=== PATIENT | male | born 1960 | race Caucasian/White ===

== ENCOUNTER 2018-08-03 01:24 | Inpatient (IN) | payer SELFPAY ==
[2018-08-03 01:57] LABS: Bilirubin Negative (Negative); Blood, Urine Trace (Negative); Clarity CLEAR (Clear); Glucose, Urine (Dipstick) >=1000 mg/dL (Negative); Leukocyte Negative (Negative); Nitrite Negative (Negative); Protein, Urine (Dipstick) Negative (Neg-Trace); Urobilinogen 0.2 mg/dL (0.2-1.0); pH, Urine 6.5 (5.0-9.0)
[2018-08-03] MEDS ORDERED: Labetalol HCl 100 MG/20 ML VIAL ONE ×2 (02:10→02:11)
[2018-08-03] MEDS ORDERED: Nitroglycerin 50 MG/250 ML BOT 250 ML ONE (02:10)
[2018-08-03 02:13] LABS: RBC/HPF 0-3 HPF (0-3); WBC/HPF 0-3 HPF (0-3)
[2018-08-03 02:14] LABS: Bacteria/HPF None Seen HPF (None Seen); Hyaline Casts/LPF NONE SEEN LPF (0-3 Hyaline); Squamous Epithelial None Seen HPF (0-3)
[2018-08-03 02:18] LABS: #Basophils 0.1 thou/uL (0.0-0.2); #Eosinphils 0.1 thou/uL (0.0-0.7); #Lymphocytes 1.5 thou/uL (1.20-3.40); #Monocytes 1.2 thou/uL (0.11-0.59); #Neutrophils 13.6 thou/uL (1.40-6.50); %Basophils 0.6 % (0.0-1.0); %Eosinophils 0.7 % (0.0-10.0); %Lymphocytes 8.9 % (21.0-51.0); %Monocytes 7.4 % (0.0-10.0); %Neutrophils 82.5 % (42.0-75.0); Hemoglobin 14.1 g/dL (14.0-18.0); Mean Corpuscular HGB CONC 34.3 g/dL (32.0-36.0); Mean Corpuscular Hemoglobin 30.2 pg (27.0-31.0); Mean Corpuscular Volume 88.1 fL (78.0-98.0); Mean Platelet Volume 10.1 fL (7.4-10.4); Platelet Count 381 thou/uL (130-400); RBC Distribution Width 11.3 % (11.5-14.5); Red Blood Cell (RBC) Count 4.66 mill/uL (4.70-6.10); White Blood Cell (WBC) Count 16.5 thou/uL (4.8-10.8)
[2018-08-03 02:30] LABS: Amphetamine Not Detected (NotDetected); Barbiturates Screen Not Detected (NotDetected); Benzodiazepine Screen Not Detected (NotDetected); Cocaine Metabolite Screen Not Detected (NotDetected); Medtox Control Line Valid? VALID (VALID); Medtox Reader # READER 4; Methadone Not Detected (NotDetected); Methamphetamine Not Detected (NotDetected); Opiate Screen Not Detected (NotDetected); Oxycodone Screen Not Detected (NotDetected); Phencyclidine (PCP) Not Detected (NotDetected); THC/Cannabinoid Screen Not Detected (NotDetected); Tricyclic Screen Not Detected (NotDetected)
[2018-08-03 02:32] LABS: CKMB 1.5 ng/mL (0-6.6); Troponin I Less than 0.010 ng/mL (< 0.028)
[2018-08-03 02:34] LABS: ALT (SGPT) 10 U/L (8-55); AST (SGOT) 10 U/L (5-34); Albumin 4.5 g/dL (3.5-5.0); Alkaline Phosphatase 119 U/L (40-150); Anion Gap 23 mmol/L (10-20); BUN (Urea Nitrogen) 40 mg/dL (8.4-25.7); Bilirubin, Total 0.8 mg/dL (0.2-1.2); Calc. Creatinine Clearance 0 mL/min (70-130); Calcium 10.1 mg/dL (7.8-10.44); Carbon Dioxide 21 mmol/L (22-29); Chloride 90 mmol/L (98-107); Estimated GFR-MDRD 29; Globulin 3.1 g/dL (2.4-3.5); Potassium 4.2 mmol/L (3.5-5.1); Protein, Total 7.6 g/dL (6.0-8.3); Sodium 130 mmol/L (136-145)
[2018-08-03 02:41] LABS: Base Excess-Venous 0.2 mmol/L (0 (+/- 2.5)); Bicarbonate (HCO3v) 23.3 mmol/L (1.0-85.0); CO2 Tension (PvCO2) 32.6 mmHg (41.0-51.0); Hemoglobin - Calc 15.3 g/dL (12.0-18.0); O2 Tension (PvO2) 68.1 mmHg (35.0-45.0); Potassium 3.7 mmol/L (3.4-4.7); T. Carbon Dioxide 24.3 mmol/L (1.0-85.0); pH (Venous) 7.461 (7.35-7.45); vO2 Saturation-calc 94.5 % (94-98)
[2018-08-03 02:41] LABS: Acetaminophen Less than 6.0 mcg/mL (10.0-30.0); Salicylate Less than 8.0 mg/dL (15.0-30.0)
[2018-08-03 02:49] LABS: Glucose 710 mg/dL (70-105)
[2018-08-03] MEDS ORDERED: Insulin Regular 300 UNITS/3 ML VIAL ONE (03:27)
[2018-08-03 04:05] LABS: Alcohol Less than 10 mg/dL (Less than 10)
[2018-08-03 05:10] VITALS: BMI 24.5
[2018-08-03] MEDS ORDERED: Dextrose 5% in Water 1,000 ML IV PRN ×2 (05:16→13:37)
[2018-08-03] MEDS ORDERED: Sodium Chloride 0.9% 1,000 ML IV PRN ×5 (05:16→05:38)
[2018-08-03] MEDS ORDERED: Dextrose 5 %-0.45 % NaCl 1,000 ML IV PRN (05:16)
[2018-08-03] MEDS ORDERED: D5 1/2 NS w/20 mEq KCL 1,000 ML IV PRN (05:16)
[2018-08-03] MEDS ORDERED: NS 0.9% w/ 20 MEQ KCL 1,000 ML/1,000 ML BAG IV PRN ×2 (05:16)
[2018-08-03] MEDS ORDERED: Potassium Phosphate 12 MMOL in Sodium Chloride 0.9% 250 ML 250 ML IV PRN ×2 (05:17→05:43)
[2018-08-03] MEDS ORDERED: Potassium Phosphate 9 MMOL in Sodium Chloride 0.9% 100 ML IVPB PRN ×2 (05:17→05:43)
[2018-08-03] MEDS ORDERED: Potassium Phosphate 15 MMOL in Sodium Chloride 0.9% 250 ML 250 ML IV PRN ×2 (05:17→05:43)
[2018-08-03] MEDS ORDERED: Potassium Chloride 20 MEQ TAB PO PRN ×2 (05:17→05:43)
[2018-08-03] MEDS ORDERED: CCU ELECTROLYTE REPLACEMENT PROTOCOL FS PRN ×2 (05:17→05:43)
[2018-08-03] MEDS ORDERED: Magnesium Oxide 400 MG TAB PO PRN ×4 (05:17→05:43)
[2018-08-03] MEDS ORDERED: Potassium Chloride 40 MEQ in Sodium Chloride 0.9% 250 ML 250 ML IVPB PRN ×2 (05:17→05:43)
[2018-08-03] MEDS ORDERED: Magnesium 2 GM/NS 0.9% 100 ML 2 GM in Premix Bag 1 BAG IVPB PRN ×2 (05:17→05:43)
[2018-08-03] MEDS ORDERED: Potassium Chloride 40 MEQ in Premix Bag 1 BAG IVPB PRN ×2 (05:17→05:43)
[2018-08-03] MEDS ORDERED: Dextrose 50% Abboject 50 ML SYRINGE SLOW IVP PRN (05:17)
[2018-08-03] MEDS ORDERED: Ondansetron ODT 4 MG TAB SL PRN (05:20)
[2018-08-03] MEDS ORDERED: Acetaminophen 325 MG TAB PO PRN ×2 (05:20→07:10)
[2018-08-03] MEDS ORDERED: Ondansetron HCl/PF 4 MG/2 ML Vial IVP PRN ×2 (05:20→07:10)
[2018-08-03] MEDS ORDERED: Morphine 4 MG/ML VIAL IV PRN (05:21)
[2018-08-03] MEDS ORDERED: CCU Insulin Drip FS ONE (05:30)
[2018-08-03] MEDS ORDERED: Nitroglycerin 50 MG/250 ML BOT 250 ML IVPB SCH (05:30)
[2018-08-03] MEDS ORDERED: CCU Electrolyte Replacement 1 EACH FS ONE (05:31)
[2018-08-03] MEDS ORDERED: Bisacodyl 5 MG TAB PO PRN (05:32)
[2018-08-03 06:41] LABS: Anion Gap 21 mmol/L (10-20); BUN (Urea Nitrogen) 39 mg/dL (8.4-25.7); Calc. Creatinine Clearance 37 mL/min (70-130); Calcium 9.3 mg/dL (7.8-10.44); Carbon Dioxide 18 mmol/L (22-29); Chloride 96 mmol/L (98-107); Estimated GFR-MDRD 30; Potassium 3.2 mmol/L (3.5-5.1); Sodium 132 mmol/L (136-145)
[2018-08-03 06:43] LABS: Glucose 707 mg/dL (70-105)
[2018-08-03] MEDS ORDERED: Mag-Al 1200 mg/1200 mg/30 ML UDCUP PO PRN (07:10)
[2018-08-03] MEDS ORDERED: Labetalol HCl 100 MG/20 ML VIAL SLOW IVP PRN (07:10)
[2018-08-03] MEDS ORDERED: Milk Of Magnesia 30 ML UDCUP PO PRN (07:10)
[2018-08-03] MEDS ORDERED: Diabetic Tussin 200 MG/10 ML UDCUP PO PRN (07:10)
[2018-08-03] MEDS ORDERED: Chloraseptic Spray 180 ml Bottle PO PRN (07:10)
[2018-08-03] MEDS ORDERED: Ondansetron ODT 4 MG TAB PO PRN (07:10)
[2018-08-03] MEDS ORDERED: Loratadine 10 MG TAB PO PRN (07:10)
[2018-08-03] MEDS ORDERED: Senokot 8.6 MG TAB PO PRN (07:10)
[2018-08-03] MEDS ORDERED: HYDROcodone/Acetaminophen 5/325 mg Tablet PO PRN (07:10)
[2018-08-03] MEDS ORDERED: Sodium Chloride 0.65% Nasal 44 ML BOT EA NARE PRN (07:10)
[2018-08-03] MEDS ORDERED: Artificial Tears 18 DROP/0.9 ML EA EYE PRN (07:10)
[2018-08-03] MEDS ORDERED: Loperamide HCl 2 MG CAP PO PRN (07:10)
[2018-08-03] MEDS ORDERED: Zolpidem Tartrate 5 MG TAB PO PRN (07:10)
[2018-08-03] MEDS ORDERED: Eucerin (Mineral Oil/Petrolatum,White) 30 gm Jar TOP PRN (07:10)
[2018-08-03] MEDS ORDERED: hydrALAZINE 20 MG/ML VIAL SLOW IVP PRN (07:10)
[2018-08-03 08:17] LABS: Magnesium 2.2 mg/dL (1.6-2.6); Phosphorus 2.6 mg/dL (2.3-4.7)
--- NOTE | 2018-08-03 08:38 | CT ---
PRELIMINARY REPORT/[facility]/EMERGENCY AFTER HOURS PROCEDURE: EXAM: CT Angiography Chest With Intravenous Contrast CLINICAL HISTORY: 57 years old, male; Chest pressure; Left lower quadrant (llq) abd pain onset 2-3 days ago. Constipati on. Pt not sleeping well due to having to urinate frequently during the night. 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 TECHNIQUE: Axial computed tomographic angiography images of the chest with intravenous contrast using pulmonary embolism protocol. MIP reconstructed images were created and reviewed. COMPARISON: No relevant prior studies available. FINDINGS: Pulmonary arteries: No evidence of pulmonary embolism. Aorta: Normal caliber thoracic aorta without dissection or aneurysm. Lungs: No alveolar infiltrate. Medial right middle lobe linear parenchymal scarring or subsegmental c ollapse / atelectasis. No mass. Pleural space: No pleural fluid collection. No pneumothorax. Heart: No pericardial effusion. No evidence of RV dysfunction. Bones/joints: No acute fracture. No dislocation. Soft tissues: Unremarkable. Lymph nodes: No pathologically enlarged lymph nodes. IMPRESSION: 1. Normal caliber thoracic aorta without dissection or aneurysm. 2. No evidence of pulmonary embolism. 3. No alveolar infiltrate. EXAM: CT Angiography Abdomen and Pelvis With Intravenous Contrast CLINICAL HISTORY: 57 years old, male; Chest pressure; Left lower quadrant (llq) abd pain onset 2-3 days ago. Constipati on. Pt not sleeping well due to having to urinate frequently during the night. 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 TECHNIQUE: Axial computed tomographic angiography images of the abdomen and pelvis with intravenous contrast. LA P reconstructed images were created and reviewed. COMPARISON: No relevant prior studies available. FINDINGS: VASCULATURE: Aorta: No acute findings. No abdominal aortic aneurysm. No dissection. Celiac trunk and mesenteric arteries: No acute findings. No occlusion or significant stenosis. Renal arteries: No acute findings. No occlusion or significant stenosis. Iliac arteries: No acute findings. No occlusion or significant stenosis. Lung bases: Unremarkable. No mass. No consolidation. ABDOMEN: Liver: Small focal areas of enhancement within the superior right lobe of the liver and adjacent to t he anterior falciform ligament which may reflect small hemangiomas. Liver fatty infiltration. Gallbladder and bile ducts: Unremarkable. No calcified stones. No ductal dilation. Pancreas: Unremarkable. No ductal dilation. No mass. Spleen: Unremarkable. No splenomegaly. Adrenals: Unremarkable. No mass. Kidneys and ureters: Bilateral distended renal collecting systems to the level of each UVJ / the dist ended urinary bladder. Anteromedial left perinephric stranding which may reflect a left pyelonephriti s. No hydronephrosis. Stomach and bowel: Scattered colon diverticuli without evidence of diverticulitis. No obstruction. PELVIS: Appendix: No findings to suggest acute appendicitis. Bladder: Severely distended urinary bladder extending cephalad to the L3-4 disc space level. A few sm all diverticula extending from the superior bladder. Reproductive: Enlarged prostate gland measuring 5.7 cm transversely. ABDOMEN and PELVIS: Intraperitoneal space: Unremarkable. No significant fluid collection. No free air. Bones/joints: See above. Soft tissues: Small fat-containing umbilical hernia. Small fat-containing inguinal hernias. Lymph nodes: Unremarkable. No enlarged lymph nodes. IMPRESSION: 1. Enlarged prostate gland measuring 5.7 cm transversely. 2. Severely distended urinary bladder extending cephalad to the L3-4 disc space level. 3. Bilateral distended renal collecting systems to the level of each UVJ / the distended urinary blad vibha. 4. Anteromedial left perinephric stranding which may reflect a left pyelonephritis. 5. Scattered colon diverticuli without evidence of diverticulitis. 6. The abdominal aorta is normal in caliber without aneurysm or dissection. Thank you for allowing us to participate in the care of your patient. Dictated and Authenticated by: Gt Aleman MD 08/03/2018 3:35 AM Central Time ([place] & [place]) FINAL REPORT CT ANGIOGRAM OF THE CHEST AND ABDOMEN AND PELVIS: Date: 08/03/18 HISTORY: Chest pressure, abdominal pain. FINDINGS: This report is in agreement with the preliminary report given by [facility]. Study is performed with gómez l and sagittal 3D reformatted imaging. CT angiogram of the chest demonstrates no evidence for lymphadenopathy. No pleural, pericardial, or m ediastinal fluid. The thoracic aorta demonstrates no evidence for aneurysm or dissection. Evaluation of the lung parenchyma is slightly limited by motion artifact and appears grossly unremark able. The osseous structures of the chest demonstrate no acute findings. CT angiogram of abdomen and pelvis demonstrates no evidence for free intraperitoneal air. There is a hypervascular focus in the anterior aspect of the left lobe of the liver, likely vascular in nature. A similar hypervascular focus is noted in the right lobe of the liver on image 85. These h ypervascular foci measure 8-9 mm each. The gallbladder, spleen, pancreas, and adrenal glands are unre markable. There is bilateral hydronephrosis and hydroureter. The urinary bladder is distended. There is nonspec ific superior urinary bladder wall thickening at the level of the urinary bladder dome. The distended urinary bladder measures at least 11.5 cm in AP dimension, 11.3 cm in transverse dimension, and at l east 17.0 cm in craniocaudal dimension. The prostate gland is irregular, heterogeneous, and enlarged. There is stranding of the fat adjacent to the dilated left ureter and adjacent to the left renal col lecting system. There is no evidence for aneurysm or dissection of the abdominal aorta. There are two patent right re nal arteries and there is a patent left renal artery. The superior mesenteric artery, celiac axis, an d inferior mesenteric artery are patent. No lymphadenopathy is noted within the abdomen or pelvis. Review of osseous structures of the abdomen and pelvis demonstrate no acute findings. Scattered degen erative changes are noted within the upper thoracic spine/thoracolumbar junction. IMPRESSION: 1. No evidence for aneurysm or dissection of the thoracic or abdominal aorta. 2. Markedly distended urinary bladder with associated bilateral hydronephrosis/hydroureter. Strandin g in the left perinephric region and adjacent to the left ureter is likely secondary to this obstruct ion. Left-sided pyelonephritis cannot be excluded. POS: [facility]
[2018-08-03] MEDS ORDERED: Pantoprazole 40 MG VIAL IVP SCH (09:00)
[2018-08-03] MEDS: cefTRIAXone\\ROCEPHIN 1 GM in Sodium Chloride 0.9% 100 ML IVPB SCH (09:12)
--- NOTE | 2018-08-03 09:32 | RAD ---
UPRIGHT PORTABLE FRONTAL CHEST RADIOGRAPH: DATE: 08/03/18. COMPARISON: 01/10/05. HISTORY: Abdominal pain. FINDINGS: No focal consolidation or alveolar edema. Heart and mediastinal contours appear grossly unremarkable . IMPRESSION: No acute findings. POS: [facility]
[2018-08-03] MEDS ORDERED: ISOVUE-370 76%-LOCM 1 ML ONE (11:09)
--- NOTE | 2018-08-03 11:30 | HP ---
PRIMARY CARE PHYSICIAN: City call admission. REASON FOR ADMISSION: Acute urinary retention, acute postobstructive kidney failure, hyperosmolar hy perglycemic state, hypertensive crisis. HISTORY OF PRESENT ILLNESS: A 57-year-old male who has underlying history of hypertension, but he re ported to me that he was not taking any blood pressure medications. Patient reports that he was not diagnosed with diabetes in the past. Patient presented to emergency room with abdominal pain. Predo minantly, he was having lower abdominal pain, more on the left side. For last several weeks, the pat ient noticed that he was having difficulty sleeping because of increased frequency of urination. He was feeling thirsty all the time. He lost some weight as well. He also has some constipation. He d enies any fever or chills. He denies any hematuria or dysuria. Patient presented to emergency room and he had a CT abdomen which showed bladder retention. He requi red Fang catheter and several liters urine drained. After that, patient was feeling much better. C T dissection protocol was negative for any dissection, but it showed significantly enlarged prostate gland. There was also suspicious finding of left pyelonephritis. The patient had routine blood test , which showed hyperglycemia, leukocytosis. His serum ketones were only lightly elevated. The patie nt was given IV fluid. He was started on nitroglycerin drip in the emergency room, he was given labe talol 20 mg IV push, insulin drip was initiated, but it was started after admission to CCU. When I saw this patient at 7:00 a.m., patient was comfortable. He was irritated with the Fang alondra ter which was draining clear urine. His blood sugar was well controlled with insulin drip. His bloo d pressure was also significantly improved and nitroglycerin drip was turned off. REVIEW OF SYSTEMS: The following complete review of systems was negative, unless otherwise mentioned in the HPI or below: Constitutional: Weight loss or gain, ability to conduct usual activities. Skin: Rash, itching. Eyes: Double vision, pain. ENT/Mouth: Nose bleeding, neck stiffness, pain, tenderness. Cardiovascular: Palpitations, dyspnea on exertion, orthopnea. Respiratory: Shortness of breath, wheezing, cough, hemoptysis, fever or night sweats. Gastrointestinal: Poor appetite, abdominal pain, heartburn, nausea, vomiting, constipation, or diarr hea. Genitourinary: Urgency, frequency, dysuria, nocturia. Musculoskeletal: Pain, swelling. Neurologic/Psychiatric: Anxiety, depression. Allergy/Immunologic: Skin rash, bleeding tendency. Please see my HPI for pertinent positive and negative. All other review of systems reviewed and nega tive except as mentioned in the HPI. ALLERGIES: No known drug allergy. CURRENT HOME MEDICATION: The patient was not taking any medication at home. PAST MEDICAL HISTORY: Hypertension. PAST SURGICAL HISTORY: Appendicectomy. PAST PSYCHIATRIC HISTORY: Anxiety and depression. SOCIAL HISTORY: Patient lives with his mother. He is on disability. He chews tobacco. He drinks a lcohol socially and rarely. He denies any other illicit drug abuse. FAMILY HISTORY: The patient denies any strong family history of premature coronary artery disease, s troke or cancer. EMERGENCY ROOM COURSE: Patient was given 2 liter fluid, labetalol 20 mg IV push. Nitroglycerin drip was started, morphine 4 mg was given and Novolin R insulin drip was started. PHYSICAL EXAMINATION: VITAL SIGNS: On arrival, blood pressure 215/143, pulse 102, respiratory rate 22, temperature 98.2, s aturation 97% on room air, weight 68.4 kilograms. GENERAL: Patient is currently alert, awake, no obvious acute distress. HEAD: Normocephalic, atraumatic. EYES: Pupils round, reactive to light. Extraocular muscle intact. Dry mucous membrane, no oral les ion, no pharyngeal erythema, no exudate. NECK: Supple, no JVD, no thyromegaly, no carotid bruit, no jugular venous distention. LUNGS: Clear to auscultation without any rhonchi or rales. CARDIAC: S1 and S2 regular. No murmur, no gallop, no rub. ABDOMEN: Patient has vague lower abdominal discomfort predominantly in left side. Suprapubic discom fort noted. No peritoneal sign. No suprapubic tenderness noted. BACK: CVA tenderness. EXTREMITIES: Upper extremity passive movements of all joints are normal. Lower extremities: No humza ma. Good distal pulsation. SKIN: No skin rash. HEMATOLOGICAL SYSTEM: No lymphadenopathy. PSYCHIATRIC: Normal affect. IMAGING DATA AND SIGNIFICANT LABORATORY DATA: EKG showing normal sinus rhythm, left atrial enlargeme nt. Chest x-ray based on my review, no acute cardiopulmonary process. CT chest and abdomen dissecti on protocol showing normal caliber in thoracic aorta without dissection, no pulmonary embolism, no in filtration. CT dissection protocol abdomen showed enlarged prostate, severely distended urinary blad vibha, left-sided pyelonephritis and diverticulosis. CBC: WBC 16.5, hemoglobin 14.1, platelets 381. VBG: pH 7.46, bicarbonate 23.3, CO2 32.6, saturation 94.5. BMP: Sodium 131, potassium 3.2, BUN 39, creatinine 2.29, anion gap 21, carbon dioxide 18, glucose 707, CK-MB 1.5, troponin I less than 0.010 , lactic acid 1.5, phosphorus 2.6, magnesium 2.2. TSH 1.61, AST 10, ALT 10, alkaline phosphatase was 119, albumin 4.5. Urinalysis: Glucosuria mild ketonuria. Urine osmolality 377. Urine protein 18. Urine sodium 22. Urine creatinine less than 20, urine drug screen negative, ketones 2.53. Serum d rug screen negative. ASSESSMENT AND PLAN/IMPRESSION: 1. Acute postobstructive kidney failure. Patient's creatinine is elevated, most likely in the kristina xt of acute urinary retention secondary to benign enlargement of prostate. Underlying prerenal etiol ogy cannot be entirely excluded given polyuria and polydipsia. We will monitor renal function and av oid nephrotoxin agent. 2. Acute lower abdominal pain, most likely related with urinary retention. Underlying pyelonephriti s and urinary tract infection is also a possibility. At this point, abdominal pain improved after ca theterization and we will start antibiotic therapy for possible pyelonephritis. 3. Acute left-sided pyelonephritis based on CT finding. Patient has perinephric stranding. We will empirically cover with Rocephin 1 gram q.24 hours. We will send urine culture. Patient has leukocy tosis. We will monitor blood test while in hospital and follow up on culture result. 4. Hyperosmolar hyperglycemic state. We checked hemoglobin A1c which is very high. At this point, patient is on insulin drip. We will try to correct blood sugar slowly. Eventually, this patient raisa l need insulin therapy upon discharge. Dietary consult will be placed. Diabetic diet education will be given. Diabetic diet will be given. 5. Acute urinary retention secondary to benign enlargement of prostate. Fang catheter will be left upon discharge. Urology will be consulted. Rocephin empirically started for urinary tract infectio n. We will start Flomax 0.4 mg p.o. b.i.d. 6. High anion gap metabolic acidosis likely due to renal failure. We will monitor renal function wh ile in hospital. 7. Hypokalemia. We will replace potassium chloride 20 mEq p.o. one time dose. 8. Hypertensive crisis that was related with his abdominal discomfort. Currently, patient is off ni troglycerin drip and his blood pressure is well controlled. We will closely monitor blood pressure w nikky in hospital and consider giving him a p.r.n. medication and start antihypertensive medication. 9. Abnormal blood electrolytes, hyponatremia related with pseudohyponatremia from hyperglycemia and hypokalemia will be replaced. Other electrolytes are normal. 10. Anxiety and depression. We will start Zoloft 25 mg p.o. daily 11. Tobacco abuse. Patient is chewing tobacco and that is why we provided patient education about a voidance of tobacco chewing product. 12. Deep venous thrombosis prophylaxis, heparin 5000 units subcu twice daily. 13. Gastrointestinal prophylaxis, Protonix 40 mg IV daily. 14. Code status: The patient is FULL CODE. Patient does not have any surrogate decision maker. Disposition plan based on clinical course. We are expecting patient's stay in hospital more than 2 m idnights. Plan of care discussed with the patient in detail.
[2018-08-03] MEDS ORDERED: Lactated Ringer's 1,000 ML IV SCH (13:45)
[2018-08-03] MEDS ORDERED: Insulin Glargine 20 UNITS in Pre-Filled Syringe 1 EACH SC SCH ×2 (13:45→14:00)
--- NOTE | 2018-08-03 13:48 | CON ---
DATE OF CONSULTATION: 08/03/2018 SERVICE: Pulmonary Medicine. REASON FOR CONSULTATION: ICU patient. HISTORY OF PRESENT ILLNESS: The patient is a 57-year-old white male with past medical history significant for weight loss of 25 pounds over the past year, hypertension, and hyperosmolar state. He also had abdominal discomfort with urinary retention. Ultimately, he was admitted to the ICU. A Fang catheter was placed with significant amount of urine that was liberated from his bladder. His abdominal distention and discomfort improved. He was placed on an insulin drip overnight. He was resuscitated with some IV fluids. Currently , he is awake and alert. He is in no apparent distress. Denies any current fevers, chills, shortness of breath, nausea or vomiting. He has not had any fevers. He does not have any dysuria, but was having some frequency. He had hyperphagia and polydipsia. Despite that, he was with losing some weight over the past several months. Overnight, his blood sugars became under adequate control. He is being transitioned to the [facility] at this time. He has not been on any medications for his type 2 diabetes mellitus which is well established. PAST MEDICAL HISTORY: 1. Hypertension. 2. Type 2 diabetes mellitus. PAST SURGICAL HISTORY: Appendectomy. SOCIAL HISTORY: He currently lives with his mother and is on disability. He does not smoke any tobacco. He drinks occasionally. He denies any street drugs. There is no exposure to chemicals, dust asbestos or tuberculosis. FAMILY HISTORY: Noncontributory. ALLERGIES: No known drug allergies. MEDICATIONS: List of his inpatient medications was reviewed. Multiple updates were made. REVIEW OF SYSTEMS: General, eyes, nose, throat, cardiovascular, respiratory, GI , musculoskeletal, neurologic and skin is negative except as mentioned in the HPI. PHYSICAL EXAMINATION: VITAL SIGNS: Afebrile, pulse 79, blood pressure 142/92, respirations 18, saturation 97% on room air. GENERAL: The patient awake, alert, no apparent distress. LUNGS: Excellent air entry. There is no prolonged expiratory phase or wheezing present. HEART: Normal rate, regular. ABDOMEN: Soft, nontender, nondistended. Bowel sounds are positive. MUSCULOSKELETAL: No cyanosis or clubbing. There is no pitting in the bilateral lower extremities. NEUROLOGIC: Grossly nonfocal. GENITOURINARY: Fang catheter in place. LABORATORY DATA: WBC 16.5, hemoglobin 14.1, platelets 381,000. PH 7.4, pCO2 32 , pO2 68. There is venous gas. Blood sugar ranges from 700 down to 174. Magnesium and phosphorus fall within normal limits. TSH is normal. Creatinine is down trending to 2.29, BUN 30, anion gap 21, bicarbonate 18, chloride 96, potassium 3.2 and ionized calcium 1.1. Troponin is negative x1. Liver function studies and lactate are unremarkable. Urinalysis is unremarkable. Urine drug screen is negative. Beta hydroxybutyric acid is slightly positive at 2.5. Alcohol, acetaminophen, and salicylates are negative. IMAGING DATA: 1. Chest x-ray demonstrates no acute cardiopulmonary abnormality. 2. CT of the chest demonstrates no acute cardiopulmonary abnormality. CT of the abdomen demonstrates a distended bladder. There is an enlarged prostate. Bilateral distended renal collecting systems are present. ASSESSMENT: 1. Type 2 diabetes mellitus. 2. Hyperosmolar nonketotic state. 3. Acute kidney injury secondary to urine retention. 4. Hypertension. DISCUSSION AND PLAN: The patient remains volume down. We will give him a liter of fluid. We will continue his aggressive IV fluids. Urology consultation is currently pending. I will replace his potassium. His magnesium and phosphorus fall within the normal levels. We will downgrade him to the IMCU. Once we have a feel for how much insulin he requires, he will be converted over to subcutaneous insulin. Because of his acute kidney injury, no metformin will be added at this time. 70 minutes have been devoted to this patient in various activities. I personally reviewed all imaging studies and laboratory data noted within this document. For fifty percent of this time, I was interacting with the patient at the bedside or coordinating care with the care team. For the remainder of the time I was immediately available to the patient in the hospital unit. ZOHRA
[2018-08-03] MEDS: Heparin 5,000 UNITS/ML VIAL SC SCH ×2 (14:05→20:14)
[2018-08-03] MEDS: Potassium Chloride 20 MEQ TAB PO SCH ×2 (14:54→17:31)
[2018-08-03] MEDS: Lactated Ringer's 1,000 ML IV SCH (16:08)
[2018-08-03] MEDS: HumaLOG 300 UNITS/3 ML VIAL SC SCH (17:31)
[2018-08-03] MEDS: Tamsulosin HCl 0.4 MG CAP PO SCH (20:14)
[2018-08-03] MEDS: HumaLOG 300 UNITS/3 ML VIAL SC PRN (20:14)
--- NOTE | 2018-08-03 23:55 | CON ---
DATE OF CONSULTATION: 08/03/2018 REQUESTING PHYSICIAN: Hospitalist Service. REASON FOR CONSULTATION: Urinary retention. HISTORY OF PRESENT ILLNESS: Mr. Abreu is a 57-year-old male with no past urologic history who pre sented to the emergency room with severe abdominal pain. The patient also reports that over the past several weeks to months he has had progressive frequency of urination, nocturia up to every hour, ur gency and urge incontinence. The patient also reports he has had excessive thirst. He has had some unexpected weight loss which he attributed to a poor diet. A CT scan in the emergency department dem onstrated a distended bladder. Fang catheter was placed and he had over 2 liters of urine in his bl adder and then had a postobstructive diuresis with a very large urine output as well. The patient wa s found to have very high blood glucose as well. He was started on an insulin drip and was admitted to the MICU. Urology was consulted for further evaluation. Upon evaluation, the patient states that his abdominal pain has resolved. Upon further questioning, he states that over the past year he has had progressive obstructive lower urinary tract symptoms. T he patient denies any gross hematuria. No family history of genitourinary malignancy to his knowledg e. The patient took an antihypertensive at home other than that was not on any medications. He has no other complaints. REVIEW OF SYSTEMS: A full 12-point review of systems was performed and is negative other than that m entioned in the HPI. ALLERGIES: No known drug allergies. HOME MEDICATIONS: Previously on antihypertensive, but has not been on one recently. PAST MEDICAL HISTORY: 1. Hypertension. 2. Appendectomy. 3. Anxiety. 4. Depression. SOCIAL HISTORY: He currently lives with his mother. He reports being disabled. He is not currently working. He drinks alcohol rarely. No smoking history to his knowledge. FAMILY HISTORY: Noncontributory. PHYSICAL EXAMINATION: VITAL SIGNS: Temperature 98.2 degrees Fahrenheit, pulse 79, respirations 18, oxygen saturation 97% o n room air, and blood pressure 142/92. GENERAL: Alert and oriented x3, in no apparent distress. HEENT: Normocephalic, atraumatic. NECK: Supple, no masses or lymphadenopathy. CARDIOVASCULAR: Regular rate and rhythm. PULMONARY: Breathing unlabored. ABDOMEN: Soft, nontender/nondistended, no masses or organomegaly, no suprapubic tenderness to palpat ion, no CVA tenderness. GENITOURINARY: Normal circumcised penis without concerning lesion. Scrotum and testes palpably norm al, although the patient is extremely intolerant to exam and noncooperative with exam. Fang cathete r is in place, draining clear yellow urine. Rectal exam: The patient intolerant to exam, he refused exam at this time. EXTREMITIES: Warm and well perfused, no edema. NEUROLOGIC: No focal deficits. LABORATORY DATA: White blood cell count 16.5, hemoglobin 14.1, hematocrit 41.1, platelets 381. Chem istries: Sodium 132, potassium 3.2, chloride 96, bicarbonate 18, BUN 39, creatinine 2.29. Blood glu cose at admission was 707. RADIOLOGY DATA: CT scan aortic dissection protocol demonstrated enlarged prostate with 5.7 cm transv erse diameter and severely distended urinary bladder to the L3-L4 disk space and bilateral distended renal collecting system. ASSESSMENT: A 57-year-old male with poorly controlled type 2 diabetes mellitus and urinary retention with acute kidney injury likely secondary to bladder outlet obstruction. PLAN: I discussed the natural history and clinical implications of urinary retention with the patien t in detail. The patient had an extremely distended bladder at the time of his admission. He has be en started on tamsulosin, which is appropriate. Continue with b.i.d. dosing of tamsulosin. Fang ca theter in place at this time. I explained that given the massive distention of his bladder. He woul d need to have his Fang in for several days prior to attempting a voiding trial. The patient was in tolerant to an exam of the prostate today. I explained this needs to be performed as an outpatient. He understands this. Continue tamsulosin as an outpatient as well. We will leave Fang catheter in for a minimum of 5 days. Thank you for allowing me to participate in the care of this patient.
[2018-08-04] MEDS: Lactated Ringer's 1,000 ML IV SCH ×2 (00:02→06:35)
[2018-08-04 04:57] LABS: #Eosinphils 0.2 thou/uL (0.0-0.7); #Lymphocytes 2.7 thou/uL (1.20-3.40); #Monocytes 0.8 thou/uL (0.11-0.59); #Neutrophils 6.9 thou/uL (1.40-6.50); %Basophils 0.3 % (0.0-1.0); %Eosinophils 2.1 % (0.0-10.0); %Lymphocytes 25.1 % (21.0-51.0); %Monocytes 7.7 % (0.0-10.0); %Neutrophils 64.8 % (42.0-75.0); Mean Corpuscular HGB CONC 33.8 g/dL (32.0-36.0); Mean Corpuscular Hemoglobin 30.1 pg (27.0-31.0); Mean Corpuscular Volume 89.3 fL (78.0-98.0); Mean Platelet Volume 10.2 fL (7.4-10.4); Platelet Count 303 thou/uL (130-400); RBC Distribution Width 11.2 % (11.5-14.5); Red Blood Cell (RBC) Count 3.97 mill/uL (4.70-6.10); White Blood Cell (WBC) Count 10.7 thou/uL (4.8-10.8)
[2018-08-04 05:04] LABS: ALT (SGPT) 10 U/L (8-55); AST (SGOT) 11 U/L (5-34); Albumin 3.4 g/dL (3.5-5.0); Alkaline Phosphatase 80 U/L (40-150); Anion Gap 13 mmol/L (10-20); BUN (Urea Nitrogen) 18 mg/dL (8.4-25.7); Bilirubin, Total 0.4 mg/dL (0.2-1.2); Calc. Creatinine Clearance 60 mL/min (70-130); Calcium 8.6 mg/dL (7.8-10.44); Carbon Dioxide 27 mmol/L (22-29); Chloride 104 mmol/L (98-107); Estimated GFR-MDRD 51; Globulin 2.8 g/dL (2.4-3.5); Glucose 213 mg/dL (70-105); Potassium 3.3 mmol/L (3.5-5.1); Protein, Total 6.2 g/dL (6.0-8.3); Sodium 141 mmol/L (136-145)
[2018-08-04] MEDS: HumaLOG 300 UNITS/3 ML VIAL SC PRN ×2 (06:35→17:10)
[2018-08-04] MEDS: HumaLOG 300 UNITS/3 ML VIAL SC SCH ×3 (06:35→17:10)
[2018-08-04] MEDS: Insulin Glargine 20 UNITS in Pre-Filled Syringe 1 EACH SC SCH (08:37)
[2018-08-04] MEDS: Heparin 5,000 UNITS/ML VIAL SC SCH ×2 (08:37→20:29)
[2018-08-04] MEDS: cefTRIAXone\\ROCEPHIN 1 GM in Sodium Chloride 0.9% 100 ML IVPB SCH (08:38)
[2018-08-04] MEDS: Tamsulosin HCl 0.4 MG CAP PO SCH ×2 (08:38→20:29)
[2018-08-04] MEDS ORDERED: metFORMIN 500 MG TAB PO SCH (08:45)
[2018-08-04] MEDS ORDERED: Potassium Chloride 20 MEQ TAB PO SCH (08:45)
[2018-08-04] MEDS: 1/2 NS w/KCL 20 mEq 1,000 ML IV SCH ×2 (10:05→20:28)
--- NOTE | 2018-08-04 11:29 | PRG ---
DATE OF SERVICE: 08/04/2018 SERVICE: Pulmonary Medicine. INTERVAL HISTORY: The patient is doing fine from a respiratory standpoint. He denies any shortness of breath or chest discomfort. He is eating comfortably. Otherwise, there has been no interval sanchez ge to his condition. He has no specific complaints, otherwise. PHYSICAL EXAMINATION: VITAL SIGNS: Afebrile, pulse 91, blood pressure 155/92, respirations 15, saturation 96% on room air. GENERAL: The patient is awake, alert, in no apparent distress. LUNGS: Decent air entry. There is no prolonged expiratory phase or wheezing present. HEART: Normal rate and regular. ABDOMEN: Soft, nontender, nondistended. Bowel sounds are positive. MUSCULOSKELETAL: No cyanosis or clubbing. There is no pitting in the bilateral lower extremities. Tenting is improved. NEUROLOGIC: Grossly nonfocal. LABORATORY DATA: WBC 10.7, hemoglobin 12.0, platelets 303,000. Creatinine is downtrending to 1.42. Basic metabolic profile and liver function studies are, otherwise, unremarkable. Potassium is 3.3. Beta-hydroxybutyric acid has improved. Urine culture remains negative to date. ASSESSMENT: 1. Type 2 diabetes mellitus. 2. Hyperosmolar nonketotic state. 3. Acute kidney injury, secondary to urine retention, improving. 4. Benign prostate hyperplasia, suspected. 5. Hypertension. DISCUSSION AND PLAN: We will change his fluids over to half normal saline and drop the rate ever so slightly. I am encouraging p.o. Because his kidney injury is getting much better, we will put him o n a low dose of metformin twice daily. Potassium will be replaced today once again with 80 mEq over the next 24 hours. At this point, he is stable for transition to the medical unit. When he leaves [facility], he will have no further requirements for inpatient Pulmonary or Critical Care opinion, and w e will sign off. Please call with additional questions or concerns.
--- NOTE | 2018-08-04 11:55 | PDOC.PN ---
- Subjective Encounter Start Date: 08/04/18 Encounter Start Time: 10:00 -: old records requested/rev Patient seen and examined. No new complaints. No overnight events - Objective Resuscitation Status: Resuscitation Status FULL:Full Resuscitation MAR Reviewed: Yes Vital Signs & Weight: Vital Signs (12 hours) Temp Pulse Resp BP Pulse Ox 08/04/18 10:50 98.9 F 15 155/92 H 96 08/04/18 08:00 95 08/04/18 07:29 97.4 F L 116 H 17 153/93 H 95 08/04/18 03:47 98.6 F 91 18 162/102 H 98 Weight Admit Weight 161 lb 9.581 oz Weight 161 lb 9.581 oz Most Recent Monitor Data Heart Rate from ECG 72 NIBP 122/82 NIBP BP-Mean 95 Respiration from ECG 0 SpO2 95 I&O: 08/03/18 08/04/18 08/05/18 06:59 06:59 06:59 Intake Total 5920.6 360 Output Total 2450 5420 Balance -2450 500.6 360 Result Diagrams: 08/04/18 03:36 08/04/18 03:36 Additional Labs: Accuchecks 08/04/18 08/04/18 08/03/18 10:34 05:42 20:09 POC Glucose 295 H 206 H 207 H 08/03/18 08/03/18 08/03/18 16:46 16:08 15:05 POC Glucose 168 H 193 H 201 H 08/03/18 08/03/18 08/03/18 14:17 13:15 12:23 POC Glucose 242 H 174 H 194 H 08/03/18 01:30 POC Glucose Greater than 550 H* EKG Reviewed by me: Yes (nsr) Phys Exam - Physical Examination Constitutional: NAD HEENT: PERRLA, moist MMs, sclera anicteric Neck: no JVD, supple Respiratory: no wheezing, no rales, no rhonchi Cardiovascular: RRR, no significant murmur, no rub Gastrointestinal: soft, non-tender, no distention, positive bowel sounds milner+ Musculoskeletal: no edema, pulses present Neurological: non-focal, normal sensation, moves all 4 limbs Psychiatric: normal affect, A&O x 3 Skin: no rash, normal turgor Dx/Plan (1) Abnormal blood electrolyte level Code(s): E87.8 - OTH DISORDERS OF ELECTROLYTE AND FLUID BALANCE, NEC Status: Acute (2) Acute kidney failure Status: Acute (3) Acute urinary retention Code(s): R33.8 - OTHER RETENTION OF URINE Status: Acute (4) High anion gap metabolic acidosis Code(s): E87.2 - ACIDOSIS Status: Acute (5) Hypertensive crisis Code(s): I16.9 - HYPERTENSIVE CRISIS, UNSPECIFIED Status: Acute (6) Type 2 diabetes mellitus with hyperosmolar nonketotic hyperglycemia Code(s): E11.01 - TYPE 2 DIABETES MELLITUS WITH HYPEROSMOLARITY WITH COMA Status: Acute (7) Urinary outflow obstruction Code(s): N13.9 - OBSTRUCTIVE AND REFLUX UROPATHY, UNSPECIFIED Status: Acute (8) Anxiety and depression Code(s): F41.9 - ANXIETY DISORDER, UNSPECIFIED; F32.9 - MAJOR DEPRESSIVE DISORDER, SINGLE EPISODE, UNSPECIFIED Status: Chronic (9) Tobacco abuse Code(s): Z72.0 - TOBACCO USE Status: Chronic - Plan cont current plan of care, continue antibiotics * renal function improving * replaced potassium * continue gentle IVF * continue levemir and humalog * will adjust insulin dose * consult dietitian for diabetes diet education * transfer to medical * continue rocephin * will need to leave milner catheter on discharge * medication reviewed as below * symptomatic treatment. Review of Systems - Review of Systems Eyes: negative: Pain, Vision Change, Conjunctivae Inflammation, Eyelid Inflammation, Redness, Other ENT: negative: Ear Pain, Ear Discharge, Nose Pain, Nose Discharge, Nose Congestion, Mouth Pain, Mouth Swelling, Throat Pain, Throat Swelling, Other Respiratory: negative: Cough, Dry, Shortness of Breath, Hemoptysis, SOB with Excertion, Pleuritic Pain, Sputum, Wheezing Cardiovascular: negative: chest pain, palpitations, orthopnea, paroxysmal nocturnal dyspnea, edema, light headedness, other Gastrointestinal: negative: Nausea, Vomiting, Abdominal Pain, Diarrhea, Constipation, Melena, Hematochezia, Other Genitourinary: negative: Dysuria, Frequency, Incontinence, Hematuria, Retention , Other Musculoskeletal: negative: Neck Pain, Shoulder Pain, Arm Pain, Back Pain, Hand Pain, Leg Pain, Foot Pain, Other Skin: negative: Rash, Lesions, Darrell, Bruising, Other - Medications/Allergies Allergies/Adverse Reactions: Allergies Allergy/AdvReac Type Severity Reaction Status Date / Time No Known Allergies Allergy Unverified 08/03/18 05:06 Medications: Current Medications Acetaminophen (Tylenol) 650 mg PO Q4H PRN PRN Reason: Headache/Fever or Pain Last Admin: 08/03/18 14:57 Dose: 650 mg Al Hydroxide/Mg Hydroxide (Maalox) 30 ml PO Q6H PRN PRN Reason: Heartburn or Indigestion Artificial Tears (Tears Naturale) 0 drop EA EYE PRN PRN PRN Reason: Dry Eyes Bisacodyl (Dulcolax) 10 mg PO DAILYPRN PRN PRN Reason: Constipation Dextrose/Water (Dextrose 50%) 25 gm SLOW IVP PRN PRN PRN Reason: HYPOGLYCEMIA PROTOCOL Glucagon (Glucagon) 1 mg IM PRN PRN PRN Reason: HYPOGLYCEMIA PROTOCOL Heparin Sodium (Porcine) (Heparin) 5,000 units SC BID [facility] Last Admin: 08/04/18 08:37 Dose: 5,000 units Hydralazine HCl (Apresoline) 10 mg SLOW IVP Q4H PRN PRN Reason: Systolic BP > 180 Ceftriaxone Sodium 1 gm/ (Sodium Chloride) 100 mls @ 200 mls/hr IVPB 0900 [facility] Last Admin: 08/04/18 08:38 Dose: 100 mls Insulin Glargine 20 units/ (Miscellaneous Medication) 0.2 mls @ 0 mls/hr SC QAM [facility] Last Admin: 08/04/18 08:37 Dose: 0.2 mls Dextrose/Water (D5w) 1,000 mls @ 0 mls/hr IV .Q0M PRN PRN Reason: Hypoglycemia Potassium Chloride/Sodium Chloride (1/2 Ns W/Kcl 20 Meq) 1,000 mls @ 100 mls/ hr IV .Q10H [facility] Last Admin: 08/04/18 10:05 Dose: 1,000 mls Insulin Human Lispro (Humalog) 5 units SC AC [facility] Last Admin: 08/04/18 10:54 Dose: 5 unit Insulin Human Lispro (Humalog) 0 units SC .MILD SLIDING SCALE PRN PRN Reason: Mild Correctional Scale Last Admin: 08/04/18 06:35 Dose: 3 unit Labetalol HCl (Normodyne) 20 mg SLOW IVP Q4H PRN PRN Reason: Systolic BP > 180 Loperamide HCl (Imodium) 2 mg PO PRN PRN PRN Reason: Diarrhea/Loose Stools Loratadine (Claritin) 10 mg PO DAILYPRN PRN PRN Reason: Sinus Symptoms Magnesium Hydroxide (Milk Of Magnesium) 30 ml PO DAILYPRN PRN PRN Reason: Constipation Metformin HCl (Glucophage) 500 mg PO BID[facility] Ondansetron HCl (Zofran Odt) 4 mg PO Q6H PRN PRN Reason: Nausea/Vomiting Ondansetron HCl (Zofran) 4 mg IVP Q6H PRN PRN Reason: Nausea/Vomiting Phenol (Chloraseptic [place] 180 Ml Bot) 0 ml PO PRN PRN PRN Reason: Sore Throat Senna (Senokot) 2 tab PO HSPRN PRN PRN Reason: Constipation Sertraline HCl (Zoloft) 25 mg PO DAILY [facility] Last Admin: 08/04/18 08:38 Dose: 25 mg Sodium Chloride (Flush - Normal Saline) 10 ml IVF PRN PRN PRN Reason: Saline Flush Last Admin: 08/03/18 20:14 Dose: 10 ml Sodium Chloride ([place] Nasal [place] 0.65%) 0 ml EA NARE QIDPRN PRN PRN Reason: Nasal Congestion Tamsulosin HCl (Flomax) 0.4 mg PO BID [facility] Last Admin: 08/04/18 08:38 Dose: 0.4 mg Zolpidem Tartrate (Ambien) 5 mg PO HSPRN PRN PRN Reason: Insomnia
[2018-08-04] MEDS: metFORMIN 500 MG TAB PO SCH (17:10)
[2018-08-05] MEDS: 1/2 NS w/KCL 20 mEq 1,000 ML IV SCH (05:38)
[2018-08-05 07:17] LABS: #Basophils 0.1 thou/uL (0.0-0.2); #Eosinphils 0.4 thou/uL (0.0-0.7); #Lymphocytes 3.7 thou/uL (1.20-3.40); #Monocytes 0.6 thou/uL (0.11-0.59); #Neutrophils 4.5 thou/uL (1.40-6.50); %Eosinophils 4.3 % (0.0-10.0); %Lymphocytes 39.5 % (21.0-51.0); %Monocytes 6.9 % (0.0-10.0); %Neutrophils 48.4 % (42.0-75.0); Hemoglobin 13.2 g/dL (14.0-18.0); Mean Corpuscular HGB CONC 33.5 g/dL (32.0-36.0); Mean Corpuscular Volume 89.6 fL (78.0-98.0); Mean Platelet Volume 9.7 fL (7.4-10.4); Platelet Count 340 thou/uL (130-400); RBC Distribution Width 11.1 % (11.5-14.5); Red Blood Cell (RBC) Count 4.39 mill/uL (4.70-6.10); White Blood Cell (WBC) Count 9.3 thou/uL (4.8-10.8)
[2018-08-05 07:22] LABS: Anion Gap 13 mmol/L (10-20); BUN (Urea Nitrogen) 11 mg/dL (8.4-25.7); Calc. Creatinine Clearance 68 mL/min (70-130); Calcium 9.3 mg/dL (7.8-10.44); Carbon Dioxide 26 mmol/L (22-29); Chloride 101 mmol/L (98-107); Estimated GFR-MDRD 60; Glucose 203 mg/dL (70-105); Potassium 3.4 mmol/L (3.5-5.1); Sodium 137 mmol/L (136-145)
[2018-08-05] MEDS: HumaLOG 300 UNITS/3 ML VIAL SC SCH ×3 (07:41→17:08)
[2018-08-05] MEDS: metFORMIN 500 MG TAB PO SCH ×2 (07:42→17:08)
[2018-08-05] MEDS ORDERED: Potassium Chloride 20 MEQ TAB PO SCH (09:00)
[2018-08-05] MEDS: cefTRIAXone\\ROCEPHIN 1 GM in Sodium Chloride 0.9% 100 ML IVPB SCH (09:01)
[2018-08-05] MEDS: Heparin 5,000 UNITS/ML VIAL SC SCH ×2 (09:01→20:42)
[2018-08-05] MEDS: Lisinopril 5 MG TAB PO SCH (09:02)
[2018-08-05] MEDS: Insulin Glargine 20 UNITS in Pre-Filled Syringe 1 EACH SC SCH (09:02)
[2018-08-05] MEDS: Tamsulosin HCl 0.4 MG CAP PO SCH ×2 (09:03→20:44)
--- NOTE | 2018-08-05 09:47 | PDOC.PN ---
- Subjective Encounter Start Date: 08/05/18 Encounter Start Time: 07:00 Patient seen and examined. No new complaints. No overnight events - Objective Resuscitation Status: Resuscitation Status FULL:Full Resuscitation MAR Reviewed: Yes Vital Signs & Weight: Vital Signs (12 hours) Temp Pulse Resp BP BP BP Pulse Ox 08/05/18 09:02 90 143/89 H 08/05/18 07:41 98.0 F 77 14 149/91 H 94 L 08/05/18 03:44 98.1 F 90 16 145/89 H 96 08/05/18 01:00 96 08/04/18 23:24 98.2 F 90 12 135/82 96 Weight Admit Weight 161 lb 9.581 oz Weight 161 lb 9.581 oz Most Recent Monitor Data Heart Rate from ECG 72 NIBP 122/82 NIBP BP-Mean 95 Respiration from ECG 0 SpO2 95 I&O: 08/04/18 08/05/18 08/06/18 06:59 06:59 06:59 Intake Total 5920.6 5092 Output Total 5420 3975 Balance 500.6 1117 Result Diagrams: 08/05/18 06:56 08/05/18 06:57 Additional Labs: Accuchecks 08/05/18 08/04/18 08/04/18 05:33 20:22 16:03 POC Glucose 198 H 185 H 235 H 08/04/18 10:34 POC Glucose 295 H Phys Exam - Physical Examination Constitutional: NAD HEENT: PERRLA, moist MMs, sclera anicteric Neck: no JVD, supple Respiratory: no wheezing, no rales, no rhonchi Cardiovascular: RRR, no significant murmur, no rub Gastrointestinal: soft, non-tender, no distention, positive bowel sounds milner+ Musculoskeletal: no edema, pulses present Neurological: non-focal, normal sensation, moves all 4 limbs Psychiatric: normal affect, A&O x 3 Skin: no rash, normal turgor Dx/Plan (1) Abnormal blood electrolyte level Code(s): E87.8 - OTH DISORDERS OF ELECTROLYTE AND FLUID BALANCE, NEC Status: Resolved (2) Acute kidney failure Status: Resolved (3) Acute urinary retention Code(s): R33.8 - OTHER RETENTION OF URINE Status: Resolved (4) High anion gap metabolic acidosis Code(s): E87.2 - ACIDOSIS Status: Resolved (5) Hypertensive crisis Code(s): I16.9 - HYPERTENSIVE CRISIS, UNSPECIFIED Status: Resolved (6) Type 2 diabetes mellitus with hyperosmolar nonketotic hyperglycemia Code(s): E11.01 - TYPE 2 DIABETES MELLITUS WITH HYPEROSMOLARITY WITH COMA Status: Acute (7) Urinary outflow obstruction Code(s): N13.9 - OBSTRUCTIVE AND REFLUX UROPATHY, UNSPECIFIED Status: Acute (8) Anxiety and depression Code(s): F41.9 - ANXIETY DISORDER, UNSPECIFIED; F32.9 - MAJOR DEPRESSIVE DISORDER, SINGLE EPISODE, UNSPECIFIED Status: Chronic (9) Tobacco abuse Code(s): Z72.0 - TOBACCO USE Status: Chronic (10) BPH (benign prostatic hyperplasia) Code(s): N40.0 - BENIGN PROSTATIC HYPERPLASIA WITHOUT LOWER URINRY TRACT SYMP Status: Chronic (11) Hypokalemia Code(s): E87.6 - HYPOKALEMIA Status: Acute - Plan cont current plan of care, continue antibiotics * replace potassium * continue flomax * will discharge with milner catheter on discharge * add lisinopril * DC IVF * medication reviewed as below * symptomatic treatment. Review of Systems - Review of Systems Eyes: negative: Pain, Vision Change, Conjunctivae Inflammation, Eyelid Inflammation, Redness, Other ENT: negative: Ear Pain, Ear Discharge, Nose Pain, Nose Discharge, Nose Congestion, Mouth Pain, Mouth Swelling, Throat Pain, Throat Swelling, Other Respiratory: negative: Cough, Dry, Shortness of Breath, Hemoptysis, SOB with Excertion, Pleuritic Pain, Sputum, Wheezing Cardiovascular: negative: chest pain, palpitations, orthopnea, paroxysmal nocturnal dyspnea, edema, light headedness, other Gastrointestinal: negative: Nausea, Vomiting, Abdominal Pain, Diarrhea, Constipation, Melena, Hematochezia, Other Genitourinary: negative: Dysuria, Frequency, Incontinence, Hematuria, Retention , Other Musculoskeletal: negative: Neck Pain, Shoulder Pain, Arm Pain, Back Pain, Hand Pain, Leg Pain, Foot Pain, Other - Medications/Allergies Allergies/Adverse Reactions: Allergies Allergy/AdvReac Type Severity Reaction Status Date / Time No Known Allergies Allergy Unverified 08/03/18 05:06 Medications: Current Medications Acetaminophen (Tylenol) 650 mg PO Q4H PRN PRN Reason: Headache/Fever or Pain Last Admin: 08/03/18 14:57 Dose: 650 mg Al Hydroxide/Mg Hydroxide (Maalox) 30 ml PO Q6H PRN PRN Reason: Heartburn or Indigestion Bisacodyl (Dulcolax) 10 mg PO DAILYPRN PRN PRN Reason: Constipation Dextrose/Water (Dextrose 50%) 25 gm SLOW IVP PRN PRN PRN Reason: HYPOGLYCEMIA PROTOCOL Glucagon (Glucagon) 1 mg IM PRN PRN PRN Reason: HYPOGLYCEMIA PROTOCOL Heparin Sodium (Porcine) (Heparin) 5,000 units SC BID [facility] Last Admin: 08/05/18 09:01 Dose: 5,000 units Hydralazine HCl (Apresoline) 10 mg SLOW IVP Q4H PRN PRN Reason: Systolic BP > 180 Ceftriaxone Sodium 1 gm/ (Sodium Chloride) 100 mls @ 200 mls/hr IVPB 0900 [facility] Last Admin: 08/05/18 09:01 Dose: 100 mls Insulin Glargine 20 units/ (Miscellaneous Medication) 0.2 mls @ 0 mls/hr SC QAM [facility] Last Admin: 08/05/18 09:02 Dose: 0.2 mls Dextrose/Water (D5w) 1,000 mls @ 0 mls/hr IV .Q0M PRN PRN Reason: Hypoglycemia Insulin Human Lispro (Humalog) 5 units SC [facility] Last Admin: 08/05/18 07:41 Dose: 5 unit Insulin Human Lispro (Humalog) 0 units SC .MILD SLIDING SCALE PRN PRN Reason: Mild Correctional Scale Last Admin: 08/04/18 17:10 Dose: 3 unit Labetalol HCl (Normodyne) 20 mg SLOW IVP Q4H PRN PRN Reason: Systolic BP > 180 Lisinopril (Zestril) 5 mg PO DAILY [facility] Last Admin: 08/05/18 09:02 Dose: 5 mg Magnesium Hydroxide (Milk Of Magnesium) 30 ml PO DAILYPRN PRN PRN Reason: Constipation Metformin HCl (Glucophage) 500 mg PO BID-[facility] Last Admin: 08/05/18 07:42 Dose: 500 mg Ondansetron HCl (Zofran Odt) 4 mg PO Q6H PRN PRN Reason: Nausea/Vomiting Ondansetron HCl (Zofran) 4 mg IVP Q6H PRN PRN Reason: Nausea/Vomiting Potassium Chloride (K-Dur) 40 meq PO 0900 [facility] Stop: 08/05/18 11:00 Last Admin: 08/05/18 09:02 Dose: 40 meq Senna (Senokot) 2 tab PO HSPRN PRN PRN Reason: Constipation Sertraline HCl (Zoloft) 25 mg PO DAILY [facility] Last Admin: 08/05/18 09:03 Dose: 25 mg Sodium Chloride (Flush - Normal Saline) 10 ml IVF PRN PRN PRN Reason: Saline Flush Last Admin: 08/03/18 20:14 Dose: 10 ml Sodium Chloride ([place] Nasal [place] 0.65%) 0 ml EA NARE QIDPRN PRN PRN Reason: Nasal Congestion Tamsulosin HCl (Flomax) 0.4 mg PO BID [facility] Last Admin: 08/05/18 09:03 Dose: 0.4 mg Zolpidem Tartrate (Ambien) 5 mg PO HSPRN PRN PRN Reason: Insomnia
[2018-08-05] MEDS: HumaLOG 300 UNITS/3 ML VIAL SC PRN ×2 (17:09→20:42)
--- NOTE | 2018-08-05 18:24 | EKG ---
Test Reason : Blood Pressure : / mmHG Vent. Rate : 085 BPM Atrial Rate : 085 BPM P-R Int : 132 ms QRS Dur : 100 ms QT Int : 420 ms P-R-T Axes : 044 019 016 degrees QTc Int : 499 ms Normal sinus rhythm Left atrial enlargement Inferior infarct , age undetermined Abnormal ECG Confirmed by KALLIE FARAH, SUMMER Kenyon ([id number]), social media editor SAMANTHA ALVAREZ ([id number]) on 08/05/2018 6:24:18 PM Referred By: Confirmed By:SUMMER ARREGUIN MD
[2018-08-06] MEDS: metFORMIN 500 MG TAB PO SCH ×2 (07:17→17:21)
[2018-08-06] MEDS: HumaLOG 300 UNITS/3 ML VIAL SC SCH ×3 (07:17→17:19)
[2018-08-06] MEDS: Lisinopril 5 MG TAB PO SCH (07:24)
[2018-08-06] MEDS: Tamsulosin HCl 0.4 MG CAP PO SCH ×2 (07:25→20:38)
[2018-08-06] MEDS: Heparin 5,000 UNITS/ML VIAL SC SCH ×2 (07:26→20:38)
[2018-08-06] MEDS: Insulin Glargine 20 UNITS in Pre-Filled Syringe 1 EACH SC SCH (08:33)
[2018-08-06] MEDS: cefTRIAXone\\ROCEPHIN 1 GM in Sodium Chloride 0.9% 100 ML IVPB SCH (08:33)
--- NOTE | 2018-08-06 10:42 | PDOC.PN ---
- Subjective Encounter Start Date: 08/06/18 Encounter Start Time: 07:00 Patient seen and examined. No new complaints. No overnight events - Objective Resuscitation Status: Resuscitation Status FULL:Full Resuscitation MAR Reviewed: Yes Vital Signs & Weight: Vital Signs (12 hours) Temp Pulse Resp BP BP Pulse Ox 08/06/18 07:49 97.4 F L 96 18 124/100 H 96 08/06/18 07:24 96 124/100 H 08/06/18 05:24 94 L Weight Admit Weight 161 lb 9.581 oz Weight 161 lb 9.581 oz Most Recent Monitor Data Heart Rate from ECG 72 NIBP 122/82 NIBP BP-Mean 95 Respiration from ECG 0 SpO2 95 I&O: 08/05/18 08/06/18 08/07/18 06:59 06:59 06:59 Intake Total 5092 2170 Output Total 3975 3450 Balance 1117 -1280 Result Diagrams: 08/05/18 06:56 08/05/18 06:57 Additional Labs: Accuchecks 08/06/18 08/05/18 08/05/18 05:51 20:36 15:27 POC Glucose 190 H 223 H 212 H 08/05/18 11:18 POC Glucose 152 H Phys Exam - Physical Examination Constitutional: NAD HEENT: PERRLA, moist MMs, sclera anicteric Neck: no JVD, supple Respiratory: no wheezing, no rales, no rhonchi Cardiovascular: RRR, no significant murmur, no rub Gastrointestinal: soft, non-tender, no distention, positive bowel sounds Musculoskeletal: no edema, pulses present Neurological: non-focal, normal sensation, moves all 4 limbs Lymphatic: no nodes Psychiatric: normal affect, A&O x 3 Skin: no rash, normal turgor Dx/Plan (1) Abnormal blood electrolyte level Code(s): E87.8 - OTH DISORDERS OF ELECTROLYTE AND FLUID BALANCE, NEC Status: Resolved (2) Acute kidney failure Status: Resolved (3) Acute urinary retention Code(s): R33.8 - OTHER RETENTION OF URINE Status: Resolved (4) High anion gap metabolic acidosis Code(s): E87.2 - ACIDOSIS Status: Resolved (5) Hypertensive crisis Code(s): I16.9 - HYPERTENSIVE CRISIS, UNSPECIFIED Status: Resolved (6) Type 2 diabetes mellitus with hyperosmolar nonketotic hyperglycemia Code(s): E11.01 - TYPE 2 DIABETES MELLITUS WITH HYPEROSMOLARITY WITH COMA Status: Acute (7) Urinary outflow obstruction Code(s): N13.9 - OBSTRUCTIVE AND REFLUX UROPATHY, UNSPECIFIED Status: Acute (8) Anxiety and depression Code(s): F41.9 - ANXIETY DISORDER, UNSPECIFIED; F32.9 - MAJOR DEPRESSIVE DISORDER, SINGLE EPISODE, UNSPECIFIED Status: Chronic (9) Tobacco abuse Code(s): Z72.0 - TOBACCO USE Status: Chronic (10) BPH (benign prostatic hyperplasia) Code(s): N40.0 - BENIGN PROSTATIC HYPERPLASIA WITHOUT LOWER URINRY TRACT SYMP Status: Chronic (11) Hypokalemia Code(s): E87.6 - HYPOKALEMIA Status: Acute - Plan cont current plan of care, continue antibiotics * continue rocephin * teach pt today about insulin technique * repeat labs tomorrow * will discharge tomorrow * medication reviewed as below * symptomatic treatment. Review of Systems - Review of Systems ENT: negative: Ear Pain, Ear Discharge, Nose Pain, Nose Discharge, Nose Congestion, Mouth Pain, Mouth Swelling, Throat Pain, Throat Swelling, Other Respiratory: negative: Cough, Dry, Shortness of Breath, Hemoptysis, SOB with Excertion, Pleuritic Pain, Sputum, Wheezing Cardiovascular: negative: chest pain, palpitations, orthopnea, paroxysmal nocturnal dyspnea, edema, light headedness, other Gastrointestinal: negative: Nausea, Vomiting, Abdominal Pain, Diarrhea, Constipation, Melena, Hematochezia, Other Genitourinary: negative: Dysuria, Frequency, Incontinence, Hematuria, Retention , Other Musculoskeletal: negative: Neck Pain, Shoulder Pain, Arm Pain, Back Pain, Hand Pain, Leg Pain, Foot Pain, Other Skin: negative: Rash, Lesions, Darrell, Bruising, Other - Medications/Allergies Allergies/Adverse Reactions: Allergies Allergy/AdvReac Type Severity Reaction Status Date / Time No Known Allergies Allergy Unverified 08/03/18 05:06 Medications: Current Medications Acetaminophen (Tylenol) 650 mg PO Q4H PRN PRN Reason: Headache/Fever or Pain Last Admin: 08/03/18 14:57 Dose: 650 mg Al Hydroxide/Mg Hydroxide (Maalox) 30 ml PO Q6H PRN PRN Reason: Heartburn or Indigestion Bisacodyl (Dulcolax) 10 mg PO DAILYPRN PRN PRN Reason: Constipation Dextrose/Water (Dextrose 50%) 25 gm SLOW IVP PRN PRN PRN Reason: HYPOGLYCEMIA PROTOCOL Glucagon (Glucagon) 1 mg IM PRN PRN PRN Reason: HYPOGLYCEMIA PROTOCOL Heparin Sodium (Porcine) (Heparin) 5,000 units SC BID [facility] Last Admin: 08/06/18 07:26 Dose: 5,000 units Hydralazine HCl (Apresoline) 10 mg SLOW IVP Q4H PRN PRN Reason: Systolic BP > 180 Ceftriaxone Sodium 1 gm/ (Sodium Chloride) 100 mls @ 200 mls/hr IVPB 0900 [facility] Last Admin: 08/06/18 08:33 Dose: 100 mls Insulin Glargine 20 units/ (Miscellaneous Medication) 0.2 mls @ 0 mls/hr SC QAM [facility] Last Admin: 08/06/18 08:33 Dose: 0.2 mls Dextrose/Water (D5w) 1,000 mls @ 0 mls/hr IV .Q0M PRN PRN Reason: Hypoglycemia Insulin Human Lispro (Humalog) 5 units SC [facility] Last Admin: 08/06/18 07:17 Dose: 5 unit Insulin Human Lispro (Humalog) 0 units SC .MILD SLIDING SCALE PRN PRN Reason: Mild Correctional Scale Last Admin: 08/05/18 20:42 Dose: 3 unit Labetalol HCl (Normodyne) 20 mg SLOW IVP Q4H PRN PRN Reason: Systolic BP > 180 Lisinopril (Zestril) 5 mg PO DAILY [facility] Last Admin: 08/06/18 07:24 Dose: 5 mg Magnesium Hydroxide (Milk Of Magnesium) 30 ml PO DAILYPRN PRN PRN Reason: Constipation Last Admin: 08/05/18 17:07 Dose: 30 ml [facility] Last Admin: 08/06/18 07:17 Dose: 500 mg Ondansetron HCl (Zofran Odt) 4 mg PO Q6H PRN PRN Reason: Nausea/Vomiting Ondansetron HCl (Zofran) 4 mg IVP Q6H PRN PRN Reason: Nausea/Vomiting Senna (Senokot) 2 tab PO HSPRN PRN PRN Reason: Constipation Sertraline HCl (Zoloft) 25 mg PO DAILY [facility] Last Admin: 08/06/18 07:25 Dose: 25 mg Sodium Chloride (Flush - Normal Saline) 10 ml IVF PRN PRN PRN Reason: Saline Flush Last Admin: 08/03/18 20:14 Dose: 10 ml Sodium Chloride ([place] Nasal [place] 0.65%) 0 ml EA NARE QIDPRN PRN PRN Reason: Nasal Congestion Tamsulosin HCl (Flomax) 0.4 mg PO BID [facility] Last Admin: 08/06/18 07:25 Dose: 0.4 mg Zolpidem Tartrate (Ambien) 5 mg PO HSPRN PRN PRN Reason: Insomnia
[2018-08-06] MEDS: HumaLOG 300 UNITS/3 ML VIAL SC PRN ×2 (12:00→17:20)
[2018-08-07 04:28] LABS: #Basophils 0.1 thou/uL (0.0-0.2); #Eosinphils 0.3 thou/uL (0.0-0.7); #Lymphocytes 2.6 thou/uL (1.20-3.40); #Monocytes 0.6 thou/uL (0.11-0.59); #Neutrophils 4.4 thou/uL (1.40-6.50); %Basophils 0.8 % (0.0-1.0); %Eosinophils 4.2 % (0.0-10.0); %Lymphocytes 32.6 % (21.0-51.0); %Monocytes 7.8 % (0.0-10.0); %Neutrophils 54.7 % (42.0-75.0); Mean Corpuscular HGB CONC 32.8 g/dL (32.0-36.0); Mean Corpuscular Hemoglobin 29.3 pg (27.0-31.0); Mean Corpuscular Volume 89.4 fL (78.0-98.0); Mean Platelet Volume 9.8 fL (7.4-10.4); Platelet Count 335 thou/uL (130-400); RBC Distribution Width 11.1 % (11.5-14.5)
[2018-08-07 04:46] LABS: Anion Gap 14 mmol/L (10-20); BUN (Urea Nitrogen) 10 mg/dL (8.4-25.7); Calc. Creatinine Clearance 72 mL/min (70-130); Calcium 9.4 mg/dL (7.8-10.44); Carbon Dioxide 26 mmol/L (22-29); Chloride 103 mmol/L (98-107); Estimated GFR-MDRD 64; Glucose 195 mg/dL (70-105); Magnesium 1.8 mg/dL (1.6-2.6); Phosphorus 2.8 mg/dL (2.3-4.7); Potassium 3.7 mmol/L (3.5-5.1); Sodium 139 mmol/L (136-145)
[2018-08-07 08:10] VITALS: BP 145/86; TEMP 98.2
[2018-08-07] MEDS: HumaLOG 300 UNITS/3 ML VIAL SC SCH ×2 (08:16→12:04)
[2018-08-07] MEDS: metFORMIN 500 MG TAB PO SCH (08:17)
[2018-08-07] MEDS: Tamsulosin HCl 0.4 MG CAP PO SCH (08:17)
[2018-08-07] MEDS: Lisinopril 5 MG TAB PO SCH (08:19)
[2018-08-07] MEDS: Heparin 5,000 UNITS/ML VIAL SC SCH (08:20)
[2018-08-07] MEDS: cefTRIAXone\\ROCEPHIN 1 GM in Sodium Chloride 0.9% 100 ML IVPB SCH (08:22)
[2018-08-07] MEDS: Insulin Glargine 20 UNITS in Pre-Filled Syringe 1 EACH SC SCH (09:31)
--- NOTE | 2018-08-07 10:05 | PDOC.PN ---
- Subjective Encounter Start Date: 08/07/18 Encounter Start Time: 07:00 Patient seen and examined. No new complaints. No overnight events - Objective Resuscitation Status: Resuscitation Status FULL:Full Resuscitation MAR Reviewed: Yes Vital Signs & Weight: Vital Signs (12 hours) Temp Pulse BP BP Pulse Ox 08/07/18 08:19 94 145/86 H 08/07/18 08:03 98.2 F 94 145/86 H 97 Weight Admit Weight 161 lb 9.581 oz Weight 161 lb 9.581 oz Most Recent Monitor Data Heart Rate from ECG 72 NIBP 122/82 NIBP BP-Mean 95 Respiration from ECG 0 SpO2 95 I&O: 08/06/18 08/07/18 08/08/18 06:59 06:59 06:59 Intake Total 2170 2080 Output Total 3450 2450 Balance -1280 -370 Result Diagrams: 08/07/18 03:52 08/07/18 03:52 Additional Labs: Accuchecks 08/06/18 08/06/18 08/06/18 20:30 17:13 11:54 POC Glucose 189 H 180 H 261 H Phys Exam - Physical Examination Constitutional: NAD HEENT: PERRLA, moist MMs, sclera anicteric Neck: no JVD, supple Respiratory: no wheezing, no rales, no rhonchi Cardiovascular: RRR, no significant murmur, no rub Gastrointestinal: soft, non-tender, no distention, positive bowel sounds Musculoskeletal: no edema, pulses present Neurological: non-focal, normal sensation, moves all 4 limbs Lymphatic: no nodes Psychiatric: normal affect, A&O x 3 Skin: no rash, normal turgor Dx/Plan (1) Abnormal blood electrolyte level Code(s): E87.8 - OTH DISORDERS OF ELECTROLYTE AND FLUID BALANCE, NEC Status: Resolved (2) Acute kidney failure Status: Resolved (3) Acute urinary retention Code(s): R33.8 - OTHER RETENTION OF URINE Status: Resolved (4) High anion gap metabolic acidosis Code(s): E87.2 - ACIDOSIS Status: Resolved (5) Hypertensive crisis Code(s): I16.9 - HYPERTENSIVE CRISIS, UNSPECIFIED Status: Resolved (6) Type 2 diabetes mellitus with hyperosmolar nonketotic hyperglycemia Code(s): E11.01 - TYPE 2 DIABETES MELLITUS WITH HYPEROSMOLARITY WITH COMA Status: Acute (7) Urinary outflow obstruction Code(s): N13.9 - OBSTRUCTIVE AND REFLUX UROPATHY, UNSPECIFIED Status: Acute (8) Anxiety and depression Code(s): F41.9 - ANXIETY DISORDER, UNSPECIFIED; F32.9 - MAJOR DEPRESSIVE DISORDER, SINGLE EPISODE, UNSPECIFIED Status: Chronic (9) Tobacco abuse Code(s): Z72.0 - TOBACCO USE Status: Chronic (10) BPH (benign prostatic hyperplasia) Code(s): N40.0 - BENIGN PROSTATIC HYPERPLASIA WITHOUT LOWER URINRY TRACT SYMP Status: Chronic (11) Hypokalemia Code(s): E87.6 - HYPOKALEMIA Status: Acute - Plan cont current plan of care, continue antibiotics medication reviewed as below symptomatic treatment see discharge summery Review of Systems - Review of Systems Eyes: negative: Pain, Vision Change, Conjunctivae Inflammation, Eyelid Inflammation, Redness, Other ENT: negative: Ear Pain, Ear Discharge, Nose Pain, Nose Discharge, Nose Congestion, Mouth Pain, Mouth Swelling, Throat Pain, Throat Swelling, Other Respiratory: negative: Cough, Dry, Shortness of Breath, Hemoptysis, SOB with Excertion, Pleuritic Pain, Sputum, Wheezing Cardiovascular: negative: chest pain, palpitations, orthopnea, paroxysmal nocturnal dyspnea, edema, light headedness, other Gastrointestinal: negative: Nausea, Vomiting, Abdominal Pain, Diarrhea, Constipation, Melena, Hematochezia, Other Genitourinary: negative: Dysuria, Frequency, Incontinence, Hematuria, Retention , Other Musculoskeletal: negative: Neck Pain, Shoulder Pain, Arm Pain, Back Pain, Hand Pain, Leg Pain, Foot Pain, Other Skin: negative: Rash, Lesions, Darrell, Bruising, Other - Medications/Allergies Allergies/Adverse Reactions: Allergies Allergy/AdvReac Type Severity Reaction Status Date / Time No Known Allergies Allergy Unverified 08/03/18 05:06 Medications: Current Medications Acetaminophen (Tylenol) 650 mg PO Q4H PRN PRN Reason: Headache/Fever or Pain Last Admin: 08/03/18 14:57 Dose: 650 mg Al Hydroxide/Mg Hydroxide (Maalox) 30 ml PO Q6H PRN PRN Reason: Heartburn or Indigestion Bisacodyl (Dulcolax) 10 mg PO DAILYPRN PRN PRN Reason: Constipation Last Admin: 08/06/18 11:01 Dose: 10 mg Dextrose/Water (Dextrose 50%) 25 gm SLOW IVP PRN PRN PRN Reason: HYPOGLYCEMIA PROTOCOL Glucagon (Glucagon) 1 mg IM PRN PRN PRN Reason: HYPOGLYCEMIA PROTOCOL Heparin Sodium (Porcine) (Heparin) 5,000 units SC BID [facility] Last Admin: 08/07/18 08:20 Dose: 5,000 units Hydralazine HCl (Apresoline) 10 mg SLOW IVP Q4H PRN PRN Reason: Systolic BP > 180 Ceftriaxone Sodium 1 gm/ (Sodium Chloride) 100 mls @ 200 mls/hr IVPB 0900 [facility] Last Admin: 08/07/18 08:22 Dose: 100 mls Insulin Glargine 20 units/ (Miscellaneous Medication) 0.2 mls @ 0 mls/hr SC QAM [facility] Last Admin: 08/07/18 09:31 Dose: 0.2 mls Dextrose/Water (D5w) 1,000 mls @ 0 mls/hr IV .Q0M PRN PRN Reason: Hypoglycemia Insulin Human Lispro (Humalog) 5 units SC [facility] Last Admin: 08/07/18 08:16 Dose: 5 unit Insulin Human Lispro (Humalog) 0 units SC .MILD SLIDING SCALE PRN PRN Reason: Mild Correctional Scale Last Admin: 08/06/18 17:20 Dose: 2 unit Labetalol HCl (Normodyne) 20 mg SLOW IVP Q4H PRN PRN Reason: Systolic BP > 180 Lisinopril (Zestril) 5 mg PO DAILY [facility] Last Admin: 08/07/18 08:19 Dose: 5 mg Magnesium Hydroxide (Milk Of Magnesium) 30 ml PO DAILYPRN PRN PRN Reason: Constipation Last Admin: 08/05/18 17:07 Dose: 30 ml Metformin HCl (Glucophage) 500 mg PO BID-[facility] Last Admin: 08/07/18 08:17 Dose: 500 mg Ondansetron HCl (Zofran Odt) 4 mg PO Q6H PRN PRN Reason: Nausea/Vomiting Ondansetron HCl (Zofran) 4 mg IVP Q6H PRN PRN Reason: Nausea/Vomiting Senna (Senokot) 2 tab PO HSPRN PRN PRN Reason: Constipation Sertraline HCl (Zoloft) 25 mg PO DAILY [facility] Last Admin: 08/07/18 08:18 Dose: 25 mg Sodium Chloride (Flush - Normal Saline) 10 ml IVF PRN PRN PRN Reason: Saline Flush Last Admin: 08/03/18 20:14 Dose: 10 ml Sodium Chloride ([place] Nas[place] 0.65%) 0 ml EA NARE QIDPRN PRN PRN Reason: Nasal Congestion Tamsulosin HCl (Flomax) 0.4 mg PO BID [facility] Last Admin: 08/07/18 08:17 Dose: 0.4 mg Zolpidem Tartrate (Ambien) 5 mg PO HSPRN PRN PRN Reason: Insomnia
[2018-08-07] MEDS: HumaLOG 300 UNITS/3 ML VIAL SC PRN (12:04)
--- NOTE | 2018-08-07 12:14 | DIS ---
PRIMARY CARE PHYSICIAN: [facility] call admission. DATE OF ADMISSION: 08/03/2018 DATE OF DISCHARGE: 08/07/2018 DISCHARGE DISPOSITION: Home. PRIMARY DISCHARGE DIAGNOSES: 1. Acute urinary retention due to benign enlargement of prostate. 2. Acute postobstructive renal failure. 3. High anion gap metabolic acidosis. 4. Abnormal blood electrolytes, corrected. 5. Hypertensive crisis on admission, resolved. 6. Hyperosmolar hyperglycemic state on admission. SECONDARY DISCHARGE DIAGNOSES: Tobacco abuse disorder, diabetes type 2, hypertension, medication noncompliance. PRIMARY PROCEDURE/OPERATION: None. RADIOLOGICAL INVESTIGATION: CT dissection protocol negative. Chest x-ray normal. SIGNIFICANT LABORATORY DATA: On discharge, WBC 8.0, hemoglobin 12.0, platelets 335. Sodium 139, potassium 3.7, BUN 10, creatinine 1.18. Urine culture negative. DISCHARGE MEDICATIONS: Cipro 500 mg p.o. b.i.d. for 10 days, Lantus 20 units subcu in the morning, Lisinopril 5 mg p.o. daily, metformin 500 mg p.o. b.i.d., and Flomax 0.4 mg p.o. b.i.d. CONTRAINDICATIONS: None. CODE STATUS: FULL CODE. INPATIENT CONSULTANTS: Dr. Jovanni Moya, urologist was consulted while in hospital and he recommended outpatient follow up for voiding trial. Dr. Lama was following because patient was admitted in [facility]. TEST RESULTS PENDING ON DISCHARGE: None. ALLERGIES: No known drug allergy. DISCHARGE PLAN: Post hospital, the patient is instructed to follow up with Dr. Jovanni Moya and primary care physician in 1 week. HOSPITAL COURSE: A 57-year-old male with above-mentioned medical problem, who was admitted by me. Please see my HPI for further detail. He presented to emergency room with abdominal pain. It was related urinary distention. He has an enlarged prostate. We did CT dissection protocol that showed distention of urinary bladder and enlargement of prostate. He also had severe hyperglycemia. He had hyperglycemic hyperosmolar state. His hemoglobin A1c found 17. He was not on any medication prior to admission. He was also having hypertensive crisis because of abdominal pain that was improved by the time of discharge. He also had acute kidney failure that was also improved by the time of discharge. While in hospital, Urology and Pulmonology was following. The patient is discharged home with the Fang catheter. Necessary Fang catheter training was given. Patient is also taught about diabetic diet as well as insulin technique. While in hospital, we treated him with Rocephin for possible pyelonephritis, which was found to be on CT scan. On discharge, we prescribed Cipro for another 10 days. While in hospital, he remained afebrile and now he is afebrile, hemodynamically stable, tolerating p.o. well, ambulatory. This patient is continued to be high risk for readmission because he has noncompliance. The patient is seen and examined at bedside today. Please see my progress note from today for further detail. Total time spent on discharge day 31 minutes MTDD
== END 2018-08-07 13:04 | disposition home or self-care (01) | DRG 682 ==
LOC: ERS 01:24 → CCU 04:58 → IMCU/EMU 10:10 → ONC 08-04 14:20
PROVIDERS: ADMIT Internal Medicine; ATTEND Internal Medicine
DX: N17.9 Acute kidney failure, unspecified (principal); E11.01 Type 2 diabetes mellitus with hyperosmolarity with coma; I16.9 Hypertensive crisis, unspecified; N13.8 Other obstructive and reflux uropathy; E87.2 Acidosis; E87.1 Hypo-osmolality and hyponatremia; E87.8 Other disorders of electrolyte and fluid balance, not elsewhere classified; R33.8 Other retention of urine; N40.1 Benign prostatic hyperplasia with lower urinary tract symptoms; F41.9 Anxiety disorder, unspecified; F32.9 Major depressive disorder, single episode, unspecified; E87.6 Hypokalemia; I10 Essential (primary) hypertension; F17.220 Nicotine dependence, chewing tobacco, uncomplicated; K59.00 Constipation, unspecified; N10 Acute pyelonephritis; Z91.14 Patient's other noncompliance with medication regimen
CPT/HCPCS: 36415; 36416; 51703; 71045; 71275; 80048; 80053; 80306; 80307; 81003; 81015; 82010; 82330; 82553; 82570; 82803; 83036; 83605; 83735; 83930; 83935; 84100; 84156; 84300; 84443; 84484; 85025; 87086; 93005; 96361; 96365; 96366; 96375; C9113; J0696; J1644; J1815; J2270; J7050

== ENCOUNTER 2019-09-23 17:45 | Inpatient (IN) | payer OTHER, SELFPAY ==
[2019-09-23 18:13] LABS: #Basophils 0.1 thou/uL (0.0-0.2); #Eosinphils 0.1 thou/uL (0.0-0.7); #Lymphocytes 1.5 thou/uL (1.20-3.40); #Monocytes 1.2 thou/uL (0.11-0.59); #Neutrophils 12.1 thou/uL (1.40-6.50); %Basophils 0.5 % (0.0-1.0); %Eosinophils 0.7 % (0.0-10.0); %Neutrophils 80.8 % (42.0-75.0); Hemoglobin 17.3 g/dL (14.0-18.0); Mean Corpuscular Hemoglobin 31.7 pg (27.0-31.0); Mean Corpuscular Volume 87.9 fL (78.0-98.0); Mean Platelet Volume 10.6 fL (7.4-10.4); Platelet Count 344 thou/uL (130-400); RBC Distribution Width 12.8 % (11.5-14.5); Red Blood Cell (RBC) Count 5.45 mill/uL (4.70-6.10)
[2019-09-23 18:13] LABS: Base Excess-Venous -4.5 mmol/L (-2.0 to 3.0); Bicarbonate (HCO3v) 21.6 mmol/L (22.0-28.0); CO2 Tension (PvCO2) 42.7 mmHg (40.0-50.0); Calcium, Ionized 1.18 mmol/L (See Comments:); Chloride 101 mmol/L (98-107); Hemoglobin - Calc 18.4 g/dL (14.0-18.0); Potassium 4.6 mmol/L (3.5-5.1); Sodium 131 mmol/L (138-145); vO2 Saturation-calc 27.9 % (60.0-85.0)
[2019-09-23] MEDS ORDERED: Ondansetron PF 4 MG/2 ML Vial ONE (18:30)
--- NOTE | 2019-09-23 18:31 | RAD ---
RADIOGRAPH CHEST 1 VIEW: DATE: 09/23/2019 TIME: 6:22 PM HISTORY: 59-year-old male with chest pain COMPARISON: 08/03/2018 FINDINGS: New finding of diffuse mixed interstitial and alveolar densities throughout the right lung. The left lung remains relatively clear. No cardiomegaly. No effacement of lateral costophrenic angles. No pneumothorax. IMPRESSION: Unilateral diffuse right-sided infiltrates.
[2019-09-23 18:36] LABS: ALT (SGPT) 19 U/L (8-55); AST (SGOT) 22 U/L (5-34); Albumin 5.1 g/dL (3.5-5.0); Alkaline Phosphatase 133 U/L (40-110); Anion Gap 22 mmol/L (10-20); BUN (Urea Nitrogen) 20 mg/dL (8.4-25.7); Bilirubin, Total 0.8 mg/dL (0.2-1.2); Calc. Creatinine Clearance 0 mL/min (70-130); Calcium 10.5 mg/dL (7.8-10.44); Carbon Dioxide 19 mmol/L (22-29); Chloride 95 mmol/L (98-107); Estimated GFR-MDRD 40; Globulin 3.5 g/dL (2.4-3.5); Potassium 4.6 mmol/L (3.5-5.1); Protein, Total 8.6 g/dL (6.0-8.3); Sodium 131 mmol/L (136-145)
[2019-09-23 18:42] LABS: Glucose 722 mg/dL (70-105)
[2019-09-23] MEDS ORDERED: Rocuronium Bromide 50 MG/5 ML VIAL ONE (18:42)
[2019-09-23] MEDS ORDERED: Succinylcholine Chloride 20 MG/ML 10 ml SYRINGE FS ONE ×2 (18:42→19:30)
[2019-09-23] MEDS ORDERED: Lorazepam 2 MG/ML VIAL ONE ×2 (18:43→20:15)
[2019-09-23] MEDS ORDERED: Piperacillin/Tazobactam 4.5 GM VIAL ONE (18:48)
[2019-09-23] MEDS ORDERED: Insulin Regular 100 units/100 ml in NS IVPB SCH (19:00)
[2019-09-23 19:04] LABS: CKMB 11.1 ng/mL (0-6.6)
[2019-09-23 19:12] LABS: Actual Bicarbonate (HCO3a) 17.4 mEq/L (22-28); Analyzer IN Cardio ER; CO2 Tension 47.6 mmHg (35.0-45.0); Calcium, Ionized 1.26 mmol/L (1.12-1.30); Carboxyhemoglobin (COHb) 0.2 gm% (0.0-3.0); Hemoglobin (Hb) 18.8 g/dL (14.0-18.0); O2 Tension (PaO2) 246.3 mmHg (80.0-100.0)
[2019-09-23 19:18] LABS: Bilirubin Negative (Negative); Blood, Urine Trace (Negative); Clarity Clear (Clear); Glucose, Urine (Dipstick) Greater than 1000 mg/dL (Negative); Leukocyte Negative Leu/uL (Negative); Nitrite Negative (Negative); Protein, Urine (Dipstick) 10 mg/dL (Neg-Trace); RBC/HPF 0-3 HPF (0-3); Squamous Epithelial None Seen HPF (0-3); Urobilinogen Normal mg/dL (Less than 2); WBC/HPF 0-3 HPF (0-3)
[2019-09-23 19:18] LABS: pH, Arterial 7.18 (7.35-7.45)
[2019-09-23 19:19] LABS: Puncture Site RRA
[2019-09-23 19:25] LABS: Bacteria/HPF 1+ HPF (None Seen)
[2019-09-23] MEDS ORDERED: Propofol 1,000 MG/100 ML VIAL IV ONE (19:31)
--- NOTE | 2019-09-23 20:07 | RAD ---
EXAM: CHEST ONE VIEW HISTORY: Sepsis. COMPARISON: 09/23/2019. FINDINGS: There has been interval placement of an endotracheal tube with the tip overlying the T3 vertebral bod y and above the level of the chava. There has also been interval placement of a nasogastric tube which courses into the upper abdomen. The tip is not seen. There are increased bilateral perihilar in terstitial and alveolar opacities greater on the right which have increased when compared to the prior exam. Mild degenerative changes are seen in the lower thoracic spine. No other interval change. IMPRESSION: 1. Interval increase in bilateral perihilar interstitial and alveolar opacities which may be related to worsening infectious process or worsening asymmetric pulmonary edema. 2. Interval placement of endotracheal tube and nasogastric tube.
[2019-09-23] MEDS ORDERED: NS 0.9% w/ 20 MEQ KCL 1,000 ML IV SCH (20:30)
[2019-09-23 21:24] LABS: Actual Bicarbonate (HCO3a) 12.8 mEq/L (22-28); Analyzer IN Cardio ER; Base Excess (BEa) -13.8 mEq/L (-2.0 to +3.0); CO2 Tension 32.8 mmHg (35.0-45.0); Calcium, Ionized 1.18 mmol/L (1.12-1.30); Carboxyhemoglobin (COHb) 0.3 gm% (0.0-3.0); Hemoglobin (Hb) 17.1 g/dL (14.0-18.0); O2 Tension (PaO2) 77.9 mmHg (80.0-100.0); Potassium - ABG Lab 5.84 mmol/L (3.70-5.30)
[2019-09-23 21:47] LABS: pH, Arterial 7.21 (7.35-7.45)
[2019-09-23 21:48] LABS: Puncture Site RFA
[2019-09-23] MEDS ORDERED: D5 1/2 NS w/20 mEq KCL 1,000 ML IV PRN (21:49)
[2019-09-23] MEDS ORDERED: Sodium Chloride 0.9% 1,000 ML IV PRN ×4 (21:49)
[2019-09-23] MEDS ORDERED: CCU Electrolyte Replacement 1 EACH IVPB ONE (21:49)
[2019-09-23] MEDS ORDERED: Ondansetron PF 4 MG/2 ML Vial IVP PRN (21:49)
[2019-09-23] MEDS ORDERED: Dextrose 5% in Water 1,000 ML IV PRN (21:49)
[2019-09-23] MEDS ORDERED: Dextrose 50% Abboject 50 ML SYRINGE SLOW IVP PRN (21:49)
[2019-09-23] MEDS ORDERED: NS 0.9% w/ 20 MEQ KCL 1,000 ML IV PRN ×2 (21:49)
[2019-09-23] MEDS ORDERED: Dextrose 5 %-0.45 % NaCl 1,000 ML IV PRN (21:49)
[2019-09-23 21:59] LABS: ALT (SGPT) 20 U/L (8-55); AST (SGOT) 60 U/L (5-34); Albumin 4.2 g/dL (3.5-5.0); Alkaline Phosphatase 134 U/L (40-110); Anion Gap 27 mmol/L (10-20); BUN (Urea Nitrogen) 19 mg/dL (8.4-25.7); Bilirubin, Total 0.8 mg/dL (0.2-1.2); Calc. Creatinine Clearance 0 mL/min (70-130); Calcium 9.1 mg/dL (7.8-10.44); Chloride 106 mmol/L (98-107); Estimated GFR-MDRD 48; Globulin 3.4 g/dL (2.4-3.5); Potassium 5.9 mmol/L (3.5-5.1); Protein, Total 7.6 g/dL (6.0-8.3); Sodium 135 mmol/L (136-145)
[2019-09-23] MEDS ORDERED: HUMULIN R 100 UNITS in Sodium Chloride 0.9% 100 ML IVPB SCH (22:00)
[2019-09-23 22:02] LABS: Carbon Dioxide 8 mmol/L (22-29); Glucose 618 mg/dL (70-105)
[2019-09-23 22:12] LABS: Amphetamine Not Detected (NotDetected); Barbiturates Screen Not Detected (NotDetected); Benzodiazepine Screen Not Detected (NotDetected); Cocaine Metabolite Screen Not Detected (NotDetected); Medtox Control Line Valid? VALID (VALID); Medtox Reader # READER 1; Methadone Not Detected (NotDetected); Methamphetamine Not Detected (NotDetected); Opiate Screen Not Detected (NotDetected); Oxycodone Screen Not Detected (NotDetected); Phencyclidine (PCP) Not Detected (NotDetected); THC/Cannabinoid Screen Not Detected (NotDetected); Tricyclic Screen Not Detected (NotDetected)
--- NOTE | 2019-09-23 22:12 | PDOC.FPRHP ---
- History of Present Illness Chief Complaint: chest pain History of Present Illness: Unobtainable due to pt being intubated and sedated. History obtained from ER, that pt has history of type 2 DM, presents to ED complaining of sudden onset CP that began 3 hrs ago. Pt not been compliant w/ insulin for past 3 months. Has no PCP. ED Course: Pt talking and alert in ER. ABG acidotic and pneumonia seen on CXR. Pt decompensated rapidly in the ED, placed on BiPAP. Abx and ASA ordered. Dr. Bermeo of cardiology was paged. Concern on EKG changes for NSTEMI w/ Troponin of 1.0. Pt became increasingly agitated and was attempting to remove BiPAP. Decision was made to intubate. Intubation successfully and followed by placement of milner catheter and post-intubation sedation fentanyl and propofol. DKA protocol initiated in ED. Nurse with concern for V-tach, sudden spike in HR to 200s on monitor. Crash cart brought to bedside. Obtained potassium and new ABG. Emergent EKG obtained at bedside showing worsening ST elevations in V3 and V4. Troponin ordered and found to have increased to 5.5. Called Dr. Lama ( Pulmonology) to inform him of pt coming to CCU. Called Dr. Bermeo (Cardiology) who reviewed EKGs and diagnosed anterolateral WA with decision to cath. Activated director labor standards from ER. Pt cathed and found to have extensive vessel disease. Aortic pump balloon placed and Elvie consulted CV surg. However, pt's stability questionable for CABG. - Allergies/Adverse Reactions Allergies Allergy/AdvReac Type Severity Reaction Status Date / Time No Known Allergies Allergy Verified 09/24/19 01:40 - Home Medications Medication Instructions Recorded Confirmed Type Ciprofloxacin [Cipro] 500 mg PO Q12HR #20 tab 08/05/18 Rx Insulin Glargine [Lantus Vial] 20 units SC QAM #3 vial 08/05/18 Rx Lisinopril 5 mg PO DAILY #30 tablet 08/05/18 Rx Tamsulosin HCl [Flomax] 0.4 mg PO BID #60 cap 08/05/18 Rx metFORMIN [Glucophage] 500 mg PO BID-WM #60 tab 08/05/18 Rx - History PMHx: T2DM untreated/noncompliant, PSHx: appendectomy FHx: not assessed Social: - no PCP. - Review of Systems ROS unobtainable: due to endotracheal tube - Vital signs BP: 98/80, Pulse: 107, Resp: 25, Temp: 97.7groin (Not applicable), O2 sat: 100 on Ventilator, Time: 09/23/2019 22:37. - Physical Exam Constitutional: other (intubated) HEENT: normocephalic and atraumatic Heart: normal S1/S2, no murmurs/rubs/gallops (tachycardic) Lungs: other (coarse breath sounds bilaterally in all lung jay, difficult to auscultate as pt is on ventilator) Abdomen: soft, bowel sounds present, no masses/distention Skin: no rash/lesions Heme/Lymphatic: no unusual bruising or bleeding FMR H&P: Results - Labs Result Diagrams: 09/24/19 01:00 09/24/19 01:00 Lab results: WBC 15.0 thou/uL (4.8-10.8) H 09/23/19 18:00 Hgb 17.3 g/dL (14.0-18.0) 09/23/19 18:00 Hct 47.9 % (42.0-52.0) 09/23/19 18:00 MCV 87.9 fL (78.0-98.0) 09/23/19 18:00 Plt Count 344 thou/uL (130-400) 09/23/19 18:00 Neutrophils % 80.8 % (42.0-75.0) H 09/23/19 18:00 ABG pH 7.21 (7.35-7.45) L* 09/23/19 21:20 ABG pCO2 32.8 mmHg (35.0-45.0) L 09/23/19 21:20 ABG pO2 77.9 mmHg (80.0-100.0) L 09/23/19 21:20 VBG pCO2 42.7 mmHg (40.0-50.0) 09/23/19 18:10 VBG pO2 20.1 mmHg (35.0-45.0) L 09/23/19 18:10 Sodium 135 mmol/L (136-145) L 09/23/19 21:35 Potassium 5.9 mmol/L (3.5-5.1) H 09/23/19 21:35 Chloride 106 mmol/L (98-107) 09/23/19 21:35 Carbon Dioxide 8 mmol/L (22-29) L* 09/23/19 21:35 BUN 19 mg/dL (8.4-25.7) 09/23/19 21:35 Creatinine 1.49 mg/dL (0.7-1.3) H 09/23/19 21:35 Glucose 618 mg/dL (70-105) H* 09/23/19 21:35 Calcium 9.1 mg/dL (7.8-10.44) 09/23/19 21:35 Total Bilirubin 0.8 mg/dL (0.2-1.2) 09/23/19 21:35 AST 60 U/L (5-34) H 09/23/19 21:35 ALT 20 U/L (8-55) 09/23/19 21:35 Alkaline Phosphatase 134 U/L (40-110) H 09/23/19 21:35 CK-MB (CK-2) 11.1 ng/mL (0-6.6) H* 09/23/19 18:00 Serum Total Protein 7.6 g/dL (6.0-8.3) 09/23/19 21:35 Albumin 4.2 g/dL (3.5-5.0) 09/23/19 21:35 Urine Ketones 60 mg/dL (Negative) A 09/23/19 19:00 Urine Blood Trace (Negative) A 09/23/19 19:00 Urine Nitrite Negative (Negative) 09/23/19 19:00 Ur Leukocyte Esterase Negative Ch[place]ale/uL (Negative) 09/23/19 19:00 Urine RBC 0-3 HPF (0-3) 09/23/19 19:00 Urine WBC 0-3 HPF (0-3) 09/23/19 19:00 Ur Squamous Epith Cells None Seen HPF (0-3) 09/23/19 19:00 Urine Bacteria 1+ HPF (None Seen) A 09/23/19 19:00 - EKG Interpretation EKG: see ED course as detailed above. - Radiology Interpretation Chest x-ray Status: report reviewed by me Additional comment: #1 IMPRESSION: Unilateral diffuse right-sided infiltrates. #2 IMPRESSION: 1. Interval increase in bilateral perihilar interstitial and alveolar opacities which may be related to worsening infectious process or worsening asymmetric pulmonary edema. 2. Interval placement of endotracheal tube and nasogastric tube. FMR H&P: A/P - Problem List (1) Acute and chronic respiratory failure with hypoxia Current Visit: Yes Status: Acute Code(s): J96.21 - ACUTE AND CHRONIC RESPIRATORY FAILURE WITH HYPOXIA (2) DKA (diabetic ketoacidoses) Current Visit: Yes Status: Acute Code(s): E11.10 - TYPE 2 DIABETES MELLITUS WITH KETOACIDOSIS WITHOUT COMA (3) Shock Current Visit: Yes Status: Acute Code(s): R57.9 - SHOCK, UNSPECIFIED (4) STEMI (ST elevation myocardial infarction) Current Visit: Yes Status: Acute (5) Pneumonia Current Visit: Yes Status: Acute Code(s): J18.9 - PNEUMONIA, UNSPECIFIED ORGANISM - Plan 59-yo M w/ no PCP admitted for: STEMI - Trop 1.0 > 5.5 > 31 - EKG changes showing anterolateral WA - Taken to director labor standards by Dr. Bermeo - Cards consult, appreciate recs - CV surg consult, appreciate recs - Therapeutic LVX Acute hypoxic respiratory failure - pt is intubated and sedated - Continue ABG prn - Pulmonology following, appreciate recs DKA vs HHS Type 2 DM, noncompliant w/ insulin - DKA protocol for correction of bG of 722. LLL PNA - possibly complication of aspiration during intubation, may have been CAP prior to admission - empiric coverage w/ zosyn and vancomycin Code: FULL VTE PPx: therapeutic LVX GI PPx: famotidine Fluids: DKA protocol Zahraa Davis MD PGY1 Disposition/LOS: Admit to CCU. Need to contact family members/next of kin for verification of code status and also to update them on the patient's poor prognosis. LOS > 48H FMR H&P: Upper Level - Pertinent history 59 yo gentleman with pmhx of type 2 diabetes presents to the ED with chestpain, was taken emergently to the director labor standards for anterolateral WA, who also is in DKA and acute respiratory failure 2/2 CAP. Vitals: intubated on A/C, HR 80-220s, 220s in the ER, BP 80/60s map 70s PE: coarse breath sounds dry mucous membranes intubated and sedated no edema Labs: trop: 1-->5.5 B pH 7.2/pCO2 38/ pO2 78/ hco3 12.8 K5.8 HCO3 on BMP 19-->8 beta hydroxybutyrate EKG: ST depressions V5-V6, ST elevations V4 CXR: bilateral interstitial infiltrates A/P: STEMI-Dr. Bermeo contacted and pt taken to director labor standards anterolateral WA. Pt received theraputic lovenox. Acute hypoxic respiratory failure-now intubated and sedated. 2/2 CAP. Vanc and Zosyn continued for broad coverage. Procal pending. Dr. Lama consulted. Septic Shock vs cardiogenic shock-Pt currently on levophed. Blood cultures sent. DKA-per protocol. Pt in metabolic acidosis with a gap of 17, bicarb 19-->8, betahydroxybutyrate 2.5. Insulin drip. Serial BMPs q4hrs. Prognosis - poor. Attempted to contact family without success. CODE: FULL Lennox Patrick MD, PGY-3 - Plan Date/Time: 09/23/19 [id number] I, [], have evaluated this patient and agree with findings/plan as outlined by internal medicine nurse practitioner resident. Pertinent changes/additions are listed here. Addendum - Attending - Attending Attestation Date/Time: 09/24/19 [id number] I personally evaluated the patient and discussed the management with Dr. Davis /Celina I agree with the History, Examination, Assessment and Plan documented above with any addition or exceptions noted below. Please see my dictated report for details.
[2019-09-23] MEDS ORDERED: Magnesium 2 GM/50 ML 2 GM in Premix Bag 1 BAG IVPB PRN (22:21)
[2019-09-23] MEDS ORDERED: CCU ELECTROLYTE REPLACEMENT PROTOCOL FS PRN (22:21)
[2019-09-23] MEDS ORDERED: Potassium Chloride 20 MEQ TAB PO PRN (22:21)
[2019-09-23] MEDS ORDERED: Potassium Phosphate 12 MMOL in Sodium Chloride 0.9% 250 ML 250 ML IV PRN (22:21)
[2019-09-23] MEDS ORDERED: Potassium Phosphate 9 MMOL in Sodium Chloride 0.9% 100 ML IVPB PRN (22:21)
[2019-09-23] MEDS ORDERED: Potassium Chloride 40 MEQ in Premix Bag 1 BAG IVPB PRN (22:21)
[2019-09-23] MEDS ORDERED: PHOS-NAK 1 PKT PACK PO PRN ×2 (22:21)
[2019-09-23] MEDS ORDERED: Potassium Phosphate 15 MMOL in Sodium Chloride 0.9% 250 ML 250 ML IV PRN (22:21)
[2019-09-23] MEDS ORDERED: Potassium Chloride 40 MEQ in Sodium Chloride 0.9% 250 ML 250 ML IVPB PRN (22:21)
[2019-09-23] MEDS ORDERED: Magnesium Oxide 400 MG TAB PO PRN ×2 (22:21)
[2019-09-23 22:25] LABS: Phosphorus 4.7 mg/dL (2.3-4.7)
[2019-09-23] MEDS ORDERED: Enoxaparin Sodium 80 MG/0.8 ML SYRINGE SC SCH (22:30)
[2019-09-23] MEDS ORDERED: Fentanyl 100 MCG/2 ML VIAL ONE (23:05)
--- NOTE | 2019-09-23 23:57 | HP ---
CHIEF COMPLAINT: Chest pain. HISTORY OF PRESENT ILLNESS: This note is an attestation of the history and physical written by Dr. Zahraa Davis and Dr. Kimberly Patrick. I have reviewed all documentation and agree with that unless otherwise stated in the following attestation. In summary, Mr. Abreu is a 59-year-old male with a known past medical history of insulin-dependent type 2 diabetes mellitus with noncompliance. He presents to the ER with a chief complaint of sudden onset chest pain that began approximately 3 hours prior to arrival. The patient reported noncompliance with his insulin therapy and had not picked up his insulin following a recent ER visit. Per ER report, the patient began to experience progressively worsening dyspnea. He was tried on BiPAP, which was unable to overcome his acute hypoxic respiratory failure. This led to the need for endotracheal intubation for need for mechanical ventilation during which he vomited and aspirated. No family is currently at bedside to provide additional information. Family Medicine residency team will work to contact next of kin to obtain additional history and discuss end-of-life care goals and further medical management. At the time of my examination, the patient was intubated and sedated. ER reported that he had been requiring as high as 40 mcg/minute of propofol to maintain sedation. At the time of my examination, he was on 20 mcg per minute of propofol and resting comfortably. See internet marketing intern note for PMFSH. PHYSICAL EXAMINATION: VITAL SIGNS: Just prior to my arrival to the patient's bedside, he experienced marked tachycardia with rates as high as 200 and concerned for possible nonsustained ventricular tachycardia. This spontaneously resolved. At the time of my exam, the patient's blood pressure was initially 80/60, with additional fluids that has been currently 95/76. His pulse is 107, respiratory rate 20 to 30 on assist-control mechanical ventilation. Oxygen saturation 98%. FiO2 was 100%, PEEP of 5, tidal volume 550, inspiratory pause pressure 26. GENERAL: The patient is sedated, but withdraws to pain. HEENT: Pupils equal, round, and reactive. LUNGS: Coarse breath sounds are heard throughout his lung jay. CARDIAC: Heart rate is tachycardic and regular. No murmurs appreciated. Exam limited due to ventilator sounds. LABORATORY FINDINGS: Initial laboratory evaluation showed sodium 131, corrected to 146, anion gap 22, bicarb 19, creatinine 1.76, baseline, most recent hospitalization Cr 1.18, glucose 722, calcium 10.9, and alkaline phosphatase 135. CK-MB 11.1, troponin 1.080 with repeat pending at this time. Initial blood gas showed pH 7.18, pCO2 47.6, PO2 46.3. Repeat after approximately 2 hours of mechanical ventilation, pH 7.21, pCO2 32.8, PO2 77.9, bicarb 12.8. Serum ketones 2.96. Urinalysis remarkable for glucose, ketones, blood, and 1+ bacteria. Initial EKG at 1800 shows sinus tachycardia with mild ST depressions in lead 2. Repeat EKG at 2100 following possible nonsustained ventricular tachycardia event showed sinus tach [address] elevations. Chest x-ray personally reviewed by me. Pre-intubation chest x-ray showed diffuse right-sided infiltrates. Post intubation chest x-ray showed ET tube in appropriate place, NG tube in place with bilateral infiltrates. Per ER reports, the patient aspirated during intubation. ASSESSMENT AND PLAN: A 59-year-old male with known uncontrolled diabetes, presents with right-sided pneumonia, which developed into acute respiratory failure requiring intubation, and mechanical ventilation. PLAN: 1. Acute hypoxic hypercapnic respiratory failure. Continue mechanical ventilation. We will contact Pulmonary ICU this evening. Likely etiology is right-sided pneumonia with now likely with concurrent aspiration pneumonitis versus pneumonia. Continue vancomycin and Zosyn. Pulmonary toilet as needed. We will await further recommendations from Critical Care and Pulmonary. 2. Diabetic ketoacidosis versus hyperosmolar hyperglycemic syndrome. Serum osmolality is pending at this time. Beta hydroxybutyrate elevated. We will continue diabetic ketoacidosis protocol. The patient has currently received 3 L of IV fluids. 3.ST Elevation Myocardial Infarction. Cardiology has already been consulted by the ER and will be made aware of the patient as he progresses throughout this evening. Cardiology to perform catheterization tonight We will cover with therapeutic Lovenox at this time. 4. Severe sepsis secondary to #1. The patient's blood pressure is responding with IV fluids. We will monitor closely once in the ICU. If pressors were needed, we will place central venous catheter. Continue IV antibiotics. Blood cultures and urine cultures have been collected and sent at this time. Could consider adding respiratory culture; however, given the patient aspirated, will likely show enteric bacteria. 5. Chronic medical conditions per internet marketing intern H and P. 6. Disposition and estimated length of stay, inpatient critical care greater than 2 midnights. Job ID: [id number] MTDD
[2019-09-24] MEDS ORDERED: Heparin (Artline) 500 ML ONE (00:02)
[2019-09-24] MEDS ORDERED: Aggrastat 12.5 MG/250 ML 250 ML ONE (00:02)
[2019-09-24] MEDS ORDERED: Norepinephrine 4 MG/4 ML VIAL ONE (00:26)
--- NOTE | 2019-09-24 00:29 | PDOC.EVN ---
Event Note - Event Note Event Note: Attempted to contact next of kin regarding status update on Mr. Abreu without response. Will continue to try to contact family regarding status. ATTENDING ADDENDUM. I attempted to call patient listed contact/next of kin to update on status at 1239. Number went to voicemail. Left VM asking contact to call ICU and ask to speak with FMR team. Left number for ICU. Will attempt to contact family again in the morning.
[2019-09-24] MEDS ORDERED: Norepinephrine 8 MG/0.9% NS 250 ML IVPB SCH ×2 (00:30→10:39)
--- NOTE | 2019-09-24 00:44 | CON ---
DATE OF CONSULTATION: 09/23/2019 REASON FOR CONSULTATION: ST-elevation AR. HISTORY OF PRESENT ILLNESS: Mr. Abreu is a 59-year-old white gentleman, who comes to the hospital for 3-hour episode of chest pain and shortness of breath. He was found to have extremely elevated sugars with an anion gap metabolic acidosis. He was started on DKA therapies. First troponin was only 1 and EKG just showed lateral ST depressions. A second troponin came up at 5. He had to be intubated for continuing respiratory distress and eventually, a repeat EKG showed lateral ST elevations, so Cardiology was called emergently. On my evaluation, Mr. Abreu was intubated and sedated. He had ST elevations on his EKG. He was taken emergently to the catheterization lab, where he was found to have severe multivessel disease, no acute lesion, just severe disease, severe LAD proximal and mid, severe proximal circ OM1 and OM2, and occluded RCA that fills from [id number] collaterals. A balloon pump was inserted and CT Surgery was consulted. Mr. Abreu remains sedated and intubated in critical condition. PAST MEDICAL HISTORY: 1. Recent diagnosis of type 2 diabetes. 2. Hypertension. 3. Anxiety and depression. PAST SURGICAL HISTORY: Appendectomy. SOCIAL HISTORY: Drinks socially. No drug use. Chews tobacco daily. ALLERGIES: NO KNOWN DRUG ALLERGIES. MEDICATIONS: Outpatient medications none for the last 2 months, but he should be on some sort of insulin. FAMILY HISTORY: Unobtainable as the patient is sedated and intubated and not in the chart. REVIEW OF SYSTEMS: Unobtainable as the patient is sedated and intubated. PHYSICAL EXAMINATION: VITAL SIGNS: Temperature 97.2, pulse 120, respiratory rate 18 on the vent, saturating 97% on 50% FiO2. GENERAL: Sedated, intubated. HEENT: Normocephalic and atraumatic. NECK: Supple. LUNGS: Have coarse breath sounds anteriorly and posteriorly. CARDIOVASCULAR: Tachycardic. No murmurs, no rubs. ABDOMEN: Soft. Positive bowel sounds. EXTREMITIES: No edema. SKIN: Warm and dry. LABORATORY DATA: Laboratory work was reviewed. White count of 15, hemoglobin of 17, hematocrit of 47, and platelet count of 344. ABG was reviewed. Chemistries were reviewed. Glucose was 618, anion gap of 27, potassium was 5.9, AST of 60, alkaline phosphatase 134. BNP was only 106. Troponin 2nd was 5.5, initial one was 1. UA was reviewed. Toxicology was reviewed. 1+ urine bacteria. There is beta hydroxybutyrate. Chest x-ray shows a right-sided edema versus pneumonia. EKG was reviewed. ASSESSMENT: 1. Acute anterolateral ST-elevation myocardial infarction. 2. Multivessel coronary artery disease. 3. Type 2 diabetes, poorly controlled. 4. Nonketotic hyperosmotic ketoacidosis. 5. Possible aspiration pneumonia. 6. Cardiogenic shock. 7. New onset severe ischemic cardiomyopathy with ejection fraction at around 30%. PLAN: 1. Balloon pump in place for support. 2. Pressor and inotropic support as needed. 3. CT Surgery will plan on doing surgery once a little more stable. Currently, he is too unstable for this. 4. Other therapies for his high blood sugar per Primary Team. 5. Should be started on antibiotics for possible aspiration pneumonia. 6. The patient is severely ill, and would not be unexpected. 7. We will follow. Job ID: [id number]
--- NOTE | 2019-09-24 00:58 | CON ---
DATE OF CONSULTATION: 09/24/2019 HISTORY OF PRESENT ILLNESS: Mr. Abreu is a 59-year-old gentleman, who was in the hospital a month ago for 4 days with new onset diabetes mellitus. He required an insulin drip. His presenting symptom at that time was urinary retention. He had a Fang catheter placed at that time. His bladder was decompressed and he was started on Lantus and metformin regimen. Apparently, he has not been compliant with his home diabetic regimen. Has not had any followup in regard to his new onset diabetes. He presented with chest pain and shortness of breath. He was eventually intubated in the emergency department. Troponin elevated from 1 to 5 and he began to have ST elevations on his EKG. He was taken to the laborer yard emergently and underwent cardiac catheterization. Catheterization shows chronically occluded right coronary artery. There are [id number] collaterals filling the PDA. He has severe multivessel disease involving his left-sided system. Bypassable targets included an LAD which is diffusely diseased and a larger OM. The PDA also should be bypassable. Ventriculogram shows an ejection fraction of approximately 30%. Dr. Bermeo asked me to come see the patient in regard to potential for bypass in the future. He has had a balloon pump placed and is currently at one to one. PAST MEDICAL HISTORY: 1. New onset diabetes mellitus with history of hyperosmolar state with current DKA. 2. Obstructive uropathy. 3. Hypertension. PAST SURGICAL HISTORY: Appendectomy. MEDICATIONS: At home-the patient has apparently been noncompliant taking his medicines. 1. Metformin 500 mg b.i.d. 2. Lantus 20 units q.a.m. 3. Flomax 0.4 mg b.i.d. 4. Lisinopril 5 mg daily. 5. Cipro 500 mg b.i.d. ALLERGIES: NONE. THE REMAINDER OF THE HISTORY AND PHYSICAL WAS UNABLE TO BE OBTAINED DUE TO THE PATIENT BEING INTUBATED. PHYSICAL EXAMINATION: GENERAL: This is a well-developed, well-nourished, thin white male, intubated and sedated in the laborer yard. VITAL SIGNS: His heart rate is 100. His blood pressure is 90/70. NECK: Supple without bruit. There is no crepitus. CHEST: Clear bilaterally. HEART: Rhythm is regular. There is a balloon pump in place and the balloon is audible. ABDOMEN: Soft and nontender. EXTREMITIES: There is no edema. VASCULAR: He has vascular access from his right groin with a balloon pump through the catheter sheath. ASSESSMENT AND PLAN: This is a 59-year-old, new onset diabetic, who presented with diabetic ketoacidosis and congestive heart failure, requiring intubation. A coronary angiogram shows 3-vessel disease. Ejection fraction is approximately 30%. He has a balloon pump in place now. He is going to have to recover from his acute event and have his sugars controlled prior to proceeding with bypass. Potential bypassable targets include LAD and OM and PDA. We will follow while he is in the ICU until he recovers to a point that we can discuss bypass with him. Job ID: [id number]
[2019-09-24 01:12] LABS: Troponin I 31.609 ng/mL (< 0.028)
[2019-09-24 01:15] LABS: #Eosinphils 0.1 thou/uL (0.0-0.7); #Lymphocytes 1.1 thou/uL (1.20-3.40); #Monocytes 0.3 thou/uL (0.11-0.59); #Neutrophils 16.6 thou/uL (1.40-6.50); %Basophils 0.2 % (0.0-1.0); %Eosinophils 0.4 % (0.0-10.0); %Lymphocytes 5.9 % (21.0-51.0); %Monocytes 1.7 % (0.0-10.0); %Neutrophils 91.8 % (42.0-75.0); Hemoglobin 16.9 g/dL (14.0-18.0); Mean Corpuscular HGB CONC 33.4 g/dL (32.0-36.0); Mean Corpuscular Hemoglobin 29.4 pg (27.0-31.0); Mean Corpuscular Volume 88.1 fL (78.0-98.0); Mean Platelet Volume 9.8 fL (7.4-10.4); Platelet Count 371 thou/uL (130-400); RBC Distribution Width 11.9 % (11.5-14.5); Red Blood Cell (RBC) Count 5.75 mill/uL (4.70-6.10)
[2019-09-24 01:35] LABS: Lactic Acid 4.1 mmol/L (0.5-2.2)
[2019-09-24 01:41] LABS: Actual Bicarbonate (HCO3a) 15.6 mEq/L (22-28); Base Excess (BEa) -9.9 mEq/L (-2.0 to +3.0); CO2 Tension 34.1 mmHg (35.0-45.0); Calcium, Ionized 1.18 mmol/L (1.12-1.30); Carboxyhemoglobin (COHb) 0.6 gm% (0.0-3.0); Hemoglobin (Hb) 17.3 g/dL (14.0-18.0); O2 Tension (PaO2) 79.5 mmHg (80.0-100.0); Potassium - ABG Lab 5.04 mmol/L (3.70-5.30); pH, Arterial 7.28 (7.35-7.45)
[2019-09-24 01:44] LABS: Puncture Site L RADIAL
[2019-09-24 01:45] LABS: ALV-art Gradient 519.575 (0-20)
[2019-09-24] MEDS: Propofol 1,000 MG/100 ML VIAL IV ONE ×2 (01:45→01:49)
[2019-09-24 01:48] LABS: ALT (SGPT) 23 U/L (8-55); AST (SGOT) 95 U/L (5-34); Albumin 3.3 g/dL (3.5-5.0); Alkaline Phosphatase 98 U/L (40-110); Anion Gap 19 mmol/L (10-20); BUN (Urea Nitrogen) 20 mg/dL (8.4-25.7); Bilirubin, Total 0.5 mg/dL (0.2-1.2); Calc. Creatinine Clearance 58 mL/min (70-130); Calcium 8.3 mg/dL (7.8-10.44); Carbon Dioxide 12 mmol/L (22-29); Cardiac Risk 7.9 (Less than 4.5); Chloride 110 mmol/L (98-107); Cholesterol 302 mg/dl (< 200 Desired); Estimated GFR-MDRD 45; Globulin 2.8 g/dL (2.4-3.5); Glucose 398 mg/dL (70-105); HDL Cholesterol 38 mg/dL (>60 Neg Risk); LDL Cholesterol, Calculated 221 mg/dL; Potassium 5.4 mmol/L (3.5-5.1); Protein, Total 6.1 g/dL (6.0-8.3); Sodium 136 mmol/L (136-145); Triglycerides 214 mg/dL (Less than 150)
[2019-09-24] MEDS ORDERED: Fentanyl BOLUS 250 ML IVPB PRN (01:59)
[2019-09-24] MEDS ORDERED: DISCONTINUE PREVIOUS NARCOTIC PAIN MEDICATIONS AND BENZODIAZEPINES FS SCH (01:59)
[2019-09-24] MEDS ORDERED: Propofol BOLUS 1,000 MG/100 ML VIAL IV PRN (01:59)
[2019-09-24] MEDS ORDERED: Piperacillin/Tazobactam 3.375 GM in Sodium Chloride 0.9% 100 ML IVPB SCH (02:00)
[2019-09-24] MEDS ORDERED: Ventilator Sedation Protocol 1 EACH FS SCH (02:00)
[2019-09-24] MEDS: Piperacillin/Tazobactam 4.5 GM in Sodium Chloride 0.9% 100 ML IVPB SCH ×4 (03:33→20:50)
[2019-09-24] MEDS: Vancomycin HCl 1 GM in Premix Bag 1 BAG IVPB SCH ×2 (03:34→16:36)
[2019-09-24 06:40] LABS: Anion Gap 13 mmol/L (10-20); BUN (Urea Nitrogen) 18 mg/dL (8.4-25.7); Calc. Creatinine Clearance 71 mL/min (70-130); Calcium 8.5 mg/dL (7.8-10.44); Carbon Dioxide 18 mmol/L (22-29); Chloride 113 mmol/L (98-107); Estimated GFR-MDRD 58; Glucose 206 mg/dL (70-105); Potassium 3.8 mmol/L (3.5-5.1); Sodium 140 mmol/L (136-145)
--- NOTE | 2019-09-24 06:45 | PDOC.FM ---
- Subjective Subjective: NAEO. Patient on mechanical ventilation. Per nursing, no concerns. - Objective MAR Reviewed: Yes Vital Signs & Weight: Vital Signs (12 hours) Pulse Resp BP Pulse Ox 09/24/19 05:35 98 09/24/19 04:00 27 H 09/24/19 03:38 105 H 137/71 09/24/19 02:00 27 H 09/24/19 00:37 104 H 09/24/19 00:35 25 H 96 Weight Weight 81.012 kg Most Recent Monitor Data Heart Rate from ECG 101 NIBP 100/76 NIBP BP-Mean 84 Respiration from ECG 27 SpO2 100 I&O: 09/22/19 09/23/19 09/24/19 06:59 06:59 06:59 Output Total 685 Balance -685 Result Diagrams: 09/24/19 05:57 09/24/19 08:16 Phys Exam - Physical Examination Constitutional: NAD intubated, sedated HEENT: moist MMs Neck: supple Respiratory: clear to auscultation bilateral Cardiovascular: RRR, no significant murmur, no rub Gastrointestinal: soft, non-tender, no distention, positive bowel sounds leg brace in place Right leg Neurological: non-focal opens eyes spontaneously, moves all limbs spontaneously Skin: no rash, normal turgor, cap refill <2 seconds Dx/Plan (1) Acute and chronic respiratory failure with hypoxia Code(s): J96.21 - ACUTE AND CHRONIC RESPIRATORY FAILURE WITH HYPOXIA Status: Acute (2) DKA (diabetic ketoacidoses) Code(s): E11.10 - TYPE 2 DIABETES MELLITUS WITH KETOACIDOSIS WITHOUT COMA Status: Acute (3) Pneumonia Code(s): J18.9 - PNEUMONIA, UNSPECIFIED ORGANISM Status: Acute (4) STEMI (ST elevation myocardial infarction) Status: Acute (5) Shock Code(s): R57.9 - SHOCK, UNSPECIFIED Status: Acute (6) Hypokalemia Code(s): E87.6 - HYPOKALEMIA Status: Acute (7) Type 2 diabetes mellitus with hyperosmolar nonketotic hyperglycemia Code(s): E11.01 - TYPE 2 DIABETES MELLITUS WITH HYPEROSMOLARITY WITH COMA Status: Acute (8) Anxiety and depression Code(s): F41.9 - ANXIETY DISORDER, UNSPECIFIED; F32.9 - MAJOR DEPRESSIVE DISORDER, SINGLE EPISODE, UNSPECIFIED Status: Chronic (9) BPH (benign prostatic hyperplasia) Code(s): N40.0 - BENIGN PROSTATIC HYPERPLASIA WITHOUT LOWER URINRY TRACT SYMP Status: Chronic (10) Tobacco abuse Code(s): Z72.0 - TOBACCO USE Status: Chronic - Plan Plan: 59-yo M w/ no PCP admitted for STEMI and DKAvsHHS: Consults: Cardiology, CV surg, Pulm, palliative care CLOTH MERCERIZING SUPERVISOR: - Sedation protocol - Opens eyes and moves limbs spontaneously Resp: - ABG: pH 7.29, Co2 34.1, O2 79.5, bicarb 15, base excess -9.9. Will continue ABGs PRN. - Vent settings: FiO2 85%, PEEP 5, AC mode - Pulm consulted, appreciate recs - Possible aspiration PNA - being tx with abx vanc/zosyn CV - Pressors: levophed 15mcg/hr - STEMI: Trop 1.0 > 5.5 > 31. EKG changes showing anterolateral [place]. - Cards consulted. Taken to [facility] by Dr. Bermeo, found to have extensive vessel disease. Balloon bump in place. EF estimated to be 30%. Appreciate recommendations. - CV surg consulted, appreciate recs. Patient needs to undergo CABG. Will continue to improve sugars and status to have this discussion with patient. Will also try to contact [facility] this morning to update on patient status. - Therapeutic LVX GI: - Will need to consider tube feeds as patient will likely need to be intubated for some time Heme: - Hgb stable. WBC 18. /Renal: - Renal fxn normal - UA neg; Urine abnormal color this AM. Will repeat UA. Infection: - Covering w/ broad spectrum abx with vanc/zosyn for a LLL PNA. Procal 0.43. Will continue to monitor. LA 3 - will trend. Endo: - Patient presented with DKA vs HHS - started DKA protocol. BHB: 2.96. BG have been better controlled this AM (197). Continues to get insulin 14u/hr. Will continue DKA protocol. Lines/tubes: 3 peripherals, 1 central (R femoral), milner, intubated Code: FULL PPX: Th lovenox, pepcid Dispo: continue CCU care. Will attempt to contact family/next of kin this AM. LOS > 48H. Case discussed with Dr. Venegas Addendum - Attending - Attending Attestation Date/Time: 09/24/19 1150 I personally evaluated the patient and discussed the management with Dr. Mckee. I agree with the History, Examination, Assessment and Plan documented above with any addition or exceptions noted below.
[2019-09-24] MEDS ORDERED: Vancomycin HCl 1.2 GM in Sodium Chloride 0.9% 250 ML 250 ML IVPB SCH (07:00)
[2019-09-24 07:24] LABS: Actual Bicarbonate (HCO3a) 14.3 mEq/L (22-28); Base Excess (BEa) -8.1 mEq/L (-2.0 to +3.0); Calcium, Ionized 1.12 mmol/L (1.12-1.30); Carboxyhemoglobin (COHb) 0.9 gm% (0.0-3.0); Hemoglobin (Hb) 15.7 g/dL (14.0-18.0); O2 Tension (PaO2) 72.9 mmHg (80.0-100.0); Potassium - ABG Lab 3.52 mmol/L (3.70-5.30)
[2019-09-24] MEDS: Lorazepam 2 MG/ML VIAL SLOW IVP PRN ×2 (07:24→12:28)
[2019-09-24 07:25] LABS: CO2 Tension 23.4 mmHg (35.0-45.0); Puncture Site ALINE
[2019-09-24 07:57] LABS: Band 21 % (5-11); Hemoglobin 15.6 g/dL (14.0-18.0); Lymphocytes 3 % (21-51); MDiff Complete? YES; Mean Corpuscular HGB CONC 34.4 g/dL (32.0-36.0); Mean Corpuscular Hemoglobin 29.7 pg (27.0-31.0); Mean Corpuscular Volume 86.4 fL (78.0-98.0); Mean Platelet Volume 9.8 fL (7.4-10.4); Metamyelocyte 2 % (0-0); Monocytes 10 % (0-10); Neutrophil 64 % (42-75); Platelet Count 377 thou/uL (130-400); Platelet Morphology Comment Appears Adequate; RBC Distribution Width 11.8 % (11.5-14.5); RBC Morphology Normal; Red Blood Cell (RBC) Count 5.25 mill/uL (4.70-6.10); White Blood Cell (WBC) Count 20.5 thou/uL (4.8-10.8)
[2019-09-24 08:56] LABS: Anion Gap 12 mmol/L (10-20); BUN (Urea Nitrogen) 17 mg/dL (8.4-25.7); Calc. Creatinine Clearance 81 mL/min (70-130); Calcium 8.4 mg/dL (7.8-10.44); Carbon Dioxide 17 mmol/L (22-29); Chloride 113 mmol/L (98-107); Estimated GFR-MDRD 66; Glucose 198 mg/dL (70-105); Potassium 3.9 mmol/L (3.5-5.1); Sodium 138 mmol/L (136-145)
[2019-09-24] MEDS ORDERED: Enoxaparin Sodium 80 MG/0.8 ML SYRINGE SC SCH (09:00)
[2019-09-24] MEDS ORDERED: Enoxaparin Sodium 40 MG/0.4 ML SYRINGE SC SCH (09:00)
--- NOTE | 2019-09-24 09:26 | RAD ---
FRONTAL VIEW CHEST: Date: 09/24/19 COMPARISON: Previous day. INDICATION: ICU patient follow-up. FINDINGS: Endotracheal tube and enteric catheter remain. Diffuse bilateral pulmonary parenchymal opacities pers ist. No significant interval change. Numerous extrinsic leads do limit detail. IMPRESSION: Persistent, diffuse bilateral pulmonary parenchymal opacification. POS: [facility]
[2019-09-24 09:38] LABS: Base Excess (BEa) -8.3 mEq/L (-2.0 to +3.0); CO2 Tension 34.6 mmHg (35.0-45.0); Calcium, Ionized 1.13 mmol/L (1.12-1.30); Carboxyhemoglobin (COHb) 0.7 gm% (0.0-3.0); Hemoglobin (Hb) 15.4 g/dL (14.0-18.0); O2 Tension (PaO2) 74.6 mmHg (80.0-100.0); Potassium - ABG Lab 3.39 mmol/L (3.70-5.30); pH, Arterial 7.31 (7.35-7.45)
[2019-09-24 09:39] LABS: Puncture Site ALINE
[2019-09-24] MEDS: Famotidine/PF 20 mg/2ml Vial SLOW IVP SCH ×2 (10:07→20:50)
[2019-09-24] MEDS: Aggrastat 12.5 MG/250 ML 250 ML IVPB SCH (10:33)
--- NOTE | 2019-09-24 10:45 | CON ---
DATE OF CONSULTATION: HISTORY OF PRESENT ILLNESS: Chetan Abreu is a 59-year-old gentleman who came to the ER with chest pain and shortness of breath. He underwent emergency cardiac cath, which shows significant coronary artery disease and cardiomyopathy. He has intraaortic balloon pump in place. He is intubated in the vent and sedated. Additionally, he has known history of diabetes on insulin. I am not able to get additional information from him at this time since he is intubated, but has been in the hospital here several times. PAST MEDICAL HISTORY: Otherwise includes diabetes, hypertension, and depression. PAST SURGICAL HISTORY: Including appendix. HOME MEDICATIONS: Includes metformin 500, Flomax 0.4, lisinopril 5, Lantus 20, Cipro 500 and he is now on vancomycin, Zosyn and insulin drip. PHYSICAL EXAMINATION: VITAL SIGNS:temp 96, blood pressure 100/60, he is on Levophed, respirations 20, pulse 80. CHEST: Decreased breath sounds. Bilateral crackles. CARDIAC: Normal S1 and S2. No gallop. ABDOMEN: No masses. LABORATORY DATA: White count 35781, H and H 15 and 45, platelet count is normal , 64 segs, 21 bands. PO2 is 72, pCO2 is 23, pH 7.4,5 00_ml tidal volume. BUN and creatinine and 18 and 1.28. Glucose 197. X-ray shows CHF. IMPRESSION: Congestive cardiomyopathy, diabetes, hypertension, and mild azotemia. PLAN: Continue vent support and diuretics as per Cardiology. Wean when stable. We will start nutrition. Continue insulin. Consider restarting home medication Lantus at half the dose. This is a 45-minute critical time. We will follow. Job ID: [id number] MTDD
[2019-09-24] MEDS ORDERED: Norepinephrine 8 MG in Dextrose 5% in Water 242 ML IVPB PRN (10:52)
[2019-09-24] MEDS: Norepinephrine 8 MG in Dextrose 5% in Water 242 ML IVPB PRN ×2 (11:11→21:20)
[2019-09-24] MEDS: Propofol 1,000 MG/100 ML VIAL IV PRN ×2 (12:28→21:10)
[2019-09-24] MEDS: fentaNYL Citrate/PF 2,000 MCG in Sodium Chloride 0.9% 60 ML IV SCH (12:40)
[2019-09-24 13:19] LABS: Anion Gap 10 mmol/L (10-20); BUN (Urea Nitrogen) 15 mg/dL (8.4-25.7); Calc. Creatinine Clearance 84 mL/min (70-130); Calcium 8.1 mg/dL (7.8-10.44); Carbon Dioxide 22 mmol/L (22-29); Chloride 110 mmol/L (98-107); Estimated GFR-MDRD 69; Glucose 179 mg/dL (70-105); Potassium 3.8 mmol/L (3.5-5.1); Sodium 138 mmol/L (136-145)
[2019-09-24 16:13] LABS: Anion Gap 14 mmol/L (10-20); BUN (Urea Nitrogen) 14 mg/dL (8.4-25.7); Calc. Creatinine Clearance 77 mL/min (70-130); Carbon Dioxide 19 mmol/L (22-29); Chloride 109 mmol/L (98-107); Estimated GFR-MDRD 63; Glucose 299 mg/dL (70-105); Potassium 4.4 mmol/L (3.5-5.1); Sodium 138 mmol/L (136-145)
--- NOTE | 2019-09-24 18:11 | PDOC.CPN ---
- Subjective Date: 09/24/19 Time: 18:06 Interval history: He remains intubated sedated. - Review of Systems ROS unobtainable: due to endotracheal tube - Objective Allergies/Adverse Reactions: Allergies Allergy/AdvReac Type Severity Reaction Status Date / Time No Known Allergies Allergy Verified 09/24/19 01:40 Visit Medications: Current Medications Dextrose/Water (Dextrose 50%) 25 gm SLOW IVP PRN PRN PRN Reason: Hypoglycemia Famotidine (Pepcid) 20 mg SLOW IVP Q12HR THOM Last Admin: 09/24/19 10:07 Dose: 20 mg Glucagon (Glucagon) 1 mg IM PRN PRN PRN Reason: Hypoglycemia Fentanyl Citrate 2,000 mcg/ (Sodium Chloride) 100 mls @ 0 mls/hr IV INF THOM; Protocol Stop: 10/23/19 20:18 Last Admin: 09/24/19 12:40 Dose: 100 mls Dextrose/Sodium Chloride (D5 1/2 Ns) 1,000 mls @ 50 mls/hr IV .Q20H PRN; Protocol PRN Reason: Step 4 of DKA Protocol Potassium Chloride/Dextrose/Sod Cl (D5 1/2 Ns W/20 Meq Kcl) 1,000 mls @ 250 mls /hr IV .Q4H PRN; Protocol PRN Reason: Step 4 of DKA Protocol Dextrose/Water (D5w) 1,000 mls @ 0 mls/hr IV .Q0M PRN PRN Reason: Hypoglycemia Insulin Human Regular 100 (units/ Sodium Chloride) 101 mls @ 0 mls/hr IVPB INF THOM; Protocol Potassium Chloride 40 meq/ (Sodium Chloride) 270 mls @ 135 mls/hr IVPB ASDIR PRN PRN Reason: FOR SERUM K+ 2.5 - 3.5 Potassium Chloride 40 meq/ (Device) 100 mls @ 50 mls/hr IVPB ASDIR PRN PRN Reason: FOR SERUM K+ 2.5 - 3.5 Magnesium Sulfate 1 gm/ Sodium (Chloride) 102 mls @ 102 mls/hr IV PRN PRN PRN Reason: MAG LEVEL 1.4 - 2.0 Magnesium Sulfate 2 gm/ Device 50 mls @ 50 mls/hr IVPB ASDIR PRN PRN Reason: MAGNESIUM < 1.4 Potassium Phosphate 9 mmol/ (Sodium Chloride) 103 mls @ 25.75 mls/hr IVPB ASDIR PRN PRN Reason: Phosphate 1.0-1.8 Potassium Phosphate 12 mmol/ (Sodium Chloride) 254 mls @ 63.5 mls/hr IV ASDIR PRN PRN Reason: Serum phosphate 0.5-0.9 Potassium Phosphate 15 mmol/ (Sodium Chloride) 255 mls @ 63.75 mls/hr IV ASDIR PRN PRN Reason: Serum Phos < 0.5 Piperacillin Sod/Tazobactam (Sod 4.5 gm/ Sodium Chloride) 100 mls @ 200 mls/hr IVPB 0200,0800,1400,2000 [facility] Last Admin: 09/24/19 13:26 Dose: 100 mls Tirofiban/Sodium Chloride (Aggrastat 12.5 Mg/250 Ml) 250 mls @ 0 mls/hr IVPB INF THOM; Protocol Last Admin: 09/24/19 10:33 Dose: 250 mls Vancomycin HCl 1 gm/ Device 200 mls @ 200 mls/hr IVPB 0300,1500 [facility] Last Admin: 09/24/19 16:36 Dose: 200 mls Fentanyl Citrate (Fentanyl Bolus) 250 mls @ 0 mls/hr IVPB PRN PRN PRN Reason: Breakthrough pain/agitation Stop: 10/24/19 01:59 Norepinephrine Bitartrate 8 mg (/ Dextrose/Water) 250 mls @ 0 mls/hr IVPB INF PRN; Protocol PRN Reason: BLOOD PRESSURE Last Admin: 09/24/19 11:11 Dose: 250 mls Insulin Glargine 10 units/ (Miscellaneous Medication) 0.1 mls @ 0 mls/hr SC BID [facility] Lorazepam (Ativan) 2 mg SLOW IVP Q1H PRN PRN Reason: Breakthrough agitation Stop: 10/24/19 01:59 Last Admin: 09/24/19 12:28 Dose: 2 mg Magnesium Oxide (Magnesium Oxide) 400 mg PO BIDPRN PRN PRN Reason: FOR SERUM MAG 1.4 - 2.0 Magnesium Oxide (Magnesium Oxide) 800 mg PO PRN PRN PRN Reason: FOR SERUM MAG < 1.4 Miscellaneous Medication (Phos-Nak) 1 pkt PO TIDPRN PRN PRN Reason: FOR PHOS LEVEL 1.0 - 1.8 Miscellaneous Medication (Phos-Nak) 2 pkt PO TIDPRN PRN PRN Reason: FOR PHOS LEVEL 0.5 - 1.0 Miscellaneous Medication (Pharmacy To Dose) 1 each IVPB PRN PRN PRN Reason: PNA Morphine Sulfate (Morphine) 2 mg SLOW IVP Q1H PRN PRN Reason: BREAKTHROUGH PAIN/Agitation Stop: 10/24/19 01:59 Ccu Electrolyte (Replacement Protocol) 0 each FS PRN PRN PRN Reason: FOR ELECTROLYTE REPLACEMENT Discontinue Previous Narcotic Pain Medications And Benzodiazepines 1 each FS .ONE THOM Stop: 10/24/19 01:59 Ondansetron HCl (Zofran) 4 mg IVP Q6H PRN PRN Reason: Nausea/Vomiting Potassium Chloride (K-Dur) 40 meq PO ASDIR PRN PRN Reason: FOR SERUM K+ 2.5 - 3.5 Potassium Chloride (Klor-Con) 40 meq PER TUBE ASDIR PRN PRN Reason: FOR SERUM K+ 2.5-3.5 Propofol (Diprivan) 1,000 mg IV INF PRN; Protocol PRN Reason: TO ACHIEVE GOAL RASS Stop: 10/24/19 01:59 Last Admin: 09/24/19 12:28 Dose: 1,000 mg Propofol (Diprivan Bolus) 20 mg IV Q5MIN PRN PRN Reason: BREAKTHROUGH AGITATION Stop: 10/24/19 01:59 Vital Signs & Weight: Vital Signs Temp Pulse Resp BP Pulse Ox 09/24/19 16:00 99.9 F H 20 09/24/19 14:16 102 H 106/58 L 09/24/19 14:00 20 09/24/19 12:00 99.7 F H 21 H 09/24/19 11:00 100.7 F H 09/24/19 10:06 99 99/55 L 09/24/19 10:00 20 09/24/19 09:00 100.7 F H 09/24/19 08:00 27 H 100 09/24/19 07:03 103 H 100/60 09/24/19 07:00 100.8 F H Admit Weight 178 lb 9.6 oz Weight 178 lb 9.6 oz - Physical Exam General: other (Sedated, intubated.) HEENT: mucus membranes moist Neck: supple neck, midline trachea Cardiac: regular rate and rhythm Lungs: bibasilar rales Neuro: other (Sedated,) Abdomen: active bowel sounds Extremities: 1+ LE edema Skin: clear Musculoskeletal: no fluid collection - Labs Result Diagrams: 09/24/19 05:57 09/24/19 15:32 Troponin/CKMB CK-MB (CK-2) 11.1 ng/mL (0-6.6) H* 09/23/19 18:00 Troponin I 31.609 ng/mL (< 0.028) H* 09/24/19 00:37 - Telemetry Sinus rhythms and dysrhythmias: sinus tachycardia - Assessment/Plan Assessment/Plan: 1. Anterolateral STEMi 2. Multivessel CAD. 3. Cardiogenic shock 4. Presence of an IABP for support. 5. Uncontrolled diabetes. 6. Possible aspiration pneumonia 7. Bipolar disorder. PLAN: - Continue supportive care. Still needing pressors and IBAP. - Continue aggrastat. 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 He is estranged from his brothers and his mother has dementia and cannot make decisions for him. - Severely ill and would not be unexpected. - Abx per primary team. - Critical Care Time Critical care time (mins): 45
[2019-09-24 19:11] LABS: Bilirubin Negative (Negative); Blood, Urine 1+ (Negative); Clarity Clear (Clear); Glucose, Urine (Dipstick) Greater than 1000 mg/dL (Negative); Leukocyte Negative Leu/uL (Negative); Nitrite Negative (Negative); Protein, Urine (Dipstick) 10 mg/dL (Neg-Trace); RBC/HPF 21-50 HPF (0-3); Squamous Epithelial 0-3 HPF (0-3); Urobilinogen Normal mg/dL (Less than 2)
[2019-09-24 19:12] LABS: Bacteria/HPF 1+ HPF (None Seen)
[2019-09-24 20:13] LABS: Anion Gap 14 mmol/L (10-20); BUN (Urea Nitrogen) 13 mg/dL (8.4-25.7); Calc. Creatinine Clearance 73 mL/min (70-130); Calcium 8.2 mg/dL (7.8-10.44); Carbon Dioxide 20 mmol/L (22-29); Chloride 108 mmol/L (98-107); Estimated GFR-MDRD 60; Glucose 319 mg/dL (70-105); Potassium 4.7 mmol/L (3.5-5.1); Sodium 137 mmol/L (136-145)
[2019-09-24] MEDS ORDERED: Insulin Glargine 10 UNITS in Pre-Filled Syringe 1 EACH SC SCH (21:00)
[2019-09-24] MEDS: HumaLOG 300 UNITS/3 ML VIAL SC PRN (21:17)
[2019-09-24] MEDS: Sodium Chloride 0.45% 1,000 ML IV SCH (21:24)
[2019-09-25 00:20] LABS: Anion Gap 12 mmol/L (10-20); BUN (Urea Nitrogen) 12 mg/dL (8.4-25.7); Calc. Creatinine Clearance 84 mL/min (70-130); Carbon Dioxide 21 mmol/L (22-29); Chloride 108 mmol/L (98-107); Estimated GFR-MDRD 69; Glucose 280 mg/dL (70-105); Potassium 4.2 mmol/L (3.5-5.1); Sodium 137 mmol/L (136-145)
[2019-09-25] MEDS: Aggrastat 12.5 MG/250 ML 250 ML IVPB SCH ×2 (02:15→18:16)
[2019-09-25] MEDS: Piperacillin/Tazobactam 4.5 GM in Sodium Chloride 0.9% 100 ML IVPB SCH ×4 (02:16→20:13)
[2019-09-25] MEDS: Vancomycin HCl 1 GM in Premix Bag 1 BAG IVPB SCH ×2 (02:16→15:05)
[2019-09-25] MEDS: fentaNYL Citrate/PF 2,000 MCG in Sodium Chloride 0.9% 60 ML IV SCH ×2 (02:18→15:41)
[2019-09-25] MEDS: HumaLOG 300 UNITS/3 ML VIAL SC PRN ×7 (04:31→23:11)
[2019-09-25 04:40] LABS: #Eosinphils 0.1 thou/uL (0.0-0.7); #Lymphocytes 1.7 thou/uL (1.20-3.40); #Monocytes 1.3 thou/uL (0.11-0.59); #Neutrophils 11.3 thou/uL (1.40-6.50); %Basophils 0.3 % (0.0-1.0); %Eosinophils 0.8 % (0.0-10.0); %Lymphocytes 11.9 % (21.0-51.0); Mean Corpuscular HGB CONC 33.9 g/dL (32.0-36.0); Mean Corpuscular Hemoglobin 30.3 pg (27.0-31.0); Mean Corpuscular Volume 89.3 fL (78.0-98.0); Mean Platelet Volume 9.3 fL (7.4-10.4); Platelet Count 251 thou/uL (130-400); RBC Distribution Width 11.9 % (11.5-14.5); White Blood Cell (WBC) Count 14.4 thou/uL (4.8-10.8)
[2019-09-25 04:56] LABS: ALT (SGPT) 44 U/L (8-55); AST (SGOT) 148 U/L (5-34); Albumin 2.9 g/dL (3.5-5.0); Alkaline Phosphatase 70 U/L (40-110); Anion Gap 11 mmol/L (10-20); BUN (Urea Nitrogen) 12 mg/dL (8.4-25.7); Bilirubin, Total 0.6 mg/dL (0.2-1.2); Calc. Creatinine Clearance 78 mL/min (70-130); Calcium 8.3 mg/dL (7.8-10.44); Carbon Dioxide 23 mmol/L (22-29); Chloride 107 mmol/L (98-107); Estimated GFR-MDRD 64; Globulin 2.6 g/dL (2.4-3.5); Glucose 308 mg/dL (70-105); Potassium 4.3 mmol/L (3.5-5.1); Protein, Total 5.5 g/dL (6.0-8.3); Sodium 137 mmol/L (136-145)
--- NOTE | 2019-09-25 06:38 | PDOC.FM ---
- Subjective Subjective: NAEO. No concerns per nursing. Started tube feeds yesterday. State brother come overnight for about 10 min and stated he would be back this morning. He stated he had not seen his brother in about 5 years. Nursing state that the patient is responsive, will open eyes and follow commands. He continues on pressors and mechanical ventilation. - Objective MAR Reviewed: Yes Vital Signs & Weight: Vital Signs (12 hours) Temp Pulse Resp BP Pulse Ox 09/25/19 06:00 20 09/25/19 04:00 98.8 F 20 09/25/19 03:08 103 H 09/25/19 02:00 20 09/25/19 00:00 99.7 F H 20 09/24/19 22:05 90 109/56 L 09/24/19 22:00 20 09/24/19 20:00 100.0 F H 20 100 09/24/19 18:40 90 Weight Admit Weight 81.012 kg Weight 83 kg Most Recent Monitor Data Heart Rate from ECG 100 NIBP 94/72 NIBP BP-Mean 79 Respiration from ECG 22 SpO2 99 I&O: 09/23/19 09/24/19 09/25/19 06:59 06:59 06:59 Intake Total 1397 3823.0 Output Total 745 2146 Balance 652 1677.0 Result Diagrams: 09/25/19 04:20 09/25/19 04:20 Phys Exam - Physical Examination Constitutional: NAD HEENT: moist MMs, sclera anicteric Neck: supple Respiratory: clear to auscultation bilateral balloon pump heard on exam Gastrointestinal: soft, non-tender, no distention, positive bowel sounds Musculoskeletal: no edema, pulses present brace over right LE Neurological: non-focal, moves all 4 limbs Skin: no rash, normal turgor, cap refill <2 seconds Dx/Plan (1) Acute and chronic respiratory failure with hypoxia Code(s): J96.21 - ACUTE AND CHRONIC RESPIRATORY FAILURE WITH HYPOXIA Status: Acute (2) DKA (diabetic ketoacidoses) Code(s): E11.10 - TYPE 2 DIABETES MELLITUS WITH KETOACIDOSIS WITHOUT COMA Status: Acute (3) Pneumonia Code(s): J18.9 - PNEUMONIA, UNSPECIFIED ORGANISM Status: Acute (4) STEMI (ST elevation myocardial infarction) Status: Acute (5) Shock Code(s): R57.9 - SHOCK, UNSPECIFIED Status: Acute (6) Hypokalemia Code(s): E87.6 - HYPOKALEMIA Status: Acute (7) Type 2 diabetes mellitus with hyperosmolar nonketotic hyperglycemia Code(s): E11.01 - TYPE 2 DIABETES MELLITUS WITH HYPEROSMOLARITY WITH COMA Status: Acute (8) Anxiety and depression Code(s): F41.9 - ANXIETY DISORDER, UNSPECIFIED; F32.9 - MAJOR DEPRESSIVE DISORDER, SINGLE EPISODE, UNSPECIFIED Status: Chronic (9) BPH (benign prostatic hyperplasia) Code(s): N40.0 - BENIGN PROSTATIC HYPERPLASIA WITHOUT LOWER URINRY TRACT SYMP Status: Chronic (10) Tobacco abuse Code(s): Z72.0 - TOBACCO USE Status: Chronic - Plan Plan: 59-yo M w/ no PCP admitted for STEMI and DKAvsHHS: Consults: Cardiology, CV Surg, Pulm, Palliative care ESTERS AND EMULSIFIERS SUPERVISOR: - Sedation protocol - Opens eyes and moves limbs spontaneously Resp: - ABG on 09/24: pH 7.31, Co2 34.6, O2 74.6, bicarb 15, base excess -8.3. Will continue ABGs PRN. - Vent settings: FiO2 40%, PEEP 10, RR 20, AC mode. Patient occasionally breathing over the vent while awake. - Pulm consulted, appreciate recs - Possible aspiration PNA - being tx with abx vanc/zosyn. White count downtrending. Will order sputum cx. CV - Pressors: levophed decreased to 7 mcg/min - STEMI: Trop 1.0 > 5.5 > 31. EKG changes showing anterolateral HI. - Cards consulted. Taken to medical lab director by Dr. Bermeo on admission, found to have extensive vessel disease. Balloon bump in place. EF estimated to be 30%. Appreciate recommendations. - CV surg consulted, appreciate recs. Patient needs to undergo CABG. Will continue to improve sugars and status to have this discussion with patient. Will also try to contact fam this morning to update on patient status. Patient has a twin brother who he has difficult relationship with who will be here to discuss care later this AM. - Continue aggrastat GI: - Tube feeds, will continue. Heme: - Hgb stable. WBC 18 -> 14. /Renal: - I/Os: 1677 - Renal fxn normal - UA 1+ bacteria, neg nitrites/leukocytes, pos ketones and glucose. Urine cx NGTD. Infection: - Covering w/ broad spectrum abx with vanc/zosyn for a LLL PNA. Procal 0.43 -> 1.2. Will continue to monitor. LA 3 - will trend. - Blood and urine cx NGTD - Flu neg Endo: - Patient presented with DKA vs HHS - started DKA protocol. BHB: 2.96. - Patient with elevated BG since starting TF. Will increase lantus to 20u BID. Will change from mod to aggressive SS. Psych: - Hx of bipolar, aware. No home meds. Palliative care to assist with discussions of goals of care with family. Difficult situation as brother is next of kin and has not seen patient in about 5 years. Lines/tubes: 3 peripherals, 1 central (R femoral), milner, balloon bump with A line in right LE, mechanical ventilation Code: FULL PPX: aggrastat, pepcid Dispo: continue CCU care. Will talk with family today. Specialists recommendations. LOS > 48H. Case discussed with Dr. Venegas Addendum - Attending - Attending Attestation Date/Time: 09/25/19 1214 I personally evaluated the patient and discussed the management with Dr. Mckee. I agree with the History, Examination, Assessment and Plan documented above with any addition or exceptions noted below. Lung protective ventilation. Daily sedation vacations. Titrate levophed down, IABP followed by cards. Pulse checks by RN. Anticoagulation per cards. Likely can have just short course of antibiotics. Guarded prognosis.
[2019-09-25 07:20] LABS: Actual Bicarbonate (HCO3a) 21.5 mEq/L (22-28); Base Excess (BEa) -3.6 mEq/L (-2.0 to +3.0); CO2 Tension 39.3 mmHg (35.0-45.0); Carboxyhemoglobin (COHb) 0.8 gm% (0.0-3.0); Hemoglobin (Hb) 13.3 g/dL (14.0-18.0); O2 Tension (PaO2) 88.6 mmHg (80.0-100.0); Potassium - ABG Lab 4.11 mmol/L (3.70-5.30); pH, Arterial 7.36 (7.35-7.45)
[2019-09-25 07:25] LABS: ALV-art Gradient 147.475 (0-20); Puncture Site LRA
--- NOTE | 2019-09-25 07:58 | RAD ---
EXAM: Single view of the chest HISTORY: Ventilated patient with respiratory failure COMPARISON: 09/23/2019 FINDINGS: Single view of the chest shows a normal sized cardiomediastinal silhouette. The lines and tubes are unchanged in position. There are bilateral perihilar infiltrates. The infiltrates appear to have slightly improved compared to the prior exam. The bones are unremarkable. IMPRESSION: Slightly improving multifocal infiltrates.
[2019-09-25] MEDS: Propofol 1,000 MG/100 ML VIAL IV PRN ×3 (08:44→23:31)
[2019-09-25] MEDS: Famotidine/PF 20 mg/2ml Vial SLOW IVP SCH ×2 (08:45→20:13)
[2019-09-25] MEDS ORDERED: Insulin Glargine 20 UNITS in Pre-Filled Syringe 1 EACH SC SCH (09:00)
--- NOTE | 2019-09-25 10:25 | PDOC.PALCO ---
Palliative Care Consult - Consult Details Requesting Physician: Dr Mckee Reason for Consult: goals of care, advance directives assistance Family Members Present: None - Pertinent HPI 59 year old male who presented to the emergency room with sudden onset of chest pain with onset 3 hours prior to arrival to the emergency room. During course of emergency room visit patient had increasing shortness of breath and endotracheal intubation was needed to maintain airway support, patient vomited and aspirated during intubation. Prior to intubation patient reported being non compliant with insulin therapy, no picking up insulin from previous emergency room visit. Admitted to CCU for medical management - Pertinent PMH DM II, hypertension - Social History Smoking Status: Unknown if ever smoked (Previously homeless but now renting with friends) Living Situation: independent - Medications MAR Reviewed: Yes - Allergies Allergies/Adverse Reactions: Allergies Allergy/AdvReac Type Severity Reaction Status Date / Time No Known Allergies Allergy Verified 09/24/19 01:40 - Subjective intubated, sedate - ROS Non Response: due to endotracheal tube - Objective Vital Signs: Vital Signs - Most Recent Temp Pulse Resp BP Pulse Ox 99.1 F 97 10 L 109/56 L 100 09/25/19 08:00 09/25/19 07:31 09/25/19 10:00 09/24/19 22:05 09/24/19 20:00 Palliative Performance Scale: 20 - Physical Exam Constitutional: encephalitic, ill appearing, mild distress HEENT: moist MMs Respiratory: diminished lung sound Deviation from normal: adventicious breath sounds bilaterally Gastrointestinal: positive bowel sounds, incontinent Genitourinary: milner catheter Musculoskeletal: no clubbing, edema present Lymphatic: no nodes Skin: cap refill <2 seconds Deviation from normal: sedated - Problem List (1) Palliative care encounter Code(s): Z51.5 - ENCOUNTER FOR PALLIATIVE CARE Current Visit: Yes Status: Acute (2) Acute and chronic respiratory failure with hypoxia Code(s): J96.21 - ACUTE AND CHRONIC RESPIRATORY FAILURE WITH HYPOXIA Current Visit: Yes Status: Acute (3) DKA (diabetic ketoacidoses) Code(s): E11.10 - TYPE 2 DIABETES MELLITUS WITH KETOACIDOSIS WITHOUT COMA Current Visit: Yes Status: Acute (4) Acute kidney failure Current Visit: No Status: Resolved - Plan/Recommendations Plan: Palliative care attempting to have family meeting to discuss MPOA, goals of care for patient. Previously homeless, currently renting and living with friends. Previous hospital admission insulin was arranged for patient, he did not obtain from pharmacy. History of non compliance. Palliative Care RN to follow and assist with goals of care and establishing MPOA. [40] minutes spent on this encounter with >50% of the time in counseling and coordination of care. Thank you for this very appropriate consult.
[2019-09-25] MEDS: Sodium Chloride 0.45% 1,000 ML IV SCH (13:29)
[2019-09-25 15:00] LABS: Vancomycin, Trough 12.2 ug/mL
--- NOTE | 2019-09-25 19:59 | PDOC.CPN ---
- Subjective Date: 09/25/19 Time: 19:56 Interval history: No new issues. Remains sedated intubated. - Review of Systems ROS unobtainable: due to endotracheal tube - Objective Allergies/Adverse Reactions: Allergies Allergy/AdvReac Type Severity Reaction Status Date / Time No Known Allergies Allergy Verified 09/24/19 01:40 Visit Medications: Current Medications Dextrose/Water (Dextrose 50%) 25 gm SLOW IVP PRN PRN PRN Reason: Hypoglycemia Famotidine (Pepcid) 20 mg SLOW IVP Q12HR THOM Last Admin: 09/25/19 08:45 Dose: 20 mg Glucagon (Glucagon) 1 mg IM PRN PRN PRN Reason: Hypoglycemia Fentanyl Citrate 2,000 mcg/ (Sodium Chloride) 100 mls @ 0 mls/hr IV INF THOM; Protocol Stop: 10/23/19 20:18 Last Admin: 09/25/19 15:41 Dose: 100 mls Dextrose/Water (D5w) 1,000 mls @ 0 mls/hr IV .Q0M PRN PRN Reason: Hypoglycemia Potassium Chloride 40 meq/ (Sodium Chloride) 270 mls @ 135 mls/hr IVPB ASDIR PRN PRN Reason: FOR SERUM K+ 2.5 - 3.5 Potassium Chloride 40 meq/ (Device) 100 mls @ 50 mls/hr IVPB ASDIR PRN PRN Reason: FOR SERUM K+ 2.5 - 3.5 Magnesium Sulfate 1 gm/ Sodium (Chloride) 102 mls @ 102 mls/hr IV PRN PRN PRN Reason: MAG LEVEL 1.4 - 2.0 Magnesium Sulfate 2 gm/ Device 50 mls @ 50 mls/hr IVPB ASDIR PRN PRN Reason: MAGNESIUM < 1.4 Potassium Phosphate 9 mmol/ (Sodium Chloride) 103 mls @ 25.75 mls/hr IVPB ASDIR PRN PRN Reason: Phosphate 1.0-1.8 Potassium Phosphate 12 mmol/ (Sodium Chloride) 254 mls @ 63.5 mls/hr IV ASDIR PRN PRN Reason: Serum phosphate 0.5-0.9 Potassium Phosphate 15 mmol/ (Sodium Chloride) 255 mls @ 63.75 mls/hr IV ASDIR PRN PRN Reason: Serum Phos < 0.5 Piperacillin Sod/Tazobactam (Sod 4.5 gm/ Sodium Chloride) 100 mls @ 200 mls/hr IVPB 0200,0800,1400,2000 THOM Last Admin: 09/25/19 13:28 Dose: 100 mls Tirofiban/Sodium Chloride (Aggrastat 12.5 Mg/250 Ml) 250 mls @ 0 mls/hr IVPB INF THOM; Protocol Last Admin: 09/25/19 18:16 Dose: 250 mls Fentanyl Citrate (Fentanyl Bolus) 250 mls @ 0 mls/hr IVPB PRN PRN PRN Reason: Breakthrough pain/agitation Stop: 10/24/19 01:59 Norepinephrine Bitartrate 8 mg (/ Dextrose/Water) 250 mls @ 0 mls/hr IVPB INF PRN; Protocol PRN Reason: BLOOD PRESSURE Last Admin: 09/24/19 21:20 Dose: 250 mls Sodium Chloride (1/2 Normal Saline) 1,000 mls @ 50 mls/hr IV .Q20H THOM Last Admin: 09/25/19 13:29 Dose: 1,000 mls Vancomycin HCl 1.25 gm/ Sodium (Chloride) 250 mls @ 166.667 mls/hr IVPB 0300, 1500 THOM Insulin Human Lispro (Humalog) 0 units SC .AGGRESSIVE SLIDING PRN PRN Reason: Aggressive Correctional Scale Last Admin: 09/25/19 15:41 Dose: 3 units Insulin Human NPH (Humulin N) 20 unit SC BID THOM Lorazepam (Ativan) 2 mg SLOW IVP Q1H PRN PRN Reason: Breakthrough agitation Stop: 10/24/19 01:59 Last Admin: 09/24/19 12:28 Dose: 2 mg Magnesium Oxide (Magnesium Oxide) 400 mg PO BIDPRN PRN PRN Reason: FOR SERUM MAG 1.4 - 2.0 Magnesium Oxide (Magnesium Oxide) 800 mg PO PRN PRN PRN Reason: FOR SERUM MAG < 1.4 Miscellaneous Medication (Phos-Nak) 1 pkt PO TIDPRN PRN PRN Reason: FOR PHOS LEVEL 1.0 - 1.8 Miscellaneous Medication (Phos-Nak) 2 pkt PO TIDPRN PRN PRN Reason: FOR PHOS LEVEL 0.5 - 1.0 Miscellaneous Medication (Pharmacy To Dose) 1 each IVPB PRN PRN PRN Reason: PNA Morphine Sulfate (Morphine) 2 mg SLOW IVP Q1H PRN PRN Reason: BREAKTHROUGH PAIN/Agitation Stop: 10/24/19 01:59 Ccu Electrolyte (Replacement Protocol) 0 each FS PRN PRN PRN Reason: FOR ELECTROLYTE REPLACEMENT Discontinue Previous Narcotic Pain Medications And Benzodiazepines 1 each FS .ONE THOM Stop: 10/24/19 01:59 Ondansetron HCl (Zofran) 4 mg IVP Q6H PRN PRN Reason: Nausea/Vomiting Potassium Chloride (K-Dur) 40 meq PO ASDIR PRN PRN Reason: FOR SERUM K+ 2.5 - 3.5 Potassium Chloride (Klor-Con) 40 meq PER TUBE ASDIR PRN PRN Reason: FOR SERUM K+ 2.5-3.5 Propofol (Diprivan) 1,000 mg IV INF PRN; Protocol PRN Reason: TO ACHIEVE GOAL RASS Stop: 10/24/19 01:59 Last Admin: 09/25/19 15:53 Dose: 1,000 mg Propofol (Diprivan Bolus) 20 mg IV Q5MIN PRN PRN Reason: BREAKTHROUGH AGITATION Stop: 10/24/19 01:59 Sodium Chloride (Flush - Normal Saline) 10 ml IVF Q12HR THOM Sodium Chloride (Flush - Normal Saline) 10 ml IVF PRN PRN PRN Reason: Saline Flush Vital Signs & Weight: Vital Signs Temp Pulse Resp BP Pulse Ox 09/25/19 19:23 97 09/25/19 19:00 98.8 F 09/25/19 18:00 10 L 09/25/19 16:00 98.5 F 11 L 09/25/19 15:50 103 H 98/61 09/25/19 14:00 12 09/25/19 13:05 106 H 09/25/19 12:00 10 L 09/25/19 11:50 98.9 F 09/25/19 10:21 110 H 09/25/19 10:00 10 L 09/25/19 08:00 99.1 F 20 100 Admit Weight 178 lb 9.6 oz Weight 182 lb 15.739 oz - Physical Exam General: other (S/I) HEENT: mucus membranes moist Neck: supple neck Cardiac: no murmur Lungs: scattered rhonchi Neuro: no lateralizing findings Abdomen: active bowel sounds Extremities: no edema Skin: clear Musculoskeletal: no pain - Labs Result Diagrams: 09/25/19 04:20 09/25/19 04:20 Troponin/CKMB CK-MB (CK-2) 11.1 ng/mL (0-6.6) H* 09/23/19 18:00 Troponin I 31.609 ng/mL (< 0.028) H* 09/24/19 00:37 - Telemetry Sinus rhythms and dysrhythmias: sinus rhythm - Assessment/Plan Assessment/Plan: 1. Anterolateral STEMI 2. Multivessel CAD. 3. Cardiogenic shock 4. Presence of an IABP for support. 5. Uncontrolled diabetes. 6. Possible aspiration pneumonia 7. Bipolar disorder. PLAN: - Continue supportive care. Off levophed. - Will plan to leave IABP until CABG. - Continue aggrastat. - Severely ill and would not be unexpected. - Abx per primary team. - Improved overall. - Critical Care Time Critical care time (mins): 30
[2019-09-25] MEDS ORDERED: NPH, Human Insulin Isophane 300 UNIT/3 ML VIAL SC SCH (21:00)
[2019-09-25] MEDS: Lorazepam 2 MG/ML VIAL SLOW IVP PRN (23:28)
[2019-09-26] MEDS: Piperacillin/Tazobactam 4.5 GM in Sodium Chloride 0.9% 100 ML IVPB SCH ×4 (01:07→19:54)
[2019-09-26] MEDS: Vancomycin HCl 1.25 GM in Sodium Chloride 0.9% 250 ML 250 ML IVPB SCH ×2 (02:05→14:25)
[2019-09-26 03:28] LABS: #Eosinphils 0.1 thou/uL (0.0-0.7); #Lymphocytes 1.5 thou/uL (1.20-3.40); #Neutrophils 8.9 thou/uL (1.40-6.50); %Basophils 0.3 % (0.0-1.0); %Eosinophils 0.9 % (0.0-10.0); %Lymphocytes 12.7 % (21.0-51.0); %Monocytes 8.7 % (0.0-10.0); %Neutrophils 77.4 % (42.0-75.0); Hemoglobin 11.4 g/dL (14.0-18.0); Mean Corpuscular HGB CONC 33.7 g/dL (32.0-36.0); Mean Corpuscular Hemoglobin 30.3 pg (27.0-31.0); Mean Platelet Volume 9.8 fL (7.4-10.4); Platelet Count 234 thou/uL (130-400); RBC Distribution Width 11.9 % (11.5-14.5); Red Blood Cell (RBC) Count 3.76 mill/uL (4.70-6.10); White Blood Cell (WBC) Count 11.5 thou/uL (4.8-10.8)
[2019-09-26 03:49] LABS: ALT (SGPT) 33 U/L (8-55); AST (SGOT) 62 U/L (5-34); Albumin 2.8 g/dL (3.5-5.0); Alkaline Phosphatase 66 U/L (40-110); Anion Gap 8 mmol/L (10-20); BUN (Urea Nitrogen) 17 mg/dL (8.4-25.7); Bilirubin, Total 0.5 mg/dL (0.2-1.2); Calc. Creatinine Clearance 71 mL/min (70-130); Calcium 8.3 mg/dL (7.8-10.44); Carbon Dioxide 28 mmol/L (22-29); Chloride 107 mmol/L (98-107); Estimated GFR-MDRD 56; Globulin 2.6 g/dL (2.4-3.5); Glucose 202 mg/dL (70-105); Potassium 3.7 mmol/L (3.5-5.1); Protein, Total 5.4 g/dL (6.0-8.3); Sodium 139 mmol/L (136-145)
[2019-09-26] MEDS: HumaLOG 300 UNITS/3 ML VIAL SC PRN ×5 (03:56→19:55)
[2019-09-26] MEDS: fentaNYL Citrate/PF 2,000 MCG in Sodium Chloride 0.9% 60 ML IV SCH ×2 (05:17→17:33)
--- NOTE | 2019-09-26 07:01 | PDOC.FM ---
- Subjective Subjective: NAEO. No concerns per nursing. Patient remains responsive and follows commands while on the vent. Patient now off levophed. Given dose of ativan due to agitation overnight. - Objective MAR Reviewed: Yes Vital Signs & Weight: Vital Signs (12 hours) Temp Resp Pulse Ox 09/26/19 06:00 11 L 09/26/19 04:00 11 L 09/26/19 03:00 99.0 F 09/26/19 02:00 11 L 09/26/19 00:00 9 L 09/25/19 23:00 98.6 F 09/25/19 22:00 11 L 09/25/19 20:00 9 L 09/25/19 19:23 97 09/25/19 19:00 98.8 F Weight Admit Weight 81.012 kg Weight 83.4 kg Most Recent Monitor Data Heart Rate from ECG 101 NIBP 90/56 NIBP BP-Mean 67 Respiration from ECG 9 SpO2 98 I&O: 09/24/19 09/25/19 09/26/19 06:59 06:59 06:59 Intake Total 1397 3823.0 3116.1 Output Total 745 2146 1840 Balance 652 1677.0 1276.1 Result Diagrams: 09/26/19 03:03 09/26/19 03:03 Phys Exam - Physical Examination Constitutional: NAD HEENT: moist MMs, sclera anicteric Neck: supple Respiratory: no wheezing, no rales, no rhonchi, clear to auscultation bilateral Cardiovascular: RRR, no rub 3/6 systolic murmur Gastrointestinal: soft, non-tender, no distention, positive bowel sounds Musculoskeletal: pulses present trace edema R>L Neurological: non-focal, moves all 4 limbs Skin: no rash, normal turgor, cap refill <2 seconds Dx/Plan (1) Acute and chronic respiratory failure with hypoxia Code(s): J96.21 - ACUTE AND CHRONIC RESPIRATORY FAILURE WITH HYPOXIA Status: Acute (2) DKA (diabetic ketoacidoses) Code(s): E11.10 - TYPE 2 DIABETES MELLITUS WITH KETOACIDOSIS WITHOUT COMA Status: Acute (3) Pneumonia Code(s): J18.9 - PNEUMONIA, UNSPECIFIED ORGANISM Status: Acute (4) STEMI (ST elevation myocardial infarction) Status: Acute (5) Shock Code(s): R57.9 - SHOCK, UNSPECIFIED Status: Acute (6) Hypokalemia Code(s): E87.6 - HYPOKALEMIA Status: Acute (7) Type 2 diabetes mellitus with hyperosmolar nonketotic hyperglycemia Code(s): E11.01 - TYPE 2 DIABETES MELLITUS WITH HYPEROSMOLARITY WITH COMA Status: Acute (8) Anxiety and depression Code(s): F41.9 - ANXIETY DISORDER, UNSPECIFIED; F32.9 - MAJOR DEPRESSIVE DISORDER, SINGLE EPISODE, UNSPECIFIED Status: Chronic (9) BPH (benign prostatic hyperplasia) Code(s): N40.0 - BENIGN PROSTATIC HYPERPLASIA WITHOUT LOWER URINRY TRACT SYMP Status: Chronic (10) Tobacco abuse Code(s): Z72.0 - TOBACCO USE Status: Chronic - Plan Plan: 59-yo M w/ no PCP admitted for STEMI and DKAvsHHS: Consults: Cardiology, CV Surg, Pulm, Palliative care Neuro: - Sedation protocol - Opens eyes and moves limbs spontaneously when awake. GCS 12. Resp: - ABG on 09/25: pH 7.36, Co2 39.3, O2 88.6, bicarb 21.5, base excess -3.6. Will continue ABGs PRN. - Vent settings: FiO2 33%, PEEP 5, SIMV mode. Patient occasionally breathing over the vent while awake. Secretions thick. - Pulm consulted, appreciate recs - Aspiration PNA - being tx with abx vanc/zosyn. White count downtrending. Will repeat procal to make sure downtrending as well. Sputum cx pending. CV - Pressors: off of levophed. BPs stable. Most recent MAP of 67. - STEMI: Trop 1.0 > 5.5 > 31. EKG changes showing anterolateral OR. - Cards consulted. Taken to orthodontic laboratory technician by Dr. Bermeo on admission, found to have extensive vessel disease. Balloon bump in place, remains 1:1. EF estimated to be 30% in the cath. Appreciate recommendations. - CV surg consulted, appreciate recs. Patient needs to undergo CABG - planned for or Tuesday. - Continue aggrastat GI: - Tube feeds, will continue. Heme: - Hgb stable. WBC 18 -> 14 -> 11.5. /Renal: - I/Os: 1276 - BUN/cr: 17/.32 - bump in Cr compared to 09/25. Will continue to monitor. Patient received fluid bolus this AM due to low BP after taking off the levophed. - UA 1+ bacteria, neg nitrites/leukocytes, pos ketones and glucose. Urine cx NGTD. Infection: - Covering w/ broad spectrum abx with vanc/zosyn for a LLL PNA. Procal 0.43 -> 1.2. Will continue to monitor. - Blood and urine cx NGTD - Flu neg Endo: - Patient presented with DKA vs HHS - DKA protocol initiated on admission. BHB: 2.96. - Patient with elevated BG since starting TF. Aggressive SS. Patient required 40u of SS on 09/25. Will change NPH to 40 BID and continue to adjust as necessary. Goal BG 140-180. Psych: - Hx of bipolar, aware. No home meds. Social: Palliative care to assist with discussions of goals of care with family. Lines/tubes: 3 peripherals, 1 central (R femoral), milner, balloon bump with A line in right LE, OG, mechanical ventilation Code: FULL PPX: aggrastat, pepcid Dispo: continue CCU care. Prognosis is very guarded. Will talk with family today. Specialists recommendations. LOS > 48H. Case discussed with Dr. Venegas Addendum - Attending - Attending Attestation Date/Time: 09/26/19 1200 I personally evaluated the patient and discussed the management with Dr. Mckee I agree with the History, Examination, Assessment and Plan documented above with any addition or exceptions noted below.
[2019-09-26 07:43] LABS: Actual Bicarbonate (HCO3a) 25.7 mEq/L (22-28); Base Excess (BEa) 0.5 mEq/L (-2.0 to +3.0); CO2 Tension 43.9 mmHg (35.0-45.0); Calcium, Ionized 1.16 mmol/L (1.12-1.30); Carboxyhemoglobin (COHb) 0.8 gm% (0.0-3.0); Hemoglobin (Hb) 11.9 g/dL (14.0-18.0); O2 Tension (PaO2) 90.8 mmHg (80.0-100.0); Potassium - ABG Lab 3.81 mmol/L (3.70-5.30); pH, Arterial 7.39 (7.35-7.45)
[2019-09-26 07:45] LABS: Puncture Site ALINE
[2019-09-26 07:46] LABS: ALV-art Gradient 89.615 (0-20)
[2019-09-26] MEDS: Famotidine/PF 20 mg/2ml Vial SLOW IVP SCH ×2 (07:57→19:54)
[2019-09-26] MEDS: Lorazepam 2 MG/ML VIAL SLOW IVP PRN ×2 (07:57→14:25)
[2019-09-26] MEDS: NPH, Human Insulin Isophane 300 UNIT/3 ML VIAL SC SCH ×2 (07:58→19:54)
--- NOTE | 2019-09-26 08:08 | RAD ---
Chest AP view INDICATION: Intubation COMPARISON: September 25, 2019 at 4:52 AM FINDINGS: Lungs:Perihilar airspace opacities, left greater than right are stable. Cardiac silhouette:Heart size remains mildly enlarged. Pulmonary vasculature:Mild pulmonary vascular congestion persists. Pleural spaces:A persistent tiny left pleural effusion. No right-sided pleural effusion identified. Upper abdomen:No abnormality seen. Osseous structures: No acute osseous abnormality. Additional findings:ET tube and gastric catheter are unchanged. IMPRESSION: Stable examination. No pneumothorax. Tubes and lines are stable. Findings suspicious for persistent mild CHF. Continued radiographic follow-up is recommended.
--- NOTE | 2019-09-26 11:27 | PRG ---
DATE OF SERVICE: 09/25/2019 SERVICE: Pulmonary Medicine. INTERVAL HISTORY: The patient remains on mechanical ventilation. Balloon pump is in place. He cannot provide any additional elements of the history. There were no significant overnight events otherwise. At this point, it is not clear whether or not, he is going to be able to liberate from this balloon pump. PHYSICAL EXAMINATION: VITAL SIGNS: Afebrile, pulse 107, blood pressure 114/65, respirations 12, saturation 96%, currently on 33% FiO2 and PEEP of 5. GENERAL: The patient is intubated. He is in the influence of some sedation. With gentle stimulation, he will wake up. Within 3 seconds, he will drift back off to sleep. NEUROLOGIC: He is following commands and can move all 4 extremities. LABORATORY DATA: WBC 11.5, hemoglobin 11.4, platelets 234,000. PH 7.39, pCO2 of 44, pO2 of 91. Creatinine 1.32 and gently uptrending. Basic metabolic profile is otherwise unremarkable. AST 62 is downtrending. Liver function studies are otherwise unremarkable. Urinalysis is positive for glycosuria and ketones. There is some red blood cells and white blood cells. Beta-hydroxybutyrate is close to 3. Urine drug screen is negative. Vancomycin trough 12.2. Influenza A and B are unremarkable. Urine culture and blood cultures x2 are negative. IMAGING: Chest x-ray demonstrates diffuse infiltrate scattered throughout bilateral lung jay. This is a perihilar distribution and seems to spare the periphery touch. No obvious effusions are noted. Endotracheal tube terminates 4 to 5 cm above the level of the chava. Enteric catheter courses midline below the level of the diaphragm. ASSESSMENT: 1. Acute hypoxic respiratory failure. 2. Acute ST-elevation myocardial infarction. 3. Acute systolic heart failure, balloon pump in place. 4. Type 2 diabetes mellitus. DISCUSSION AND PLAN: We would not consider weaning mechanical ventilator until the balloon pump is no longer required. Pulmonary/Critical Care will continue to follow along in this location. We will likely need to initiate tube feeds within 24 to 48 hours. This patient remains critically ill. If his cardiac output does not improve, he will likely not be a good candidate for an LVAD. We may need to transition over to comfort care if he cannot wean from this support. Critical care time: 30 minutes. Job ID: [id number] [facility], [place]
[2019-09-26] MEDS: Sodium Chloride 0.45% 1,000 ML IV SCH (11:32)
[2019-09-26] MEDS: Propofol 1,000 MG/100 ML VIAL IV PRN (11:32)
[2019-09-26] MEDS: Aggrastat 12.5 MG/250 ML 250 ML IVPB SCH (12:00)
--- NOTE | 2019-09-26 12:34 | PRG ---
DATE OF SERVICE: 09/26/2019 SERVICE: Pulmonary Medicine. INTERVAL HISTORY: The patient is doing fine from respiratory standpoint. He is on mechanical ventilator. He remains on the balloon pump. Otherwise, there has been no interval change to his condition. There were no significant overnight events. He cannot provide any additional elements of the history. PHYSICAL EXAMINATION: VITAL SIGNS: Currently, afebrile with a T-max of 100.1. Pulse 100, blood pressure 114/65, respirations 9, saturation 97% on 33% FiO2 and a PEEP of 5. GENERAL: The patient is intubated. He is under the influence of sedation. HEENT: Normocephalic and atraumatic. Sclerae white. Conjunctivae pink. Oral mucosa is moist without lesions. LUNGS: Decent air entry. No prolonged expiratory phase is present. HEART: Normal rate and regular. ABDOMEN: Soft, nontender, and nondistended. Bowel sounds are positive. MUSCULOSKELETAL: No cyanosis or clubbing. Trace pitting in bilateral lower extremities. NEUROLOGIC: Grossly nonfocal. LABORATORY DATA: WBC 11.5, hemoglobin 11.4, platelets 234,000. PH 7.39, pCO2 of 44, PO2 of 91. Creatinine 1.32, which is gently up trending. Basic metabolic profile and liver function studies are otherwise unremarkable. Procalcitonin 0.42. This is downtrending comfortably. Blood cultures x2, urine culture, and influenza are negative. ASSESSMENT: 1. Acute hypoxic respiratory failure. 2. ST-elevation myocardial infarction. 3. Acute systolic heart failure, IABP in place. 4. Type 2 diabetes mellitus. DISCUSSION AND PLAN: The patient is going to remain on mechanical ventilator so long as his pump is in place. I will suspend ABGs, daily chest x-rays. Pulmonary/Critical Care will continue to follow along while the patient remains in this location. Hopefully, he will be a candidate for revascularization procedure shortly. Critical care time: 30 minutes. Job ID: [id number] MTDD
[2019-09-26 13:22] LABS: Hemoglobin A1c 13.3 % (4.0-6.0)
--- NOTE | 2019-09-26 18:44 | EKG ---
Test Reason : POST CATH Blood Pressure : / mmHG Vent. Rate : 102 BPM Atrial Rate : 102 BPM P-R Int : 128 ms QRS Dur : 090 ms QT Int : 422 ms P-R-T Axes : 061 126 255 degrees QTc Int : 550 ms Sinus tachycardia Left posterior fascicular block Possible Inferior infarct (cited on or before 03-AUG-2018) Anterior infarct , age undetermined T wave abnormality, consider lateral ischemia Prolonged QT Abnormal ECG When compared with ECG of 03-AUG-2018 01:41, Significant changes have occurred Confirmed by DR. Katerin KAHN ([id number]) on 09/26/2019 6:43:33 PM Referred By: DELMER Confirmed By:DR. Katerin KAHN
--- NOTE | 2019-09-26 18:44 | EKG ---
Test Reason : Blood Pressure : / mmHG Vent. Rate : 098 BPM Atrial Rate : 098 BPM P-R Int : 132 ms QRS Dur : 094 ms QT Int : 430 ms P-R-T Axes : 046 104 173 degrees QTc Int : 548 ms Normal sinus rhythm Rightward axis Cannot rule out Inferior infarct (cited on or before 03-AUG-2018) T wave abnormality, consider anterolateral ischemia Prolonged QT Abnormal ECG When compared with ECG of 24-SEP-2019 03:12, (Unconfirmed) Nonspecific T wave abnormality has replaced inverted T waves in Inferior leads Confirmed by DR. Katerin KAHN ([id number]) on 09/26/2019 6:44:17 PM Referred By: DELMER Confirmed By:DR. Katerin KAHN
--- NOTE | 2019-09-26 18:57 | PDOC.CPN ---
- Subjective Date: 09/26/19 Time: 18:56 Interval history: He continues to improve. He is following commands on sedation holiday. - Review of Systems ROS unobtainable: due to endotracheal tube - Objective Allergies/Adverse Reactions: Allergies Allergy/AdvReac Type Severity Reaction Status Date / Time No Known Allergies Allergy Verified 09/24/19 01:40 Visit Medications: Current Medications Dextrose/Water (Dextrose 50%) 25 gm SLOW IVP PRN PRN PRN Reason: Hypoglycemia Famotidine (Pepcid) 20 mg SLOW IVP Q12HR THOM Last Admin: 09/26/19 07:57 Dose: 20 mg Glucagon (Glucagon) 1 mg IM PRN PRN PRN Reason: Hypoglycemia Fentanyl Citrate 2,000 mcg/ (Sodium Chloride) 100 mls @ 0 mls/hr IV INF THOM; Protocol Stop: 10/23/19 20:18 Last Admin: 09/26/19 17:33 Dose: 100 mls Dextrose/Water (D5w) 1,000 mls @ 0 mls/hr IV .Q0M PRN PRN Reason: Hypoglycemia Potassium Chloride 40 meq/ (Sodium Chloride) 270 mls @ 135 mls/hr IVPB ASDIR PRN PRN Reason: FOR SERUM K+ 2.5 - 3.5 Potassium Chloride 40 meq/ (Device) 100 mls @ 50 mls/hr IVPB ASDIR PRN PRN Reason: FOR SERUM K+ 2.5 - 3.5 Magnesium Sulfate 1 gm/ Sodium (Chloride) 102 mls @ 102 mls/hr IV PRN PRN PRN Reason: MAG LEVEL 1.4 - 2.0 Magnesium Sulfate 2 gm/ Device 50 mls @ 50 mls/hr IVPB ASDIR PRN PRN Reason: MAGNESIUM < 1.4 Potassium Phosphate 9 mmol/ (Sodium Chloride) 103 mls @ 25.75 mls/hr IVPB ASDIR PRN PRN Reason: Phosphate 1.0-1.8 Potassium Phosphate 12 mmol/ (Sodium Chloride) 254 mls @ 63.5 mls/hr IV ASDIR PRN PRN Reason: Serum phosphate 0.5-0.9 Potassium Phosphate 15 mmol/ (Sodium Chloride) 255 mls @ 63.75 mls/hr IV ASDIR PRN PRN Reason: Serum Phos < 0.5 Piperacillin Sod/Tazobactam (Sod 4.5 gm/ Sodium Chloride) 100 mls @ 200 mls/hr IVPB 0200,0800,1400,2000 [facility] Last Admin: 09/26/19 13:42 Dose: 100 mls Tirofiban/Sodium Chloride (Aggrastat 12.5 Mg/250 Ml) 250 mls @ 0 mls/hr IVPB INF [facility]; Protocol Last Admin: 09/26/19 12:00 Dose: 250 mls Fentanyl Citrate (Fentanyl Bolus) 250 mls @ 0 mls/hr IVPB PRN PRN PRN Reason: Breakthrough pain/agitation Stop: 10/24/19 01:59 Norepinephrine Bitartrate 8 mg (/ Dextrose/Water) 250 mls @ 0 mls/hr IVPB INF PRN; Protocol PRN Reason: BLOOD PRESSURE Last Admin: 09/24/19 21:20 Dose: 250 mls Sodium Chloride (1/2 Normal Saline) 1,000 mls @ 50 mls/hr IV .Q20H [facility] Last Admin: 09/26/19 11:32 Dose: 1,000 mls Vancomycin HCl 1.25 gm/ Sodium (Chloride) 250 mls @ 166.667 mls/hr IVPB 0300, 1500 [facility] Last Admin: 09/26/19 14:25 Dose: 250 mls Insulin Human Lispro (Humalog) 0 units SC .AGGRESSIVE SLIDING PRN PRN Reason: Aggressive Correctional Scale Last Admin: 09/26/19 15:50 Dose: 6 units Insulin Human NPH (Humulin N) 40 unit SC BID [facility] Last Admin: 09/26/19 07:58 Dose: 40 units Lorazepam (Ativan) 2 mg SLOW IVP Q1H PRN PRN Reason: Breakthrough agitation Stop: 10/24/19 01:59 Last Admin: 09/26/19 14:25 Dose: 2 mg Magnesium Oxide (Magnesium Oxide) 400 mg PO BIDPRN PRN PRN Reason: FOR SERUM MAG 1.4 - 2.0 Magnesium Oxide (Magnesium Oxide) 800 mg PO PRN PRN PRN Reason: FOR SERUM MAG < 1.4 Miscellaneous Medication (Phos-Nak) 1 pkt PO TIDPRN PRN PRN Reason: FOR PHOS LEVEL 1.0 - 1.8 Miscellaneous Medication (Phos-Nak) 2 pkt PO TIDPRN PRN PRN Reason: FOR PHOS LEVEL 0.5 - 1.0 Miscellaneous Medication (Pharmacy To Dose) 1 each IVPB PRN PRN PRN Reason: PNA Morphine Sulfate (Morphine) 2 mg SLOW IVP Q1H PRN PRN Reason: BREAKTHROUGH PAIN/Agitation Stop: 10/24/19 01:59 Ccu Electrolyte (Replacement Protocol) 0 each FS PRN PRN PRN Reason: FOR ELECTROLYTE REPLACEMENT Discontinue Previous Narcotic Pain Medications And Benzodiazepines 1 each FS .ONE THOM Stop: 10/24/19 01:59 Ondansetron HCl (Zofran) 4 mg IVP Q6H PRN PRN Reason: Nausea/Vomiting Potassium Chloride (K-Dur) 40 meq PO ASDIR PRN PRN Reason: FOR SERUM K+ 2.5 - 3.5 Potassium Chloride (Klor-Con) 40 meq PER TUBE ASDIR PRN PRN Reason: FOR SERUM K+ 2.5-3.5 Propofol (Diprivan) 1,000 mg IV INF PRN; Protocol PRN Reason: TO ACHIEVE GOAL RASS Stop: 10/24/19 01:59 Last Admin: 09/26/19 11:32 Dose: 1,000 mg Propofol (Diprivan Bolus) 20 mg IV Q5MIN PRN PRN Reason: BREAKTHROUGH AGITATION Stop: 10/24/19 01:59 Sodium Chloride (Flush - Normal Saline) 10 ml IVF Q12HR THOM Last Admin: 09/26/19 11:31 Dose: 10 ml Sodium Chloride (Flush - Normal Saline) 10 ml IVF PRN PRN PRN Reason: Saline Flush Vital Signs & Weight: Vital Signs Temp Pulse Resp BP Pulse Ox 09/26/19 18:00 11 L 09/26/19 15:38 13 09/26/19 15:32 99 F 09/26/19 14:00 109 H 110/70 09/26/19 13:56 12 09/26/19 11:49 99.8 F H 11 L 09/26/19 11:07 100 98/60 09/26/19 10:00 12 09/26/19 08:00 13 100 09/26/19 07:42 10 L 09/26/19 07:14 98 96/59 L 09/26/19 07:00 100.1 F H Admit Weight 178 lb 9.6 oz Weight 183 lb 13.848 oz - Physical Exam General: other (S/I) HEENT: mucus membranes moist Neck: supple neck Cardiac: regular rate and rhythm, no murmur Lungs: clear to auscultation Neuro: no lateralizing findings Abdomen: active bowel sounds Extremities: no edema, other: (normal pulses PD and DP on both feet. IABP in place.) Skin: clear Musculoskeletal: no pain - Labs Result Diagrams: 09/26/19 03:03 09/26/19 03:03 Troponin/CKMB CK-MB (CK-2) 11.1 ng/mL (0-6.6) H* 09/23/19 18:00 Troponin I 31.609 ng/mL (< 0.028) H* 09/24/19 00:37 - Telemetry Sinus rhythms and dysrhythmias: sinus rhythm - Assessment/Plan Assessment/Plan: 1. Anterolateral STEMI 2. Multivessel CAD. 3. Cardiogenic shock 4. Presence of an IABP for support. 5. Uncontrolled diabetes. 6. Possible aspiration pneumonia 7. Bipolar disorder. PLAN: - Continue supportive care. - Will plan to leave IABP until CABG. - Continue aggrastat. - Abx per primary team. - Plan on surgery tuesday. - Continues to improve. - Augmented BP in the 120's similar to his BP. Will switch IABP to 2-1. - Critical Care Time Critical care time (mins): 30
[2019-09-27] MEDS: HumaLOG 300 UNITS/3 ML VIAL SC PRN ×4 (00:12→16:25)
[2019-09-27] MEDS: Piperacillin/Tazobactam 4.5 GM in Sodium Chloride 0.9% 100 ML IVPB SCH ×4 (01:07→21:18)
[2019-09-27] MEDS ORDERED: Budesonide 0.5 MG/2 ML NEB ONE (01:31)
[2019-09-27] MEDS: Propofol 1,000 MG/100 ML VIAL IV PRN (01:43)
[2019-09-27] MEDS: Vancomycin HCl 1.25 GM in Sodium Chloride 0.9% 250 ML 250 ML IVPB SCH ×2 (02:18→16:00)
[2019-09-27] MEDS: Aggrastat 12.5 MG/250 ML 250 ML IVPB SCH (02:44)
[2019-09-27 03:30] LABS: #Basophils 0.1 thou/uL (0.0-0.2); #Eosinphils 0.2 thou/uL (0.0-0.7); #Lymphocytes 0.9 thou/uL (1.20-3.40); %Basophils 0.5 % (0.0-1.0); %Eosinophils 1.4 % (0.0-10.0); %Lymphocytes 8.2 % (21.0-51.0); %Monocytes 8.8 % (0.0-10.0); Hemoglobin 10.9 g/dL (14.0-18.0); Mean Corpuscular HGB CONC 33.9 g/dL (32.0-36.0); Mean Corpuscular Hemoglobin 30.4 pg (27.0-31.0); Mean Corpuscular Volume 89.8 fL (78.0-98.0); Mean Platelet Volume 9.3 fL (7.4-10.4); Platelet Count 212 thou/uL (130-400); RBC Distribution Width 11.7 % (11.5-14.5); Red Blood Cell (RBC) Count 3.58 mill/uL (4.70-6.10); White Blood Cell (WBC) Count 11.1 thou/uL (4.8-10.8)
[2019-09-27] MEDS: Lorazepam 2 MG/ML VIAL SLOW IVP PRN ×4 (03:45→21:52)
[2019-09-27 03:51] LABS: Anion Gap 8 mmol/L (10-20); BUN (Urea Nitrogen) 20 mg/dL (8.4-25.7); Calc. Creatinine Clearance 71 mL/min (70-130); Calcium 8.3 mg/dL (7.8-10.44); Carbon Dioxide 30 mmol/L (22-29); Chloride 105 mmol/L (98-107); Estimated GFR-MDRD 55; Glucose 203 mg/dL (70-105); Magnesium 2.1 mg/dL (1.6-2.6); Phosphorus 2.5 mg/dL (2.3-4.7); Potassium 3.9 mmol/L (3.5-5.1); Sodium 139 mmol/L (136-145)
--- NOTE | 2019-09-27 06:32 | PDOC.FM ---
Addendum entered and electronically signed by Radha Mckee MD 09/27/19 08:31 : Edit: Peep 9, FIO2 33% on SIMV mode Original Note: - Subjective Subjective: This AM patient had fever of 101.1F. Patient other VS remain stable. He is still responsive and moves all limbs. No other concerns per nursing. - Objective MAR Reviewed: Yes Vital Signs & Weight: Vital Signs (12 hours) Temp Resp Pulse Ox 09/27/19 06:00 15 09/27/19 04:00 16 09/27/19 03:00 99.7 F H 09/27/19 02:00 13 09/27/19 00:00 11 L 09/26/19 23:00 99.1 F 09/26/19 22:00 11 L 09/26/19 20:00 13 09/26/19 19:19 99 09/26/19 19:00 99.3 F Weight Admit Weight 81.012 kg Weight 84.6 kg Most Recent Monitor Data Heart Rate from ECG 97 NIBP 115/70 NIBP BP-Mean 85 Respiration from ECG 13 SpO2 96 I&O: 09/25/19 09/26/19 09/27/19 06:59 06:59 06:59 Intake Total 3823.0 3700.2 3894 Output Total 2146 1840 2335 Balance 1677.0 1860.2 1559 Result Diagrams: 09/27/19 03:16 09/27/19 03:16 Phys Exam - Physical Examination Constitutional: NAD ventilated, sedated HEENT: moist MMs, sclera anicteric Neck: supple Respiratory: no wheezing, no rales, no rhonchi, clear to auscultation bilateral Cardiovascular: RRR, no rub 3/6 systolic murmur Gastrointestinal: soft, non-tender, no distention, positive bowel sounds Musculoskeletal: no edema, pulses present Neurological: non-focal, moves all 4 limbs Skin: no rash, normal turgor, cap refill <2 seconds Dx/Plan (1) Acute and chronic respiratory failure with hypoxia Code(s): J96.21 - ACUTE AND CHRONIC RESPIRATORY FAILURE WITH HYPOXIA Status: Acute (2) DKA (diabetic ketoacidoses) Code(s): E11.10 - TYPE 2 DIABETES MELLITUS WITH KETOACIDOSIS WITHOUT COMA Status: Acute (3) Pneumonia Code(s): J18.9 - PNEUMONIA, UNSPECIFIED ORGANISM Status: Acute (4) STEMI (ST elevation myocardial infarction) Status: Acute (5) Shock Code(s): R57.9 - SHOCK, UNSPECIFIED Status: Acute (6) Hypokalemia Code(s): E87.6 - HYPOKALEMIA Status: Acute (7) Type 2 diabetes mellitus with hyperosmolar nonketotic hyperglycemia Code(s): E11.01 - TYPE 2 DIABETES MELLITUS WITH HYPEROSMOLARITY WITH COMA Status: Acute (8) Anxiety and depression Code(s): F41.9 - ANXIETY DISORDER, UNSPECIFIED; F32.9 - MAJOR DEPRESSIVE DISORDER, SINGLE EPISODE, UNSPECIFIED Status: Chronic (9) BPH (benign prostatic hyperplasia) Code(s): N40.0 - BENIGN PROSTATIC HYPERPLASIA WITHOUT LOWER URINRY TRACT SYMP Status: Chronic (10) Tobacco abuse Code(s): Z72.0 - TOBACCO USE Status: Chronic - Plan Plan: 59-yo M w/ no PCP admitted for STEMI and DKAvsHHS: Consults: Cardiology, CV Surg, Pulm, Palliative care Neuro: - Sedation protocol, sedation vacations daily - Opens eyes and moves limbs spontaneously when awake. GCS 12. Resp: - ABG on 09/26: pH 7.39, Co2 43.9, O2 90.8, bicarb 25.7. Will continue ABGs PRN. - Vent settings: FiO2 40%, PEEP 9, A/C mode. Patient occasionally breathing over the vent while awake. Secretions remain thick. - Pulm consulted, appreciate recs - Aspiration PNA - being tx with abx vanc/zosyn. White count and procal downtrending. Patient did have fever this AM. Will give tylenol PRN. Bcx NGTD. CV - Pressors: off of levophed. BPs stable. IABP changed to 2:1. Most recent MAP of 85. - STEMI: Trop 1.0 > 5.5 > 31. EKG changes showing anterolateral ID. - Cards consulted. Taken to geophysical laboratory chief by Dr. Bermeo on admission, found to have extensive vessel disease. Balloon bump in place. EF estimated to be 30% in the cath. Appreciate recommendations. - CV surg consulted, appreciate recs. Patient needs to undergo CABG - planned for Tuesday. - Continue aggrastat GI: - Tube feeds, will continue. Heme: - Hgb stable. /Renal: - I/Os: 1559ml - BUN/cr: 20/1.33 - bump in Cr compared to 09/25. Will continue to monitor. - UA 1+ bacteria, neg nitrites/leukocytes, pos ketones and glucose. Urine cx NGTD. Infection: - Covering w/ broad spectrum abx with vanc/zosyn for a LLL PNA. Procal downtrended. Will continue to monitor. Tylenol PRN for fever. - Blood and urine cx NGTD - Flu neg Endo: - Patient presented with DKA vs HHS - DKA protocol initiated on admission. BHB: 2.96. A1c 13.3. - Patient with elevated BG since starting TF. Aggressive SS. NPH - will continue to adjust as necessary. Goal BG 140-180. Psych: - Hx of bipolar, aware. No home meds. Social: Palliative care to assist with discussions of goals of care with family. Lines/tubes: 3 peripherals, 1 central (R femoral), milner, balloon bump with A line in right LE, OG, mechanical ventilation Code: FULL PPX: aggrastat, pepcid Dispo: continue CCU care. Prognosis is very guarded. Will talk with family today. Specialists recommendations. LOS > 48H. Case discussed with Dr. Venegas Addendum - Attending - Attending Attestation Date/Time: 09/27/19 [id number] I personally evaluated the patient and discussed the management with Dr. Mckee. I agree with the History, Examination, Assessment and Plan documented above with any addition or exceptions noted below.
[2019-09-27] MEDS ORDERED: Communication Order-Pharmacy FS SCH (06:43)
[2019-09-27] MEDS: fentaNYL Citrate/PF 2,000 MCG in Sodium Chloride 0.9% 60 ML IV SCH ×2 (07:34→21:20)
[2019-09-27] MEDS: Famotidine/PF 20 mg/2ml Vial SLOW IVP SCH ×2 (08:34→21:19)
[2019-09-27] MEDS ORDERED: Acetaminophen 650 MG/20.3 ML UDCUP PER TUBE SCH (08:45)
[2019-09-27] MEDS: NPH, Human Insulin Isophane 300 UNIT/3 ML VIAL SC SCH ×2 (09:05→21:21)
[2019-09-27] MEDS: Sodium Chloride 0.45% 1,000 ML IV SCH ×3 (09:30→13:33)
[2019-09-27 15:02] LABS: Vancomycin, Trough 14.8 ug/mL
[2019-09-27 15:26] LABS: HBSAg Index 0.32 S/CO (0-0.99); HIV (1/2) Antibody/Antigen Non-Reactive (NonReactive); HIV 1/2 INDEX 0.09 S/CO (<1.00); Hep A IgM AB Non-Reactive (NonReactive); Hep B Surf Ag Non-Reactive S/CO (NonReactive); Hep C IgG Ab Non-Reactive (NonReactive); Hep C Index 0.07 S/CO (0-0.79); Hepatitis B Core IgM Abs Non-Reactive (NonReactive)
[2019-09-27] MEDS ORDERED: Acetaminophen 650 MG/20.3 ML UDCUP PER TUBE PRN (16:42)
--- NOTE | 2019-09-27 18:46 | PDOC.CPN ---
- Subjective Date: 09/27/19 Time: 18:40 Interval history: Remains sedated, intubated. - Review of Systems General: denies: fever/chills, weight/appetite/sleep changes, night sweats, fatigue Respiratory: denies: cough, congestion, shortness of breath, exercise intolerance Cardiovascular: denies: chest pain, palpitation, edema, paroxysmal nocturnal dyspnea, orthopnea Gastrointestinal: denies: nausea, vomiting, diarrhea, constipation, abd pain, GI bleeding Musculoskeletal: denies: pain, tenderness, stiffness, swelling, arthritis/ arthralgias Neurological: denies: numbness, syncope, seizure, weakness - Objective Allergies/Adverse Reactions: Allergies Allergy/AdvReac Type Severity Reaction Status Date / Time No Known Allergies Allergy Verified 09/24/19 01:40 Visit Medications: Current Medications Acetaminophen (Tylenol Elixir) 650 mg PER TUBE Q6H PRN PRN Reason: FEVER > 101 F Last Admin: 09/27/19 17:20 Dose: 650 mg Dextrose/Water (Dextrose 50%) 25 gm SLOW IVP PRN PRN PRN Reason: Hypoglycemia Famotidine (Pepcid) 20 mg SLOW IVP Q12HR THOM Last Admin: 09/27/19 08:34 Dose: 20 mg Glucagon (Glucagon) 1 mg IM PRN PRN PRN Reason: Hypoglycemia Fentanyl Citrate 2,000 mcg/ (Sodium Chloride) 100 mls @ 0 mls/hr IV INF THOM; Protocol Stop: 10/23/19 20:18 Last Admin: 09/27/19 07:34 Dose: 100 mls Dextrose/Water (D5w) 1,000 mls @ 0 mls/hr IV .Q0M PRN PRN Reason: Hypoglycemia Potassium Chloride 40 meq/ (Sodium Chloride) 270 mls @ 135 mls/hr IVPB ASDIR PRN PRN Reason: FOR SERUM K+ 2.5 - 3.5 Potassium Chloride 40 meq/ (Device) 100 mls @ 50 mls/hr IVPB ASDIR PRN PRN Reason: FOR SERUM K+ 2.5 - 3.5 Magnesium Sulfate 1 gm/ Sodium (Chloride) 102 mls @ 102 mls/hr IV PRN PRN PRN Reason: MAG LEVEL 1.4 - 2.0 Magnesium Sulfate 2 gm/ Device 50 mls @ 50 mls/hr IVPB ASDIR PRN PRN Reason: MAGNESIUM < 1.4 Potassium Phosphate 9 mmol/ (Sodium Chloride) 103 mls @ 25.75 mls/hr IVPB ASDIR PRN PRN Reason: Phosphate 1.0-1.8 Potassium Phosphate 12 mmol/ (Sodium Chloride) 254 mls @ 63.5 mls/hr IV ASDIR PRN PRN Reason: Serum phosphate 0.5-0.9 Potassium Phosphate 15 mmol/ (Sodium Chloride) 255 mls @ 63.75 mls/hr IV ASDIR PRN PRN Reason: Serum Phos < 0.5 Piperacillin Sod/Tazobactam (Sod 4.5 gm/ Sodium Chloride) 100 mls @ 200 mls/hr IVPB 0200,0800,1400,2000 [facility] Last Admin: 09/27/19 13:30 Dose: 100 mls Tirofiban/Sodium Chloride (Aggrastat 12.5 Mg/250 Ml) 250 mls @ 0 mls/hr IVPB INF THOM; Protocol Stop: 09/27/19 22:00 Last Admin: 09/27/19 02:44 Dose: 250 mls Fentanyl Citrate (Fentanyl Bolus) 250 mls @ 0 mls/hr IVPB PRN PRN PRN Reason: Breakthrough pain/agitation Stop: 10/24/19 01:59 Norepinephrine Bitartrate 8 mg (/ Dextrose/Water) 250 mls @ 0 mls/hr IVPB INF PRN; Protocol PRN Reason: BLOOD PRESSURE Last Admin: 09/24/19 21:20 Dose: 250 mls Sodium Chloride (1/2 Normal Saline) 1,000 mls @ 50 mls/hr IV .Q20H [facility] Last Admin: 09/27/19 13:33 Dose: 1,000 mls Vancomycin HCl 1.25 gm/ Sodium (Chloride) 250 mls @ 166.667 mls/hr IVPB 0300, 1500 [facility] Last Admin: 09/27/19 16:00 Dose: 250 mls Insulin Human Lispro (Humalog) 0 units SC .AGGRESSIVE SLIDING PRN PRN Reason: Aggressive Correctional Scale Last Admin: 09/27/19 16:25 Dose: 6 units Insulin Human NPH (Humulin N) 55 unit SC BID [facility] Last Admin: 09/27/19 09:05 Dose: 55 unit Lorazepam (Ativan) 2 mg SLOW IVP Q1H PRN PRN Reason: Breakthrough agitation Stop: 10/24/19 01:59 Last Admin: 09/27/19 17:20 Dose: 2 mg Magnesium Oxide (Magnesium Oxide) 400 mg PO BIDPRN PRN PRN Reason: FOR SERUM MAG 1.4 - 2.0 Magnesium Oxide (Magnesium Oxide) 800 mg PO PRN PRN PRN Reason: FOR SERUM MAG < 1.4 Miscellaneous Information (Communication Order-Pharmacy) 1 each FS ASDIR THOM Miscellaneous Medication (Phos-Nak) 1 pkt PO TIDPRN PRN PRN Reason: FOR PHOS LEVEL 1.0 - 1.8 Miscellaneous Medication (Phos-Nak) 2 pkt PO TIDPRN PRN PRN Reason: FOR PHOS LEVEL 0.5 - 1.0 Miscellaneous Medication (Pharmacy To Dose) 1 each IVPB PRN PRN PRN Reason: PNA Morphine Sulfate (Morphine) 2 mg SLOW IVP Q1H PRN PRN Reason: BREAKTHROUGH PAIN/Agitation Stop: 10/24/19 01:59 Ccu Electrolyte (Replacement Protocol) 0 each FS PRN PRN PRN Reason: FOR ELECTROLYTE REPLACEMENT Discontinue Previous Narcotic Pain Medications And Benzodiazepines 1 each FS .ONE THOM Stop: 10/24/19 01:59 Ondansetron HCl (Zofran) 4 mg IVP Q6H PRN PRN Reason: Nausea/Vomiting Potassium Chloride (K-Dur) 40 meq PO ASDIR PRN PRN Reason: FOR SERUM K+ 2.5 - 3.5 Potassium Chloride (Klor-Con) 40 meq PER TUBE ASDIR PRN PRN Reason: FOR SERUM K+ 2.5-3.5 Propofol (Diprivan) 1,000 mg IV INF PRN; Protocol PRN Reason: TO ACHIEVE GOAL RASS Stop: 10/24/19 01:59 Last Admin: 09/27/19 01:43 Dose: 1,000 mg Propofol (Diprivan Bolus) 20 mg IV Q5MIN PRN PRN Reason: BREAKTHROUGH AGITATION Stop: 10/24/19 01:59 Sodium Chloride (Flush - Normal Saline) 10 ml IVF Q12HR [facility] Last Admin: 09/27/19 09:27 Dose: 10 ml Sodium Chloride (Flush - Normal Saline) 10 ml IVF PRN PRN PRN Reason: Saline Flush Vital Signs & Weight: Vital Signs Temp Pulse Resp BP Pulse Ox 09/27/19 16:00 100.2 F H 17 09/27/19 14:56 98 09/27/19 14:00 15 09/27/19 12:30 83 09/27/19 12:00 98.6 F 16 09/27/19 10:08 106 H 95/62 09/27/19 10:00 18 09/27/19 08:00 101.1 F H 23 H 95 09/27/19 07:04 96 Admit Weight 178 lb 9.6 oz Weight 186 lb 8.177 oz - Physical Exam General: other (S/I) HEENT: mucus membranes moist Neck: supple neck Cardiac: no murmur, tachycardia Lungs: scattered rhonchi Neuro: no lateralizing findings Abdomen: active bowel sounds Extremities: no edema Skin: clear Musculoskeletal: no pain - Labs Result Diagrams: 09/27/19 03:16 09/27/19 03:16 Troponin/CKMB CK-MB (CK-2) 11.1 ng/mL (0-6.6) H* 09/23/19 18:00 Troponin I 31.609 ng/mL (< 0.028) H* 09/24/19 00:37 - Telemetry Sinus rhythms and dysrhythmias: sinus tachycardia - Assessment/Plan Assessment/Plan: 1. Anterolateral STEMI 2. Multivessel CAD. 3. Cardiogenic shock 4. Presence of an IABP for support. 5. Uncontrolled diabetes. 6. Possible aspiration pneumonia 7. Bipolar disorder. 8. Fevers PLAN: - Continue supportive care. - Will plan to leave IABP until CABG. - Continue aggrastat. - Abx per primary team. Cultures pending but negative so far. - Plan on surgery tomorrow. - Continues to improve. - Augmented BP in the 100's. Continue 1-1 for now. - Critical Care Time Critical care time (mins): 30
--- NOTE | 2019-09-27 20:24 | PRG ---
DATE OF SERVICE: 09/27/2019 SERVICE: Pulmonary Medicine. INTERVAL HISTORY: The patient has been spiking some fevers on and off. He is currently under sedation and intubated. He cannot provide any additional elements of the history. PHYSICAL EXAMINATION: VITAL SIGNS: Afebrile currently. His T-max was 101.1. Pulse 91, blood pressure 111/63, respirations 11, saturation 96%, currently on 33% FiO2 and a PEEP of 5. GENERAL: The patient is intubated and sedated. HEENT: Normocephalic and atraumatic. Sclerae white. Conjunctivae pink. Oral mucosa is moist without lesions. LUNGS: Decent air entry. There is no prolonged expiratory phase or wheezing appreciated. Dependent crackles are minimal. HEART: Normal rate. Regular. ABDOMEN: Soft, nontender, and nondistended. Bowel sounds are positive. MUSCULOSKELETAL: No cyanosis or clubbing. There is trace to 1+ pitting in bilateral lower extremities. NEUROLOGIC: Grossly nonfocal. LABORATORY DATA: WBC 11.1, hemoglobin 10.9, platelets 212,000. Neutrophil count is uptrending. Lymphocytes 8.2. Creatinine 1.33. This is stable. Basic metabolic profile is otherwise unremarkable. Magnesium and phosphorous fall within the normal limits. Influenza A and B, urine culture and blood cultures x2 remain unremarkable. ASSESSMENT: 1. Acute hypoxic respiratory failure. 2. ST-elevation myocardial infarction. 3. Acute systolic heart failure with intra-aortic balloon pump in place. 4. Type 2 diabetes mellitus. DISCUSSION AND PLAN: The patient is looking to go for revascularization procedure tomorrow morning. If he has a repeat fever above 101, panculture will be pursued. He has been on antibiotics including vancomycin and Zosyn since presentation. At this point, I do think it would be reasonable to pursue a revascularization procedure if necessary, especially if no hardware is going to be placed. We are at the end of the life for this right femoral catheter, which needs to be replaced. This will likely be done tomorrow in the operating room. Pulmonary/Critical Care will follow closely. CRITICAL CARE TIME: 30 minutes. Job ID: [id number]
--- NOTE | 2019-09-28 00:48 | PDOC.FM ---
- Subjective Subjective: NAEO. No concerns per nursing. Sugars have improved. Patient remains able to follow commands and moves limbs when awake. - Objective MAR Reviewed: Yes Vital Signs & Weight: Vital Signs (12 hours) Temp Pulse Resp Pulse Ox 09/28/19 00:00 99.8 F H 09/27/19 22:00 13 09/27/19 20:00 99.6 F 12 96 09/27/19 18:00 15 09/27/19 16:00 100.2 F H 17 09/27/19 14:56 98 09/27/19 14:00 15 Weight Admit Weight 81.012 kg Weight 84.6 kg Most Recent Monitor Data Heart Rate from ECG 96 NIBP 118/65 NIBP BP-Mean 82 Respiration from ECG 12 SpO2 95 I&O: 09/26/19 09/27/19 09/28/19 06:59 06:59 06:59 Intake Total 3700.2 3988.2 2655.4 Output Total 1840 2335 1320 Balance 1860.2 1653.2 1335.4 Result Diagrams: 09/28/19 12:30 09/28/19 12:30 Phys Exam - Physical Examination Constitutional: NAD HEENT: PERRLA, moist MMs, sclera anicteric Neck: supple, full ROM Respiratory: no wheezing, no rales, no rhonchi, clear to auscultation bilateral Cardiovascular: RRR 3/6 systolic murmur Gastrointestinal: soft, non-tender, no distention, positive bowel sounds Musculoskeletal: no edema brace on L leg Neurological: non-focal, moves all 4 limbs Psychiatric: normal affect Skin: no rash, normal turgor, cap refill <2 seconds Dx/Plan (1) Acute and chronic respiratory failure with hypoxia Code(s): J96.21 - ACUTE AND CHRONIC RESPIRATORY FAILURE WITH HYPOXIA Status: Acute (2) DKA (diabetic ketoacidoses) Code(s): E11.10 - TYPE 2 DIABETES MELLITUS WITH KETOACIDOSIS WITHOUT COMA Status: Acute (3) Pneumonia Code(s): J18.9 - PNEUMONIA, UNSPECIFIED ORGANISM Status: Acute (4) STEMI (ST elevation myocardial infarction) Status: Acute (5) Shock Code(s): R57.9 - SHOCK, UNSPECIFIED Status: Acute (6) Hypokalemia Code(s): E87.6 - HYPOKALEMIA Status: Acute (7) Type 2 diabetes mellitus with hyperosmolar nonketotic hyperglycemia Code(s): E11.01 - TYPE 2 DIABETES MELLITUS WITH HYPEROSMOLARITY WITH COMA Status: Acute (8) Anxiety and depression Code(s): F41.9 - ANXIETY DISORDER, UNSPECIFIED; F32.9 - MAJOR DEPRESSIVE DISORDER, SINGLE EPISODE, UNSPECIFIED Status: Chronic (9) BPH (benign prostatic hyperplasia) Code(s): N40.0 - BENIGN PROSTATIC HYPERPLASIA WITHOUT LOWER URINRY TRACT SYMP Status: Chronic (10) Tobacco abuse Code(s): Z72.0 - TOBACCO USE Status: Chronic - Plan Plan: 59-yo M w/ no PCP admitted for STEMI and DKAvsHHS: Consults: Cardiology, CV Surg, Pulm, Palliative care Neuro: - Sedation protocol, sedation vacations daily - Opens eyes and moves limbs spontaneously when awake. GCS 12. Resp: - ABG on 09/28: pH 7.44, Co2 40.9, O2 62.9, base excess 3. Will continue ABGs PRN. - Vent settings: FiO2 33%, PEEP 9, SIMV, tidal volumes 623, pressure control. Patient occasionally breathing over the vent while awake. Secretions remain thick. - Pulm consulted, appreciate recs - Aspiration PNA - being tx with abx vanc/zosyn. White count and procal downtrending. Patient did have fever this AM. Will give tylenol PRN. Bcx NGTD. No recurrent fever, up to 100.2F. Will re-culture if re-fevers. CV - Pressors: off of levophed. BPs stable. Most recent MAP of 101. - STEMI: Trop 1.0 > 5.5 > 31. EKG changes showing anterolateral MT. - Cards consulted. Taken to curb and gutter laborer by Dr. Bermeo on admission, found to have extensive vessel disease. Balloon bump in place. EF estimated to be 30% in the cath. Appreciate recommendations. - CV surg consulted, appreciate recs. Saw patient leave to OR for CABG around 0800 on 09/28. Will f/u after surgery. - Continue aggrastat GI: - Tube feeds, will continue. Heme: - Hgb stable. /Renal: - I/Os: 1824.9ml - BUN/cr: 24/1.03. Improved from previous. Will continue to monitor. - UA 1+ bacteria, neg nitrites/leukocytes, pos ketones and glucose. Urine cx NGTD. Infection: - Covering w/ broad spectrum abx with vanc/zosyn for a LLL PNA. Procal downtrended. Will continue to monitor. Tylenol PRN for fever. - Febrile on 09/27 to 101.1F. Low grade to 100.2F later on 09/27. Will reculture all lines and sputum if re-fevers. - Blood and urine cx NGTD - Flu neg Endo: - Patient presented with DKA vs HHS - DKA protocol initiated on admission. BHB: 2.96. A1c 13.3. - Patient with elevated BG since starting TF. Aggressive SS. NPH - will continue to adjust as necessary. Goal BG 140-180. Psych: - Hx of bipolar, aware. No home meds. Social: Palliative care to assist with discussions of goals of care with family. Lines/tubes: 3 peripherals, 1 central (R femoral), milner, balloon bump with A line in right LE, OG, mechanical ventilation Code: FULL PPX: aggrastat, pepcid Dispo: continue CCU care. Prognosis is very guarded. Will talk with family today. Specialists recommendations. LOS > 48H. Case discussed with Dr. Venegas Addendum - Attending - Attending Attestation Date/Time: 09/28/19 1691 I personally evaluated the patient and discussed the management with Dr. Mckee. I agree with the History, Examination, Assessment and Plan documented above with any addition or exceptions noted below. S/p CT sx today. HDS with IABP @ 1:2.
[2019-09-28] MEDS: Piperacillin/Tazobactam 4.5 GM in Sodium Chloride 0.9% 100 ML IVPB SCH ×4 (02:09→20:58)
[2019-09-28] MEDS: Propofol 1,000 MG/100 ML VIAL IV PRN (02:32)
[2019-09-28] MEDS: Vancomycin HCl 1.25 GM in Sodium Chloride 0.9% 250 ML 250 ML IVPB SCH ×2 (02:37→14:47)
[2019-09-28 03:21] LABS: #Basophils 0.1 thou/uL (0.0-0.2); #Eosinphils 0.2 thou/uL (0.0-0.7); #Lymphocytes 1.4 thou/uL (1.20-3.40); #Monocytes 1.3 thou/uL (0.11-0.59); #Neutrophils 8.7 thou/uL (1.40-6.50); %Basophils 0.5 % (0.0-1.0); %Lymphocytes 11.7 % (21.0-51.0); %Neutrophils 74.7 % (42.0-75.0); Hemoglobin 11.2 g/dL (14.0-18.0); Mean Corpuscular HGB CONC 33.5 g/dL (32.0-36.0); Mean Corpuscular Hemoglobin 30.2 pg (27.0-31.0); Mean Corpuscular Volume 90.3 fL (78.0-98.0); Mean Platelet Volume 10.2 fL (7.4-10.4); Platelet Count 309 thou/uL (130-400); RBC Distribution Width 11.7 % (11.5-14.5); Red Blood Cell (RBC) Count 3.71 mill/uL (4.70-6.10); White Blood Cell (WBC) Count 11.7 thou/uL (4.8-10.8)
[2019-09-28 03:36] LABS: Legionella Urinary Ag Negative (Negative); Strep pneumo Urine Ag NEGATIVE (NEGATIVE)
[2019-09-28 03:39] LABS: Phosphorus 2.4 mg/dL (2.3-4.7)
[2019-09-28 03:42] LABS: Anion Gap 12 mmol/L (10-20); BUN (Urea Nitrogen) 24 mg/dL (8.4-25.7); Calc. Creatinine Clearance 92 mL/min (70-130); Calcium 8.7 mg/dL (7.8-10.44); Carbon Dioxide 29 mmol/L (22-29); Chloride 105 mmol/L (98-107); Estimated GFR-MDRD 74; Glucose 118 mg/dL (70-105); Magnesium 2.2 mg/dL (1.6-2.6); Potassium 3.8 mmol/L (3.5-5.1); Sodium 142 mmol/L (136-145)
[2019-09-28] MEDS ORDERED: Dexmedetomidine 200 MCG/2 ML VIAL ONE (06:33)
[2019-09-28] MEDS ORDERED: Midazolam HCl 2 mg/2 ml Vial ONE (06:33)
[2019-09-28] MEDS ORDERED: Fentanyl 100 MCG/2 ML VIAL ONE (06:33)
[2019-09-28] MEDS ORDERED: Vecuronium 10 MG VIAL ONE ×3 (06:33→11:35)
[2019-09-28] MEDS ORDERED: Midazolam HCl 5 mg/5 ml Vial ONE (06:33)
[2019-09-28] MEDS ORDERED: Dexamethasone 4 mg/ml Vial ONE (06:34)
[2019-09-28] MEDS ORDERED: Albumin 5% 500 ML ONE (06:34)
[2019-09-28] MEDS ORDERED: Bupivacaine HCl 0.5%/Epinephrine 1:200,000/PF 30 ml Vial ONE (06:34)
[2019-09-28 06:39] LABS: Actual Bicarbonate (HCO3a) 27.3 mEq/L (22-28); CO2 Tension 40.9 mmHg (35.0-45.0); Calcium, Ionized 1.14 mmol/L (1.12-1.30); Carboxyhemoglobin (COHb) 0.8 gm% (0.0-3.0); Hemoglobin (Hb) 11.8 g/dL (14.0-18.0); O2 Tension (PaO2) 62.9 mmHg (80.0-100.0); Potassium - ABG Lab 3.04 mmol/L (3.70-5.30); pH, Arterial 7.44 (7.35-7.45)
[2019-09-28 06:53] LABS: Puncture Site ALINE
[2019-09-28 06:54] LABS: ALV-art Gradient 121.265 (0-20)
[2019-09-28] MEDS ORDERED: Heparin 10,000 UNITS/1 ML VIAL 30,000 UNITS in Sodium Chloride 0.9% 1,000 ML FS SCH (07:00)
[2019-09-28] MEDS: Famotidine/PF 20 mg/2ml Vial SLOW IVP SCH (09:41)
[2019-09-28] MEDS: NPH, Human Insulin Isophane 300 UNIT/3 ML VIAL SC SCH ×2 (09:41→21:27)
[2019-09-28] MEDS ORDERED: Cardioplegic Soln 1,000 ML BAG ONE (11:06)
[2019-09-28] MEDS ORDERED: Calcium Chloride 1 GM/10 ML Abboject SYRINGE ONE (11:06)
[2019-09-28] MEDS ORDERED: Potassium Chloride 60 MEQ/30 ML VIAL ONE (11:06)
[2019-09-28] MEDS ORDERED: Lidocaine 2% PF 100 mg/5 ml Syringe ONE (11:06)
[2019-09-28] MEDS ORDERED: Magnesium Sulfate 1 GM/2 ML VIAL ONE (11:06)
[2019-09-28] MEDS ORDERED: Nitroglycerin 50 MG/250 ML BOT ONE (11:06)
[2019-09-28] MEDS ORDERED: Thrombin 5000 UNITS/5 ML VIAL ONE (11:06)
[2019-09-28] MEDS ORDERED: Heparin 30,000 units/30 ml VIAL ONE (11:06)
[2019-09-28] MEDS ORDERED: Sodium Bicarb 50 MEQ/50 ML Abboject 8.4% SYRINGE ONE (11:06)
[2019-09-28] MEDS ORDERED: Lidocaine 1% PF 5 ML VIAL ONE (11:06)
[2019-09-28] MEDS ORDERED: Esmolol 100 MG/10 ML VIAL ONE (11:06)
[2019-09-28] MEDS ORDERED: Heparin 5,000 UNITS/ML VIAL ONE (11:06)
[2019-09-28] MEDS ORDERED: Papaverine 60 MG/2 ML VIAL ONE (11:06)
[2019-09-28] MEDS ORDERED: Protamine Sulfate 250 MG/25 ML VIAL ONE (11:06)
[2019-09-28] MEDS ORDERED: Aminocaproic Acid 5 GM/20 ML VIAL ONE (11:06)
[2019-09-28] MEDS ORDERED: PHENYLEPHRINE-NS 100 MCG/ML 10 ML SYRINGE ONE (11:06)
[2019-09-28] MEDS ORDERED: Promethazine HCl 25 MG/ML VIAL IM PRN (12:53)
[2019-09-28] MEDS ORDERED: Mag-Al 1200 mg/1200 mg/30 ML UDCUP PO PRN (12:53)
[2019-09-28] MEDS ORDERED: Acetaminophen 325 MG TAB PO PRN (12:53)
[2019-09-28] MEDS ORDERED: Morphine 2 MG/ML SYRINGE SLOW IVP PRN (12:53)
[2019-09-28] MEDS ORDERED: Bisacodyl 10 MG SUPP PR PRN (12:53)
[2019-09-28] MEDS ORDERED: Hetastarch 6% 500 ML 500 ML IVPB PRN (12:53)
[2019-09-28] MEDS ORDERED: Ondansetron PF 4 MG/2 ML Vial IVP PRN (12:53)
[2019-09-28] MEDS ORDERED: hydrALAZINE 20 MG/ML VIAL SLOW IVP PRN (12:53)
[2019-09-28] MEDS ORDERED: Nitroglycerin 50 MG/250 ML BOT 250 ML IVPB PRN (12:53)
[2019-09-28] MEDS ORDERED: Norepinephrine 8 MG/0.9% NS 250 ML IVPB PRN (12:53)
[2019-09-28 13:08] LABS: Actual Bicarbonate (HCO3a) 26.1 mEq/L (22-28); Base Excess (BEa) -0.2 mEq/L (-2.0 to +3.0); CO2 Tension 49.4 mmHg (35.0-45.0); Calcium, Ionized 1.09 mmol/L (1.12-1.30); Carboxyhemoglobin (COHb) 0.8 gm% (0.0-3.0); Hemoglobin (Hb) 11.4 g/dL (14.0-18.0); Potassium - ABG Lab 3.29 mmol/L (3.70-5.30); pH, Arterial 7.34 (7.35-7.45)
[2019-09-28 13:10] LABS: Hemoglobin 11.2 g/dL (14.0-18.0); Mean Corpuscular HGB CONC 35.3 g/dL (32.0-36.0); Mean Corpuscular Hemoglobin 31.6 pg (27.0-31.0); Mean Corpuscular Volume 89.3 fL (78.0-98.0); Mean Platelet Volume 9.4 fL (7.4-10.4); Platelet Count 222 thou/uL (130-400); RBC Distribution Width 11.6 % (11.5-14.5); Red Blood Cell (RBC) Count 3.55 mill/uL (4.70-6.10); White Blood Cell (WBC) Count 16.6 thou/uL (4.8-10.8)
[2019-09-28 13:10] LABS: O2 Tension (PaO2) 53.5 mmHg (80.0-100.0); Puncture Site ALINE
[2019-09-28] MEDS ORDERED: Magnesium 2 GM/50 ML 2 GM in Premix Bag 1 BAG IVPB SCH (13:15)
[2019-09-28 13:17] LABS: INR-International Normal Ratio 1.5; Prothrombin Time 18.2 SEC (12.0-14.7)
[2019-09-28 13:18] LABS: PTT 30.8 SEC (22.9-36.1)
[2019-09-28 13:35] LABS: Band 24 % (5-11); Eosinophils 1 % (0-10); Lymphocytes 2 % (21-51); MDiff Complete? YES; Metamyelocyte 3 % (0-0); Monocytes 10 % (0-10); Myelocyte 2 % (0-0); Neutrophil 58 % (42-75); Platelet Morphology Comment Appears Adequate; Polychromasia SLIGHT = 2-3 cells (100X) (0-2/hpf)
[2019-09-28 13:36] LABS: Anion Gap 10 mmol/L (10-20); BUN (Urea Nitrogen) 20 mg/dL (8.4-25.7); Calc. Creatinine Clearance 106 mL/min (70-130); Calcium 7.8 mg/dL (7.8-10.44); Carbon Dioxide 26 mmol/L (22-29); Chloride 109 mmol/L (98-107); Estimated GFR-MDRD 83; Glucose 106 mg/dL (70-105); Potassium 3.4 mmol/L (3.5-5.1); Sodium 142 mmol/L (136-145)
[2019-09-28] MEDS: Sodium Chloride 0.9% 1,000 ML IV SCH ×2 (13:37→21:18)
[2019-09-28] MEDS: Potassium Chloride 20 MEQ/100 ML PREMIX BAG IVPB PRN (13:48)
--- NOTE | 2019-09-28 14:04 | RAD ---
PORTABLE AP CHEST: Date: 09/28/19 HISTORY: Post CABG. COMPARISON: 09/26/19. FINDINGS: Endotracheal tube and nasogastric tube remain in place. There has been interval placement of bilatera l thoracostomy tubes and mediastinal drains. Cardiac silhouette is magnified by projection. Right sub clavian central venous catheter is now noted in place with tip overlying the expected location of the cavoatrial junction. There is prominence of the mediastinal structures, probably related to postsurg ical changes. There is an increase in perihilar interstitial and alveolar opacities, asymmetrically g reater on the left, which is similar to the prior study and again may be related to asymmetric pulmon jeffery edema. There is suggestion of a tiny left pleural effusion with atelectasis at the left lung base . No pneumothorax is present. IMPRESSION: 1. Multiple lines and tubes in place as described above with interval postsurgical changes related t o median sternotomy. 2. Metallic density overlying the descending thoracic aorta. This could potentially represent an int raaortic balloon pump, but clinical correlation is suggested. 3. Bilateral perihilar interstitial and alveolar opacities, greater on the left, with air space opac ities in the left mid and upper lung zone, which may be minimally improved from the prior study. Thes e findings may be related to asymmetric pulmonary edema. 4. Small left pleural effusion. No pneumothorax is seen. POS: TPC
--- NOTE | 2019-09-28 14:35 | PRG ---
DATE OF SERVICE: 09/28/2019 INTERVAL HISTORY: The patient is doing well from respiratory standpoint. His fever profile has improved overnight. There has been no interval change to his condition otherwise. He remains on gentle sedation. No significant overnight events. PHYSICAL EXAMINATION: VITAL SIGNS. Afebrile, currently with a T-max of 100.2 in the last 24 hours, pulse 103, blood pressure 133/87, respirations 22, saturation 95%, currently on 50% FiO2. GENERAL: The patient is awake and alert, in no apparent distress. LUNGS: Decent air entry. Extensive rhonchi and crackles are present. No prolonged expiratory phase is noted. HEART: Normal rate and regular. ABDOMEN: Soft, nontender, nondistended. Bowel sounds are positive. MUSCULOSKELETAL: No cyanosis or clubbing. There is trace pitting in the bilateral lower extremities. NEUROLOGIC: Grossly nonfocal. LABORATORY DATA: WBC 16.6, hemoglobin 11.2, platelets 222,000. INR 1.5. PH 7.44, pCO2 41, PO2 62, corresponding to a saturation of 93%. At that point, he was on 33% FiO2. Basic metabolic profile is unremarkable with a normal magnesium and phosphorus. ASSESSMENT: Chest x-ray demonstrates low lung volumes. There are bilateral chest tubes and mediastinal drain noted. Endotracheal tube remains in good position. There are new sternotomy wires are appreciated. There might be a small effusion on the left. The perihilar infiltrates and cephalization are once again noted. They appear to be a touch less dramatic than prior. ASSESSMENT: 1. Acute hypoxic respiratory failure. 2. ST-elevation myocardial infarction. 3. Acute systolic heart failure with intra-aortic balloon pump in place. 4. Type 2 diabetes mellitus. DISCUSSION AND PLAN: We will continue to watch the patient very closely in the postoperative setting. Once the balloon pump is out, we may be able to start weaning mechanical ventilation. Once his cardioplegia improves, he will require a little bit of Lasix moving forward. He is significantly volume up for this hospital stay. Pulmonary/Critical Care will continue to follow very closely. Critical care time: 30 minutes. Job ID: [id number] MTDD
[2019-09-28] MEDS: fentaNYL Citrate/PF 2,000 MCG in Sodium Chloride 0.9% 60 ML IV SCH (15:07)
--- NOTE | 2019-09-28 15:52 | PDOC.CPN ---
- Subjective Date: 09/28/19 Time: 15:49 Interval history: He had 3 vessel CABG earlier today. He remains intubted on the balloon pump. - Review of Systems ROS unobtainable: due to endotracheal tube - Objective Allergies/Adverse Reactions: Allergies Allergy/AdvReac Type Severity Reaction Status Date / Time No Known Allergies Allergy Verified 09/24/19 01:40 Visit Medications: Current Medications Acetaminophen (Tylenol) 650 mg PO Q6H PRN PRN Reason: Headache/Fever Or Mild Pain Al Hydroxide/Mg Hydroxide (Maalox) 30 ml PO Q4H PRN PRN Reason: Indigestion Albumin Human (Albumin 5%) 12.5 gm IVPB Q6H PRN PRN Reason: To Maintain SBP> 90 mmHG Stop: 09/29/19 12:54 Albumin Human (Albumin 5%) 25 gm IVPB Q6H PRN PRN Reason: To Maintain SBP > 90 mmHG Stop: 09/29/19 12:54 Albuterol/Ipratropium (Duoneb) 3 ml NEB [id number] THOM Last Admin: 09/28/19 13:22 Dose: 3 ml Aspirin (Aspirin) 325 mg PO DAILY THOM Bisacodyl (Dulcolax) 10 mg PO Q12H PRN PRN Reason: Constipation Bisacodyl (Dulcolax) 10 mg UT Q12H PRN PRN Reason: Constipation Dextrose/Water (Dextrose 50%) 25 gm SLOW IVP PRN PRN PRN Reason: Hypoglycemia Furosemide (Lasix) 40 mg SLOW IVP 0600 THOM Glucagon (Glucagon) 1 mg IM PRN PRN PRN Reason: Hypoglycemia Hydralazine HCl (Apresoline) 10 mg SLOW IVP Q6H PRN PRN Reason: To Maintain SBP< 140mmHG Fentanyl Citrate 2,000 mcg/ (Sodium Chloride) 100 mls @ 0 mls/hr IV INF THOM; Protocol Stop: 10/23/19 20:18 Last Admin: 09/28/19 15:07 Dose: 100 mls Dextrose/Water (D5w) 1,000 mls @ 0 mls/hr IV .Q0M PRN PRN Reason: Hypoglycemia Piperacillin Sod/Tazobactam (Sod 4.5 gm/ Sodium Chloride) 100 mls @ 200 mls/hr IVPB 0200,0800,1400,2000 THOM Last Admin: 09/28/19 13:37 Dose: 100 mls Fentanyl Citrate (Fentanyl Bolus) 250 mls @ 0 mls/hr IVPB PRN PRN PRN Reason: Breakthrough pain/agitation Stop: 10/24/19 01:59 Vancomycin HCl 1.25 gm/ Sodium (Chloride) 250 mls @ 166.667 mls/hr IVPB 0300, 1500 [facility] Last Admin: 09/28/19 14:47 Dose: 250 mls Hetastarch/Sodium Chloride (Hespan) 500 mls @ 0 mls/hr IVPB PRN PRN PRN Reason: To Maintain SBP > 90mmHg Stop: 09/29/19 12:10 Norepinephrine Bitartrate (Levophed) 250 mls @ 0 mls/hr IVPB PRN PRN; Protocol PRN Reason: To maintain SBP > 90 mmHG Magnesium Sulfate 2 gm/ Device 50 mls @ 50 mls/hr IVPB QAM [facility] Stop: 09/30/19 09:59 Nitroglycerin/Dextrose (Nitroglycerin 50 Mg/250 Ml Bot) 250 mls @ 0 mls/hr IVPB PRN PRN; Protocol PRN Reason: To Maintain SBP< 140mmHG Sodium Chloride (Normal Saline 0.9%) 1,000 mls @ 100 mls/hr IV .Q10H [facility] Last Admin: 09/28/19 13:37 Dose: 1,000 mls Insulin Human Lispro (Humalog) 0 units SC .AGGRESSIVE SLIDING PRN PRN Reason: Aggressive Correctional Scale Last Admin: 09/27/19 16:25 Dose: 6 units Insulin Human NPH (Humulin N) 55 unit SC BID [facility] Last Admin: 09/28/19 09:41 Dose: Not Given Lorazepam (Ativan) 2 mg SLOW IVP Q1H PRN PRN Reason: Breakthrough agitation Stop: 10/24/19 01:59 Last Admin: 09/27/19 21:52 Dose: 2 mg Miscellaneous Medication (Phos-Nak) 1 pkt PO TIDPRN PRN PRN Reason: FOR PHOS LEVEL 1.0 - 1.8 Miscellaneous Medication (Phos-Nak) 2 pkt PO TIDPRN PRN PRN Reason: FOR PHOS LEVEL 0.5 - 1.0 Miscellaneous Medication (Pharmacy To Dose) 1 each IVPB PRN PRN PRN Reason: PNA Morphine Sulfate (Morphine) 2 mg SLOW IVP Q1H PRN PRN Reason: BREAKTHROUGH PAIN/Agitation Stop: 10/24/19 01:59 Morphine Sulfate (Morphine) 2 mg SLOW IVP Q15MIN PRN PRN Reason: Severe Pain (7-10) Ondansetron HCl (Zofran) 4 mg IVP Q6H PRN PRN Reason: Nausea/Vomiting Potassium Chloride (Kcl) 20 meq IVPB PRN PRN PRN Reason: K level </= 4.0 Last Admin: 09/28/19 13:48 Dose: 20 meq Potassium Chloride (Klor-Con) 40 meq PO NOW THOM Stop: 09/28/19 16:00 Last Admin: 09/28/19 14:47 Dose: 40 meq Promethazine HCl (Phenergan) 6.25 mg IM Q4H PRN PRN Reason: Nausea/Vomiting Propofol (Diprivan) 1,000 mg IV INF PRN; Protocol PRN Reason: TO ACHIEVE GOAL RASS Stop: 10/24/19 01:59 Last Admin: 09/28/19 02:32 Dose: 1,000 mg Propofol (Diprivan Bolus) 20 mg IV Q5MIN PRN PRN Reason: BREAKTHROUGH AGITATION Stop: 10/24/19 01:59 Vital Signs & Weight: Vital Signs Temp Pulse Resp Pulse Ox 09/28/19 14:37 111 H 09/28/19 14:00 26 H 09/28/19 13:23 104 H 09/28/19 13:22 103 H 22 H 95 09/28/19 12:53 97.8 F 09/28/19 12:30 25 H 96 09/28/19 08:00 98 09/28/19 07:00 99.2 F 09/28/19 06:28 100 09/28/19 06:00 15 09/28/19 04:00 13 Admit Weight 178 lb 9.6 oz Weight 193 lb 1.999 oz - Physical Exam General: other (S/I) HEENT: mucus membranes moist Neck: supple neck Cardiac: regular rate and rhythm, no murmur Lungs: clear to auscultation Neuro: grossly intact Abdomen: active bowel sounds, soft, non-tender Extremities: no edema Skin: clear Musculoskeletal: no pain - Labs Result Diagrams: 09/28/19 12:30 09/28/19 12:30 Troponin/CKMB CK-MB (CK-2) 11.1 ng/mL (0-6.6) H* 09/23/19 18:00 Troponin I 31.609 ng/mL (< 0.028) H* 09/24/19 00:37 - Telemetry Sinus rhythms and dysrhythmias: sinus rhythm - Assessment/Plan Assessment/Plan: 1. Anterolateral STEMI 2. Multivessel CAD. 3. Cardiogenic shock 4. Presence of an IABP for support. 5. Uncontrolled diabetes. 6. Possible aspiration pneumonia 7. Bipolar disorder. 8. Fevers 9. S/P CABG x 3 URBANO to LAD, SVG to OM and SVG to PDA. PLAN: - Continue supportive care. - Will plan to leave IABP over and d/c on tuesday if stable. - Abx per primary team. - Augmented BP in the 130's. May change to 2-1 tomorrow.
--- NOTE | 2019-09-28 16:08 | OP ---
DATE OF PROCEDURE: 09/28/2019 PREOPERATIVE DIAGNOSES: Coronary artery disease/status post ST-elevation myocardial infarction/depressed left ventricular ejection fraction/intra-aortic balloon pump/intubated in the ICU/hyperlipidemia/uncontrolled diabetes mellitus. POSTOPERATIVE DIAGNOSES: Coronary artery disease/status post ST-elevation myocardial infarction/depressed left ventricular ejection fraction/intra-aortic balloon pump/intubated in the ICU/hyperlipidemia/uncontrolled diabetes mellitus. PROCEDURES PERFORMED: Coronary artery bypass grafting x3. 1. Left internal mammary artery to 1.5 mm mid LAD, good conduit, small diffusely diseased target. 2. Reverse saphenous vein to 2.0 mm PDA, good conduit and target. 3. Reverse saphenous vein to 2.5 mm OM, good conduit and target. GLOBAL PROJECT MANAGER SURGEON: Avila Lema MD ANESTHESIA: General endotracheal. ANESTHESIOLOGIST: Chantell Clark MD. PUMP TIME: 58 minutes. CROSS-CLAMP TIME: 32 minutes. LOW CORE TEMPERATURE: 34 degrees Celsius. DRUPAL DEVELOPER: Ino López. DRAINS: 24-Bulgarian chest tubes x3. DRIPS: None. TRANSFUSIONS: None. Intra-aortic balloon pump at 1:1 for transfer back to the ICU. DESCRIPTION OF PROCEDURE: After consent was obtained, the patient was brought to the operating room from the ICU. He was left under general anesthesia. Chest, abdomen, and legs were prepped and draped in the usual sterile fashion. Greater saphenous vein was harvested from the left thigh utilizing an endoscopic technique. The wound was closed in layers and Dermabond applied to the skin. A median sternotomy was performed. Left internal mammary artery was harvested as a pedicle graft. The patient was systemically heparinized. Distal pedicle was divided and infused with papaverine. Thymic fat and pericardium were divided with electrocautery. Pericardial stay sutures were placed. The pericardial and pleural effusions were all evacuated. The aortic and atrial cannulation was performed. After adequate heparinization, the patient was placed on cardiopulmonary bypass. Distal targets were marked and aortic cross-clamp applied. 1 L of antegrade cold [place] cardioplegia was given. Topical cold solution was used. Reverse saphenous vein was anastomosed to the OM in an end-to-side fashion with running 7-0 prolene suture. Anastomosis was tested and it was hemostatic. Reverse saphenous vein was anastomosed to PDA in an end-to-side fashion with running 7-0 Prolene suture. Anastomosis was tested and it was hemostatic. Mammary artery was brought through a window in the pericardium and anastomosed to the LAD in an end-to-side fashion with running 7-0 Prolene suture. Two sutures were placed in the toe of the graft for hemostasis. The pedicles were secured with interrupted 6-0 Prolene suture. The cross-clamp was removed and partial occluding clamp placed. Saphenous veins were anastomosed at the individual puncture sites in the aorta with running 6-0 Prolene suture. Partial occluding clamp was removed and graft was deaired. Anastomoses were inspected for hemostasis, which was good. The patient was warmed and weaned from cardiopulmonary bypass. After resumption of sinus rhythm, good hemodynamics, temperature greater than 36.5, bypass was discontinued. Transfusion was given. Protamine was administered. Decannulation was performed. A pursestring suture was secured. The aortic cannulation site was reinforced with 4-0 Prolene suture. The 24-Bulgarian chest tubes x3 were placed in the mediastinum. After adequate hemostasis had been obtained, sternum was treated with vancomycin paste and closed with #7 wire. Sternum was treated with platelet rich plasma and wires were twisted and buried. Wounds were irrigated and treated with platelet poor plasma. The peristernal block with Marcaine mixed with Decadron was performed. Wounds were then closed in layers and Dermabond applied to the skin. The patient tolerated the procedure well and was transferred to the intensive care unit in stable, but critical condition. Job ID: [id number]
[2019-09-28 18:21] LABS: Hemoglobin 10.1 g/dL (14.0-18.0)
[2019-09-28] MEDS ORDERED: Heparin (Artline) 500 ML IV SCH (19:00)
[2019-09-28] MEDS: HumaLOG 300 UNITS/3 ML VIAL SC PRN ×2 (21:28→23:42)
[2019-09-29] MEDS: Piperacillin/Tazobactam 4.5 GM in Sodium Chloride 0.9% 100 ML IVPB SCH ×4 (01:47→20:21)
[2019-09-29] MEDS: Vancomycin HCl 1.25 GM in Sodium Chloride 0.9% 250 ML 250 ML IVPB SCH ×2 (02:22→14:14)
[2019-09-29 05:20] LABS: Phosphorus 2.4 mg/dL (2.3-4.7)
[2019-09-29 05:22] LABS: Anion Gap 9 mmol/L (10-20); BUN (Urea Nitrogen) 19 mg/dL (8.4-25.7); Calc. Creatinine Clearance 88 mL/min (70-130); Calcium 7.8 mg/dL (7.8-10.44); Carbon Dioxide 25 mmol/L (22-29); Chloride 111 mmol/L (98-107); Estimated GFR-MDRD 66; Glucose 132 mg/dL (70-105); Magnesium 2.5 mg/dL (1.6-2.6); Potassium 3.9 mmol/L (3.5-5.1); Sodium 141 mmol/L (136-145)
[2019-09-29 05:41] LABS: Hemoglobin 8.4 g/dL (14.0-18.0); MDiff Complete? YES; Mean Corpuscular HGB CONC 34.1 g/dL (32.0-36.0); Mean Corpuscular Hemoglobin 30.6 pg (27.0-31.0); Mean Corpuscular Volume 89.5 fL (78.0-98.0); Mean Platelet Volume 9.2 fL (7.4-10.4); Platelet Count 241 thou/uL (130-400); RBC Distribution Width 11.6 % (11.5-14.5); Red Blood Cell (RBC) Count 2.76 mill/uL (4.70-6.10); White Blood Cell (WBC) Count 9.3 thou/uL (4.8-10.8)
[2019-09-29 05:42] LABS: Band 7 % (5-11); Eosinophils 1 % (0-10); Lymphocytes 8 % (21-51); Monocytes 17 % (0-10); Myelocyte 1 % (0-0); Neutrophil 66 % (42-75); Platelet Morphology Comment Appears Adequate; RBC Morphology Normal
[2019-09-29] MEDS: Furosemide 40 MG/4 ML VIAL SLOW IVP SCH (06:13)
--- NOTE | 2019-09-29 06:44 | PDOC.FM ---
- Subjective Subjective: 3 vessel CABG performed yesterday, [address], remains in IABP. Pt remains intubated. Patient did well overnight, received albumin x2 for low blood pressures. Denies pain this AM - Objective Vital Signs & Weight: Vital Signs (12 hours) Temp Pulse Resp BP Pulse Ox 09/29/19 06:00 19 09/29/19 04:00 100.3 F H 23 H 09/29/19 03:05 102 H 09/29/19 02:00 17 09/29/19 00:46 105 H 89/53 L 09/29/19 00:43 99 09/29/19 00:00 99.9 F H 18 09/28/19 22:13 109 H 09/28/19 22:00 20 09/28/19 20:00 100.4 F H 21 H 99 09/28/19 18:57 114 H 97/52 L 09/28/19 18:52 99 Weight Admit Weight 81.012 kg Weight 89.3 kg Most Recent Monitor Data Heart Rate from ECG 102 NIBP 98/74 NIBP BP-Mean 82 Respiration from ECG 6 SpO2 93 I&O: 09/27/19 09/28/19 09/29/19 06:59 06:59 06:59 Intake Total 3988.2 3609.9 3157 Output Total 2335 1785 2945 Balance 1653.2 1824.9 212 Result Diagrams: 09/29/19 04:35 09/29/19 03:30 Phys Exam - Physical Examination Constitutional: NAD Ventilated, responsive to commands, answers yes/no questions IABP running, [address] HEENT: PERRLA Neck: no nodes, supple Respiratory: no wheezing, clear to auscultation bilateral Cardiovascular: RRR, no significant murmur Gastrointestinal: soft, positive bowel sounds Musculoskeletal: no edema, pulses present Neurological: non-focal, moves all 4 limbs Psychiatric: normal affect Skin: normal turgor, cap refill <2 seconds Dx/Plan (1) Aspiration pneumonia Code(s): J69.0 - PNEUMONITIS DUE TO INHALATION OF FOOD AND VOMIT Status: Acute (2) Acute and chronic respiratory failure with hypoxia Code(s): J96.21 - ACUTE AND CHRONIC RESPIRATORY FAILURE WITH HYPOXIA Status: Acute (3) Pneumonia Code(s): J18.9 - PNEUMONIA, UNSPECIFIED ORGANISM Status: Acute (4) STEMI (ST elevation myocardial infarction) Status: Acute (5) Shock Code(s): R57.9 - SHOCK, UNSPECIFIED Status: Acute (6) Type 2 diabetes mellitus with hyperosmolar nonketotic hyperglycemia Code(s): E11.01 - TYPE 2 DIABETES MELLITUS WITH HYPEROSMOLARITY WITH COMA Status: Acute (7) Acute kidney failure Status: Resolved (8) High anion gap metabolic acidosis Code(s): E87.2 - ACIDOSIS Status: Resolved (9) S/P CABG x 3 Code(s): Z95.1 - PRESENCE OF AORTOCORONARY BYPASS GRAFT Status: Acute (10) On intra-aortic balloon pump assist Code(s): Z98.890 - OTHER SPECIFIED POSTPROCEDURAL STATES Status: Acute - Plan Plan: 59-yo M w/ no PCP admitted for STEMI and DKAvsHHS: Consults: Cardiology, CV Surg, Pulm, Palliative care 1. Anterolateral STEMI -STEMI: Trop 1.0 > 5.5 > 31. EKG changes showing anterolateral VT. -was on agrastat, now on heparin for DVT ppx - Cards consulted. Taken to chemical laboratory scientist by Dr. Bermeo on admission, found to have extensive vessel disease. Balloon bump in place. EF estimated to be 30% in the cath. Appreciate recommendations. - Dr. Bermeo, cardiology following, appreciate recs - 3 vessel CABG done 09/28 - Continue IABP over wekeend, D/c on tuesday if stable - Augmented BP in the 130's. Possibly change to 2-1 today per cards - Palliative consulted and following 2. Acute respiratory failure, on mechanical ventilation -Awake, responsive to commands this AM -Wean O2 as tolerated -Pulm consulted, appreciate recs -continue tube feeds while on vent 3. Possible Aspiration LLL PNA - Influenza neg -Fever overnight 100.4 -On vanc/zosyn. -White count and procal downtrending. -Bcx 09/28 NGTD. -Resp culture shows G neg rods, few fungal elements. Consider starting anti- fungal 4. Multivessel CAD. -3 vessel CABG 09/28: URBANO to LAD, SVG to OM and SVG to PDA. 5. Cardiogenic shock - BP stable on IABP, BP 105/67 today, continue to monitor - hetastarch started for BP control 6. Presence of an IABP for support. - Augmented BP in the 130's. May change to 2-1 tomorrow. 7. Uncontrolled diabetes on admission, stable DKA vs [facility] - DKA protocol initiated on admission. BHB: 2.96. A1c 13.3. -NPH 55 u BID, SSI; blood sugars now controlled - Goal BG 140-180 8. Bipolar disorder. -aware, no home meds 9. Microcytic Anemia -Hgb 8.4, from 10 after surgery -MCV 89.5 -continue to monitor with AM labs 10. DANIELA -resolved Lines/tubes: 3 peripherals, 1 central (R femoral), milner, balloon bump with A line in right LE, OG, mechanical ventilation, 24 Czech chest tubes x3 Code: FULL PPX: heparin Dispo: continue CCU care. Prognosis is very guarded. Palliative following. Specialists recommendations. LOS > 48H. Case discussed with Dr. Mcdermott
[2019-09-29] MEDS: Potassium Chloride 20 MEQ/100 ML PREMIX BAG IVPB PRN (06:52)
[2019-09-29 07:42] LABS: Actual Bicarbonate (HCO3a) 23.6 mEq/L (22-28); Base Excess (BEa) -0.4 mEq/L (-2.0 to +3.0); CO2 Tension 35.9 mmHg (35.0-45.0); Calcium, Ionized 1.03 mmol/L (1.12-1.30); Carboxyhemoglobin (COHb) 0.6 gm% (0.0-3.0); Hemoglobin (Hb) 9.1 g/dL (14.0-18.0); O2 Tension (PaO2) 76.7 mmHg (80.0-100.0); Potassium - ABG Lab 3.79 mmol/L (3.70-5.30); pH, Arterial 7.44 (7.35-7.45)
[2019-09-29 07:45] LABS: ALV-art Gradient 234.925 (0-20); Puncture Site ALINE
[2019-09-29] MEDS: Aspirin 325 MG TAB PO SCH (08:24)
[2019-09-29] MEDS: Magnesium 2 GM/50 ML 2 GM in Premix Bag 1 BAG IVPB SCH (08:28)
[2019-09-29] MEDS: NPH, Human Insulin Isophane 300 UNIT/3 ML VIAL SC SCH ×2 (08:29→20:20)
--- NOTE | 2019-09-29 08:49 | PRG ---
DATE OF SERVICE: 09/29/2019 SUBJECTIVE: Chetan Abreu is status post CABG yesterday, intubated, on the vent, sedated with Diprivan and fentanyl, still has intraaortic balloon in place. OBJECTIVE: VITAL SIGNS: His temperature is 100.3, saturations are 95% to 98%, blood pressure 90/52, respiratory rate 18. His I's and O's have been consistently ahead. CHEST: Bilateral rhonchi and crackles. CARDIAC: Normal S1, S2. No gallops. ABDOMEN: No masses. LABORATORY DATA: White count 9000, H and H 8 and 24, platelet count is normal. PO2 is 76, pCO2 is 35, pH 7.47, PEEP of 9, 50%. Lytes are normal. Blood sugar 126. X-ray still shows evidence of CHF with left-sided infiltrate. IMPRESSION: 1. Status post coronary artery bypass grafting .. 2. Cardiogenic shock, multivessel disease. 3. Diabetes. PLAN: We will start nutrition. He is not weanable until he is more stable. Hopefully, once his intra-aortic balloon can be decreased or removed, we will start weaning. Continue diuretics, antibiotics, supportive care. One-half hour of critical time. Job ID: [id number]
--- NOTE | 2019-09-29 09:13 | RAD ---
RADIOGRAPH CHEST 1 VIEW: DATE: 09/29/2019 TIME: 5:10 AM HISTORY: 59-year-old male status post open heart surgery COMPARISON: 09/28/2019 FINDINGS: New right subclavian central line with distal tip overlying right atrium. Bilateral chest tubes, endo tracheal tube, esophagogastric tube, and aortic balloon pump, all remain. Moderately large left parahilar upper lobe consolidation remains. Interval improvement in the pulmonary interstitial edema, resulting in interval improvement in the haziness around the right central lung. No pneumothorax. Left lower lobe retrocardiac mild atelectasis remains. Lateral costophrenic angles remain sharp. IMPRESSION: 1. Interval improvement in the pulmonary interstitial edema. 2. Moderately large left parahilar upper lobe consolidation remains. 3. No change in life support lines.
[2019-09-29] MEDS: Sodium Chloride 0.9% 1,000 ML IV SCH ×2 (09:15→14:15)
--- NOTE | 2019-09-29 10:14 | PRG ---
DATE OF SERVICE: 09/29/2019 SUBJECTIVE: Mr. Abreu is currently sedated on the ventilator. The plan is to take the balloon pump out. OBJECTIVE: VITAL SIGNS: His blood pressure is in the 90 systolic. He is on a balloon pump 1 to 3. LUNGS: Clear. CARDIAC: Normal S1, normal S2. ABDOMEN: Soft, nontender. EXTREMITIES: There is no edema. ASSESSMENT: 1. Depressed left ventricular function. 2. Recent bypass surgery. 3. Balloon pump at 1 to 3. PLAN: Dr. Lema plans to take the balloon pump out today. Other medicines to be unchanged at the present time. He will need to be remained intubated until the balloon pump has been off for some time. Job ID: [id number]
[2019-09-29] MEDS: Morphine 2 MG/ML SYRINGE SLOW IVP PRN (10:54)
--- NOTE | 2019-09-29 11:02 | OP ---
DATE OF PROCEDURE: 09/29/2019 PROCEDURE PERFORMED: Removal of percutaneously inserted intra-aortic balloon pump. PREOPERATIVE DIAGNOSIS: Coronary artery disease, status post coronary artery bypass grafting. POSTOPERATIVE DIAGNOSIS: Coronary artery disease, status post coronary artery bypass grafting. ANESTHESIA: None. INDICATIONS: The patient is a 59-year-old man who presented in cardiogenic shock and an intra-aortic balloon pump was placed in the laboratory tech immediately following his cardiac catheterization. He underwent coronary artery bypass grafting yesterday and has been hemodynamically stable overnight and remains stable through a wean of his balloon pump. NARRATIVE REPORT: After weaning the balloon pump, the sutures and dressing securing the balloon pump were removed. Balloon pump was actively deflated and then withdrawn. Hemostasis was achieved with direct pressure. Job ID: [id number]
[2019-09-29] MEDS: Propofol 1,000 MG/100 ML VIAL IV PRN ×3 (11:14→20:23)
[2019-09-29] MEDS: fentaNYL Citrate/PF 2,000 MCG in Sodium Chloride 0.9% 60 ML IV SCH (11:50)
--- NOTE | 2019-09-29 11:54 | PRG ---
DATE OF SERVICE: 09/29/2019 Please see the note from Dr. Ruiz for which I agree. The patient was seen, evaluated and discussed with the residents by bedside. Please see the note from Dr. Ruiz for which I agree today. This gentleman is status post coronary bypass graft surgery, recovering fairly well. Balloon pump I think is being removed this morning. Still intubated. Does have a pneumonia and is being treated with Zofran for that. Respiratory culture showing a fungal infection, so we will run that by Pulmonary if we want to add an antifungal. Diabetes is being controlled with NPH twice daily and a sliding scale. Otherwise supportive care after the coronary artery bypass graft surgery. Job ID: [id number]
[2019-09-29 14:18] LABS: Vancomycin, Trough 17.2 ug/mL
[2019-09-30] MEDS: Piperacillin/Tazobactam 4.5 GM in Sodium Chloride 0.9% 100 ML IVPB SCH ×4 (01:16→20:02)
[2019-09-30] MEDS: Sodium Chloride 0.9% 1,000 ML IV SCH ×2 (01:17→14:43)
[2019-09-30] MEDS: Vancomycin HCl 1.25 GM in Sodium Chloride 0.9% 250 ML 250 ML IVPB SCH ×2 (02:06→14:45)
[2019-09-30] MEDS: Propofol 1,000 MG/100 ML VIAL IV PRN (03:39)
[2019-09-30] MEDS: Bisacodyl 5 MG TAB PO PRN (03:57)
[2019-09-30 04:04] LABS: Band 2 % (5-11); Eosinophils 3 % (0-10); Hemoglobin 8.5 g/dL (14.0-18.0); Lymphocytes 9 % (21-51); MDiff Complete? YES; Mean Corpuscular HGB CONC 33.2 g/dL (32.0-36.0); Mean Corpuscular Hemoglobin 29.9 pg (27.0-31.0); Mean Corpuscular Volume 90.1 fL (78.0-98.0); Mean Platelet Volume 9.3 fL (7.4-10.4); Metamyelocyte 1 % (0-0); Monocytes 18 % (0-10); Neutrophil 67 % (42-75); Platelet Count 301 thou/uL (130-400); Platelet Morphology Comment Appears Adequate; RBC Distribution Width 11.8 % (11.5-14.5); Red Blood Cell (RBC) Count 2.83 mill/uL (4.70-6.10); White Blood Cell (WBC) Count 9.6 thou/uL (4.8-10.8)
[2019-09-30 04:10] LABS: Anion Gap 11 mmol/L (10-20); BUN (Urea Nitrogen) 17 mg/dL (8.4-25.7); Calc. Creatinine Clearance 103 mL/min (70-130); Carbon Dioxide 28 mmol/L (22-29); Chloride 109 mmol/L (98-107); Estimated GFR-MDRD 78; Glucose 94 mg/dL (70-105); Magnesium 2.4 mg/dL (1.6-2.6); Potassium 3.5 mmol/L (3.5-5.1); Sodium 144 mmol/L (136-145)
[2019-09-30 04:14] LABS: Phosphorus 3.2 mg/dL (2.3-4.7)
[2019-09-30] MEDS: Potassium Chloride 20 MEQ/100 ML PREMIX BAG IVPB PRN (04:20)
[2019-09-30] MEDS: Furosemide 40 MG/4 ML VIAL SLOW IVP SCH (05:08)
[2019-09-30 07:29] LABS: Actual Bicarbonate (HCO3a) 28.9 mEq/L (22-28); Base Excess (BEa) 4.8 mEq/L (-2.0 to +3.0); CO2 Tension 40.5 mmHg (35.0-45.0); Carboxyhemoglobin (COHb) 0.3 gm% (0.0-3.0); Hemoglobin (Hb) 9.7 g/dL (14.0-18.0); Potassium - ABG Lab 3.63 mmol/L (3.70-5.30); pH, Arterial 7.47 (7.35-7.45)
--- NOTE | 2019-09-30 07:31 | PDOC.FM ---
- Subjective Subjective: Patient is alert to voice on exam this AM, remains intubated. Denies chest pain. Moves all extremities to command. - Objective Vital Signs & Weight: Vital Signs (12 hours) Temp Pulse Resp BP Pulse Ox 09/30/19 07:07 97 20 100 09/30/19 06:00 15 09/30/19 04:00 19 09/30/19 03:00 98.9 F 09/30/19 02:47 92 09/30/19 02:00 17 09/30/19 01:33 89 106/69 09/30/19 00:00 30 H 09/29/19 23:00 98.5 F 09/29/19 22:33 91 09/29/19 22:00 17 09/29/19 20:00 18 09/29/19 19:49 97 Weight Admit Weight 81.012 kg Weight 88.4 kg Most Recent Monitor Data Heart Rate from ECG 91 NIBP 101/66 NIBP BP-Mean 77 Respiration from ECG 20 SpO2 100 I&O: 09/29/19 09/30/19 10/01/19 06:59 06:59 06:59 Intake Total 3157 3529.5 Output Total 2945 3720 Balance 212 -190.5 Result Diagrams: 09/30/19 03:04 09/30/19 03:04 Phys Exam - Physical Examination Constitutional: NAD alert, able to answer yes/no questions, ventilated HEENT: PERRLA, moist MMs Neck: no nodes, supple Respiratory: no wheezing, clear to auscultation bilateral Cardiovascular: RRR, no significant murmur Gastrointestinal: soft, non-tender, positive bowel sounds some mild distention Musculoskeletal: no edema, pulses present compression stockings in place BLE Neurological: non-focal, moves all 4 limbs Psychiatric: normal affect Skin: no rash, cap refill <2 seconds Dx/Plan (1) Aspiration pneumonia Code(s): J69.0 - PNEUMONITIS DUE TO INHALATION OF FOOD AND VOMIT Status: Acute (2) Acute and chronic respiratory failure with hypoxia Code(s): J96.21 - ACUTE AND CHRONIC RESPIRATORY FAILURE WITH HYPOXIA Status: Acute (3) Pneumonia Code(s): J18.9 - PNEUMONIA, UNSPECIFIED ORGANISM Status: Acute (4) STEMI (ST elevation myocardial infarction) Status: Acute (5) Shock Code(s): R57.9 - SHOCK, UNSPECIFIED Status: Acute (6) Type 2 diabetes mellitus with hyperosmolar nonketotic hyperglycemia Code(s): E11.01 - TYPE 2 DIABETES MELLITUS WITH HYPEROSMOLARITY WITH COMA Status: Acute (7) Acute kidney failure Status: Resolved (8) High anion gap metabolic acidosis Code(s): E87.2 - ACIDOSIS Status: Resolved (9) S/P CABG x 3 Code(s): Z95.1 - PRESENCE OF AORTOCORONARY BYPASS GRAFT Status: Acute (10) On intra-aortic balloon pump assist Code(s): Z98.890 - OTHER SPECIFIED POSTPROCEDURAL STATES Status: Acute - Plan Plan: 59-yo M w/ no PCP admitted for STEMI and DKAvsHHS: Consults: Cardiology, CV Surg, Pulm, Palliative care 1. Anterolateral STEMI -STEMI: Trop 1.0 > 5.5 > 31. EKG changes showing anterolateral MS. -was on agrastat, now on heparin for DVT ppx - Cards consulted. Taken to laborer concrete paving by Dr. Bermeo on admission, found to have extensive vessel disease. Balloon pump placed, then dc'ed 09/29. EF estimated to be 30% in the cath. - 3 vessel CABG done 09/28. - Dr. Bermeo, cardiology following, appreciate recs - [address] s/p cabg with pink tinged fluid - IABP discontinued yesterday 09/29 - Palliative consulted and following 2. Acute respiratory failure, on mechanical ventilation -Awake, responsive to commands this AM -Wean O2 as tolerated -Pulm consulted, appreciate recs -continue tube feeds while on vent - per nursing, Pulmonology may possibly extubate today - Dr. Taylor consulted, pulmonology. Appreciate recs. 3. Possible Aspiration LLL PNA - Influenza neg -afebrile overnight -On vanc/zosyn. -White count and procal downtrending. -Bcx 09/28 NGTD. -Resp culture respiratory lydia and stiven albicans. Continue vanc/zosyn 4. Multivessel CAD. -3 vessel CABG 09/28: URBANO to LAD, SVG to OM and SVG to PDA. 5. Cardiogenic shock - BP stable overnight - hetastarch PRN for BP control 6. Presence of IABP, removed 09/29 7. Uncontrolled diabetes on admission, stable DKA vs HHS - DKA protocol initiated on admission. BHB: 2.96. A1c 13.3. -NPH 55 u BID, SSI; 1 low blood sugar overnight, so will decrease to NPH 40 u this AM for 1 time dose, then resume 55 u NPH BID - Goal BG 140-180 8. Bipolar disorder. -aware, no home meds 9. Microcytic Anemia -Hgb 8.5, stable -continue to monitor with AM labs 10. DANIELA -resolved 11. Constipation - PRNs ordered Lines/tubes: 3 peripherals, 1 central (R femoral), milner, OG, mechanical ventilation, 24 Norwegian chest tubes x3 Code: FULL PPX: heparin Dispo: continue CCU care. Prognosis is very guarded. Palliative following. Specialists recommendations. LOS > 48H. Case discussed with Dr. Mcdermott
[2019-09-30 07:45] LABS: Puncture Site RRAD
[2019-09-30 07:46] LABS: ALV-art Gradient 250.875 (0-20)
[2019-09-30] MEDS: Magnesium 2 GM/50 ML 2 GM in Premix Bag 1 BAG IVPB SCH (08:19)
[2019-09-30] MEDS: Aspirin 325 MG TAB PO SCH (08:19)
[2019-09-30] MEDS: NPH, Human Insulin Isophane 300 UNIT/3 ML VIAL SC SCH ×2 (08:26→21:35)
[2019-09-30] MEDS ORDERED: DC Sedation Protocol FS ONE (09:21)
--- NOTE | 2019-09-30 09:38 | PRG ---
DATE OF SERVICE: 09/30/2019 SUBJECTIVE: Chetan Abreu is in room A9. This morning, he is off sedation, a little more awake and responsive. OBJECTIVE: VITAL SIGNS: Temperature 99, blood pressure 119/71, pulse 70, respiratory rate 18. His intra-aortic balloon was discontinued. CHEST: Bilateral rhonchi and crackles. CARDIAC: Normal S1 and S2. No gallops. ABDOMEN: Soft. NEUROLOGIC: He is awake, moves all 4 extremities. LABORATORY DATA: Lytes are normal. PO2 is low at 55, pCO2 is 40, pH is 7.47. X-ray shows a left-sided infiltrate. Right lung is clear. White count 9,000, H and H 8 and 25, platelet count is normal. ASSESSMENT AND PLAN: Status post respiratory failure, congestive heart failure, coronary artery disease, emergency coronary artery bypass grafting. Zosyn and vancomycin on board. Neb treatments. PT and supportive care. We will wean and extubate today. One-half hour Critical Care time. Job ID: [id number]
--- NOTE | 2019-09-30 10:01 | PRG ---
DATE OF SERVICE: 09/30/2019 SUBJECTIVE: Mr. Abreu is extubated. He is awake. He is not short of breath, not having chest pain. The balloon pump is out. OBJECTIVE: VITAL SIGNS: His blood pressure is 119/70 and pulse 106, it is sinus. LUNGS: Clear. CARDIAC: Normal S1. Normal S2. ASSESSMENT: 1. Status post bypass surgery, doing well. 2. Congestive heart failure, appears compensated. He is tolerating being off the balloon pump fine. PLAN: 1. The patient is on antibiotics. 2. Aspirin. 3. Consideration for low-dose beta blockers tomorrow. We will hold off today. May drop his blood pressure. Dr. Bermeo to return tomorrow. Job ID: [id number]
--- NOTE | 2019-09-30 10:51 | RAD ---
RADIOGRAPH CHEST 1 VIEW: DATE: 09/30/2019 TIME: 4:34 AM HISTORY: 59-year-old male status post open heart surgery COMPARISON: 09/29/2019 FINDINGS: Slight interval worsening of pulmonary interstitial edema No other interval change IMPRESSION: 1) slight interval worsening of pulmonary interstitial edema 2) large left upper lobe perihilar consolidation. 3) large region of consolidation left lower lobe appears slightly worse. 4) no change in life support lines.
[2019-09-30] MEDS ORDERED: Morphine 2 MG/ML SYRINGE SLOW IVP PRN (10:58)
[2019-09-30] MEDS ORDERED: Morphine 4 MG/ML VIAL IV PRN (10:59)
[2019-09-30] MEDS: Morphine 2 MG/ML SYRINGE SLOW IVP PRN (10:59)
[2019-09-30] MEDS: HYDROcodone/Acetaminophen 5/325 mg Tablet PO PRN ×3 (11:30→21:31)
[2019-09-30] MEDS ORDERED: Labetalol HCl 100 MG/20 ML VIAL SLOW IVP PRN (11:46)
--- NOTE | 2019-09-30 12:49 | CON ---
DATE OF CONSULTATION: Please see the note from Dr. Ruiz for which I agree. The patient was seen, evaluated, and discussed with the residents and examined at bedside. This gentleman did have aortic pump removed yesterday, couple of days status post CABG. Did have one low blood sugar, but otherwise diabetes has been fairly well controlled. Still intubated and slowly working on extubating him, which sounds like potentially later today. Otherwise, everything else is stable. Chest is clear. Regular rate and rhythm. His labs look stable. We will continue supportive care. Job ID: [id number]
--- NOTE | 2019-09-30 16:24 | EKG ---
Test Reason : S/P CABG Blood Pressure : / mmHG Vent. Rate : 101 BPM Atrial Rate : 101 BPM P-R Int : 148 ms QRS Dur : 102 ms QT Int : 354 ms P-R-T Axes : 051 097 -43 degrees QTc Int : 459 ms Sinus tachycardia Lateral infarct , age undetermined Abnormal ECG When compared with ECG of 24-SEP-2019 08:12, Lateral infarct is now Present ST now depressed in Anterior leads T wave inversion now evident in Inferior leads T wave inversion no longer evident in Anterolateral leads QT has shortened Confirmed by DR. Katerin KAHN ([id number]) on 09/30/2019 4:24:19 PM Referred By: QUIANA LAWSON Confirmed By:DR. Katerin KAHN
[2019-09-30] MEDS ORDERED: hydrOXYzine 25 MG TAB PO PRN (18:55)
[2019-09-30] MEDS ORDERED: Ziprasidone 20 MG CAP PO SCH (19:00)
[2019-10-01] MEDS: Piperacillin/Tazobactam 4.5 GM in Sodium Chloride 0.9% 100 ML IVPB SCH ×4 (02:01→21:30)
[2019-10-01] MEDS: Sodium Chloride 0.9% 1,000 ML IV SCH (02:04)
[2019-10-01] MEDS: Vancomycin HCl 1.25 GM in Sodium Chloride 0.9% 250 ML 250 ML IVPB SCH (02:28)
[2019-10-01 03:48] LABS: #Basophils 0.1 thou/uL (0.0-0.2); #Eosinphils 0.5 thou/uL (0.0-0.7); #Lymphocytes 1.7 thou/uL (1.20-3.40); #Monocytes 1.6 thou/uL (0.11-0.59); #Neutrophils 7.7 thou/uL (1.40-6.50); %Basophils 0.6 % (0.0-1.0); %Eosinophils 4.6 % (0.0-10.0); %Lymphocytes 14.6 % (21.0-51.0); %Monocytes 13.8 % (0.0-10.0); %Neutrophils 66.3 % (42.0-75.0); Hemoglobin 9.5 g/dL (14.0-18.0); Mean Corpuscular HGB CONC 34.1 g/dL (32.0-36.0); Mean Corpuscular Hemoglobin 30.4 pg (27.0-31.0); Mean Corpuscular Volume 89.2 fL (78.0-98.0); Mean Platelet Volume 8.3 fL (7.4-10.4); Platelet Count 419 thou/uL (130-400); RBC Distribution Width 11.7 % (11.5-14.5); Red Blood Cell (RBC) Count 3.11 mill/uL (4.70-6.10); White Blood Cell (WBC) Count 11.6 thou/uL (4.8-10.8)
[2019-10-01 04:02] LABS: Anion Gap 11 mmol/L (10-20); BUN (Urea Nitrogen) 14 mg/dL (8.4-25.7); Calc. Creatinine Clearance 106 mL/min (70-130); Carbon Dioxide 29 mmol/L (22-29); Chloride 106 mmol/L (98-107); Estimated GFR-MDRD 82; Glucose 70 mg/dL (70-105); Magnesium 2.1 mg/dL (1.6-2.6); Sodium 143 mmol/L (136-145)
[2019-10-01 04:06] LABS: Potassium 2.9 mmol/L (3.5-5.1)
[2019-10-01] MEDS ORDERED: Potassium Chloride 20 MEQ TAB PO SCH (04:15)
[2019-10-01] MEDS: HYDROcodone/Acetaminophen 5/325 mg Tablet PO PRN ×2 (05:29→11:46)
[2019-10-01] MEDS: Furosemide 40 MG/4 ML VIAL SLOW IVP SCH (05:29)
--- NOTE | 2019-10-01 06:22 | PDOC.FM ---
- Subjective Subjective: Mr. Abreu was very tearful and emotional this morning. He was upset about something he regretted saying to his brother yesterday. He otherwise had no complaints. He denied current difficulty breathing. He said at times he has chest pressure but none currently. - Objective MAR Reviewed: Yes Vital Signs & Weight: Vital Signs (12 hours) Temp Pulse Resp Pulse Ox 10/01/19 04:00 98.1 F 10/01/19 03:52 95 10/01/19 00:00 99.7 F H 09/30/19 22:52 109 H 26 H 94 L 09/30/19 20:00 99.9 F H 94 L 09/30/19 19:02 94 L 09/30/19 19:01 113 H 24 H 94 L Weight Admit Weight 81.012 kg Weight 87.4 kg Most Recent Monitor Data Heart Rate from ECG 115 NIBP 141/93 NIBP BP-Mean 109 Respiration from ECG 29 SpO2 93 I&O: 09/29/19 09/30/19 10/01/19 06:59 06:59 06:59 Intake Total 3157 3529.5 3046 Output Total 2945 3720 3980 Balance 212 -190.5 -934 Result Diagrams: 10/01/19 03:25 10/01/19 03:25 Phys Exam - Physical Examination emotional distress Respiratory: clear to auscultation bilateral (anteriorly, exam limited due to patient cooperation) Cardiovascular: RRR, no significant murmur (exam limited, patient continued to talk through exam) Gastrointestinal: soft, non-tender, positive bowel sounds Musculoskeletal: no edema Neurological: moves all 4 limbs Skin: normal turgor, cap refill <2 seconds Dx/Plan (1) Aspiration pneumonia Code(s): J69.0 - PNEUMONITIS DUE TO INHALATION OF FOOD AND VOMIT Status: Acute (2) Acute and chronic respiratory failure with hypoxia Code(s): J96.21 - ACUTE AND CHRONIC RESPIRATORY FAILURE WITH HYPOXIA Status: Acute (3) On intra-aortic balloon pump assist Code(s): Z98.890 - OTHER SPECIFIED POSTPROCEDURAL STATES Status: Suspected (4) Pneumonia Code(s): J18.9 - PNEUMONIA, UNSPECIFIED ORGANISM Status: Acute (5) STEMI (ST elevation myocardial infarction) Status: Acute (6) Type 2 diabetes mellitus with hyperosmolar nonketotic hyperglycemia Code(s): E11.01 - TYPE 2 DIABETES MELLITUS WITH HYPEROSMOLARITY WITH COMA Status: Acute - Plan Plan: 59-yo M w/ no PCP admitted for STEMI and DKAvsHHS: Consults: Cardiology, CV Surg, Pulm, Palliative care 1. Anterolateral STEMI -STEMI: Trop 1.0 > 5.5 > 31. EKG changes showing anterolateral HI. - Cards consulted. Taken to laboratory technologist by Dr. Bermeo on admission, found to have extensive vessel disease. IABP placed, then dc'ed 09/29. EF estimated to be 30% in the cath. - 3 vessel CABG done 09/28. 3 chest tubes placed - Dr. Bermeo, cardiology following, appreciate recs - Palliative consulted and following 2. Acute respiratory failure, now off vent -Awake, responsive to commands this AM -Wean O2 as tolerated, requiring 6L while in emotional distress -Pulm consulted, appreciate recs -Dr. Taylor consulted, pulmonology. Appreciate recs. 3. Possible Aspiration LLL PNA - Influenza neg -On vanc/zosyn (09/23) -White count and procal downtrending. -Bcx 09/28 NGTD. -Resp culture respiratory lydia and stiven albicans. Continue vanc/zosyn 4. Multivessel CAD. -3 vessel CABG 09/28: URBANO to LAD, SVG to OM and SVG to PDA. 5. Cardiogenic shock - BP stable overnight - hetastarch PRN for BP control 6. Presence of IABP, removed 09/29 7. Uncontrolled diabetes on admission, stable DKA vs HHS - DKA protocol initiated on admission. BHB: 2.96. A1c 13.3. -NPH 45 u BID, has not required SSI - Goal BG 140-180 8. Bipolar disorder. -aware, no home meds 9. Microcytic Anemia -Hgb 9.5, stable -continue to monitor with AM labs 10. DANIELA -resolved 11. Constipation - PRNs ordered 12. History of bipolar, depression - not on any meds at home for this, unable to obtain better history this am. Would be beneficial to discuss with family as well. - given geodon x1 last night. - consider starting atypical antipsychotic for maintenance 13. Hypokalemia - replaced this am, recheck @ 1400 Lines/tubes: 3 peripherals, 1 central (R femoral), milner, 24 Korean chest tubes x3 Code: FULL PPX: heparin Dispo: continue current care including abx, diuresis. Appreciate recommendations. K+ replaced. Addendum - Attending - Attending Attestation Date/Time: 10/01/19 8530 I personally evaluated the patient and discussed the management with Dr. Starr I agree with the History, Examination, Assessment and Plan documented above with any addition or exceptions noted below. S/P 3 V CABG, IABP removed patient extubated and he is responsive. He overall is progressing well. Per nursing Staff note labile mood and history of mental illness recommend low dose seroquel for now continue manage BS.
[2019-10-01] MEDS: Aspirin 325 MG TAB PO SCH (08:31)
[2019-10-01] MEDS: Potassium Chloride 20 MEQ/100 ML PREMIX BAG IVPB PRN (08:32)
[2019-10-01] MEDS: NPH, Human Insulin Isophane 300 UNIT/3 ML VIAL SC SCH ×2 (08:34→21:31)
--- NOTE | 2019-10-01 09:18 | RAD ---
PORTABLE UPRIGHT FRONTAL CHEST RADIOGRAPH: DATE: 10/01/2019. COMPARISON: 09/30/2019. HISTORY: Evaluate chest following open heart surgery. FINDINGS: Endotracheal tube and nasogastric tube have been removed. Stable right-sided vascular catheter. Era inage catheters overlie bilateral hemithoraces and the mediastinum. Midline sternotomy wires are pre sent. There is interstitial prominence in bilateral perihilar regions. There is dense airspace disease in bilateral perihilar regions, left greater than right, as well as in the medial right lung base. Ther e is dense consolidation of left lower lobe. Possible small bilateral pleural effusions. Aeration h as slightly worsened since the prior exam. IMPRESSION: Postoperative changes as detailed above. Question pulmonary edema and/or multifocal infectious pneum onitis/aspiration. Short-term followup imaging following treatment advised. POS: BRINDA
--- NOTE | 2019-10-01 09:54 | PRG ---
DATE OF SERVICE: 10/01/2019 INTERVAL HISTORY: The patient is doing outstanding from respiratory standpoint. He got and extubated yesterday. He did not have any significant respiratory issues. Remains a little bit tachycardic. That being said, there has been no overnight events. His strength is actually pretty good. Yesterday he was able to stand for a couple of minutes. Today, he has actually gotten up and into a bedside chair. He was 1% standby assist, but was able to do most of the activity on his own. PHYSICAL EXAMINATION: VITAL SIGNS: Afebrile currently with a T-max 99.9, pulse 108, blood pressure 141/93, respirations 29, saturation 93%, currently on 5 L nasal cannula. GENERAL: The patient is awake and alert, in no apparent distress. LUNGS: Bibasilar crackles are present. There is no prolonged expiratory phase or wheezing appreciated. HEART: Normal rate and regular. ABDOMEN: Soft, nontender, nondistended. Bowel sounds are positive. MUSCULOSKELETAL: No cyanosis or clubbing. There is no pitting in bilateral lower extremities. NEUROLOGIC: Grossly nonfocal. LABORATORY DATA: WBC 11.6, hemoglobin 9.5, platelets 419,000. INR 1.5. Potassium 2.9. Basic metabolic profile is otherwise unremarkable. Magnesium and phosphorous fall within the normal limits. Sputum is growing presumptive Sallie albicans. Blood cultures x4 are negative to date. IMAGING DATA: Chest x-ray demonstrates pulmonary edema. Chest tube, right subclavian central venous catheter. Cardiomegaly is present on this AP film. ASSESSMENT: 1. Acute hypoxic respiratory failure, improving. 2. ST-elevation myocardial infarction. 3. Acute systolic heart failure. 4. Coronary artery disease, status post coronary artery bypass graft, postop day #3. 5. Type 2 diabetes mellitus. DISCUSSION AND PLAN: We will continue our mobilization efforts through time. Potassium will be replaced aggressively. I will recheck a level tomorrow morning. Pulmonary/Critical Care will follow along in this location. I agree with diuresing the patient. He is responding very nicely to the Lasix at this point. Job ID: [id number]
[2019-10-01] MEDS: Bisacodyl 5 MG TAB PO PRN (10:12)
[2019-10-01] MEDS: Potassium Chloride 20 MEQ TAB PO SCH ×2 (10:16→14:28)
[2019-10-01] MEDS: HumaLOG 300 UNITS/3 ML VIAL SC PRN (11:15)
--- NOTE | 2019-10-01 18:13 | PDOC.CPN ---
- Subjective Date: 10/01/19 Time: 18:12 Interval history: He is dong much better, He is extubated. IABP is out. He is sitting having dinner on my evaluation. His only complaint is chest soreness. He had a BM earlier today. - Review of Systems General: denies: fever/chills, weight/appetite/sleep changes, night sweats, fatigue Respiratory: denies: cough, congestion, shortness of breath, exercise intolerance Cardiovascular: denies: chest pain, palpitation, edema, paroxysmal nocturnal dyspnea, orthopnea Gastrointestinal: denies: nausea, vomiting, diarrhea, constipation, abd pain, GI bleeding Musculoskeletal: denies: pain, tenderness, stiffness, swelling, arthritis/ arthralgias Neurological: denies: numbness, syncope, seizure, weakness - Objective Allergies/Adverse Reactions: Allergies Allergy/AdvReac Type Severity Reaction Status Date / Time No Known Allergies Allergy Verified 09/24/19 01:40 Visit Medications: Current Medications Acetaminophen (Tylenol) 650 mg PO Q6H PRN PRN Reason: Headache/Fever Or Mild Pain Hydrocodone Bitart/Acetaminophen (Juda 5/325) 1 tab PO Q4H PRN PRN Reason: Pain Last Admin: 10/01/19 05:29 Dose: 1 tab Hydrocodone Bitart/Acetaminophen (Juda 5/325) 2 tab PO Q4H PRN PRN Reason: Pain Last Admin: 10/01/19 11:46 Dose: 2 tab Al Hydroxide/Mg Hydroxide (Maalox) 30 ml PO Q4H PRN PRN Reason: Indigestion Albuterol/Ipratropium (Duoneb) 3 ml NEB [id number] [facility] Last Admin: 10/01/19 14:26 Dose: 3 ml Aspirin (Aspirin) 325 mg PO DAILY [facility] Last Admin: 10/01/19 08:31 Dose: 325 mg Bisacodyl (Dulcolax) 10 mg PO Q12H PRN PRN Reason: Constipation Last Admin: 10/01/19 10:12 Dose: 10 mg Bisacodyl (Dulcolax) 10 mg MA Q12H PRN PRN Reason: Constipation Dextrose/Water (Dextrose 50%) 25 gm SLOW IVP PRN PRN PRN Reason: Hypoglycemia Last Admin: 09/29/19 18:19 Dose: 25 gm Furosemide (Lasix) 20 mg SLOW IVP 0600 [facility] Glucagon (Glucagon) 1 mg IM PRN PRN PRN Reason: Hypoglycemia Hydralazine HCl (Apresoline) 10 mg SLOW IVP Q6H PRN PRN Reason: To Maintain SBP< 140mmHG Hydroxyzine HCl (Atarax) 25 mg PO Q6H PRN PRN Reason: Anxiety Last Admin: 10/01/19 10:23 Dose: 25 mg Dextrose/Water (D5w) 1,000 mls @ 0 mls/hr IV .Q0M PRN PRN Reason: Hypoglycemia Piperacillin Sod/Tazobactam (Sod 4.5 gm/ Sodium Chloride) 100 mls @ 200 mls/hr IVPB 0200,0800,1400,2000 [facility] Last Admin: 10/01/19 14:28 Dose: 100 mls Heparin Sodium/Sodium Chloride (Heparin) 500 mls @ 0 mls/hr IV .Q0M THOM Last Admin: 09/28/19 20:40 Dose: 500 mls Insulin Human Lispro (Humalog) 0 units SC .AGGRESSIVE SLIDING PRN PRN Reason: Aggressive Correctional Scale Last Admin: 10/01/19 11:15 Dose: 6 units Insulin Human NPH (Humulin N) 40 unit SC BID [facility] Labetalol HCl (Normodyne) 10 mg SLOW IVP Q4H PRN PRN Reason: SBP Greater Than 180 Last Admin: 09/30/19 12:27 Dose: 10 mg Miscellaneous Medication (Phos-Nak) 1 pkt PO TIDPRN PRN PRN Reason: FOR PHOS LEVEL 1.0 - 1.8 Miscellaneous Medication (Phos-Nak) 2 pkt PO TIDPRN PRN PRN Reason: FOR PHOS LEVEL 0.5 - 1.0 Ondansetron HCl (Zofran) 4 mg IVP Q6H PRN PRN Reason: Nausea/Vomiting Potassium Chloride (Kcl) 20 meq IVPB PRN PRN PRN Reason: K level </= 4.0 Last Admin: 10/01/19 08:32 Dose: 20 meq Promethazine HCl (Phenergan) 6.25 mg IM Q4H PRN PRN Reason: Nausea/Vomiting Quetiapine Fumarate (Seroquel) 25 mg PO BID [facility] Sodium Chloride (Flush - Normal Saline) 10 ml IVF Q12HR [facility] Last Admin: 10/01/19 08:31 Dose: 10 ml Sodium Chloride (Flush - Normal Saline) 10 ml IVF PRN PRN PRN Reason: Saline Flush Vital Signs & Weight: Vital Signs Temp Pulse Pulse Pulse Resp BP BP 10/01/19 16:00 99.1 F 10/01/19 14:26 109 H 23 H 10/01/19 13:19 123 H 113 H 152/87 H 133/104 H 10/01/19 12:00 98.5 F 10/01/19 11:18 117 H 27 H 10/01/19 08:40 124 H 116 H 145/93 H 150/96 H 10/01/19 08:00 99.1 F 10/01/19 07:29 10/01/19 07:28 108 H 21 H Pulse Ox Pulse Ox Pulse Ox 10/01/19 16:00 10/01/19 14:26 92 L 10/01/19 13:19 91 L 91 L 10/01/19 12:00 10/01/19 11:18 96 10/01/19 08:40 94 L 96 10/01/19 08:00 95 10/01/19 07:29 96 10/01/19 07:28 96 Admit Weight 178 lb 9.6 oz Weight 192 lb 10.944 oz - Physical Exam General: alert & oriented x3 HEENT: mucus membranes moist Neck: supple neck Cardiac: regular rate and rhythm, no murmur Lungs: clear to auscultation Neuro: grossly intact Abdomen: active bowel sounds, soft, non-tender Extremities: no edema Skin: clear Musculoskeletal: no pain - Labs Result Diagrams: 10/01/19 03:25 10/01/19 03:25 Troponin/CKMB CK-MB (CK-2) 11.1 ng/mL (0-6.6) H* 09/23/19 18:00 Troponin I 31.609 ng/mL (< 0.028) H* 09/24/19 00:37 - Telemetry Sinus rhythms and dysrhythmias: sinus tachycardia - Assessment/Plan Assessment/Plan: 1. Anterolateral STEMI 2. Multivessel CAD. 3. Cardiogenic shock 4. Presence of an IABP for support. 5. Uncontrolled diabetes. 6. Possible aspiration pneumonia 7. Bipolar disorder. 8. Fevers 9. S/P CABG x 3 URBANO to LAD, SVG to OM and SVG to PDA. PLAN: - Replace K - Will start BB and ACEI and up titrate to control BP and HR. - ASA/Statin for life - Continue to increase PT as tolerated. - May transfer to Telemetry floor.
[2019-10-01 18:20] LABS: Anion Gap 13 mmol/L (10-20); BUN (Urea Nitrogen) 15 mg/dL (8.4-25.7); Calc. Creatinine Clearance 94 mL/min (70-130); Calcium 8.5 mg/dL (7.8-10.44); Carbon Dioxide 30 mmol/L (22-29); Chloride 102 mmol/L (98-107); Estimated GFR-MDRD 72; Glucose 102 mg/dL (70-105); Potassium 3.3 mmol/L (3.5-5.1); Sodium 142 mmol/L (136-145)
[2019-10-01] MEDS: Metoprolol Tartrate 25 MG TAB PO SCH (18:37)
[2019-10-01] MEDS: Atorvastatin Calcium 40 MG TAB PO SCH (21:30)
[2019-10-02] MEDS: Piperacillin/Tazobactam 4.5 GM in Sodium Chloride 0.9% 100 ML IVPB SCH ×3 (02:31→15:28)
[2019-10-02] MEDS: Potassium Chloride 20 MEQ/100 ML PREMIX BAG IVPB PRN ×2 (02:32→08:04)
[2019-10-02] MEDS ORDERED: Ziprasidone 20 MG VIAL ONE (03:55)
[2019-10-02] MEDS ORDERED: Sterile Water 10 ML VIAL FS PRN (04:13)
[2019-10-02] MEDS ORDERED: Ziprasidone 20 MG VIAL IM SCH (04:15)
[2019-10-02 05:17] LABS: #Basophils 0.1 thou/uL (0.0-0.2); #Eosinphils 0.2 thou/uL (0.0-0.7); #Lymphocytes 1.2 thou/uL (1.20-3.40); #Monocytes 1.2 thou/uL (0.11-0.59); #Neutrophils 6.7 thou/uL (1.40-6.50); %Lymphocytes 13.1 % (21.0-51.0); %Monocytes 12.7 % (0.0-10.0); %Neutrophils 71.3 % (42.0-75.0); Hemoglobin 9.5 g/dL (14.0-18.0); Mean Corpuscular Hemoglobin 29.1 pg (27.0-31.0); Mean Corpuscular Volume 88.3 fL (78.0-98.0); Mean Platelet Volume 7.8 fL (7.4-10.4); Platelet Count 540 thou/uL (130-400); RBC Distribution Width 11.7 % (11.5-14.5); Red Blood Cell (RBC) Count 3.25 mill/uL (4.70-6.10); White Blood Cell (WBC) Count 9.4 thou/uL (4.8-10.8)
[2019-10-02 05:36] LABS: Anion Gap 13 mmol/L (10-20); BUN (Urea Nitrogen) 13 mg/dL (8.4-25.7); Calc. Creatinine Clearance 94 mL/min (70-130); Calcium 8.2 mg/dL (7.8-10.44); Carbon Dioxide 28 mmol/L (22-29); Chloride 103 mmol/L (98-107); Estimated GFR-MDRD 77; Glucose 151 mg/dL (70-105); Potassium 3.2 mmol/L (3.5-5.1); Sodium 141 mmol/L (136-145)
[2019-10-02] MEDS ORDERED: Furosemide 40 MG/4 ML VIAL SLOW IVP SCH (06:00)
--- NOTE | 2019-10-02 06:27 | PDOC.FM ---
- Subjective Subjective: Mr. Abreu reportedly had a difficult night last night, was agitated and required restraints. Patient says he was angry because he became "contaminated ".Denies pain this morning. Brother present in room, notes he does have a psych history with multiple inpatient psych admission including being in the [facility], [facility]. Patient does not disclose details of this with family. 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 - Objective Vital Signs & Weight: Vital Signs (12 hours) Temp Pulse Resp Pulse Ox 10/02/19 03:25 99 10/02/19 00:00 98.8 F 10/01/19 22:50 100 10/01/19 20:05 99 10/01/19 20:03 112 H 26 H 99 10/01/19 19:30 100 10/01/19 19:00 99.6 F Weight Admit Weight 81.012 kg Weight 82.6 kg Most Recent Monitor Data Heart Rate from ECG 116 NIBP 145/88 NIBP BP-Mean 107 Respiration from ECG 29 SpO2 92 I&O: 09/30/19 10/01/19 10/02/19 06:59 06:59 06:59 Intake Total 3529.5 4088 1805 Output Total 3720 8615 5790 Balance -190.5 -033 -9248 Result Diagrams: 10/02/19 05:05 10/02/19 05:05 Phys Exam - Physical Examination course breath sounds, expiratory wheeze Cardiovascular: RRR, no significant murmur Gastrointestinal: soft, non-tender, positive bowel sounds Musculoskeletal: no edema Neurological: moves all 4 limbs Deviation from normal: confabulation, alert and oriented Skin: normal turgor Dx/Plan (1) Aspiration pneumonia Code(s): J69.0 - PNEUMONITIS DUE TO INHALATION OF FOOD AND VOMIT Status: Acute (2) Acute and chronic respiratory failure with hypoxia Code(s): J96.21 - ACUTE AND CHRONIC RESPIRATORY FAILURE WITH HYPOXIA Status: Acute (3) On intra-aortic balloon pump assist Code(s): Z98.890 - OTHER SPECIFIED POSTPROCEDURAL STATES Status: Suspected (4) Pneumonia Code(s): J18.9 - PNEUMONIA, UNSPECIFIED ORGANISM Status: Acute (5) STEMI (ST elevation myocardial infarction) Status: Acute (6) Type 2 diabetes mellitus with hyperosmolar nonketotic hyperglycemia Code(s): E11.01 - TYPE 2 DIABETES MELLITUS WITH HYPEROSMOLARITY WITH COMA Status: Acute - Plan Plan: 59-yo M w/ no PCP admitted for STEMI and DKAvsHHS: Consults: Cardiology, CV Surg, Pulm, Palliative care 1. Anterolateral STEMI -STEMI: Trop 1.0 > 5.5 > 31. EKG changes showing anterolateral NE. - Cards consulted. Taken to labview programmer by Dr. Bermeo on admission, found to have extensive vessel disease. IABP placed, then dc'ed 09/29. EF estimated to be 30% in the cath. - 3 vessel CABG done 09/28. 3 chest tubes placed - Dr. Bermeo, cardiology following, appreciate recs - Palliative consulted and following 2. Acute respiratory failure, improving -Extubated 09/30 -Wean O2 as tolerated, on 1L this am -Pulmonology consulted. Appreciate recs. 3. Possible Aspiration LLL PNA - Influenza neg -White count and procal downtrending. -Bcx 09/28 NGTD. -Resp culture respiratory lydia and stiven albicans. Zosyn discontinued today 4. Multivessel CAD. -3 vessel CABG 09/28: URBANO to LAD, SVG to OM and SVG to PDA. - Cardiology consulted- BB, HAY, ASA, statin 5. Cardiogenic shock, resolved - BP stable overnight 6. Presence of IABP, removed 09/29 7. Uncontrolled diabetes on admission, stable DKA vs [facility] - DKA protocol initiated on admission. BHB: 2.96. A1c 13.3. -NPH 40 u BID - Goal BG 140-180 8. Bipolar disorder. -aware, no home meds - will titrate up on seroquel dose. Has geodon prn. 9. Microcytic Anemia -Hgb 9.5, stable -continue to monitor with AM labs 10. DANIELA -resolved 11. Constipation - PRNs ordered 12. Hypokalemia - replaced, recheck in am Code: FULL PPX: heparin Dispo: continue current care including diuresis. Appreciate recommendations. K+ replaced. PT working with patient. Appreciate case management assistance on placement options. Addendum - Attending - Attending Attestation Date/Time: 10/02/19 1640 I personally evaluated the patient and discussed the management with Dr. Starr I agree with the History, Examination, Assessment and Plan documented above with any addition or exceptions noted below.
[2019-10-02] MEDS ORDERED: traMADol HCl 50 MG TAB PO PRN (07:04)
[2019-10-02] MEDS: Lisinopril 2.5 MG TAB PO SCH (08:05)
[2019-10-02] MEDS: Metoprolol Tartrate 25 MG TAB PO SCH ×2 (08:05→20:28)
[2019-10-02] MEDS: Aspirin 325 MG TAB PO SCH (08:05)
[2019-10-02] MEDS: NPH, Human Insulin Isophane 300 UNIT/3 ML VIAL SC SCH ×2 (08:44→20:29)
--- NOTE | 2019-10-02 16:05 | PRG ---
DATE OF SERVICE: 10/02/2019 SERVICE: Pulmonary Medicine. INTERVAL HISTORY: The patient is doing great from respiratory standpoint. He had some encephalopathy last night and agitation. He required four point restraints to prevent him from hurting himself or staff members. Otherwise, there are no significant events. PHYSICAL EXAMINATION: VITAL SIGNS: Afebrile, pulse 116, blood pressure 108/71, respirations 23, and saturation 98% on 5 L nasal cannula. GENERAL: The patient is awake and alert, in no apparent distress. LUNGS: Much improved air entry with no crackles present today. No rhonchi or wheezing appreciated. HEART: Normal rate and regular. ABDOMEN: Soft, nontender, and nondistended. Bowel sounds are positive. MUSCULOSKELETAL: No cyanosis or clubbing. No pitting in the bilateral lower extremities. NEUROLOGIC: Grossly nonfocal. LABORATORY DATA: WBC 9.4, hemoglobin 9.5, platelets 540,000. Potassium 3.2. Basic metabolic profile is otherwise unremarkable. Bicarb 28 and stable and anion gap 13. ASSESSMENT: 1. Acute hypoxic respiratory failure, resolving. 2. ST-elevation myocardial infarction. 3. Acute systolic heart failure. 4. Coronary artery disease, status post coronary artery bypass graft, postop day #4. 5. Type 2 diabetes mellitus. DISCUSSION AND PLAN: We will replace the potassium and continue our mobilization efforts. Fang catheter to be removed. Pulmonary/Critical Care will continue to follow along for the time being. He is approaching euvolemia. I will discontinue the Lasix altogether. Job ID: [id number]
[2019-10-02] MEDS: Potassium Chloride 20 MEQ TAB PO SCH ×2 (16:07→20:28)
--- NOTE | 2019-10-02 18:25 | PDOC.CPN ---
- Subjective Date: 10/02/19 Time: 18:24 Interval history: He is doing well. No chest pain. Walking with PT without issues. HR is up. He has issues with the dark. - Review of Systems General: denies: fever/chills, weight/appetite/sleep changes, night sweats, fatigue Respiratory: denies: cough, congestion, shortness of breath, exercise intolerance Cardiovascular: denies: chest pain, palpitation, edema, paroxysmal nocturnal dyspnea, orthopnea Gastrointestinal: denies: nausea, vomiting, diarrhea, constipation, abd pain, GI bleeding Musculoskeletal: denies: pain, tenderness, stiffness, swelling, arthritis/ arthralgias Neurological: denies: numbness, syncope, seizure, weakness - Objective Allergies/Adverse Reactions: Allergies Allergy/AdvReac Type Severity Reaction Status Date / Time No Known Allergies Allergy Verified 09/24/19 01:40 Visit Medications: Current Medications Acetaminophen (Tylenol) 650 mg PO Q6H PRN PRN Reason: Headache/Fever Or Mild Pain Al Hydroxide/Mg Hydroxide (Maalox) 30 ml PO Q4H PRN PRN Reason: Indigestion Albuterol/Ipratropium (Duoneb) 3 ml NEB Q4H PRN PRN Reason: SOB &/or Wheezing Aspirin (Aspirin) 325 mg PO DAILY [facility] Last Admin: 10/02/19 08:05 Dose: 325 mg Atorvastatin Calcium (Lipitor) 40 mg PO HS [facility] Last Admin: 10/01/19 21:30 Dose: 40 mg Bisacodyl (Dulcolax) 10 mg PO Q12H PRN PRN Reason: Constipation Last Admin: 10/01/19 10:12 Dose: 10 mg Dextrose/Water (Dextrose 50%) 25 gm SLOW IVP PRN PRN PRN Reason: Hypoglycemia Last Admin: 09/29/19 18:19 Dose: 25 gm Glucagon (Glucagon) 1 mg IM PRN PRN PRN Reason: Hypoglycemia Hydralazine HCl (Apresoline) 10 mg SLOW IVP Q6H PRN PRN Reason: To Maintain SBP< 140mmHG Hydroxyzine HCl (Atarax) 25 mg PO Q6H PRN PRN Reason: Anxiety Last Admin: 10/01/19 10:23 Dose: 25 mg Dextrose/Water (D5w) 1,000 mls @ 0 mls/hr IV .Q0M PRN PRN Reason: Hypoglycemia Insulin Human Lispro (Humalog) 0 units SC .AGGRESSIVE SLIDING PRN PRN Reason: Aggressive Correctional Scale Last Admin: 10/01/19 11:15 Dose: 6 units Insulin Human NPH (Humulin N) 40 unit SC BID [facility] Last Admin: 10/02/19 08:44 Dose: 40 unit Labetalol HCl (Normodyne) 10 mg SLOW IVP Q4H PRN PRN Reason: SBP Greater Than 180 Last Admin: 09/30/19 12:27 Dose: 10 mg Lisinopril (Zestril) 2.5 mg PO DAILY [facility] Last Admin: 10/02/19 08:05 Dose: 2.5 mg Metoprolol Tartrate (Lopressor) 12.5 mg PO BID [facility] Last Admin: 10/02/19 08:05 Dose: 12.5 mg Miscellaneous Medication (Phos-Nak) 1 pkt PO TIDPRN PRN PRN Reason: FOR PHOS LEVEL 1.0 - 1.8 Miscellaneous Medication (Phos-Nak) 2 pkt PO TIDPRN PRN PRN Reason: FOR PHOS LEVEL 0.5 - 1.0 Ondansetron HCl (Zofran) 4 mg IVP Q6H PRN PRN Reason: Nausea/Vomiting Potassium Chloride (Kcl) 20 meq IVPB PRN PRN PRN Reason: K level </= 4.0 Last Admin: 10/02/19 08:04 Dose: 20 meq Potassium Chloride (K-Dur) 40 meq PO Q4H [facility] Stop: 10/02/19 20:01 Last Admin: 10/02/19 16:07 Dose: 40 meq Promethazine HCl (Phenergan) 6.25 mg IM Q4H PRN PRN Reason: Nausea/Vomiting Quetiapine Fumarate (Seroquel) 100 mg PO [facility] Sodium Chloride (Flush - Normal Saline) 10 ml IVF PRN PRN PRN Reason: Saline Flush Tramadol HCl (Ultram) 50 mg PO Q6H PRN PRN Reason: Pain Vital Signs & Weight: Vital Signs Temp Pulse Pulse Pulse Resp BP BP 10/02/19 16:00 99.2 F 10/02/19 15:11 118 H 107 H 144/94 H 10/02/19 12:00 98.9 F 10/02/19 11:18 116 H 117 H 102/67 10/02/19 10:27 115 H 28 H 10/02/19 09:15 118 H 122 H 10/02/19 08:05 114 H 157/91 H 10/02/19 08:00 98.7 F 10/02/19 06:49 114 H 28 H BP Pulse Ox Pulse Ox Pulse Ox 10/02/19 16:00 10/02/19 15:11 108/71 10/02/19 12:00 10/02/19 11:18 116/70 10/02/19 10:27 95 10/02/19 09:15 93 L 94 L 10/02/19 08:05 10/02/19 08:00 95 10/02/19 06:49 96 Admit Weight 178 lb 9.6 oz Weight 182 lb 1.629 oz - Physical Exam General: alert & oriented x3 HEENT: mucus membranes moist Neck: supple neck Cardiac: regular rate and rhythm, tachycardia Lungs: clear to auscultation Neuro: grossly intact Abdomen: active bowel sounds Extremities: no edema Skin: clear Musculoskeletal: no pain - Labs Result Diagrams: 10/02/19 05:05 10/02/19 05:05 Troponin/CKMB CK-MB (CK-2) 11.1 ng/mL (0-6.6) H* 09/23/19 18:00 Troponin I 31.609 ng/mL (< 0.028) H* 09/24/19 00:37 - Telemetry Sinus rhythms and dysrhythmias: sinus tachycardia - Assessment/Plan Assessment/Plan: 1. Anterolateral STEMI 2. Multivessel CAD. 3. Cardiogenic shock 4. Presence of an IABP for support. 5. Uncontrolled diabetes. 6. Possible aspiration pneumonia 7. Bipolar disorder. 8. Fevers 9. S/P CABG x 3 URBANO to LAD, SVG to OM and SVG to PDA. PLAN: - Replace K - Sinus tach. Will do EKG and will up titrate BB. - ASA/Statin for life - Continue to increase PT as tolerated.
[2019-10-02] MEDS: Atorvastatin Calcium 40 MG TAB PO SCH (20:27)
[2019-10-03 04:23] LABS: #Basophils 0.1 thou/uL (0.0-0.2); #Eosinphils 0.4 thou/uL (0.0-0.7); #Monocytes 1.3 thou/uL (0.11-0.59); #Neutrophils 7.2 thou/uL (1.40-6.50); %Basophils 0.7 % (0.0-1.0); %Eosinophils 3.6 % (0.0-10.0); %Monocytes 11.8 % (0.0-10.0); %Neutrophils 65.9 % (42.0-75.0); Hemoglobin 10.2 g/dL (14.0-18.0); Mean Corpuscular HGB CONC 33.3 g/dL (32.0-36.0); Mean Corpuscular Hemoglobin 29.6 pg (27.0-31.0); Mean Corpuscular Volume 88.9 fL (78.0-98.0); Mean Platelet Volume 7.5 fL (7.4-10.4); Platelet Count 686 thou/uL (130-400); RBC Distribution Width 11.7 % (11.5-14.5); Red Blood Cell (RBC) Count 3.43 mill/uL (4.70-6.10)
[2019-10-03 04:38] LABS: Anion Gap 15 mmol/L (10-20); BUN (Urea Nitrogen) 12 mg/dL (8.4-25.7); Calc. Creatinine Clearance 88 mL/min (70-130); Calcium 8.6 mg/dL (7.8-10.44); Carbon Dioxide 24 mmol/L (22-29); Chloride 110 mmol/L (98-107); Estimated GFR-MDRD 72; Potassium 3.5 mmol/L (3.5-5.1); Sodium 145 mmol/L (136-145)
[2019-10-03 04:40] LABS: Glucose 49 mg/dL (70-105)
--- NOTE | 2019-10-03 06:21 | PDOC.FM ---
- Subjective Subjective: Mr. Abreu had a better night last night. Did not require prn and is much more talkative this morning with appropriate conversation. - Objective Vital Signs & Weight: Vital Signs (12 hours) Temp Pulse Ox 10/03/19 04:00 98.7 F 91 L 10/03/19 00:00 98.9 F 10/02/19 20:00 98.5 F 93 L Weight Admit Weight 81.012 kg Weight 79.5 kg Most Recent Monitor Data Heart Rate from ECG 113 NIBP 120/86 NIBP BP-Mean 97 Respiration from ECG 31 SpO2 90 I&O: 10/01/19 10/02/19 10/03/19 06:59 06:59 06:59 Intake Total 4082 1805 1490 Output Total 3103 5963 2362 Balance -442 -0246 -9500 Result Diagrams: 10/03/19 04:05 10/03/19 04:05 Phys Exam - Physical Examination Constitutional: NAD Respiratory: no wheezing, clear to auscultation bilateral Cardiovascular: RRR, no significant murmur Gastrointestinal: soft Musculoskeletal: no edema Neurological: moves all 4 limbs Psychiatric: normal affect Skin: normal turgor Dx/Plan (1) Aspiration pneumonia Code(s): J69.0 - PNEUMONITIS DUE TO INHALATION OF FOOD AND VOMIT Status: Acute (2) Acute and chronic respiratory failure with hypoxia Code(s): J96.21 - ACUTE AND CHRONIC RESPIRATORY FAILURE WITH HYPOXIA Status: Acute (3) On intra-aortic balloon pump assist Code(s): Z98.890 - OTHER SPECIFIED POSTPROCEDURAL STATES Status: Suspected (4) Pneumonia Code(s): J18.9 - PNEUMONIA, UNSPECIFIED ORGANISM Status: Acute (5) STEMI (ST elevation myocardial infarction) Status: Acute (6) Type 2 diabetes mellitus with hyperosmolar nonketotic hyperglycemia Code(s): E11.01 - TYPE 2 DIABETES MELLITUS WITH HYPEROSMOLARITY WITH COMA Status: Acute - Plan Plan: 59-yo M w/ no PCP admitted for STEMI and DKAvsHHS: Consults: Cardiology, CV Surg, Pulm, Palliative care 1. Anterolateral STEMI -KG changes showing anterolateral VT. - Cards consulted. Taken to chemical laboratory assistant by Dr. Bermeo on admission, found to have extensive vessel disease. IABP placed, then dc'ed 09/29. EF estimated to be 30% in the cath. - 3 vessel CABG done 09/28. 3 chest tubes placed, removed. - Dr. Bermeo, cardiology following, appreciate recs - Palliative consulted and following 2. Acute respiratory failure, improving -Extubated 09/30 -Wean O2 as tolerated, on 2L this am -Pulmonology consulted. Appreciate recs. 3. Possible Aspiration LLL PNA, improved - Influenza neg -White count and procal downtrending. -Bcx 09/28 NGTD. -Resp culture respiratory lydia and stiven albicans. Completed course of Zosyn. 4. Multivessel CAD. -3 vessel CABG 09/28: URBANO to LAD, SVG to OM and SVG to PDA. - Cardiology consulted- BB, HAY, ASA, statin 5. Cardiogenic shock, resolved - BP stable overnight 6. Presence of IABP, removed 09/29 7. Uncontrolled diabetes on admission, stable DKA vs [facility] - DKA protocol initiated on admission. BHB: 2.96. A1c 13.3. -NPH 40 u BID, decreased night NPH to 35 u 8. Bipolar disorder. -aware, no home meds - will titrate up on seroquel dose. Has geodon prn. 9. Microcytic Anemia, stable -continue to monitor with AM labs 10. DANIELA -resolved 11. Constipation - PRNs ordered 12. Hypokalemia - replaced, recheck in am 13. Thrombocytosis - likely reactive but will get peripheral smear for differentiation Code: FULL PPX: heparin Dispo: Appreciate case management assistance on placement options. Addendum - Attending - Attending Attestation Date/Time: 10/03/19 1320 I personally evaluated the patient and discussed the management with Dr. Starr I agree with the History, Examination, Assessment and Plan documented above with any addition or exceptions noted below. Note trending upperward plt count probable reactive thrombocytosis agree with looking at peripheral smear today. Patient with daily improvement discussed advancing activity and start looking into rehab placement options. Regard his Mental status he is responding well to seroquel continue to adjust dose and encourage compliance. Continue NPH and sliding scale.> aptient and family aware of condition and care plans.
[2019-10-03] MEDS: Potassium Chloride 20 MEQ/100 ML PREMIX BAG IVPB PRN (07:26)
[2019-10-03] MEDS: Lisinopril 2.5 MG TAB PO SCH (08:13)
[2019-10-03] MEDS: Metoprolol Tartrate 25 MG TAB PO SCH ×2 (08:15→20:39)
[2019-10-03] MEDS: Aspirin 325 MG TAB PO SCH (08:15)
[2019-10-03] MEDS: NPH, Human Insulin Isophane 300 UNIT/3 ML VIAL SC SCH ×2 (08:33→20:50)
[2019-10-03] MEDS: HumaLOG 300 UNITS/3 ML VIAL SC PRN (11:11)
[2019-10-03] MEDS ORDERED: Potassium Chloride 20 MEQ TAB PO SCH (13:15)
--- NOTE | 2019-10-03 13:59 | PRG ---
DATE OF SERVICE: 10/03/2019 SERVICE: Pulmonary Medicine. INTERVAL HISTORY: The patient's mentation is much improved. He had much less eventful evening. This morning, I find him awake and cooperative. He is sitting in a bedside chair. His brother is in the room with him. There are no significant complaints overnight. There are no events. PHYSICAL EXAMINATION: VITAL SIGNS: Afebrile, pulse 112, blood pressure 149/93, respirations 18, saturations 98% on room air currently. GENERAL: The patient is awake and alert, in no apparent distress. LUNGS: Have good air entry. Dependent crackles are resolved. No prolonged expiratory phase or wheezing is appreciated. HEART: Normal rate and regular. ABDOMEN: Soft, nontender, nondistended. Bowel sounds are positive. MUSCULOSKELETAL: No cyanosis or clubbing. There is no pitting in the bilateral lower extremities. NEUROLOGIC: Grossly nonfocal. LABORATORY DATA: WBC 11.0, hemoglobin 10.2, platelets of 686,000. INR 1.5. Chloride 110, gently up trending; sodium 145. Basic metabolic profile is otherwise unremarkable. Creatinine 1.06 and roughly stable. Potassium 3.5. ASSESSMENT: 1. Acute hypoxic respiratory failure, resolved. 2. ST elevation myocardial infarction. 3. Acute systolic heart failure. 4. Coronary artery disease, status post coronary artery bypass graft, postop day 5. 5. Type 2 diabetes mellitus. DISCUSSION AND PLAN: Potassium will be replaced today. We will continue our mobilization efforts. From purely respiratory standpoint, the patient is stable for discharge from the hospital provided that he has a safe care facility to transition into. Job ID: [id number]
[2019-10-03 15:49] LABS: Band 15 % (5-11); Eosinophils 1 % (0-10); Lymphocytes 21 % (21-51); Monocytes 4 % (0-10); Neutrophil 58 % (42-75); Reactive Lymphocytes 1 % (0-10)
[2019-10-03 15:50] LABS: Platelet Morphology Comment Appears Increased; Polychromasia SLIGHT = 2-3 cells (100X) (0-2/hpf)
[2019-10-03] MEDS: metFORMIN 500 MG TAB PO SCH (17:30)
--- NOTE | 2019-10-03 17:44 | PDOC.CPN ---
- Subjective Date: 10/03/19 Time: 17:42 Interval history: He is doing much better today. No chest pain. Tolerating all meds, Having BM's. Walking around with PT without issues. - Review of Systems General: denies: fever/chills, weight/appetite/sleep changes, night sweats, fatigue Respiratory: denies: cough, congestion, shortness of breath, exercise intolerance Cardiovascular: denies: chest pain, palpitation, edema, paroxysmal nocturnal dyspnea, orthopnea Gastrointestinal: denies: nausea, vomiting, diarrhea, constipation, abd pain, GI bleeding Musculoskeletal: denies: pain, tenderness, stiffness, swelling, arthritis/ arthralgias Neurological: denies: numbness, syncope, seizure, weakness - Objective Allergies/Adverse Reactions: Allergies Allergy/AdvReac Type Severity Reaction Status Date / Time No Known Allergies Allergy Verified 09/24/19 01:40 Visit Medications: Current Medications Acetaminophen (Tylenol) 650 mg PO Q6H PRN PRN Reason: Headache/Fever Or Mild Pain Al Hydroxide/Mg Hydroxide (Maalox) 30 ml PO Q4H PRN PRN Reason: Indigestion Albuterol/Ipratropium (Duoneb) 3 ml NEB Q4H PRN PRN Reason: SOB &/or Wheezing Aspirin (Aspirin) 325 mg PO DAILY [facility] Last Admin: 10/03/19 08:15 Dose: 325 mg Atorvastatin Calcium (Lipitor) 40 mg PO HS [facility] Last Admin: 10/02/19 20:27 Dose: 40 mg Bisacodyl (Dulcolax) 10 mg PO Q12H PRN PRN Reason: Constipation Last Admin: 10/01/19 10:12 Dose: 10 mg Dextrose/Water (Dextrose 50%) 25 gm SLOW IVP PRN PRN PRN Reason: Hypoglycemia Last Admin: 09/29/19 18:19 Dose: 25 gm Glucagon (Glucagon) 1 mg IM PRN PRN PRN Reason: Hypoglycemia Hydralazine HCl (Apresoline) 10 mg SLOW IVP Q6H PRN PRN Reason: To Maintain SBP< 140mmHG Hydroxyzine HCl (Atarax) 25 mg PO Q6H PRN PRN Reason: Anxiety Last Admin: 10/01/19 10:23 Dose: 25 mg Dextrose/Water (D5w) 1,000 mls @ 0 mls/hr IV .Q0M PRN PRN Reason: Hypoglycemia Insulin Human Lispro (Humalog) 0 units SC .AGGRESSIVE SLIDING PRN PRN Reason: Aggressive Correctional Scale Last Admin: 10/03/19 11:11 Dose: 3 units Insulin Human NPH (Humulin N) 40 unit SC QAM [facility] Insulin Human NPH (Humulin N) 30 unit SC QPM [facility] Labetalol HCl (Normodyne) 10 mg SLOW IVP Q4H PRN PRN Reason: SBP Greater Than 180 Last Admin: 09/30/19 12:27 Dose: 10 mg Lisinopril (Zestril) 2.5 mg PO DAILY [facility] Last Admin: 10/03/19 08:13 Dose: 2.5 mg Metformin HCl (Glucophage) 500 mg PO BID[facility] Last Admin: 10/03/19 17:30 Dose: Not Given Metoprolol Tartrate (Lopressor) 25 mg PO BID [facility] Last Admin: 10/03/19 08:15 Dose: 25 mg Ondansetron HCl (Zofran) 4 mg IVP Q6H PRN PRN Reason: Nausea/Vomiting Promethazine HCl (Phenergan) 6.25 mg IM Q4H PRN PRN Reason: Nausea/Vomiting Quetiapine Fumarate (Seroquel) 100 mg PO HS [facility] Last Admin: 10/02/19 20:28 Dose: 100 mg Sodium Chloride (Flush - Normal Saline) 10 ml IVF PRN PRN PRN Reason: Saline Flush Tramadol HCl (Ultram) 50 mg PO Q6H PRN PRN Reason: Pain Vital Signs & Weight: Vital Signs Temp Pulse Pulse Pulse Pulse BP BP 10/03/19 17:09 99.2 F 10/03/19 13:26 121 H 114 H 139 H 156/103 H 10/03/19 12:00 98.1 F 10/03/19 08:48 107 H 101 H 141/98 H 10/03/19 08:13 112 H 142/97 H 10/03/19 08:00 97.2 F L BP Pulse Ox 10/03/19 17:09 10/03/19 13:26 143/95 H 10/03/19 12:00 10/03/19 08:48 135/97 H 10/03/19 08:13 10/03/19 08:00 94 L Admit Weight 178 lb 9.6 oz Weight 175 lb 4.28 oz - Physical Exam General: alert & oriented x3 HEENT: mucus membranes moist, normocephaly Neck: supple neck, midline trachea Cardiac: regular rate and rhythm, no murmur Lungs: normal breath sounds Neuro: grossly intact Abdomen: active bowel sounds, soft, non-tender Extremities: no edema Skin: clear Musculoskeletal: no pain - Labs Result Diagrams: 10/03/19 04:05 10/03/19 04:05 Troponin/CKMB CK-MB (CK-2) 11.1 ng/mL (0-6.6) H* 09/23/19 18:00 Troponin I 31.609 ng/mL (< 0.028) H* 09/24/19 00:37 - Telemetry Sinus rhythms and dysrhythmias: sinus tachycardia - Assessment/Plan Assessment/Plan: 1. Anterolateral STEMI 2. Multivessel CAD. 3. Cardiogenic shock 4. Presence of an IABP for support. 5. Uncontrolled diabetes. 6. Possible aspiration pneumonia 7. Bipolar disorder. 8. Fevers 9. S/P CABG x 3 URBANO to LAD, SVG to OM and SVG to PDA. PLAN: - Sinus tach. - ASA/Statin for life - Continue to increase PT as tolerated. - Will increase BB today. - Home anytime from cardiac perspective.
[2019-10-03] MEDS: Atorvastatin Calcium 40 MG TAB PO SCH (20:38)
[2019-10-03] MEDS ORDERED: NPH, Human Insulin Isophane 300 UNIT/3 ML VIAL SC SCH (21:00)
[2019-10-04 04:37] LABS: #Basophils 0.1 thou/uL (0.0-0.2); #Eosinphils 0.3 thou/uL (0.0-0.7); #Lymphocytes 2.5 thou/uL (1.20-3.40); #Monocytes 1.2 thou/uL (0.11-0.59); #Neutrophils 7.3 thou/uL (1.40-6.50); %Basophils 0.9 % (0.0-1.0); %Monocytes 10.1 % (0.0-10.0); %Neutrophils 63.9 % (42.0-75.0); Hemoglobin 10.1 g/dL (14.0-18.0); Mean Corpuscular Volume 88.2 fL (78.0-98.0); Mean Platelet Volume 7.5 fL (7.4-10.4); Platelet Count 688 thou/uL (130-400); RBC Distribution Width 11.7 % (11.5-14.5); Red Blood Cell (RBC) Count 3.36 mill/uL (4.70-6.10); White Blood Cell (WBC) Count 11.4 thou/uL (4.8-10.8)
[2019-10-04 04:58] VITALS: BMI 25.0
--- NOTE | 2019-10-04 06:37 | PDOC.FM ---
- Subjective Subjective: Mr. Abreu was standing up in the room this morning. He reports feeling a little tired but overall doing well. Denies pain. - Objective MAR Reviewed: Yes Vital Signs & Weight: Vital Signs (12 hours) Temp Pulse Ox 10/04/19 04:00 98.9 F 10/04/19 00:00 98.4 F 10/03/19 19:00 98.8 F 10/03/19 18:50 95 Weight Admit Weight 81.012 kg Weight 79.288 kg Most Recent Monitor Data Heart Rate from ECG 106 NIBP 118/74 NIBP BP-Mean 88 Respiration from ECG 15 SpO2 95 I&O: 10/02/19 10/03/19 10/04/19 06:59 06:59 06:59 Intake Total 1805 1490 1790 Output Total 1966 8351 9555 Balance -4160 -1435 -585 Result Diagrams: 10/04/19 04:15 10/03/19 04:05 Phys Exam - Physical Examination Constitutional: NAD Respiratory: clear to auscultation bilateral Cardiovascular: RRR, no significant murmur Gastrointestinal: soft, non-tender Musculoskeletal: no edema Neurological: non-focal Psychiatric: A&O x 3 Deviation from normal: odd affect Skin: normal turgor Dx/Plan (1) Aspiration pneumonia Code(s): J69.0 - PNEUMONITIS DUE TO INHALATION OF FOOD AND VOMIT Status: Acute (2) Acute and chronic respiratory failure with hypoxia Code(s): J96.21 - ACUTE AND CHRONIC RESPIRATORY FAILURE WITH HYPOXIA Status: Acute (3) On intra-aortic balloon pump assist Code(s): Z98.890 - OTHER SPECIFIED POSTPROCEDURAL STATES Status: Suspected (4) Pneumonia Code(s): J18.9 - PNEUMONIA, UNSPECIFIED ORGANISM Status: Acute (5) STEMI (ST elevation myocardial infarction) Status: Acute (6) Type 2 diabetes mellitus with hyperosmolar nonketotic hyperglycemia Code(s): E11.01 - TYPE 2 DIABETES MELLITUS WITH HYPEROSMOLARITY WITH COMA Status: Acute - Plan Plan: 59-yo M w/ no PCP admitted for STEMI and DKAvsHHS: Consults: Cardiology, CV Surg, Pulm, Palliative care 1. Anterolateral STEMI - Taken to lab coordinator by Dr. Bermeo on admission, found to have extensive vessel disease. IABP placed, then dc'ed 09/29. EF estimated to be 30% in the cath. - 3 vessel CABG done 09/28. 3 chest tubes placed, removed. - Dr. Bermeo, cardiology following, appreciate recs. Stable for discharge per cardiology. - Palliative consulted 2. Acute respiratory failure, improved -Extubated 09/30, weaned off O2 -Pulmonology consulted. Appreciate recs. 3. Possible Aspiration LLL PNA, improved - Influenza neg -White count and procal downtrended -Bcx 09/28 NGTD. -Resp culture respiratory lydia and stiven albicans. Completed course of Zosyn. 4. Multivessel CAD. -3 vessel CABG 09/28: URBANO to LAD, SVG to OM and SVG to PDA. - Continue BB, HAY, ASA, statin 5. Cardiogenic shock, resolved 6. Presence of IABP, removed 09/29 7. Uncontrolled diabetes on admission, stable DKA vs HHS - DKA protocol initiated on admission. BHB: 2.96. A1c 13.3. -NPH BID, adjusting dosing. Started metformin will titrate up to 1000 BID for discharge 8. Bipolar disorder. -aware, no home meds -Seroquel seems to be working well. Will discharge on this. Patient to follow up with [facility]. 9. Microcytic Anemia, stable 10. DANIELA -resolved 11. Constipation - PRNs ordered 12. Hypokalemia - replaced, recheck in am 13. Thrombocytosis - likely reactive but will get peripheral smear for differentiation, still pending Code: FULL PPX: heparin Dispo: Appreciate case management assistance on placement options. Patient otherwise nearing readiness for discharge. If unable to discharge today will transfer to floor. Addendum - Attending - Attending Attestation Date/Time: 10/04/19 [id number] I personally evaluated the patient and discussed the management with Dr. Starr I agree with the History, Examination, Assessment and Plan documented above with any addition or exceptions noted below. Peripheral smear pending patient ok to go pending result of peripheral smear and placement to a rehab facility he should qualify for with his AMI I would assume.
[2019-10-04] MEDS: HumaLOG 300 UNITS/3 ML VIAL SC PRN ×2 (07:30→11:33)
[2019-10-04] MEDS: Aspirin 325 MG TAB PO SCH (09:39)
[2019-10-04] MEDS: Lisinopril 2.5 MG TAB PO SCH (09:39)
[2019-10-04] MEDS: metFORMIN 500 MG TAB PO SCH ×2 (09:39→16:17)
[2019-10-04] MEDS: Metoprolol Tartrate 25 MG TAB PO SCH ×2 (09:39→20:46)
[2019-10-04] MEDS: NPH, Human Insulin Isophane 300 UNIT/3 ML VIAL SC SCH ×2 (09:40→20:50)
--- NOTE | 2019-10-04 12:26 | PRG ---
DATE OF SERVICE: 10/04/2019 SERVICE: Pulmonary Medicine. INTERVAL HISTORY: The patient is doing outstanding from Respiratory standpoint. He is breathing comfortably. He has been weaned down to room air. He indicates that his breathing is a little shorter today. That being said, he took some deep breaths, saturations popped up from 90% up to 100%. He is currently on room air. Otherwise, there were no events overnight. Mentation continues to improve. PHYSICAL EXAMINATION: VITAL SIGNS: Afebrile, pulse 114, blood pressure 144/92, respirations 17, and saturation 96% on room air currently. GENERAL: The patient is awake and alert, in no apparent distress. LUNGS: Very good air entry without any prolonged expiratory phase or wheezing present. There is decreased air entry at the bibasilar regions, but I do not appreciate any dullness to percussion there. HEART: Normal rate and regular. ABDOMEN: Soft, nontender, and nondistended. Bowel sounds are positive. MUSCULOSKELETAL: No cyanosis or clubbing. No pitting in the bilateral lower extremities. NEUROLOGIC: Grossly nonfocal. LABORATORY DATA: WBC 11.4, hemoglobin 10.2, and platelets 688. INR 1.5. ASSESSMENT: 1. Acute hypoxic respiratory failure, resolved. 2. ST-elevation myocardial infarction. 3. Acute systolic heart failure. 4. Coronary artery disease, status post coronary artery bypass graft, postop day #6. 5. Type 2 diabetes mellitus. DISCUSSION AND PLAN: The patient is doing great from Respiratory standpoint. We will continue our mobilization efforts. I have encouraged deep breathing with his incentive spirometer as well as other pulmonary toileting. From a purely Respiratory standpoint, he is stable for transition out of the hospital. That being said, we are going to get a repeat chest x-ray today because he has decreased air entry at the bibasilar regions. He likely has a touch of atelectasis. We will watch for signs of infection which do not currently exist. Job ID: [id number]
--- NOTE | 2019-10-04 14:02 | RAD ---
PA AND LATERAL CHEST: HISTORY: Decreased air entry on the right side. COMPARISON: 10/01/2019 FINDINGS: Redemonstration of a right-sided central venous catheter and sternotomy wires. Heart: Cardiomegaly. Aorta: Unremarkable. Pulmonary vessels: Normal. Costophrenic angles: Persistent bilateral pleural effusion. The degree of pleural fluid has slightly decreased. Lungs: Improved aeration. Residual interstitial opacities do remain. Pneumothorax: No pneumothorax. Osseous structures: No osseous abnormalities. IMPRESSION: 1. Cardiomegaly. 2. Improved aeration. Residual pleural effusion and interstitial opacities. Transcribed Date/Time: 10/04/2019 2:10 PM
--- NOTE | 2019-10-04 18:21 | PDOC.CPN ---
- Subjective Date: 10/04/19 Time: 18:19 Interval history: He is doing well He is walking with PT sand feeling well. Bowels moving. - Review of Systems General: denies: fever/chills, weight/appetite/sleep changes, night sweats, fatigue Respiratory: denies: cough, congestion, shortness of breath, exercise intolerance Cardiovascular: denies: chest pain, palpitation, edema, paroxysmal nocturnal dyspnea, orthopnea Gastrointestinal: denies: nausea, vomiting, diarrhea, constipation, abd pain, GI bleeding Musculoskeletal: denies: pain, tenderness, stiffness, swelling, arthritis/ arthralgias Neurological: denies: numbness, syncope, seizure, weakness - Objective Allergies/Adverse Reactions: Allergies Allergy/AdvReac Type Severity Reaction Status Date / Time No Known Allergies Allergy Verified 09/24/19 01:40 Visit Medications: Current Medications Acetaminophen (Tylenol) 650 mg PO Q6H PRN PRN Reason: Headache/Fever Or Mild Pain Al Hydroxide/Mg Hydroxide (Maalox) 30 ml PO Q4H PRN PRN Reason: Indigestion Albuterol/Ipratropium (Duoneb) 3 ml NEB Q4H PRN PRN Reason: SOB &/or Wheezing Aspirin (Aspirin) 325 mg PO DAILY [facility] Last Admin: 10/04/19 09:39 Dose: 325 mg Atorvastatin Calcium (Lipitor) 40 mg PO HS [facility] Last Admin: 10/03/19 20:38 Dose: 40 mg Bisacodyl (Dulcolax) 10 mg PO Q12H PRN PRN Reason: Constipation Last Admin: 10/01/19 10:12 Dose: 10 mg Dextrose/Water (Dextrose 50%) 25 gm SLOW IVP PRN PRN PRN Reason: Hypoglycemia Last Admin: 09/29/19 18:19 Dose: 25 gm Glucagon (Glucagon) 1 mg IM PRN PRN PRN Reason: Hypoglycemia Hydralazine HCl (Apresoline) 10 mg SLOW IVP Q6H PRN PRN Reason: To Maintain SBP< 140mmHG Hydroxyzine HCl (Atarax) 25 mg PO Q6H PRN PRN Reason: Anxiety Last Admin: 10/01/19 10:23 Dose: 25 mg Dextrose/Water (D5w) 1,000 mls @ 0 mls/hr IV .Q0M PRN PRN Reason: Hypoglycemia Insulin Human Lispro (Humalog) 0 units SC .AGGRESSIVE SLIDING PRN PRN Reason: Aggressive Correctional Scale Last Admin: 10/04/19 11:33 Dose: 3 units Insulin Human NPH (Humulin N) 40 unit SC QAM [facility] Last Admin: 10/04/19 09:40 Dose: 40 unit Insulin Human NPH (Humulin N) 30 unit SC QPM [facility] Last Admin: 10/03/19 20:50 Dose: Not Given Labetalol HCl (Normodyne) 10 mg SLOW IVP Q4H PRN PRN Reason: SBP Greater Than 180 Last Admin: 09/30/19 12:27 Dose: 10 mg Lisinopril (Zestril) 2.5 mg PO DAILY [facility] Last Admin: 10/04/19 09:39 Dose: 2.5 mg Metformin HCl (Glucophage) 500 mg PO BID-[facility] Last Admin: 10/04/19 16:17 Dose: 500 mg Metoprolol Tartrate (Lopressor) 50 mg PO BID [facility] Last Admin: 10/04/19 09:39 Dose: 50 mg Ondansetron HCl (Zofran) 4 mg IVP Q6H PRN PRN Reason: Nausea/Vomiting Promethazine HCl (Phenergan) 6.25 mg IM Q4H PRN PRN Reason: Nausea/Vomiting Quetiapine Fumarate (Seroquel) 100 mg PO HS [facility] Last Admin: 10/03/19 20:38 Dose: 100 mg Sodium Chloride (Flush - Normal Saline) 10 ml IVF PRN PRN PRN Reason: Saline Flush Last Admin: 10/04/19 09:41 Dose: 10 ml Tramadol HCl (Ultram) 50 mg PO Q6H PRN PRN Reason: Pain Vital Signs & Weight: Vital Signs Temp Pulse Pulse Pulse Pulse BP BP 10/04/19 17:40 10/04/19 16:19 10/04/19 16:00 99 F 10/04/19 15:38 106 H 98 10/04/19 14:29 10/04/19 11:37 100 98 141/100 H 10/04/19 11:08 97.6 F 113 H 109 H 10/04/19 09:39 112 H 142/97 H 10/04/19 08:00 10/04/19 07:42 97.4 F L BP BP Pulse Ox Pulse Ox 10/04/19 17:40 100 10/04/19 16:19 100 10/04/19 16:00 10/04/19 15:38 139/92 H 145/97 H 10/04/19 14:29 100 10/04/19 11:37 151/100 H 97 10/04/19 11:08 141/100 H 144/92 H 10/04/19 09:39 10/04/19 08:00 98 10/04/19 07:42 Admit Weight 178 lb 9.6 oz Weight 174 lb 12.8 oz - Physical Exam General: alert & oriented x3 HEENT: mucus membranes moist Neck: supple neck Cardiac: regular rate and rhythm, no murmur Lungs: normal breath sounds Neuro: grossly intact Abdomen: active bowel sounds Extremities: no edema Skin: clear Musculoskeletal: no pain - Labs Result Diagrams: 10/04/19 04:15 10/03/19 04:05 Troponin/CKMB CK-MB (CK-2) 11.1 ng/mL (0-6.6) H* 09/23/19 18:00 Troponin I 31.609 ng/mL (< 0.028) H* 09/24/19 00:37 - Telemetry Sinus rhythms and dysrhythmias: sinus rhythm - Assessment/Plan Assessment/Plan: 1. Anterolateral STEMI 2. Multivessel CAD. 3. Cardiogenic shock 4. Presence of an IABP for support. 5. Uncontrolled diabetes. 6. Possible aspiration pneumonia 7. Bipolar disorder. 8. Fevers 9. S/P CABG x 3 URBANO to LAD, SVG to OM and SVG to PDA. PLAN: - ASA/Statin for life - Continue to increase PT as tolerated. - HR better controlled on current BB dose. - Discharge to SNF anytime from cardiac perspective.
[2019-10-04] MEDS: Atorvastatin Calcium 40 MG TAB PO SCH (20:46)
--- NOTE | 2019-10-05 06:06 | PDOC.FM ---
- Subjective Subjective: Pt is feeling well this AM. Denies pain, SOB. Not normally on oxygen at home but has 4L on w/ NC in his mouth. Understands plan of care and rehab placement. No other questions. - Objective MAR Reviewed: Yes Vital Signs & Weight: Vital Signs (12 hours) Temp Pulse Ox 10/05/19 03:42 98.2 F 10/04/19 23:30 98.8 F 10/04/19 20:00 92 L 10/04/19 19:30 98.4 F Weight Admit Weight 81.012 kg Weight 79.832 kg Most Recent Monitor Data Heart Rate from ECG 110 NIBP 102/63 NIBP BP-Mean 76 Respiration from ECG 28 SpO2 93 I&O: 10/03/19 10/04/19 10/05/19 06:59 06:59 06:59 Intake Total 1490 1790 1360 Output Total 2925 2375 1000 Balance -1435 -585 360 Result Diagrams: 10/04/19 04:15 10/03/19 04:05 Radiology Reviewed by me: Yes (CXR, improved aeration on 10/04, continued pleural effusions) Phys Exam - Physical Examination Constitutional: NAD Respiratory: no wheezing (CTA anteriorly) Cardiovascular: RRR, no significant murmur Musculoskeletal: no edema Psychiatric: normal affect, A&O x 3 Dx/Plan (1) Acute and chronic respiratory failure with hypoxia Code(s): J96.21 - ACUTE AND CHRONIC RESPIRATORY FAILURE WITH HYPOXIA Status: Acute (2) DKA (diabetic ketoacidoses) Code(s): E11.10 - TYPE 2 DIABETES MELLITUS WITH KETOACIDOSIS WITHOUT COMA Status: Acute (3) Shock Code(s): R57.9 - SHOCK, UNSPECIFIED Status: Acute (4) STEMI (ST elevation myocardial infarction) Status: Acute (5) Pneumonia Code(s): J18.9 - PNEUMONIA, UNSPECIFIED ORGANISM Status: Acute - Plan Plan: 59-yo M w/ no PCP admitted for STEMI and DKA vs HHS: 1. Anterolateral STEMI - Cath by Dr. Bermeo on admission: extensive vessel disease. IABP placed, then dc'ed 09/29. EF estimated to be 30% in cath. - 3 vessel CABGL 09/28. 3 chest tubes placed, removed. - Dr. Bermeo, cardiology following, appreciate recs. Stable for discharge per cardiology. - Palliative consulted 2. Acute respiratory failure, improved -Extubated 09/30, weaned off O2 -Pulmonology consulted. Appreciate recs. Stable for discharge per pulm. -Continue ICS 3. Possible Aspiration LLL PNA, improved -Influenza neg, White count and procal downtrended -Bcx 09/28 NGTD. -Resp culture respiratory lydia and stiven albicans. Completed course of Zosyn. 4. Multivessel CAD. - Continue BB, HAY, ASA, statin 5. Cardiogenic shock, resolved 6. Presence of IABP, removed 09/29 7. Uncontrolled diabetes on admission, stable DKA vs HHS - DKA protocol initiated on admission. BHB: 2.96. A1c 13.3% -NPH BID, adjusting dosing. Currently on 40U QAM, 30U QHS. Started metformin will titrate up to 1000 BID for discharge 8. Bipolar disorder. -aware, no home meds -Seroquel seems to be working well. Will discharge on this. Patient to follow up with [facility]. 9. Microcytic Anemia, stable 10. DANIELA -resolved 11. Constipation - PRNs ordered 12. Hypokalemia - improved 13. Thrombocytosis - likely reactive but will get peripheral smear for differentiation, still pending. - outpatient follow up w/ repeat cbc Code: FULL PPX: aspirin 325 Dispo: pending placement
[2019-10-05] MEDS: Aspirin 325 MG TAB PO SCH (08:09)
[2019-10-05] MEDS: Metoprolol Tartrate 25 MG TAB PO SCH (08:10)
[2019-10-05] MEDS: metFORMIN 500 MG TAB PO SCH ×2 (08:10→17:21)
[2019-10-05] MEDS: Lisinopril 2.5 MG TAB PO SCH (08:11)
[2019-10-05] MEDS: NPH, Human Insulin Isophane 300 UNIT/3 ML VIAL SC SCH ×2 (08:12→20:40)
[2019-10-05] MEDS ORDERED: Enoxaparin Sodium 40 MG/0.4 ML SYRINGE SC SCH (10:30)
[2019-10-05 11:18] LABS: #Basophils 0.1 thou/uL (0.0-0.2); #Eosinphils 0.3 thou/uL (0.0-0.7); #Lymphocytes 2.9 thou/uL (1.20-3.40); #Monocytes 1.3 thou/uL (0.11-0.59); #Neutrophils 11.9 thou/uL (1.40-6.50); %Basophils 0.7 % (0.0-1.0); %Eosinophils 1.8 % (0.0-10.0); %Lymphocytes 17.5 % (21.0-51.0); %Neutrophils 72.1 % (42.0-75.0); Hemoglobin 11.2 g/dL (14.0-18.0); Mean Corpuscular HGB CONC 32.8 g/dL (32.0-36.0); Mean Corpuscular Hemoglobin 29.3 pg (27.0-31.0); Mean Corpuscular Volume 89.3 fL (78.0-98.0); Mean Platelet Volume 7.4 fL (7.4-10.4); Platelet Count 806 thou/uL (130-400); RBC Distribution Width 11.8 % (11.5-14.5); White Blood Cell (WBC) Count 16.5 thou/uL (4.8-10.8)
--- NOTE | 2019-10-05 11:21 | PRG ---
DATE OF SERVICE: 10/05/2019 SERVICE: Pulmonary Medicine. INTERVAL HISTORY: The patient is doing really quite well from respiratory standpoint. Breathing comfortably. No complaints of chest discomfort. He has been able to walk in the hallways with physical therapy. Demonstrating improving strength and agility. PHYSICAL EXAMINATION: VITAL SIGNS: Afebrile, pulse 116, blood pressure 139/94, respirations 16, saturations 99%, currently on room air. GENERAL: The patient is awake and alert, in no apparent distress. LUNGS: Very good air entry with no prolonged expiratory phase or wheezing present. HEART: Normal rate, regular. ABDOMEN: Soft, nontender, nondistended. Bowel sounds are positive. MUSCULOSKELETAL: No cyanosis or clubbing. No pitting in the bilateral lower extremities. NEUROLOGIC: Grossly nonfocal. IMAGING STUDIES: Chest x-ray demonstrates left-sided pleural effusion, which is small. Otherwise, I do not see any significant consolidating lesions. ASSESSMENT: 1. Acute hypoxic respiratory failure, resolved. 2. ST-elevation myocardial infarction. 3. Acute systolic heart failure. 4. Coronary artery disease, status post coronary artery bypass graft, postop day 7. 5. Type 2 diabetes mellitus. DISCUSSION AND PLAN: The patient is stable for transition out of the IMCU to the telemetry unit. When he arrives there, he will have no further requirements for inpatient Pulmonary Critical Care opinion, and we will sign off. Please call with additional questions or concerns through time. Job ID: [id number] MTDD
--- NOTE | 2019-10-05 12:14 | PDOC.CPN ---
- Subjective Date: 10/05/19 Time: 12:06 Interval history: He is doing very well. He continues to walks with PT without issues. - Review of Systems General: denies: fever/chills, weight/appetite/sleep changes, night sweats, fatigue Respiratory: denies: cough, congestion, shortness of breath, exercise intolerance Cardiovascular: denies: chest pain, palpitation, edema, paroxysmal nocturnal dyspnea, orthopnea Gastrointestinal: denies: nausea, vomiting, diarrhea, constipation, abd pain, GI bleeding Musculoskeletal: denies: pain, tenderness, stiffness, swelling, arthritis/ arthralgias Neurological: denies: numbness, syncope, seizure, weakness - Objective Allergies/Adverse Reactions: Allergies Allergy/AdvReac Type Severity Reaction Status Date / Time No Known Allergies Allergy Verified 09/24/19 01:40 Visit Medications: Current Medications Acetaminophen (Tylenol) 650 mg PO Q6H PRN PRN Reason: Headache/Fever Or Mild Pain Al Hydroxide/Mg Hydroxide (Maalox) 30 ml PO Q4H PRN PRN Reason: Indigestion Albuterol/Ipratropium (Duoneb) 3 ml NEB Q4H PRN PRN Reason: SOB &/or Wheezing Aspirin (Aspirin) 325 mg PO DAILY [facility] Last Admin: 10/05/19 08:09 Dose: 325 mg Atorvastatin Calcium (Lipitor) 40 mg PO HS [facility] Last Admin: 10/04/19 20:46 Dose: 40 mg Bisacodyl (Dulcolax) 10 mg PO Q12H PRN PRN Reason: Constipation Last Admin: 10/01/19 10:12 Dose: 10 mg Dextrose/Water (Dextrose 50%) 25 gm SLOW IVP PRN PRN PRN Reason: Hypoglycemia Last Admin: 09/29/19 18:19 Dose: 25 gm Enoxaparin Sodium (Lovenox) 40 mg SC 0900 [facility] Glucagon (Glucagon) 1 mg IM PRN PRN PRN Reason: Hypoglycemia Hydralazine HCl (Apresoline) 10 mg SLOW IVP Q6H PRN PRN Reason: To Maintain SBP< 140mmHG Hydroxyzine HCl (Atarax) 25 mg PO Q6H PRN PRN Reason: Anxiety Last Admin: 10/01/19 10:23 Dose: 25 mg Dextrose/Water (D5w) 1,000 mls @ 0 mls/hr IV .Q0M PRN PRN Reason: Hypoglycemia Insulin Human Lispro (Humalog) 0 units SC .AGGRESSIVE SLIDING PRN PRN Reason: Aggressive Correctional Scale Last Admin: 10/04/19 11:33 Dose: 3 units Insulin Human NPH (Humulin N) 40 unit SC QAM [facility] Last Admin: 10/05/19 08:12 Dose: 40 unit Insulin Human NPH (Humulin N) 30 unit SC QPM [facility] Last Admin: 10/04/19 20:50 Dose: 30 unit Labetalol HCl (Normodyne) 10 mg SLOW IVP Q4H PRN PRN Reason: SBP Greater Than 180 Last Admin: 09/30/19 12:27 Dose: 10 mg Lisinopril (Zestril) 2.5 mg PO DAILY [facility] Last Admin: 10/05/19 08:11 Dose: 2.5 mg Metformin HCl (Glucophage) 500 mg PO BID-[facility] Last Admin: 10/05/19 08:10 Dose: 500 mg Metoprolol Tartrate (Lopressor) 50 mg PO BID [facility] Last Admin: 10/05/19 08:10 Dose: 50 mg Ondansetron HCl (Zofran) 4 mg IVP Q6H PRN PRN Reason: Nausea/Vomiting Promethazine HCl (Phenergan) 6.25 mg IM Q4H PRN PRN Reason: Nausea/Vomiting Quetiapine Fumarate (Seroquel) 100 mg PO [facility] Last Admin: 10/04/19 20:47 Dose: 100 mg Sodium Chloride (Flush - Normal Saline) 10 ml IVF PRN PRN PRN Reason: Saline Flush Last Admin: 10/05/19 08:11 Dose: 10 ml Tramadol HCl (Ultram) 50 mg PO Q6H PRN PRN Reason: Pain Vital Signs & Weight: Vital Signs Temp Pulse BP Pulse Ox 10/05/19 11:08 98.8 F 10/05/19 08:11 112 H 119/84 10/05/19 08:00 98 10/05/19 07:16 98.3 F 10/05/19 03:42 98.2 F Admit Weight 178 lb 9.6 oz Weight 176 lb - Physical Exam General: alert & oriented x3 HEENT: mucus membranes moist Neck: supple neck Cardiac: no murmur Lungs: clear to auscultation Neuro: grossly intact Abdomen: active bowel sounds, soft, non-tender Extremities: no edema Skin: clear Musculoskeletal: no pain - Labs Result Diagrams: 10/05/19 11:07 10/03/19 04:05 Troponin/CKMB CK-MB (CK-2) 11.1 ng/mL (0-6.6) H* 09/23/19 18:00 Troponin I 31.609 ng/mL (< 0.028) H* 09/24/19 00:37 - Telemetry Sinus rhythms and dysrhythmias: sinus tachycardia - Assessment/Plan Assessment/Plan: 1. Anterolateral STEMI 2. Multivessel CAD. 3. Cardiogenic shock, resolved. 4. Uncontrolled diabetes. 5. Bipolar disorder. 6. S/P CABG x 3 URBANO to LAD, SVG to OM and SVG to PDA. PLAN: - ASA/Statin for life - Continue to increase PT as tolerated. - Will up titrate BB dose. - Discharge to SNF anytime from cardiac perspective.
[2019-10-05] MEDS ORDERED: Metoprolol Tartrate 50 MG TAB PO SCH (12:30)
--- NOTE | 2019-10-05 16:17 | PRG ---
DATE OF SERVICE: 10/05/2019 Mr. Abreu is now approximately 1 week status post CABG. He looks and feels fine and is having no chest pain. He has thrombocytosis which is likely reactive, but we need to keep an eye on this. Otherwise, he is ready for transfer to a regular telemetry floor bed. Job ID: [id number]
--- NOTE | 2019-10-05 16:41 | PDOC.BPN ---
- Brief Progress Note Consulted hem/onc for thrombocytosis. [place] Text from [place] [place] that thrombocytosis is likely reactive. Advises he is stable for discharge from her standpoint and follow up outpatient w/ CBC.
[2019-10-05] MEDS: Atorvastatin Calcium 40 MG TAB PO SCH (20:39)
[2019-10-05] MEDS: Metoprolol Tartrate 100 MG TAB PO SCH (20:39)
[2019-10-06 05:01] LABS: #Basophils 0.1 thou/uL (0.0-0.2); #Eosinphils 0.4 thou/uL (0.0-0.7); #Lymphocytes 2.9 thou/uL (1.20-3.40); #Monocytes 0.9 thou/uL (0.11-0.59); #Neutrophils 8.7 thou/uL (1.40-6.50); %Basophils 0.9 % (0.0-1.0); %Eosinophils 3.4 % (0.0-10.0); %Lymphocytes 22.1 % (21.0-51.0); %Monocytes 6.8 % (0.0-10.0); %Neutrophils 66.8 % (42.0-75.0); Mean Corpuscular HGB CONC 33.4 g/dL (32.0-36.0); Mean Corpuscular Hemoglobin 29.6 pg (27.0-31.0); Mean Corpuscular Volume 88.5 fL (78.0-98.0); Mean Platelet Volume 7.5 fL (7.4-10.4); Platelet Count 734 thou/uL (130-400); Red Blood Cell (RBC) Count 3.39 mill/uL (4.70-6.10); White Blood Cell (WBC) Count 13.1 thou/uL (4.8-10.8)
--- NOTE | 2019-10-06 05:54 | PDOC.FM ---
- Subjective Subjective: Pt is feeling "good" this morning. Denies chest pain, SOB, peripheral edema. Ambulated in halls yesterday. States he has not been able to control his sleep lately; when he is tired he sleeps and when he is awake, he's awake. - Objective MAR Reviewed: Yes Vital Signs & Weight: Vital Signs (12 hours) Temp Pulse Resp BP BP Pulse Ox 10/06/19 04:00 97.8 F 96 17 118/68 93 L 10/05/19 22:23 93 L 10/05/19 21:40 97.4 F L 105 H 16 135/89 93 L 10/05/19 19:55 96 10/05/19 19:19 99.3 F 10/05/19 18:40 97 Weight Admit Weight 81.012 kg Weight 80.484 kg Most Recent Monitor Data Heart Rate from ECG 102 NIBP 133/97 NIBP BP-Mean 109 Respiration from ECG 34 SpO2 94 I&O: 10/04/19 10/05/19 10/06/19 06:59 06:59 06:59 Intake Total 1790 1360 710 Output Total 2375 1000 325 Balance -585 360 385 Result Diagrams: 10/06/19 04:38 10/03/19 04:05 Phys Exam - Physical Examination Constitutional: NAD Respiratory: no wheezing, clear to auscultation bilateral Cardiovascular: RRR, no significant murmur Gastrointestinal: soft, no distention Musculoskeletal: no edema, pulses present Neurological: non-focal Psychiatric: normal affect, A&O x 3 Dx/Plan (1) Acute and chronic respiratory failure with hypoxia Code(s): J96.21 - ACUTE AND CHRONIC RESPIRATORY FAILURE WITH HYPOXIA Status: Acute (2) DKA (diabetic ketoacidoses) Code(s): E11.10 - TYPE 2 DIABETES MELLITUS WITH KETOACIDOSIS WITHOUT COMA Status: Acute (3) Shock Code(s): R57.9 - SHOCK, UNSPECIFIED Status: Acute (4) STEMI (ST elevation myocardial infarction) Status: Acute (5) Pneumonia Code(s): J18.9 - PNEUMONIA, UNSPECIFIED ORGANISM Status: Acute - Plan Plan: 59-yo M w/ no PCP admitted for STEMI and DKA vs HHS: 1. Anterolateral STEMI - Cath by Dr. Bermeo on admission: extensive vessel disease. IABP placed, then dc'ed 09/29. EF estimated to be 30% in cath. - 3 vessel CABGL 09/28. 3 chest tubes placed, removed. - Dr. Bermeo, cardiology following, appreciate recs. Stable for discharge per cardiology. - Palliative consulted 2. Acute respiratory failure, improved -Extubated 09/30, weaned off O2 -Pulmonology consulted. Appreciate recs. Stable for discharge per pulm. -Continue ICS 3. Possible Aspiration LLL PNA, improved -Influenza neg, White count and procal downtrended -Bcx 09/28 NGTD. -Resp culture respiratory lydia and stiven albicans. Completed course of Zosyn. 4. Multivessel CAD. - Continue BB, HAY, ASA, statin 5. Cardiogenic shock, resolved 6. Presence of IABP, removed 09/29 7. Uncontrolled diabetes on admission, stable DKA vs HHS - DKA protocol initiated on admission. BHB: 2.96. A1c 13.3% -NPH BID, adjusting dosing. Currently on 40U QAM, 30U QHS. Started metformin will titrate up to 1000 BID for discharge. 8. Bipolar disorder. -aware, no home meds -Seroquel seems to be working well. Will discharge on this. Patient to follow up with [facility]. -Has not required restraints nor geodon for several days now and is stable on telemetry floor. 9. Microcytic Anemia, stable 10. DANIELA -resolved 11. Constipation - PRNs ordered 12. Hypokalemia - improved 13. Thrombocytosis, improving - likely reactive. Peripheral smear nonspecific. - outpatient follow up w/ repeat cbc. Spoke w/ heme/onc, they support this plan. Code: FULL PPX: aspirin 325, lovenox Dispo: pending placement. Pt is homeless so affording meds is an issue. He is ambulatory and motivated, so some inpt rehab may not accept. Being unfunded is an issue as this pt very much needs his heart medications. Addendum - Attending - Attending Attestation Date/Time: 10/06/19 1415 I personally evaluated the patient and discussed the management with Dr. Davis. I agree with the History, Examination, Assessment and Plan documented above with any addition or exceptions noted below. Patient doing well this morning. He requests to ambulate more. He is overall stable and awaiting dispo for SNF versus rehab, but having some issues with this due to his unfunded status. He will require heart medications and will need med assistance and good follow up. Work with CM on this. Will make some mild changes to insulin therapy today. Otherwise work on discharge planning.
[2019-10-06] MEDS: Enoxaparin Sodium 40 MG/0.4 ML SYRINGE SC SCH (08:39)
[2019-10-06] MEDS: metFORMIN 500 MG TAB PO SCH ×2 (08:40→17:39)
[2019-10-06] MEDS: Metoprolol Tartrate 100 MG TAB PO SCH ×2 (08:40→20:28)
[2019-10-06] MEDS: Lisinopril 2.5 MG TAB PO SCH (08:40)
[2019-10-06] MEDS: Aspirin 325 MG TAB PO SCH (08:40)
[2019-10-06] MEDS: NPH, Human Insulin Isophane 300 UNIT/3 ML VIAL SC SCH ×2 (08:43→20:29)
--- NOTE | 2019-10-06 13:05 | PDOC.CPN ---
- Subjective Date: 10/06/19 Time: 13:11 Interval history: The pt seen and examined. No overnight events. No cardiac complaints. - Objective Allergies/Adverse Reactions: Allergies Allergy/AdvReac Type Severity Reaction Status Date / Time No Known Allergies Allergy Verified 09/24/19 01:40 Visit Medications: Current Medications Acetaminophen (Tylenol) 650 mg PO Q6H PRN PRN Reason: Headache/Fever Or Mild Pain Al Hydroxide/Mg Hydroxide (Maalox) 30 ml PO Q4H PRN PRN Reason: Indigestion Albuterol/Ipratropium (Duoneb) 3 ml NEB Q4H PRN PRN Reason: SOB &/or Wheezing Aspirin (Aspirin) 325 mg PO DAILY [facility] Last Admin: 10/06/19 08:40 Dose: 325 mg Atorvastatin Calcium (Lipitor) 40 mg PO HS [facility] Last Admin: 10/05/19 20:39 Dose: 40 mg Bisacodyl (Dulcolax) 10 mg PO Q12H PRN PRN Reason: Constipation Last Admin: 10/01/19 10:12 Dose: 10 mg Dextrose/Water (Dextrose 50%) 25 gm SLOW IVP PRN PRN PRN Reason: Hypoglycemia Last Admin: 09/29/19 18:19 Dose: 25 gm Enoxaparin Sodium (Lovenox) 40 mg SC 0900 [facility] Last Admin: 10/06/19 08:39 Dose: 40 mg Glucagon (Glucagon) 1 mg IM PRN PRN PRN Reason: Hypoglycemia Hydralazine HCl (Apresoline) 10 mg SLOW IVP Q6H PRN PRN Reason: To Maintain SBP< 140mmHG Hydroxyzine HCl (Atarax) 25 mg PO Q6H PRN PRN Reason: Anxiety Last Admin: 10/01/19 10:23 Dose: 25 mg Dextrose/Water (D5w) 1,000 mls @ 0 mls/hr IV .Q0M PRN PRN Reason: Hypoglycemia Insulin Human Lispro (Humalog) 0 units SC .AGGRESSIVE SLIDING PRN PRN Reason: Aggressive Correctional Scale Last Admin: 10/04/19 11:33 Dose: 3 units Insulin Human NPH (Humulin N) 15 unit SC QAM [facility] Last Admin: 10/06/19 08:43 Dose: 15 unit Insulin Human NPH (Humulin N) 15 unit SC QPM [facility] Labetalol HCl (Normodyne) 10 mg SLOW IVP Q4H PRN PRN Reason: SBP Greater Than 180 Last Admin: 09/30/19 12:27 Dose: 10 mg Lisinopril (Zestril) 2.5 mg PO DAILY [facility] Last Admin: 10/06/19 08:40 Dose: 2.5 mg Metformin HCl (Glucophage) 500 mg PO BID-[facility] Last Admin: 10/06/19 08:40 Dose: 500 mg Metoprolol Tartrate (Lopressor) 100 mg PO BID [facility] Last Admin: 10/06/19 08:40 Dose: 100 mg Ondansetron HCl (Zofran) 4 mg IVP Q6H PRN PRN Reason: Nausea/Vomiting Promethazine HCl (Phenergan) 6.25 mg IM Q4H PRN PRN Reason: Nausea/Vomiting Quetiapine Fumarate (Seroquel) 100 mg PO HS [facility] Last Admin: 10/05/19 20:39 Dose: 100 mg Sodium Chloride (Flush - Normal Saline) 10 ml IVF PRN PRN PRN Reason: Saline Flush Last Admin: 10/05/19 08:11 Dose: 10 ml Tramadol HCl (Ultram) 50 mg PO Q6H PRN PRN Reason: Pain Vital Signs & Weight: Vital Signs Temp Pulse Pulse Pulse Resp BP BP 10/06/19 11:17 98.3 F 88 20 10/06/19 09:56 100 93 129/80 10/06/19 08:40 108 H 130/84 10/06/19 08:32 97.9 F 108 H 18 10/06/19 04:00 97.8 F 96 17 BP BP Pulse Ox Pulse Ox Pulse Ox 10/06/19 11:17 116/68 92 L 10/06/19 09:56 127/85 95 93 L 10/06/19 08:40 10/06/19 08:32 130/81 93 L 10/06/19 04:00 118/68 93 L Admit Weight 178 lb 9.6 oz Weight 177 lb 7 oz - Physical Exam General: alert & oriented x3 HEENT: mucus membranes moist Cardiac: regular rate and rhythm, S1/S2 Lungs: clear to auscultation Neuro: cranial nerve 2-12 intact Abdomen: unremarkable - Labs Result Diagrams: 10/06/19 04:38 10/03/19 04:05 Troponin/CKMB CK-MB (CK-2) 11.1 ng/mL (0-6.6) H* 09/23/19 18:00 Troponin I 31.609 ng/mL (< 0.028) H* 09/24/19 00:37 - Telemetry Sinus rhythms and dysrhythmias: sinus rhythm - Assessment/Plan Assessment/Plan: 1. Anterolateral STEMI with S/P CABG x 3 on 09/28/2019 URBANO to LAD, SVG to OM and SVG to PDA. - stable with BBlocker, ASA, Statin; 2. s/p Cardiogenic shock, resolved. 3. DM type 2 4. Bipolar disorder. MAR reviewed * From Cardiac standpoint, the pt is stable to tx to rehab. Pt. seen and eval. by me. I agree with the A/P by the BETTING CLERK. Chest clear. RRR. gjmays
[2019-10-06] MEDS: Atorvastatin Calcium 40 MG TAB PO SCH (20:28)
--- NOTE | 2019-10-07 05:39 | PDOC.FM ---
- Subjective Subjective: Pt feeling good this AM. He is standing up ready to go for a walk. does not remember me, he apologizes. Denies pain, SOB. - Objective MAR Reviewed: Yes Vital Signs & Weight: Vital Signs (12 hours) Temp Pulse Resp BP Pulse Ox 10/07/19 04:53 97.6 F 97 20 115/72 88 L 10/06/19 19:27 99.0 F 106 H 18 133/92 H 94 L Weight Admit Weight 81.012 kg Weight 80.484 kg Most Recent Monitor Data Heart Rate from ECG 102 NIBP 133/97 NIBP BP-Mean 109 Respiration from ECG 34 SpO2 94 I&O: 10/05/19 10/06/19 10/07/19 06:59 06:59 06:59 Intake Total 1360 1060 Output Total 1000 325 Balance 360 735 Result Diagrams: 10/06/19 04:38 10/03/19 04:05 Phys Exam - Physical Examination Constitutional: NAD Respiratory: no wheezing, clear to auscultation bilateral Cardiovascular: no significant murmur (tachycardic rate, reg rhythm) Neurological: non-focal Dx/Plan (1) Acute and chronic respiratory failure with hypoxia Code(s): J96.21 - ACUTE AND CHRONIC RESPIRATORY FAILURE WITH HYPOXIA Status: Acute (2) DKA (diabetic ketoacidoses) Code(s): E11.10 - TYPE 2 DIABETES MELLITUS WITH KETOACIDOSIS WITHOUT COMA Status: Acute (3) Shock Code(s): R57.9 - SHOCK, UNSPECIFIED Status: Acute (4) STEMI (ST elevation myocardial infarction) Status: Acute (5) Pneumonia Code(s): J18.9 - PNEUMONIA, UNSPECIFIED ORGANISM Status: Acute - Plan Plan: 59-yo M w/ no PCP admitted for STEMI and DKA vs HHS: 1. Anterolateral STEMI - Cath by Dr. Bermeo on admission: extensive vessel disease. IABP placed, then dc'ed 09/29. EF estimated to be 30% in cath. - 3 vessel CABGL 09/28. 3 chest tubes placed, removed. - Dr. Bermeo, cardiology following, appreciate recs. Stable for discharge per cardiology. - Palliative consulted, signed off - Pt has tachycardia at baseline, sinus rhythm overnight per telemetry. HR increases to 120 when he is walking around. 2. Acute respiratory failure, improved -Extubated 09/30, weaned off O2 -Pulmonology consulted. Appreciate recs. Stable for discharge per pulm. -Continue ICS 3. Possible Aspiration LLL PNA, improved -Resp culture respiratory lydia and stiven albicans. Completed course of Zosyn. 4. Multivessel CAD. - Continue BB, HAY, ASA, statin 5. Cardiogenic shock, resolved 6. Presence of IABP, removed 09/29 7. Uncontrolled diabetes on admission, stable DKA vs HHS - DKA protocol initiated on admission. BHB: 2.96. A1c 13.3% -NPH BID, adjusting dosing. Currently on 15units BID. Started metformin will titrate up to 1000 BID for discharge. 8. Bipolar disorder. -Seroquel seems to be working well. Will discharge on this. Patient to follow up with [facility]. -Has not required restraints nor geodon for several days now and is stable on telemetry floor. 9. Microcytic Anemia, stable 10. DANIELA, resolved 11. Constipation - PRNs ordered 12. Hypokalemia, improved 13. Thrombocytosis, improving - likely reactive. Peripheral smear nonspecific. - outpatient follow up w/ repeat cbc. Spoke w/ heme/onc, they support this plan. Code: FULL PPX: aspirin 325, lovenox Dispo: pending placement. Pt is homeless so affording meds is an issue. He is ambulatory and motivated, so some inpt rehab may not accept. Being unfunded is an issue as this pt very much needs his heart medications. Addendum - Attending - Attending Attestation Date/Time: 10/07/19 0722 I personally evaluated the patient and discussed the management with Dr. Davis. I agree with the History, Examination, Assessment and Plan documented above with any addition or exceptions noted below. Patient overall doing well. Ambulating frequently and without issue. He reports feeling well. We continue to work on placement for him as he MUST be able to get his medications and good therapy to prevent major complications from his CAD and CHF and recurrent hospitalizations.
[2019-10-07] MEDS: Aspirin 325 MG TAB PO SCH (08:56)
[2019-10-07] MEDS: metFORMIN 500 MG TAB PO SCH ×2 (08:56→17:27)
[2019-10-07] MEDS: Lisinopril 2.5 MG TAB PO SCH (08:56)
[2019-10-07] MEDS: Metoprolol Tartrate 100 MG TAB PO SCH ×2 (08:56→21:58)
[2019-10-07] MEDS: NPH, Human Insulin Isophane 300 UNIT/3 ML VIAL SC SCH ×2 (08:57→22:02)
[2019-10-07] MEDS: Enoxaparin Sodium 40 MG/0.4 ML SYRINGE SC SCH (08:58)
--- NOTE | 2019-10-07 17:10 | PDOC.CPN ---
- Subjective Date: 10/07/19 Time: 17:12 Interval history: The pt seen and examined. No overnight events. No Cardiac complaints. - Objective Allergies/Adverse Reactions: Allergies Allergy/AdvReac Type Severity Reaction Status Date / Time No Known Allergies Allergy Verified 09/24/19 01:40 Visit Medications: Current Medications Acetaminophen (Tylenol) 650 mg PO Q6H PRN PRN Reason: Headache/Fever Or Mild Pain Al Hydroxide/Mg Hydroxide (Maalox) 30 ml PO Q4H PRN PRN Reason: Indigestion Albuterol/Ipratropium (Duoneb) 3 ml NEB Q4H PRN PRN Reason: SOB &/or Wheezing Aspirin (Aspirin) 325 mg PO DAILY [facility] Last Admin: 10/07/19 08:56 Dose: 325 mg Atorvastatin Calcium (Lipitor) 40 mg PO HS [facility] Last Admin: 10/06/19 20:28 Dose: 40 mg Bisacodyl (Dulcolax) 10 mg PO Q12H PRN PRN Reason: Constipation Last Admin: 10/01/19 10:12 Dose: 10 mg Dextrose/Water (Dextrose 50%) 25 gm SLOW IVP PRN PRN PRN Reason: Hypoglycemia Last Admin: 09/29/19 18:19 Dose: 25 gm Enoxaparin Sodium (Lovenox) 40 mg SC 0900 [facility] Last Admin: 10/07/19 08:58 Dose: 40 mg Glucagon (Glucagon) 1 mg IM PRN PRN PRN Reason: Hypoglycemia Hydralazine HCl (Apresoline) 10 mg SLOW IVP Q6H PRN PRN Reason: To Maintain SBP< 140mmHG Hydroxyzine HCl (Atarax) 25 mg PO Q6H PRN PRN Reason: Anxiety Last Admin: 10/01/19 10:23 Dose: 25 mg Dextrose/Water (D5w) 1,000 mls @ 0 mls/hr IV .Q0M PRN PRN Reason: Hypoglycemia Insulin Human NPH (Humulin N) 15 unit SC QAM [facility] Last Admin: 10/07/19 08:57 Dose: 15 unit Insulin Human NPH (Humulin N) 15 unit SC QPM [facility] Last Admin: 10/06/19 20:29 Dose: 15 unit Labetalol HCl (Normodyne) 10 mg SLOW IVP Q4H PRN PRN Reason: SBP Greater Than 180 Last Admin: 09/30/19 12:27 Dose: 10 mg Lisinopril (Zestril) 2.5 mg PO DAILY [facility] Last Admin: 10/07/19 08:56 Dose: 2.5 mg Metformin HCl (Glucophage) 500 mg PO BID[facility] Last Admin: 10/07/19 08:56 Dose: 500 mg Metoprolol Tartrate (Lopressor) 100 mg PO BID [facility] Last Admin: 10/07/19 08:56 Dose: 100 mg Ondansetron HCl (Zofran) 4 mg IVP Q6H PRN PRN Reason: Nausea/Vomiting Promethazine HCl (Phenergan) 6.25 mg IM Q4H PRN PRN Reason: Nausea/Vomiting Quetiapine Fumarate (Seroquel) 100 mg PO HS [facility] Last Admin: 10/06/19 20:28 Dose: 100 mg Sodium Chloride (Flush - Normal Saline) 10 ml IVF PRN PRN PRN Reason: Saline Flush Last Admin: 10/07/19 09:01 Dose: 10 ml Tramadol HCl (Ultram) 50 mg PO Q6H PRN PRN Reason: Pain Vital Signs & Weight: Vital Signs Temp Pulse Pulse Pulse Resp BP BP 10/07/19 16:12 97.9 F 103 H 17 10/07/19 11:45 99 91 136/83 10/07/19 11:35 97.9 F 97 23 H 10/07/19 09:00 118 H 111 H 125/79 10/07/19 08:56 112 H 145/88 H 10/07/19 08:50 97.9 F 112 H 20 10/07/19 08:00 BP BP BP Pulse Ox Pulse Ox Pulse Ox 10/07/19 16:12 136/81 94 L 10/07/19 11:45 129/87 99 92 L 10/07/19 11:35 127/84 97 10/07/19 09:00 145/88 H 92 L 91 L 10/07/19 08:56 10/07/19 08:50 145/88 H 91 L 10/07/19 08:00 91 L Admit Weight 178 lb 9.6 oz Weight 176 lb - Physical Exam General: alert & oriented x3 HEENT: mucus membranes moist Neck: supple neck Cardiac: regular rate and rhythm, S1/S2 Lungs: clear to auscultation Extremities: no cyanosis Skin: clear Musculoskeletal: normal range of motion - Labs Result Diagrams: 10/06/19 04:38 10/03/19 04:05 Troponin/CKMB CK-MB (CK-2) 11.1 ng/mL (0-6.6) H* 09/23/19 18:00 Troponin I 31.609 ng/mL (< 0.028) H* 09/24/19 00:37 - Telemetry Sinus rhythms and dysrhythmias: sinus rhythm - Assessment/Plan Assessment/Plan: 1. Anterolateral STEMI with S/P CABG x 3 on 09/28/2019 URBANO to LAD, SVG to OM and SVG to PDA. - stable with BBlocker, ASA, Statin; 2. s/p Cardiogenic shock, resolved. 3. DM type 2 4. Bipolar disorder. MAR reviewed * From Cardiac standpoint, the pt is stable to tx to rehab. However, he is homeless and uninsured * Dr Bermeo's pt
[2019-10-07] MEDS ORDERED: Sodium Chloride 0.9% 100 ML ONE (21:01)
[2019-10-07] MEDS: Atorvastatin Calcium 40 MG TAB PO SCH (21:57)
--- NOTE | 2019-10-08 06:12 | PDOC.FM ---
- Subjective Subjective: Pt is feeling well this AM. Just waking up. States he is getting ready to get up and walk around. Reviewed use of ICS, set on 1000. Encouraged ICS use. - Objective MAR Reviewed: Yes Vital Signs & Weight: Vital Signs (12 hours) Temp Pulse Resp BP BP Pulse Ox 10/08/19 05:49 93 L 10/08/19 03:05 98.7 F 85 18 118/66 92 L 10/07/19 20:30 98.2 F 107 H 18 133/82 94 L Weight Admit Weight 81.012 kg Weight 79.832 kg Most Recent Monitor Data Heart Rate from ECG 102 NIBP 133/97 NIBP BP-Mean 109 Respiration from ECG 34 SpO2 94 I&O: 10/06/19 10/07/19 10/08/19 06:59 06:59 06:59 Intake Total 6286 682 6777 Output Total 325 Balance 536 013 3278 Result Diagrams: 10/06/19 04:38 10/03/19 04:05 Phys Exam - Physical Examination Constitutional: NAD Respiratory: no wheezing Cardiovascular: RRR Musculoskeletal: no edema Psychiatric: normal affect, A&O x 3 Dx/Plan (1) Acute and chronic respiratory failure with hypoxia Code(s): J96.21 - ACUTE AND CHRONIC RESPIRATORY FAILURE WITH HYPOXIA Status: Acute (2) DKA (diabetic ketoacidoses) Code(s): E11.10 - TYPE 2 DIABETES MELLITUS WITH KETOACIDOSIS WITHOUT COMA Status: Acute (3) Shock Code(s): R57.9 - SHOCK, UNSPECIFIED Status: Acute (4) STEMI (ST elevation myocardial infarction) Status: Acute (5) Pneumonia Code(s): J18.9 - PNEUMONIA, UNSPECIFIED ORGANISM Status: Acute - Plan Plan: 59-yo M w/ no PCP admitted for STEMI and DKA vs HHS: 1. Anterolateral STEMI - Cath by Dr. Bermeo on admission: extensive vessel disease. IABP placed, then dc'ed 09/29. EF estimated to be 30% in cath. - 3 vessel CABGL 09/28. 3 chest tubes placed, removed. - Dr. Bermeo, cardiology following, appreciate recs. Stable for discharge per cardiology. - Palliative consulted, signed off 2. Acute respiratory failure, improved -Extubated 09/30, weaned off O2 -Pulmonology consulted. Appreciate recs. Stable for discharge per pulm. -Continue ICS 3. Possible Aspiration LLL PNA, improved -Resp culture respiratory lydia and stvien albicans. Completed course of Zosyn. 4. Multivessel CAD. - Continue BB, HAY, ASA, statin 5. Cardiogenic shock, resolved 6. Presence of IABP, removed 09/29 7. Uncontrolled diabetes on admission, stable DKA vs HHS - DKA protocol initiated on admission. BHB: 2.96. A1c 13.3% -NPH BID, adjusting dosing. Currently on 15units BID. Started metformin will titrate up to 1000 BID for discharge. 8. Bipolar disorder. -Seroquel seems to be working well. Will discharge on this. Patient to follow up with [facility]. -Has not required restraints nor geodon for several days now and is stable on telemetry floor. 9. Microcytic Anemia, stable 10. DANIELA, resolved 11. Constipation - PRNs ordered 12. Hypokalemia, improved 13. Thrombocytosis, improving - likely reactive. Peripheral smear nonspecific. - outpatient follow up w/ repeat cbc. Spoke w/ heme/onc, they support this plan. Code: FULL PPX: aspirin 325, lovenox Dispo: pending placement. Pt is homeless so affording meds is an issue. He is ambulatory and motivated, so some inpt rehab may not accept. Being unfunded is an issue; pt very much needs his heart medications. Addendum - Attending - Attending Attestation Date/Time: 10/08/19 0942 I personally evaluated the patient and discussed the management with Dr. Davis. I agree with the History, Examination, Assessment and Plan documented above with any addition or exceptions noted below. Patient overall stable for discharge. Awaiting CM and placement decision due to need for rehab and med administration. He will need to be on his new heart medications to prevent complications, and he is homeless and cannot currently care for himself without assistance.
[2019-10-08] MEDS: Lisinopril 2.5 MG TAB PO SCH (09:08)
[2019-10-08] MEDS: metFORMIN 500 MG TAB PO SCH ×2 (09:08→17:27)
[2019-10-08] MEDS: Metoprolol Tartrate 100 MG TAB PO SCH ×2 (09:08→21:30)
[2019-10-08] MEDS: Aspirin 325 MG TAB PO SCH (09:08)
[2019-10-08] MEDS: Enoxaparin Sodium 40 MG/0.4 ML SYRINGE SC SCH (09:08)
[2019-10-08] MEDS: NPH, Human Insulin Isophane 300 UNIT/3 ML VIAL SC SCH ×2 (09:09→21:31)
--- NOTE | 2019-10-08 16:32 | PDOC.CPN ---
- Subjective Date: 10/08/19 Time: 16:31 Interval history: He is doing well. No new issues. Walking with PT and mostly on his own. - Review of Systems General: denies: fever/chills, weight/appetite/sleep changes, night sweats, fatigue Respiratory: denies: cough, congestion, shortness of breath, exercise intolerance Cardiovascular: denies: chest pain, palpitation, edema, paroxysmal nocturnal dyspnea, orthopnea Gastrointestinal: denies: nausea, vomiting, diarrhea, constipation, abd pain, GI bleeding Musculoskeletal: denies: pain, tenderness, stiffness, swelling, arthritis/ arthralgias Neurological: denies: numbness, syncope, seizure, weakness - Objective Allergies/Adverse Reactions: Allergies Allergy/AdvReac Type Severity Reaction Status Date / Time No Known Allergies Allergy Verified 09/24/19 01:40 Visit Medications: Current Medications Acetaminophen (Tylenol) 650 mg PO Q6H PRN PRN Reason: Headache/Fever Or Mild Pain Al Hydroxide/Mg Hydroxide (Maalox) 30 ml PO Q4H PRN PRN Reason: Indigestion Albuterol/Ipratropium (Duoneb) 3 ml NEB Q4H PRN PRN Reason: SOB &/or Wheezing Aspirin (Aspirin) 325 mg PO DAILY [facility] Last Admin: 10/08/19 09:08 Dose: 325 mg Atorvastatin Calcium (Lipitor) 40 mg PO HS [facility] Last Admin: 10/07/19 21:57 Dose: 40 mg Bisacodyl (Dulcolax) 10 mg PO Q12H PRN PRN Reason: Constipation Last Admin: 10/01/19 10:12 Dose: 10 mg Dextrose/Water (Dextrose 50%) 25 gm SLOW IVP PRN PRN PRN Reason: Hypoglycemia Last Admin: 09/29/19 18:19 Dose: 25 gm Enoxaparin Sodium (Lovenox) 40 mg SC 0900 [facility] Last Admin: 10/08/19 09:08 Dose: 40 mg Glucagon (Glucagon) 1 mg IM PRN PRN PRN Reason: Hypoglycemia Hydralazine HCl (Apresoline) 10 mg SLOW IVP Q6H PRN PRN Reason: To Maintain SBP< 140mmHG Hydroxyzine HCl (Atarax) 25 mg PO Q6H PRN PRN Reason: Anxiety Last Admin: 10/01/19 10:23 Dose: 25 mg Dextrose/Water (D5w) 1,000 mls @ 0 mls/hr IV .Q0M PRN PRN Reason: Hypoglycemia Insulin Human NPH (Humulin N) 15 unit SC QAM [facility] Last Admin: 10/08/19 09:09 Dose: 15 unit Insulin Human NPH (Humulin N) 15 unit SC QPM [facility] Last Admin: 10/07/19 22:02 Dose: 15 unit Labetalol HCl (Normodyne) 10 mg SLOW IVP Q4H PRN PRN Reason: SBP Greater Than 180 Last Admin: 09/30/19 12:27 Dose: 10 mg Lisinopril (Zestril) 2.5 mg PO DAILY [facility] Last Admin: 10/08/19 09:08 Dose: 2.5 mg Metformin HCl (Glucophage) 500 mg PO BID-[facility] Last Admin: 10/08/19 09:08 Dose: 500 mg Metoprolol Tartrate (Lopressor) 100 mg PO BID [facility] Last Admin: 10/08/19 09:08 Dose: 100 mg Ondansetron HCl (Zofran) 4 mg IVP Q6H PRN PRN Reason: Nausea/Vomiting Promethazine HCl (Phenergan) 6.25 mg IM Q4H PRN PRN Reason: Nausea/Vomiting Quetiapine Fumarate (Seroquel) 100 mg PO HS [facility] Last Admin: 10/07/19 21:58 Dose: 100 mg Sodium Chloride (Flush - Normal Saline) 10 ml IVF PRN PRN PRN Reason: Saline Flush Last Admin: 10/07/19 21:59 Dose: 10 ml Tramadol HCl (Ultram) 50 mg PO Q6H PRN PRN Reason: Pain Vital Signs & Weight: Vital Signs Temp Pulse Pulse Pulse Resp BP BP 10/08/19 12:47 102 H 100 125/76 110/76 10/08/19 12:10 97.5 F L 96 16 10/08/19 09:08 103 H 10/08/19 09:04 97.6 F 103 H 18 10/08/19 08:45 10/08/19 07:28 10/08/19 05:49 BP Pulse Ox Pulse Ox Pulse Ox 10/08/19 12:47 95 95 10/08/19 12:10 116/71 97 10/08/19 09:08 10/08/19 09:04 119/73 93 L 10/08/19 08:45 92 L 10/08/19 07:28 93 L 10/08/19 05:49 93 L Admit Weight 178 lb 9.6 oz Weight 175 lb 1 oz - Physical Exam General: alert & oriented x3 HEENT: mucus membranes moist Neck: supple neck Cardiac: regular rate and rhythm, no murmur Lungs: normal breath sounds Neuro: grossly intact Abdomen: active bowel sounds, soft, non-tender Extremities: no edema Skin: clear Musculoskeletal: no pain - Labs Result Diagrams: 10/06/19 04:38 10/03/19 04:05 Troponin/CKMB CK-MB (CK-2) 11.1 ng/mL (0-6.6) H* 09/23/19 18:00 Troponin I 31.609 ng/mL (< 0.028) H* 09/24/19 00:37 - Telemetry Sinus rhythms and dysrhythmias: sinus rhythm - Assessment/Plan Assessment/Plan: 1. Colin lateral STEMI 2. Multivessel CAD. 3. Cardiogenic shock, resolved. 4. Uncontrolled diabetes. 5. Bipolar disorder. 6. S/P CABG x 3 URBANO to LAD, SVG to OM and SVG to PDA. PLAN: - ASA/Statin for life - Continue to increase PT as tolerated. - BB and ACEI. - Discharge any time from cardiac perspective.
[2019-10-08] MEDS: Atorvastatin Calcium 40 MG TAB PO SCH (21:30)
--- NOTE | 2019-10-09 06:26 | PDOC.FM ---
- Subjective Subjective: Pt feeling well this AM, slept well. Thinks he will order some breakfast. He confirms that he lives in a house he owns with his roommate. In fact, he states he has another house he is going to try to sell in order to pay for this hospitalization. He states he could afford a month of medications right now. Says he has a ride who will come pick him up today if discharged. Reports he has several cars and can drive himself places. - Objective MAR Reviewed: Yes Vital Signs & Weight: Vital Signs (12 hours) Temp Pulse Resp BP Pulse Ox 10/09/19 03:55 99.1 F 102 H 18 109/66 92 L 10/08/19 23:35 98.4 F 105 H 18 123/86 92 L 10/08/19 20:00 97.4 F L 113 H 18 137/84 94 L Weight Admit Weight 81.012 kg Weight 79.407 kg Most Recent Monitor Data Heart Rate from ECG 102 NIBP 133/97 NIBP BP-Mean 109 Respiration from ECG 34 SpO2 94 I&O: 10/07/19 10/08/19 10/09/19 06:59 06:59 06:59 Intake Total 480 2710 960 Output Total 1200 500 Balance 480 1510 460 Result Diagrams: 10/06/19 04:38 10/03/19 04:05 Phys Exam - Physical Examination Constitutional: NAD Respiratory: clear to auscultation bilateral Cardiovascular: RRR, no significant murmur Gastrointestinal: soft Musculoskeletal: no edema Dx/Plan (1) Acute and chronic respiratory failure with hypoxia Code(s): J96.21 - ACUTE AND CHRONIC RESPIRATORY FAILURE WITH HYPOXIA Status: Acute (2) DKA (diabetic ketoacidoses) Code(s): E11.10 - TYPE 2 DIABETES MELLITUS WITH KETOACIDOSIS WITHOUT COMA Status: Acute (3) Shock Code(s): R57.9 - SHOCK, UNSPECIFIED Status: Acute (4) STEMI (ST elevation myocardial infarction) Status: Acute (5) Pneumonia Code(s): J18.9 - PNEUMONIA, UNSPECIFIED ORGANISM Status: Acute - Plan Plan: 59-yo M w/ no PCP admitted for STEMI and DKA vs HHS: 1. Anterolateral STEMI - Cath by Dr. Bermeo on admission: extensive vessel disease. IABP placed, then dc'ed 09/29. EF estimated to be 30% in cath. - 3 vessel CABGL 09/28. 3 chest tubes placed, removed. - Dr. Bermeo, cardiology following, appreciate recs. Stable for discharge per cardiology. - Palliative consulted, signed off 2. Acute respiratory failure, improved -Extubated 09/30, weaned off O2 -Pulmonology consulted. Appreciate recs. Stable for discharge per pulm. -Continue ICS 3. Possible Aspiration LLL PNA, improved -Resp culture respiratory lydia and stiven albicans. Completed course of Zosyn. 4. Multivessel CAD. - Continue BB, HAY, ASA, statin 5. Cardiogenic shock, resolved 6. Presence of IABP, removed 09/29 7. Uncontrolled diabetes on admission, stable DKA vs HHS - DKA protocol initiated on admission. BHB: 2.96. A1c 13.3% -NPH BID, adjusting dosing. Currently on 15units BID. Started metformin will titrate up to 1000 BID for discharge. 8. Bipolar disorder. -Seroquel seems to be working well. Will discharge on this. Patient to follow up with [facility]. -Has not required restraints nor geodon for over a week now and is stable on telemetry floor. 9. Microcytic Anemia, stable 10. DANIELA, resolved 11. Constipation - PRNs ordered 12. Hypokalemia, improved 13. Thrombocytosis, improving - likely reactive. Peripheral smear nonspecific. - outpatient follow up w/ repeat cbc. Spoke w/ heme/onc, they support this plan. Code: FULL PPX: aspirin 325, lovenox Dispo: pt was denied rehab placement since he is ambulatory. Apparently pt is not homeless and lives with a roommate in [place]. If what pt says is true and he can afford first month of medications, he can leave today. CM to look into medication assist today. He is stable from a medical standpoint and ready for discharge. Compliance and access to medications is of the utmost importance for this pt due to the severity of his cardiac condition s/p CABG. Addendum - Attending - Attending Attestation Date/Time: 10/09/19 0189 I personally evaluated the patient and discussed the management with Dr. Davis. I agree with the History, Examination, Assessment and Plan documented above with any addition or exceptions noted below. Patient doing well and is stable for discharge. He has been awaiting medication assistance and that has apparently been provided for him as he states he can afford his meds and is aware of the importance of them.
[2019-10-09 07:40] VITALS: TEMP 98.2
[2019-10-09] MEDS: Aspirin 325 MG TAB PO SCH (09:26)
[2019-10-09] MEDS: Metoprolol Tartrate 100 MG TAB PO SCH (09:26)
[2019-10-09] MEDS: Lisinopril 2.5 MG TAB PO SCH (09:27)
[2019-10-09] MEDS: metFORMIN 500 MG TAB PO SCH (09:27)
[2019-10-09] MEDS: NPH, Human Insulin Isophane 300 UNIT/3 ML VIAL SC SCH (09:28)
[2019-10-09] MEDS: Enoxaparin Sodium 40 MG/0.4 ML SYRINGE SC SCH (09:31)
--- NOTE | 2019-10-09 10:29 | DIS ---
DATE OF ADMISSION: 09/23/2019 DATE OF DISCHARGE: 10/09/2019 DIAGNOSES: 1. Uncontrolled diabetes mellitus. 2. Coronary artery disease. 3. Hypertension. PROCEDURES: 1. Cardiac catheterization with balloon pump placement. 2. Coronary artery bypass grafting x3 - left internal mammary artery to left anterior descending. 3. Reverse saphenous vein to posterior descending artery and obtuse marginal. DESCRIPTION OF HOSPITAL STAY: Mr. Abreu presented through the emergency department with uncontrolled diabetes mellitus and NV. He was taken to the research lab assistant. He was found to have critical three-vessel disease with an ejection fraction that was severely depressed. He had a balloon pump placed and was managed in the ICU. After his ventricle was allowed to recover from the NV, he was taken to the operating room, he underwent coronary artery bypass grafting as above on 09/28. Postoperatively, the balloon pump was weaned and discontinued. He was eventually able to be extubated. After he was extubated, he quickly became clear that he had some underlying psychiatric issues. Once family was able to be involved in his care, this was clear that he has had a lifelong history of psychiatric problems and nontreatment due to the patient's noncompliance. He is admitted in the hospital recovering from his medical issues. At the time of transfer [facility], he is ambulatory, tolerating a regular diet, having good bowel and bladder function. Incisions are clean and dry without evidence of infection. DISCHARGE MEDICATIONS: 1. Aspirin 325 mg daily. 2. Lipitor 40 mg at bedtime. 3. Zestril 2.5 mg daily. 4. Glucophage 500 mg b.i.d. 5. Metoprolol 100 mg b.i.d. 6. NPH 15 units q.a.m. and p.m. 7. Seroquel 100 mg at bedtime. 8. Flomax 0.4 mg b.i.d. 9. Ultram 50 mg q.6 hours p.r.n. pain. FOLLOWUP: Followup is with me in 2 weeks and with his primary care doctor. Job ID: [id number]
[2019-10-09 12:23] VITALS: BP 113/76
--- NOTE | 2019-10-12 00:43 | PQF ---
Chetan Abreu MARK [id number] CLINICAL DOCUMENTATION CLARIFICATION FORM: POST DISCHARGE Addendum to original discharge summary date: ____ Late entry note date: __ DATE:10/12/2019 ATTN:KIRILL DUMONT Please exercise your independent, professional judgment in responding to the clarification form. Clinical indicators are provided on the bottom of this form for your review Please check appropriate box(s) to clarify if the following diagnosis has been ruled in or ruled out:Sepsis [ x ] Ruled in diagnosis [ ] Continue to treat [ x] Resolved [ ] Ruled out diagnosis [ ] Cannot rule out diagnosis [ ] Other diagnosis [ ] Unable to determine In addition, please specify: Present on Admission (POA): [ x ] Yes [ ] No [ ] Unable to determine For continuity of documentation, please document condition throughout progress notes and discharge summary. Thank You. CLINICAL INDICATORS - SIGNS / SYMPTOMS / LABS Pulse-155,Resp-39 Documented in ED on 09/23 by Juan Dumont He experienced marked tachycardia with rates as high as 200-Documented in H&P on 09/23 by Janet, Kirill Acute hypoxic hypercapnic respiratory failure-Documented in H&P on 09/23 by Janet, Kirill Pneumonia-Documented in H&P on 09/23 by Janet, Kirill Severe sepsis secondary to #1.The patient's blood pressure is responding with Iv fluids-Documented in H&P on 09/23 by Janet, Kirill WBC-16.5-Documented in Laboratory RISK FACTORS Acute hypoxic hypercapnic respiratory failure-Documented in H&P on 09/23 by Janet, Kirill Pneumonia-Documented in H&P on 09/23 by Janet, Kirill ST elevation mycordial infarction-Documented in H&P on 09/23 by Janet, Kirill TREATMENTS Continue vancomycin and zosyn-Documented in H&P on 09/23 by Janet, Kirill [employer] Win[employer] (This form is maintained as a part of the permanent medical record) 2014 [employer]. All Rights Reserved [email or web address] [not provided] MTDD
== END 2019-10-09 13:00 | disposition home or self-care (01) | DRG 233 ==
LOC: ERS 17:45 → SDC/OP 23:24 → CCU 23:25 → IMCU/EMU 10-04 07:19 → 2NO 10-05 20:51 → IMCU/EMU 10-05 21:01 → 2NO 10-05 22:21
PROVIDERS: ADMIT Family Medicine; ATTEND Family Medicine
PROC: 4A023N7 Measurement of Cardiac Sampling and Pressure, Left Heart, Percutaneous Approach (ICD-10-PCS; 2019-09-23)
PROC: B2111ZZ Fluoroscopy of Multiple Coronary Arteries using Low Osmolar Contrast (ICD-10-PCS; 2019-09-23)
PROC: B2151ZZ Fluoroscopy of Left Heart using Low Osmolar Contrast (ICD-10-PCS; 2019-09-23)
PROC: 5A02110 Assistance with Cardiac Output using Balloon Pump, Intermittent (ICD-10-PCS; principal; 2019-09-28)
PROC: 02100Z9 Bypass Coronary Artery, One Artery from Left Internal Mammary, Open Approach (ICD-10-PCS; 2019-09-28)
PROC: 021109W Bypass Coronary Artery, Two Arteries from Aorta with Autologous Venous Tissue, Open Approach (ICD-10-PCS; 2019-09-28)
PROC: 06BP4ZZ Excision of Right Saphenous Vein, Percutaneous Endoscopic Approach (ICD-10-PCS; 2019-09-28)
PROC: 5A1221Z Performance of Cardiac Output, Continuous (ICD-10-PCS; 2019-09-28)
DX: I21.09 ST elevation (STEMI) myocardial infarction involving other coronary artery of anterior wall (principal); A41.9 Sepsis, unspecified organism; E11.00 Type 2 diabetes mellitus with hyperosmolarity without nonketotic hyperglycemic-hyperosmolar coma (NKHHC); R57.0 Cardiogenic shock; E11.10 Type 2 diabetes mellitus with ketoacidosis without coma; R65.20 Severe sepsis without septic shock; J69.0 Pneumonitis due to inhalation of food and vomit; J96.21 Acute and chronic respiratory failure with hypoxia; I50.21 Acute systolic (congestive) heart failure; N17.9 Acute kidney failure, unspecified; K59.00 Constipation, unspecified; I25.10 Atherosclerotic heart disease of native coronary artery without angina pectoris; I25.5 Ischemic cardiomyopathy; N40.0 Benign prostatic hyperplasia without lower urinary tract symptoms; D50.9 Iron deficiency anemia, unspecified; F31.9 Bipolar disorder, unspecified; D69.6 Thrombocytopenia, unspecified; F41.9 Anxiety disorder, unspecified; F17.220 Nicotine dependence, chewing tobacco, uncomplicated; Z79.4 Long term (current) use of insulin; E87.6 Hypokalemia; Z51.5 Encounter for palliative care; I11.0 Hypertensive heart disease with heart failure; D64.9 Anemia, unspecified
CPT/HCPCS: 31500; 33967; 36415; 36416; 36430; 51702; 71045; 71046; 80048; 80053; 80061; 80074; 80202; 80306; 81003; 81015; 82010; 82330; 82553; 82803; 82805; 83036; 83605; 83735; 83880; 83930; 84100; 84145; 84484; 85025; 85060; 85610; 85730; 86140; 86850; 86900; 86901; 87040; 87070; 87086; 87205; 87389; 87449; 87804; 87899; 89220; 93005; 93010; 93306; 93458; 93798; 94002; 94003; 94640; 94660; 96361; 96365; 96366; 96367; 96368; 96375; 96376; 99292; C1769; J0670; J1100; J1644; J1650; J1815; J1940; J2001; J2060; J2250; J2270; J2405; J2440; J2543; J2704; J2720; J3010; J3246; J3370; J3475; J3480; J3486; J3490; J7050; J7070; J7620; J7626; P9045; S0017; S0028

== ENCOUNTER 2019-10-11 21:32 | Emergency (ER) | payer OTHER, SELFPAY ==
[2019-10-11 22:25] LABS: #Basophils 0.1 thou/uL (0.0-0.2); #Eosinphils 0.4 thou/uL (0.0-0.7); #Lymphocytes 2.1 thou/uL (1.20-3.40); #Monocytes 1.2 thou/uL (0.11-0.59); #Neutrophils 9.3 thou/uL (1.40-6.50); %Eosinophils 3.1 % (0.0-10.0); %Monocytes 8.9 % (0.0-10.0); Hemoglobin 11.1 g/dL (14.0-18.0); Mean Corpuscular HGB CONC 32.6 g/dL (32.0-36.0); Mean Corpuscular Hemoglobin 29.1 pg (27.0-31.0); Mean Corpuscular Volume 89.1 fL (78.0-98.0); Mean Platelet Volume 8.1 fL (7.4-10.4); Platelet Count 717 thou/uL (130-400); RBC Distribution Width 12.1 % (11.5-14.5); Red Blood Cell (RBC) Count 3.81 mill/uL (4.70-6.10); White Blood Cell (WBC) Count 13.1 thou/uL (4.8-10.8)
[2019-10-11] MEDS ORDERED: Diazepam 5 MG TAB ONE (22:35)
[2019-10-11 22:45] LABS: ALT (SGPT) 11 U/L (8-55); AST (SGOT) 11 U/L (5-34); Albumin 3.9 g/dL (3.5-5.0); Alkaline Phosphatase 83 U/L (40-110); Anion Gap 14 mmol/L (10-20); BUN (Urea Nitrogen) 19 mg/dL (8.4-25.7); Bilirubin, Total 0.3 mg/dL (0.2-1.2); Calc. Creatinine Clearance 0 mL/min (70-130); Calcium 9.6 mg/dL (7.8-10.44); Carbon Dioxide 26 mmol/L (22-29); Chloride 103 mmol/L (98-107); Estimated GFR-MDRD 61; Globulin 3.5 g/dL (2.4-3.5); Glucose 160 mg/dL (70-105); Potassium 3.9 mmol/L (3.5-5.1); Protein, Total 7.4 g/dL (6.0-8.3); Sodium 139 mmol/L (136-145)
[2019-10-11 23:22] LABS: Bilirubin Negative (Negative); Blood, Urine 2+ (Negative); Clarity Clear (Clear); Glucose, Urine (Dipstick) 30 mg/dL (Negative); Leukocyte Negative Leu/uL (Negative); Mucous/LPF Rare LPF (<2+); Nitrite Negative (Negative); Protein, Urine (Dipstick) 300 mg/dL (Neg-Trace); RBC/HPF Greater than 50 HPF (0-3); Squamous Epithelial 0-3 HPF (0-3); Urobilinogen Normal mg/dL (Less than 2)
[2019-10-11 23:26] LABS: Bacteria/HPF Rare-Few HPF (None Seen)
[2019-10-11] MEDS ORDERED: Morphine 2 MG/ML SYRINGE ONE (23:58)
== END 2019-10-12 02:18 | disposition home or self-care (01) ==
LOC: ERS 21:32
DX: N99.89 Other postprocedural complications and disorders of genitourinary system (principal); N39.0 Urinary tract infection, site not specified; I10 Essential (primary) hypertension; E11.9 Type 2 diabetes mellitus without complications; F17.220 Nicotine dependence, chewing tobacco, uncomplicated; Z79.82 Long term (current) use of aspirin; Z79.84 Long term (current) use of oral hypoglycemic drugs
CPT/HCPCS: 36415; 51702; 80053; 81003; 81015; 85025; 87086; 96361; 96374; J2270

== ENCOUNTER 2019-10-13 20:50 | Emergency (ER) | payer SELFPAY ==
[2019-10-13 22:41] LABS: #Basophils 0.2 thou/uL (0.0-0.2); #Eosinphils 0.4 thou/uL (0.0-0.7); #Lymphocytes 2.5 thou/uL (1.20-3.40); #Monocytes 1.1 thou/uL (0.11-0.59); #Neutrophils 9.1 thou/uL (1.40-6.50); %Basophils 1.2 % (0.0-1.0); %Eosinophils 3.1 % (0.0-10.0); %Lymphocytes 18.6 % (21.0-51.0); %Monocytes 8.2 % (0.0-10.0); %Neutrophils 68.9 % (42.0-75.0); Hemoglobin 11.2 g/dL (14.0-18.0); Mean Corpuscular HGB CONC 33.1 g/dL (32.0-36.0); Mean Corpuscular Hemoglobin 29.1 pg (27.0-31.0); Mean Corpuscular Volume 88.1 fL (78.0-98.0); Mean Platelet Volume 8.2 fL (7.4-10.4); Platelet Count 702 thou/uL (130-400); RBC Distribution Width 12.1 % (11.5-14.5); Red Blood Cell (RBC) Count 3.86 mill/uL (4.70-6.10); White Blood Cell (WBC) Count 13.2 thou/uL (4.8-10.8)
[2019-10-13 23:03] LABS: ALT (SGPT) 10 U/L (8-55); AST (SGOT) 12 U/L (5-34); Alkaline Phosphatase 93 U/L (40-110); Anion Gap 13 mmol/L (10-20); BUN (Urea Nitrogen) 18 mg/dL (8.4-25.7); Bilirubin, Total 0.3 mg/dL (0.2-1.2); Calc. Creatinine Clearance 0 mL/min (70-130); Calcium 9.5 mg/dL (7.8-10.44); Carbon Dioxide 27 mmol/L (22-29); Chloride 102 mmol/L (98-107); Estimated GFR-MDRD 54; Globulin 3.6 g/dL (2.4-3.5); Glucose 234 mg/dL (70-105); Potassium 3.5 mmol/L (3.5-5.1); Protein, Total 7.6 g/dL (6.0-8.3); Sodium 138 mmol/L (136-145)
[2019-10-13 23:59] LABS: Bacteria/HPF None Seen HPF (None Seen); Bilirubin Negative (Negative); Blood, Urine 3+ (Negative); Clarity Turbid (Clear); Glucose, Urine (Dipstick) 50 mg/dL (Negative); Leukocyte 75 Leu/uL (Negative); Nitrite Negative (Negative); Protein, Urine (Dipstick) 300 mg/dL (Neg-Trace); RBC/HPF Greater than 50 HPF (0-3); Squamous Epithelial None Seen HPF (0-3); Urobilinogen Normal mg/dL (Less than 2); WBC/HPF Greater than 50 HPF (0-3)
== END 2019-10-14 00:39 | disposition home or self-care (01) ==
LOC: ERS 20:50
DX: N39.0 Urinary tract infection, site not specified (principal); I10 Essential (primary) hypertension; E11.9 Type 2 diabetes mellitus without complications; F32.9 Major depressive disorder, single episode, unspecified; F17.220 Nicotine dependence, chewing tobacco, uncomplicated; Z79.82 Long term (current) use of aspirin; Z79.84 Long term (current) use of oral hypoglycemic drugs; Z79.899 Other long term (current) drug therapy
CPT/HCPCS: 36415; 80053; 81003; 81015; 85025; 87086; 93005

== ENCOUNTER 2019-10-20 00:31 | Inpatient (IN) | payer OTHER, SELFPAY ==
[2019-10-20 01:29] LABS: ALT (SGPT) 9 U/L (8-55); AST (SGOT) 15 U/L (5-34); Alkaline Phosphatase 104 U/L (40-110); Anion Gap 15 mmol/L (10-20); BUN (Urea Nitrogen) 18 mg/dL (8.4-25.7); Bilirubin, Total 0.3 mg/dL (0.2-1.2); Calc. Creatinine Clearance 0 mL/min (70-130); Calcium 9.9 mg/dL (7.8-10.44); Carbon Dioxide 26 mmol/L (22-29); Chloride 103 mmol/L (98-107); Estimated GFR-MDRD 63; Globulin 3.5 g/dL (2.4-3.5); Glucose 236 mg/dL (70-105); Potassium 4.2 mmol/L (3.5-5.1); Protein, Total 7.5 g/dL (6.0-8.3); Sodium 140 mmol/L (136-145)
[2019-10-20 01:40] LABS: #Basophils 0.1 thou/uL (0.0-0.2); #Eosinphils 0.2 thou/uL (0.0-0.7); #Lymphocytes 1.3 thou/uL (1.20-3.40); #Monocytes 0.6 thou/uL (0.11-0.59); #Neutrophils 5.9 thou/uL (1.40-6.50); %Basophils 0.9 % (0.0-1.0); %Eosinophils 2.7 % (0.0-10.0); %Lymphocytes 16.4 % (21.0-51.0); %Monocytes 7.6 % (0.0-10.0); %Neutrophils 72.4 % (42.0-75.0); Mean Corpuscular HGB CONC 33.6 g/dL (32.0-36.0); Mean Corpuscular Hemoglobin 29.5 pg (27.0-31.0); Mean Corpuscular Volume 87.7 fL (78.0-98.0); Mean Platelet Volume 8.2 fL (7.4-10.4); Platelet Count 411 thou/uL (130-400); RBC Distribution Width 12.2 % (11.5-14.5); Red Blood Cell (RBC) Count 3.74 mill/uL (4.70-6.10); White Blood Cell (WBC) Count 8.1 thou/uL (4.8-10.8)
[2019-10-20 01:49] LABS: PTT 23.8 SEC (22.9-36.1); Prothrombin Time 12.8 SEC (12.0-14.7)
[2019-10-20 02:04] LABS: CKMB 1.9 ng/mL (0-6.6)
[2019-10-20] MEDS ORDERED: hydrALAZINE 20 MG/ML VIAL SLOW IVP PRN (04:23)
[2019-10-20] MEDS ORDERED: Labetalol HCl 100 MG/20 ML VIAL SLOW IVP PRN (04:23)
[2019-10-20] MEDS ORDERED: Enalaprilat Dihydrate 1.25 MG/ML VIAL SLOW IVP PRN (04:23)
--- NOTE | 2019-10-20 04:23 | PDOC.HHP ---
Hospitalist HPI - History of Present Illness R sided weakness, aphasia History of Present Illness: Patient is a 59 year old male with PMH CAD with recent CABG, DM, HTN who presents to ED for R sided arm and leg weakness and R sided facial droop with aphasia, began 2 hours before presentation, difficulty speaking and pronouncing words, took some time to ready my name badge. He had a recent CABG done 3 weeks ago. No known history of afib, no history of stroke, seizure, or other neurologic diagnoses I am aware of. In ED, CT read by ED and significant for stroke. final read pending. TPA held due to surgery 3 weeks ago. patient admitted to [facility] for further workup Hospitalist ROS - Review of Systems Constitutional: denies: fever, chills Eyes: denies: pain, redness Respiratory: denies: cough, shortness of breath Cardiovascular: denies: chest pain, palpitations Gastrointestinal: denies: nausea, vomiting Musculoskeletal: denies: neck pain, shoulder pain Skin: denies: rash, lesions Neurological: reports: weakness, numbness Other: R sided weakness and numbness, R sided facial droop, aphasic Hospitalist History - Past Medical History Other Medical History: HTN CAD DM - Past Surgical History Other Surgical History: appendectomy CABG - Family History Other Family History: reviewed and noncontributory - Social History Tobacco Type: chewing tobacco Alcohol: reports: Rare Drugs: reports: none - Exam General Appearance: awake alert Eye: PERRL, anicteric sclera ENT: normocephalic atraumatic, moist mucosa Neck: supple, no JVD Heart: RRR, no murmur, no gallops, no rubs Respiratory: CTAB, no wheezes, no rales, no ronchi Gastrointestinal: soft, non-tender, non-distended, normal bowel sounds Extremities: no cyanosis, no clubbing, no edema Skin: no lesions, no rashes Neurological - other findings: R sided facial droop, aphasia, RUE/RLE muscle groups 1/5 Musculoskeletal: normal tone, no muscle wasting Psychiatric - other findings: aphasia, appears to be trying to talk but hard to understand Hospitalist Results - Labs Result Diagrams: 10/20/19 01:31 10/20/19 00:44 Lab results: WBC 8.1 thou/uL (4.8-10.8) 10/20/19 01:31 Hgb 11.0 g/dL (14.0-18.0) L 10/20/19 01:31 Hct 32.8 % (42.0-52.0) L 10/20/19 01:31 MCV 87.7 fL (78.0-98.0) 10/20/19 01:31 Plt Count 411 thou/uL (130-400) H 10/20/19 01:31 Neutrophils % 72.4 % (42.0-75.0) 10/20/19 01:31 Sodium 140 mmol/L (136-145) 10/20/19 00:44 Potassium 4.2 mmol/L (3.5-5.1) 10/20/19 00:44 Chloride 103 mmol/L (98-107) 10/20/19 00:44 Carbon Dioxide 26 mmol/L (22-29) 10/20/19 00:44 BUN 18 mg/dL (8.4-25.7) 10/20/19 00:44 Creatinine 1.18 mg/dL (0.7-1.3) 10/20/19 00:44 Glucose 236 mg/dL (70-105) H 10/20/19 00:44 Calcium 9.9 mg/dL (7.8-10.44) 10/20/19 00:44 Total Bilirubin 0.3 mg/dL (0.2-1.2) 10/20/19 00:44 AST 15 U/L (5-34) 10/20/19 00:44 ALT 9 U/L (8-55) 10/20/19 00:44 Alkaline Phosphatase 104 U/L (40-110) 10/20/19 00:44 CK-MB (CK-2) 1.9 ng/mL (0-6.6) 10/20/19 00:44 Troponin I 0.069 ng/mL (< 0.028) H 10/20/19 00:44 Serum Total Protein 7.5 g/dL (6.0-8.3) 10/20/19 00:44 Albumin 4.0 g/dL (3.5-5.0) 10/20/19 00:44 Hospitalist H&P A/P - Plan Plan: Patient is a 59 year old male with PMH above admitted for: # ischemic stroke - admit to stroke unit, stroke order set - EKG ordered and pending, telemetry reviewed and did not appear to be atrial fibrillation - consult cardiology, echo - PT/OT/speech consults, case management rehab eval - continue crestor, ASA - consult cardiology, neurology - permissive HTN - follow final read of head imaging (CT, CTA). MRI ordered # CAD - had CABG x 3 on 09/28, no chest pain or shortness of breath - rule out atrial fib as above, monitor on telemetry # uncontrolled DM - SSI ordered, ACHS sugar checks, hold NPH as may not eat much before speech consult, hold metformin # HTN - permissive HTN for now
[2019-10-20] MEDS ORDERED: HYDROcodone/Acetaminophen 5/325 mg Tablet PO PRN (04:27)
[2019-10-20] MEDS ORDERED: Acetaminophen 325 MG TAB PO PRN (04:27)
[2019-10-20] MEDS ORDERED: Dextrose 5% in Water 1,000 ML IV PRN (04:50)
[2019-10-20] MEDS ORDERED: Dextrose 50% Abboject 50 ML SYRINGE SLOW IVP PRN (04:50)
[2019-10-20 06:36] VITALS: BMI 26.6
[2019-10-20] MEDS: HumaLOG 300 UNITS/3 ML VIAL SC PRN ×2 (07:44→17:35)
[2019-10-20] MEDS ORDERED: Tamsulosin HCl 0.4 MG CAP PO SCH (09:00)
[2019-10-20] MEDS ORDERED: NPH, Human Insulin Isophane 300 UNIT/3 ML VIAL SC SCH (09:00)
[2019-10-20] MEDS ORDERED: Enoxaparin Sodium 40 MG/0.4 ML SYRINGE SC SCH (09:00)
[2019-10-20] MEDS: Aspirin 81 mg Enteric Coated Tablet PO SCH (09:30)
[2019-10-20] MEDS: Metoprolol Tartrate 100 MG TAB PO SCH ×2 (09:31→20:37)
[2019-10-20] MEDS: Cephalexin 250 MG CAP PO SCH ×3 (09:31→20:38)
--- NOTE | 2019-10-20 09:41 | CT ---
PRELIMINARY REPORT/[facility]/EMERGENCY AFTER HOURS PROCEDURE: Receipt of this report by the clinical staff was confirmed with GISELA GRANDA MD by Pai Paredes on Oct 20, 2019 00:55:00 COLLECTION TECHNICIAN. Addendum electronically signed by Pia Paredes on October 20, 2019 12:55:39 AM COLLECTION TECHNICIAN EXAM: CT Head Without Intravenous Contrast. CLINICAL HISTORY: *STROKE ALERT* M59, LAST SEEN NORMAL 2200, RIGHT SIDED WEAKNESS, FACIAL DROOP AND SLURRED SPEECH TECHNIQUE: Axial computed tomography images of the head/brain without intravenous contrast. COMPARISON: None provided. FINDINGS: BRAIN: No acute intraparenchymal hemorrhage. No mass lesion. No CT evidence for acute territorial inf arct. 4 mm hypodensity in the anterior left thalamus. No midline shift or extra-axial collection. ORBITS: The orbits are unremarkable. SINUSES AND MASTOIDS: The paranasal sinuses and mastoid air cells are clear. SOFT TISSUES: No significant facial or scalp soft tissue swelling evident. No radiopaque foreign body is seen. BONES: No acute skull fracture. IMPRESSION: 1. Hypodensity, measuring 4 mm in the anterior left thalamus may represent acute infarct. Evaluatio n with MRI may increase sensitivity and further characterize. 2. No large territorial infarct or acute hemorrhage. ELECTRONICALLY SIGNED BY: Wong Dawkins DO Oct 20, 2019 12:47:03 AM COLLECTION TECHNICIAN This report is intended for review by the ordering physician only, in accordance of law. If you recei ve this report in error, please call [facility] at [phone]. FINAL REPORT EMERGENCY AFTER HOURS CT BRAIN WITHOUT CONTRAST: FINDINGS/IMPRESSION: I agree with the findings and impression given in the preliminary report per [facility] physici an. A small left thalamic hypodensity likely represents small vessel ischemic disease or remote infarctio n.
--- NOTE | 2019-10-20 09:42 | CT ---
PRELIMINARY REPORT/[facility]/EMERGENCY AFTER HOURS PROCEDURE: Receipt of this report by the clinical staff was confirmed with GISELA GRANDA MD by Pia Paredes on Oct 20, 2019 01:14:00 COLD SAW OPERATOR. Addendum electronically signed by Pia Paredes on October 20, 2019 1:14:14 AM COLD SAW OPERATOR EXAM: CTA Head and Neck with Intravenous Contrast. CLINICAL HISTORY: *STROKE ALERT* M59, LAST SEEN NORMAL 2200, RIGHT SIDED WEAKNESS, FACIAL DROOP AND SLURRED SPEECH TECHNIQUE: Axial CTA images of the head and neck performed with intravenous contrast. MIP reconstructed images w ere created and reviewed. Note: Per PQRS, the description of internal carotid artery percent stenosis, including 0 percent or n ormal exam, is based on [place] Symptomatic Carotid Endarterectomy Trial (NASCET) criteria. CONTRAST: With; ISO 370 100 COMPARISON: None provided. FINDINGS: CTA NECK: COMMON CAROTID ARTERIES No significant stenosis. No dissection or occlusion. INTERNAL CAROTID ARTERIES No stenosis by NASCET criteria. No dissection or occlusion. VERTEBRAL ARTERIES No significant stenosis. No dissection or occlusion. CTA HEAD: ANTERIOR CEREBRAL ARTERIES No significant stenosis. No occlusion. No aneurysm. MIDDLE CEREBRAL ARTERIES No significant stenosis. No occlusion. No aneurysm. POSTERIOR CEREBRAL ARTERIES No significant stenosis. No occlusion. No aneurysm. BASILAR ARTERY No significant stenosis. No occlusion. No aneurysm. OTHER: Left pleural effusion with adjacent compressive atelectasis. SOFT TISSUES No acute finding. No masses or lymphadenopathy. Punctate calcifications in the palatine tonsils BONES No acute osseous abnormality. IMPRESSION: 1. No hemodynamically significant stenosis, or acute vascular injury of the head and neck vessels. 2. Left pleural effusion. ELECTRONICALLY SIGNED BY: Wong Dawkins DO Oct 20, 2019 1:07:00 AM COLD SAW OPERATOR This report is intended for review by the ordering physician only, in accordance of law. If you recei ve this report in error, please call [facility] at [phone]. FINAL REPORT EMERGENCY AFTER HOURS CTA OF NECK AND CTA OF HEAD WITH CONTRAST: FINDINGS/IMPRESSION: I agree with the findings and impression given in the preliminary report per [facility] physici an. 1. No evidence of significant CTA abnormality of the neck. 2. No evidence of significant CTA abnormality of the head.
[2019-10-20 10:18] LABS: Troponin I 0.083 ng/mL (< 0.028)
--- NOTE | 2019-10-20 11:40 | CON ---
DATE OF CONSULTATION: 10/20/2019 CONSULTING PHYSICIAN: Hospitalist Service. IMPRESSION: 1. 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 2. Aspirin failure. 3. Diabetes. 4. Hypertension. 5. Coronary artery disease. PLAN: 1. Add Plavix. 2. Continue aspirin and Crestor. HISTORY OF PRESENT ILLNESS: Mr. Abreu is a 59-year-old man with the above-noted medical problems. He presented with speech difficulties. His initial CT scan of the brain was unremarkable. CT angiogram has not been read out. His laboratory studies were only notable for his elevated blood glucose. Vital signs were notable for diastolic hypertension with 96 to 97 pressures. He reports that he has been on aspirin and recently underwent a CABG. He does smoke. PAST MEDICAL HISTORY: As listed above. ALLERGIES: NONE. SOCIAL HISTORY: Positive for tobacco. FAMILY HISTORY: Noncontributory. REVIEW OF SYSTEMS: Ten-system review of systems is otherwise negative. MEDICATIONS: List was reviewed. PHYSICAL EXAMINATION: VITAL SIGNS: Blood pressure 144/96, pulse 113, respirations 16, and temperature 97.4. HEENT: Pupils are equal and reactive. Conjunctivae are clear. Oropharynx clear. NECK: Supple. EXTREMITIES: No cyanosis or edema. NEUROLOGIC: He was alert and cooperative. He seemed to have good comprehension. He had decreased verbal output. He had a mild right facial droop. He had minimal if any right-sided weakness. Sensation was subjectively intact. Gait was not tested. No abnormal movements were seen. LABORATORY DATA: Laboratory studies were reviewed. SUMMARY: This is a middle-age man with stroke symptoms resulting in expressive aphasia. We will complete his workup and hopefully will see some improvement. Job ID: [id number]
[2019-10-20] MEDS ORDERED: Iopamidol-370 76% 500 ML 1 ML ONE (12:15)
[2019-10-20] MEDS ORDERED: Amlodipine 5 MG TAB PO SCH (12:30)
--- NOTE | 2019-10-20 12:55 | MRI ---
EXAM: MRI of the brain without contrast HISTORY: Stroke with confusion COMPARISON: CT brain 10/20/2019 TECHNIQUE: Multiplanar multisequence MR images were obtained of the brain without IV contrast. FINDINGS: Confluent restricted diffusion and high FLAIR signal is seen in the left temporal and parietal lobes in an MCA distribution. No hydronephrosis. No extra-axial fluid collection or intracranial hemorrhage. The expected flow voids are present. Corpus callosum, pituitary, and craniocervical junction are within normal limits. The calvarium and overlying soft tissues are unremarkable. The paranasal sinuses and mastoid air cells are well aerated. IMPRESSION: Left MCA distribution infarction.
[2019-10-20 15:12] LABS: Troponin I 0.086 ng/mL (< 0.028)
--- NOTE | 2019-10-20 16:59 | CON ---
DATE OF CONSULTATION: PRIMARY SENIOR SHAREPOINT ARCHITECT: Erik Bermeo MD REASON FOR CONSULTATION: Recent bypass surgery, recent stroke. HISTORY OF PRESENT ILLNESS: Mr. Abreu is a very pleasant gentleman, who had recent coronary artery bypass grafting. He was doing well up until just before this admission when he had the sudden onset of difficulty speaking. He came to the hospital and has been found to have an expressive aphasia. He can move all extremities normally. Dr. Varela's impression was it is probably anterior left middle cerebral artery stroke with expressive aphasia. PAST MEDICAL HISTORY: 1. History of hypertension. 2. Recent coronary artery bypass grafting 09/28/2019, internal mammary artery to the LAD, vein graft to the posterior descending artery, and vein graft to the obtuse marginal. He had a balloon pump that was removed and the patient did well. MEDICATIONS: At home included; 1. Metformin. 2. Tamsulosin. 3. Aspirin. 4. Atorvastatin. 5. Lisinopril. 6. Metoprolol. 7. Tramadol. ALLERGIES: NONE KNOWN. SOCIAL HISTORY: No alcohol or tobacco abuse. REVIEW OF SYSTEMS: Really not adequately obtainable as he has expressive aphasia. PHYSICAL EXAMINATION: VITAL SIGNS: Blood pressure 150/96 and pulse 109. LUNGS: Clear. CARDIAC: Normal S1 and normal S2. ABDOMEN: Soft and nontender. EXTREMITIES: No clubbing. No cyanosis. There is no edema. Good peripheral pulses. SKIN: Warm and dry. NEUROLOGIC: The patient moves all extremities, but he does have expressive aphasia. I held up a pen, he is unable to tell me what that was. He is unable to name things. He does seem to have relatively good understanding, but is unable to name things. He can talk in short simple sentences. ASSESSMENT: 1. Recent cardiac bypass grafting. 2. Recent stroke. Dr. Varela thinks it may be middle cerebral artery. 3. Hypertension. PLAN: 1. We will add amlodipine. 2. Continue to monitor. Also there is the evaluation still being done about the vascular supply. If there was no obvious intracranial disease, then potential for a LINQ could be given. Dr. Bermeo return on Tuesday. Job ID: [id number]
[2019-10-20 18:32] LABS: Troponin I 0.048 ng/mL (< 0.028)
[2019-10-20] MEDS ORDERED: Rosuvastatin 10 MG TAB PO SCH (21:00)
[2019-10-20] MEDS ORDERED: Atorvastatin Calcium 40 MG TAB PO SCH (21:00)
[2019-10-20] MEDS ORDERED: HumaLOG 300 UNITS/3 ML VIAL SC PRN (21:54)
[2019-10-21 04:52] LABS: #Basophils 0.1 thou/uL (0.0-0.2); #Eosinphils 0.5 thou/uL (0.0-0.7); #Lymphocytes 2.1 thou/uL (1.20-3.40); #Monocytes 0.7 thou/uL (0.11-0.59); #Neutrophils 4.1 thou/uL (1.40-6.50); %Basophils 1.3 % (0.0-1.0); %Eosinophils 6.6 % (0.0-10.0); %Lymphocytes 28.1 % (21.0-51.0); %Monocytes 9.6 % (0.0-10.0); %Neutrophils 54.4 % (42.0-75.0); Hemoglobin 11.1 g/dL (14.0-18.0); Mean Corpuscular HGB CONC 33.3 g/dL (32.0-36.0); Mean Corpuscular Hemoglobin 29.3 pg (27.0-31.0); Mean Corpuscular Volume 87.9 fL (78.0-98.0); Mean Platelet Volume 8.5 fL (7.4-10.4); Platelet Count 382 thou/uL (130-400); RBC Distribution Width 12.5 % (11.5-14.5); Red Blood Cell (RBC) Count 3.78 mill/uL (4.70-6.10); White Blood Cell (WBC) Count 7.6 thou/uL (4.8-10.8)
[2019-10-21 05:17] LABS: Anion Gap 13 mmol/L (10-20); BUN (Urea Nitrogen) 10 mg/dL (8.4-25.7); Calc. Creatinine Clearance 88 mL/min (70-130); Calcium 9.1 mg/dL (7.8-10.44); Carbon Dioxide 27 mmol/L (22-29); Chloride 105 mmol/L (98-107); Cholesterol 151 mg/dl (< 200 Desired); Estimated GFR-MDRD 78; Glucose 145 mg/dL (70-105); HDL Cholesterol 38 mg/dL (>60 Neg Risk); LDL Cholesterol, Calculated 88 mg/dL; Potassium 3.7 mmol/L (3.5-5.1); Sodium 141 mmol/L (136-145); Triglycerides 124 mg/dL (Less than 150)
[2019-10-21] MEDS ORDERED: Rosuvastatin 10 MG TAB PO SCH ×2 (05:45→21:00)
--- NOTE | 2019-10-21 05:48 | PDOC.FM ---
- Subjective Subjective: Pt doing well this morning, slept well. Strength has increased to near baseline. Pt still with significant word-finding difficulty, becomes very frustrated when trying to speak 2/2 inability to form complete, confluent sentences. Appears to comprehend well. Denies any CP, SOB, fever/chills, n/v. Has indwelling milner, hard to obtain history 2/2 asphasia but states this has been in for at least a few weeks, unsure of details. - Objective MAR Reviewed: Yes Vital Signs & Weight: Vital Signs (12 hours) Temp Pulse Resp BP Pulse Ox 10/21/19 04:00 98.2 F 96 16 107/69 92 L 10/21/19 00:00 98.9 F 94 16 120/79 92 L 10/20/19 20:00 99.0 F 98 16 139/95 H 94 L Weight Admit Weight 76.975 kg Weight 76.975 kg I&O: 10/19/19 10/20/19 10/21/19 06:59 06:59 06:59 Intake Total 100 520 Output Total 1300 1475 Balance -1200 -955 Result Diagrams: 10/21/19 04:33 10/21/19 04:33 Phys Exam - Physical Examination Constitutional: NAD HEENT: PERRLA, moist MMs Neck: no nodes, supple Respiratory: no wheezing, no rales, no rhonchi, clear to auscultation bilateral Cardiovascular: RRR, no significant murmur, no rub Gastrointestinal: soft, non-tender, no distention, positive bowel sounds Musculoskeletal: no edema, pulses present Neurological: normal sensation, moves all 4 limbs CN II-XII intact, 5/5 strength BL, no dysmetria. Signficant asphasia with word finding difficulty. Appears to comprehend normally. Psychiatric: normal affect, A&O x 3 Deviation from normal: Indwelling milner in place, clear yellow urine Dx/Plan (1) CVA (cerebral vascular accident) Code(s): I63.9 - CEREBRAL INFARCTION, UNSPECIFIED Status: Acute (2) DMII (diabetes mellitus, type 2) Status: Chronic Qualifiers: Diabetes mellitus half-way insulin use: with half-way use (3) HTN (hypertension) Code(s): I10 - ESSENTIAL (PRIMARY) HYPERTENSION Status: Chronic Qualifiers: Hypertension type: essential hypertension Qualified Code(s): I10 - Essential (primary) hypertension (4) S/P CABG (coronary artery bypass graft) Code(s): Z95.1 - PRESENCE OF AORTOCORONARY BYPASS GRAFT Status: Chronic (5) Anxiety and depression Code(s): F41.9 - ANXIETY DISORDER, UNSPECIFIED; F32.9 - MAJOR DEPRESSIVE DISORDER, SINGLE EPISODE, UNSPECIFIED Status: Chronic (6) BPH (benign prostatic hyperplasia) Code(s): N40.0 - BENIGN PROSTATIC HYPERPLASIA WITHOUT LOWER URINRY TRACT SYMP Status: Chronic - Plan Plan: 59yo CM with h/o CAD s/p CABG Sep 2019, HTN, IDDMII, and psychiatric disorder presented with R-sided weakness and aphasia, found to have L-MCA CVA #Ischemic stroke - L-MCA infarct on MRI - No significant carotid stenosis on CTA Head/Neck - Strength as returned to near baseline, 5/5 BL Upper and lower ext - Still with significant aphasia and word-finding difficulty - Admitted to stroke unit, monitoring on tele - Cardiology consulted, apprec recs, addition of Norvasc, consideration of LINQ , known to Dr. Weiss who will evaluate on Tuesday - Neurology, Dr. Varela, consulted, apprec recs - Permissive HTN for first 48 hours - PT/OT/Speech consulted, Case managment for rehab eval, would benefit from inpt rehab upon discharge - Continue Crestor, ASA # CAD s/p CABG x 3 on 09/28/19 - no chest pain or shortness of breath - no acute events on tele - restarted home medications # uncontrolled DM - Passed swallow, restarted diet - On home NPH and mild SS, cont home metformin - ACHS accuchecks - Hypoglycemic protocol # HTN - permissive HTN for now, will restart home Lisinopril on 10/22 #Indwelling milner - suspected 2/2 BPH - previous records reviewed, no mention of milner upon discharge 1 month ago - pt unable to provide history 2/2 aphasia, will investigate further - consider bladder training and d/c of milner if tolerated - Cont home flomax #Unknown psychiatric disorder - unclear history, on seroquel, will cont, no acute exacerbation noted Diet: CC IVF: SL Code: Full DVT: SCDs, consider Lovenox PCP: CC Dispo: Admitted to stroke for new CVA, neurology and cardiology consulted, cont permissive HTN, bladder training, cont PT/OT/Speech, will need inpt rehab upon discharge. Addendum - Attending - Attending Attestation Date/Time: 10/21/19 [id number] I personally evaluated the patient and discussed the management with Dr. Holguin I agree with the History, Examination, Assessment and Plan documented above with any addition or exceptions noted below. Patient with recovery right arm hemiparesis remains with significant anomic aphasia. Left sided pleural effusion questionable post recent CABG.
[2019-10-21] MEDS: HumaLOG 300 UNITS/3 ML VIAL SC PRN ×3 (06:53→17:57)
--- NOTE | 2019-10-21 09:07 | PDOC.HOSPP ---
- Subjective Encounter Date: 10/20/19 Encounter Time: 10:30 Subjective: pt up in bed expressive aphasia. - Objective Vital Signs & Weight: Vital Signs (12 hours) Temp Pulse Resp BP Pulse Ox 10/21/19 07:31 98 F 106 H 22 H 121/87 94 L 10/21/19 04:00 98.2 F 96 16 107/69 92 L 10/21/19 00:00 98.9 F 94 16 120/79 92 L Weight Admit Weight 169 lb 11.2 oz Weight 169 lb 11.2 oz I&O: 10/20/19 10/21/19 10/22/19 06:59 06:59 06:59 Intake Total 100 520 Output Total 1300 1475 Balance -1200 -025 Result Diagrams: 10/21/19 04:33 10/21/19 04:33 Additional Labs: Accuchecks 10/21/19 10/20/19 10/20/19 05:34 20:36 17:14 POC Glucose 158 H 217 H 214 H 10/20/19 11:11 POC Glucose 195 H Hospitalist ROS - Review of Systems Respiratory: denies: cough, dry, shortness of breath, hemoptysis, SOB with excertion, pleuritic pain, sputum, wheezing, other Cardiovascular: denies: chest pain, palpitations, orthopnea, paroxysmal noc. dyspnea, edema, light headedness, other - Medication Medications: Active Medications Generic Name Dose Route Start Last Admin Trade Name Freq PRN Reason Stop Dose Admin Aspirin 81 mg 10/20/19 09:00 10/20/19 09:30 Ecotrin PO 81 mg DAILY THOM Administration Insulin Human Lispro 0 units 10/20/19 04:50 10/21/19 06:53 Humalog SC 2 unit .MILD SLIDING SCALE PRN Administration Mild Correctional Scale Insulin Human Lispro 0 units 10/20/19 21:54 10/20/19 22:32 Humalog SC 2 units .BEDTIME SLIDING SC PRN Administration Bedtime Correctional Scale Metoprolol Tartrate 100 mg 10/20/19 09:00 10/20/19 20:37 Lopressor PO 100 mg BID THOM Administration Quetiapine Fumarate 100 mg 10/20/19 21:00 10/20/19 20:37 Seroquel PO 100 mg HS THOM Administration - Exam Neck: negative: supple, symmetric, no JVD, no thyromegaly, no lymphadenopathy, no carotid bruit, JVD Heart: negative: RRR, no murmur, no gallops, no rubs, normal peripheral pulses, irregular, diminshed peripheral pulses, murmur present, II/IV, III/IV Respiratory: negative: CTAB, no wheezes, no rales, no ronchi, normal chest expansion, no tachypnea, normal percussion, rales, rhonchi, tachypneic, wheezes Gastrointestinal: negative: soft, non-tender, non-distended, normal bowel sounds , no palpable masses, no hepatomegaly, no splenomegaly, no bruit, no guarding, no rigidity, tender to palpation, distended, diminished bowl sounds, voluntary guarding Hosp A/P (1) CVA (cerebral vascular accident) Code(s): I63.9 - CEREBRAL INFARCTION, UNSPECIFIED Status: Acute (2) DMII (diabetes mellitus, type 2) Status: Chronic Qualifiers: 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 will continue asa/stain. pt with recent CABG, no chest pain. pt to have his swallow eval today. will try to get milner out. Pt will need rehab.
[2019-10-21] MEDS: NPH, Human Insulin Isophane 300 UNIT/3 ML VIAL SC SCH (09:29)
[2019-10-21] MEDS: Enoxaparin Sodium 40 MG/0.4 ML SYRINGE SC SCH (09:30)
[2019-10-21] MEDS: metFORMIN 500 MG TAB PO SCH ×2 (09:33→17:57)
[2019-10-21] MEDS: Tamsulosin HCl 0.4 MG CAP PO SCH ×2 (09:34→21:40)
[2019-10-21] MEDS: Aspirin 81 mg Enteric Coated Tablet PO SCH (09:35)
[2019-10-21] MEDS: Amlodipine 5 MG TAB PO SCH (09:35)
[2019-10-21] MEDS: Metoprolol Tartrate 100 MG TAB PO SCH ×2 (09:36→21:40)
[2019-10-21] MEDS: Clopidogrel Bisulfate 75 MG TAB PO SCH (09:37)
--- NOTE | 2019-10-21 15:02 | RAD ---
EXAM: Chest 2 views: HISTORY: Pleural effusion COMPARISON: 10/04/2019 FINDINGS: There is an enlarged but stable cardiomediastinal silhouette. The patient is status post sternotomy. There is a small left pleural effusion with adjacent atelectasis. The bones are unremarkable. IMPRESSION: Left pleural effusion
[2019-10-21] MEDS ORDERED: Atorvastatin Calcium 40 MG TAB PO SCH (21:00)
[2019-10-21] MEDS ORDERED: NPH, Human Insulin Isophane 300 UNIT/3 ML VIAL SC SCH (21:00)
[2019-10-22 05:02] LABS: #Basophils 0.1 thou/uL (0.0-0.2); #Eosinphils 0.4 thou/uL (0.0-0.7); #Lymphocytes 2.1 thou/uL (1.20-3.40); #Monocytes 0.8 thou/uL (0.11-0.59); #Neutrophils 4.9 thou/uL (1.40-6.50); %Basophils 0.7 % (0.0-1.0); %Eosinophils 5.2 % (0.0-10.0); %Lymphocytes 25.6 % (21.0-51.0); %Monocytes 9.7 % (0.0-10.0); %Neutrophils 58.8 % (42.0-75.0); Hemoglobin 11.5 g/dL (14.0-18.0); Mean Corpuscular HGB CONC 33.2 g/dL (32.0-36.0); Mean Corpuscular Volume 87.4 fL (78.0-98.0); Mean Platelet Volume 8.6 fL (7.4-10.4); Platelet Count 392 thou/uL (130-400); RBC Distribution Width 12.6 % (11.5-14.5); Red Blood Cell (RBC) Count 3.96 mill/uL (4.70-6.10); White Blood Cell (WBC) Count 8.3 thou/uL (4.8-10.8)
--- NOTE | 2019-10-22 05:03 | PDOC.FM ---
- Subjective Subjective: Mr. Abreu is doing well this morning. He states that the milner came out yesterday and he has been urinating without difficulty. He is speaking in short sentences, with occasional word finding difficulty. - Objective MAR Reviewed: Yes Vital Signs & Weight: Vital Signs (12 hours) Temp Pulse Pulse Pulse Pulse Resp BP 10/22/19 04:22 97.8 F 103 H 16 10/22/19 00:02 97.8 F 93 18 10/21/19 20:08 99 F 112 H 16 10/21/19 17:15 130 H 105 H 112 H 129/87 BP BP BP Pulse Ox 10/22/19 04:22 105/66 93 L 10/22/19 00:02 112/75 97 10/21/19 20:08 117/71 93 L 10/21/19 17:15 134/86 Weight Admit Weight 76.975 kg Weight 76.975 kg I&O: 10/20/19 10/21/19 10/22/19 06:59 06:59 06:59 Intake Total 100 520 615 Output Total 1300 1475 800 Balance -1200 -955 -185 Result Diagrams: 10/22/19 04:44 10/22/19 04:44 Phys Exam - Physical Examination Constitutional: NAD HEENT: moist MMs, sclera anicteric Neck: no JVD, supple, full ROM Respiratory: no wheezing, no rales, no rhonchi, clear to auscultation bilateral Coarse breath sounds Cardiovascular: RRR, no significant murmur, no rub Gastrointestinal: soft, non-tender, no distention, positive bowel sounds Musculoskeletal: no edema, pulses present Neurological: non-focal, normal sensation, moves all 4 limbs CN II-XII grossly intact. 5/5 training administrator strength bilaterally. Aphasia improving Psychiatric: normal affect, A&O x 3 Skin: no rash, normal turgor Deviation from normal: Mid-sternal incision clean, dry and intact w/ dermabond. Dx/Plan (1) CVA (cerebral vascular accident) Code(s): I63.9 - CEREBRAL INFARCTION, UNSPECIFIED Status: Acute (2) DMII (diabetes mellitus, type 2) Status: Chronic Qualifiers: Diabetes mellitus terminal operations supervisor insulin use: with terminal operations supervisor use (3) HTN (hypertension) Code(s): I10 - ESSENTIAL (PRIMARY) HYPERTENSION Status: Chronic Qualifiers: Hypertension type: essential hypertension Qualified Code(s): I10 - Essential (primary) hypertension (4) S/P CABG (coronary artery bypass graft) Code(s): Z95.1 - PRESENCE OF AORTOCORONARY BYPASS GRAFT Status: Chronic - Plan Plan: 59yo CM with h/o CAD s/p CABG Sep 2019, HTN, IDDMII, and psychiatric disorder presented with R-sided weakness and aphasia, found to have L-MCA CVA Ischemic stroke - L-MCA infarct on MRI, No significant carotid stenosis on CTA Head/Neck - Strength as returned to near baseline, 5/5 BL Upper and lower ext - Still with significant aphasia and word-finding difficult - Cardiology consulted, apprec recs, addition of Norvasc, consideration of LINQ. - Neurology, Dr. Varela, consulted, apprec recs. Added plavix. - Permissive HTN for first 48 hours - PT/OT/Speech consulted, Case managment for rehab eval, would benefit from inpt rehab upon discharge - Continue Crestor, ASA CAD s/p CABG x 3 on 09/28/19 - recovering well, no events on tele. Uncontrolled DM - On home NPH and mild SS, cont home metformin - ACHS accuchecks - Hypoglycemic protocol HTN - permissive HTN for now, will restart home Lisinopril on 10/22 Unknown psychiatric disorder - unclear history, on seroquel, will cont, no acute exacerbation noted Indwelling milner, removed 10/21 Diet: CC IVF: SL Code: Full DVT: SCDs PCP: CC Dispo: Stable, inpatient.
[2019-10-22 05:21] LABS: Anion Gap 14 mmol/L (10-20); BUN (Urea Nitrogen) 14 mg/dL (8.4-25.7); Calc. Creatinine Clearance 78 mL/min (70-130); Carbon Dioxide 24 mmol/L (22-29); Chloride 104 mmol/L (98-107); Estimated GFR-MDRD 68; Glucose 130 mg/dL (70-105); Potassium 3.5 mmol/L (3.5-5.1); Sodium 138 mmol/L (136-145)
[2019-10-22] MEDS: NPH, Human Insulin Isophane 300 UNIT/3 ML VIAL SC SCH (08:55)
[2019-10-22] MEDS: Enoxaparin Sodium 40 MG/0.4 ML SYRINGE SC SCH (08:56)
[2019-10-22] MEDS: Tamsulosin HCl 0.4 MG CAP PO SCH (09:03)
[2019-10-22] MEDS: Aspirin 81 mg Enteric Coated Tablet PO SCH (09:04)
[2019-10-22] MEDS: metFORMIN 500 MG TAB PO SCH ×2 (09:05→17:10)
[2019-10-22] MEDS: Metoprolol Tartrate 100 MG TAB PO SCH (09:07)
[2019-10-22] MEDS: Amlodipine 5 MG TAB PO SCH (09:08)
[2019-10-22] MEDS: Clopidogrel Bisulfate 75 MG TAB PO SCH (09:08)
[2019-10-22] MEDS: HumaLOG 300 UNITS/3 ML VIAL SC PRN (11:23)
[2019-10-22 11:51] VITALS: TEMP 97.7
--- NOTE | 2019-10-22 12:43 | PRG ---
DATE OF SERVICE: 10/22/2019 I have examined the patient and discussed the case with the resident, Dr. Skyla Linda. I agree with her assessment and plan. Mr. Abreu had a MCA stroke leaving him with an expressive aphasia. He is on aspirin and Crestor as well as blood pressure control and will be referred for rehabilitation. Job ID: [id number]
[2019-10-22 15:37] VITALS: BP 113/69
--- NOTE | 2019-10-22 17:32 | PDOC.BPN ---
- Brief Progress Note Mr. Abreu was getting dressed to be discharged and felt chest discomfort and notified his nurse. I reevaluated him. His vital signs are stable and the pain quickly resolved. Upon further questioning it was a dull, achey pain that was reproduced when I pressed on his chest near his incision. I explained that he is likely to have lingering chest discomfort after his CABG. He states that he is comfortable with going home and has a friend coming to stay the night with him. 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
--- NOTE | 2019-10-22 17:33 | PDOC.CPN ---
- Subjective Date: 10/22/19 Time: 12:00 Interval history: No new issues. - Review of Systems General: denies: fever/chills, weight/appetite/sleep changes, night sweats, fatigue Respiratory: denies: cough, congestion, shortness of breath, exercise intolerance Cardiovascular: denies: chest pain, palpitation, edema, paroxysmal nocturnal dyspnea, orthopnea Gastrointestinal: denies: nausea, vomiting, diarrhea, constipation, abd pain, GI bleeding Musculoskeletal: denies: pain, tenderness, stiffness, swelling, arthritis/ arthralgias Neurological: denies: numbness, syncope, seizure, weakness - Objective Allergies/Adverse Reactions: Allergies Allergy/AdvReac Type Severity Reaction Status Date / Time No Known Allergies Allergy Verified 09/24/19 01:40 Visit Medications: Current Medications Acetaminophen (Tylenol) 650 mg PO Q4H PRN PRN Reason: Headache/Fever/Mild Pain (1-3) Amlodipine Besylate (Norvasc) 5 mg PO DAILY [facility] Last Admin: 10/22/19 09:08 Dose: 5 mg Aspirin (Ecotrin) 81 mg PO DAILY [facility] Last Admin: 10/22/19 09:04 Dose: 81 mg Clopidogrel Bisulfate (Plavix) 75 mg PO DAILY [facility] Last Admin: 10/22/19 09:08 Dose: 75 mg Dextrose/Water (Dextrose 50%) 25 gm SLOW IVP PRN PRN PRN Reason: Hypoglycemia Enoxaparin Sodium (Lovenox) 40 mg SC 0900 [facility] Last Admin: 10/22/19 08:56 Dose: 40 mg Glucagon (Glucagon) 1 mg IM PRN PRN PRN Reason: Hypoglycemia Hydralazine HCl (Apresoline) 10 mg SLOW IVP Q4H PRN PRN Reason: BP > 220/110 Dextrose/Water (D5w) 1,000 mls @ 0 mls/hr IV .Q0M PRN PRN Reason: Hypoglycemia Insulin Human Lispro (Humalog) 0 units SC .MILD SLIDING SCALE PRN PRN Reason: Mild Correctional Scale Last Admin: 10/22/19 11:23 Dose: 3 unit Insulin Human Lispro (Humalog) 0 units SC .BEDTIME SLIDING SC PRN PRN Reason: Bedtime Correctional Scale Last Admin: 10/20/19 22:32 Dose: 2 units Insulin Human NPH (Humulin N) 15 unit SC QAM [facility] Last Admin: 10/22/19 08:55 Dose: 15 unit Insulin Human NPH (Humulin N) 15 unit SC QPM [facility] Last Admin: 10/21/19 21:41 Dose: 15 unit Labetalol HCl (Normodyne) 20 mg SLOW IVP Q1H PRN PRN Reason: BP > 220/110 Metformin HCl (Glucophage) 500 mg PO BID-WM [facility] Last Admin: 10/22/19 17:10 Dose: 500 mg Metoprolol Tartrate (Lopressor) 100 mg PO BID [facility] Last Admin: 10/22/19 09:07 Dose: 100 mg Quetiapine Fumarate (Seroquel) 100 mg PO HS [facility] Last Admin: 10/21/19 21:40 Dose: 100 mg Rosuvastatin Calcium (Crestor) 20 mg PO HS [facility] Last Admin: 10/21/19 21:40 Dose: 20 mg Sodium Chloride (Flush - Normal Saline) 10 ml IVF PRN PRN PRN Reason: Saline Flush Tamsulosin HCl (Flomax) 0.4 mg PO BID [facility] Last Admin: 10/22/19 09:03 Dose: 0.4 mg Vital Signs & Weight: Vital Signs Temp Pulse Resp BP BP Pulse Ox 10/22/19 15:37 97.7 F 109 H 16 113/69 97 10/22/19 11:50 97.7 F 88 16 106/72 95 10/22/19 09:08 113 H 119/83 10/22/19 08:46 93 L 10/22/19 07:52 97.8 F 113 H 16 113/79 93 L Admit Weight 169 lb 11.2 oz Weight 169 lb 11.2 oz - Physical Exam General: alert & oriented x3 HEENT: mucus membranes moist Neck: supple neck Cardiac: regular rate and rhythm, no murmur Lungs: clear to auscultation Neuro: no lateralizing findings Abdomen: active bowel sounds Extremities: no edema Skin: clear Musculoskeletal: no pain - Labs Result Diagrams: 10/22/19 04:44 10/22/19 04:44 Troponin/CKMB CK-MB (CK-2) 1.9 ng/mL (0-6.6) 10/20/19 00:44 Troponin I 0.048 ng/mL (< 0.028) H 10/20/19 17:38 - Telemetry Sinus rhythms and dysrhythmias: sinus rhythm - Assessment/Plan Assessment/Plan: 1. Acute CVA 2. Recent CABG PLAN: - Most likely cardioembolic phenomenon. - Will recommend full anticoagulation for CVA protection. Eliquis 5 mg BID. - Will set up for 30 day monitor as outpatient and if negative will recommend LINQ.
--- NOTE | 2019-10-24 01:22 | PQF ---
Chetan Abreu GRADY [id number] CLINICAL DOCUMENTATION CLARIFICATION FORM: POST DISCHARGE Addendum to original discharge summary date: ____ Late entry note date: __ DATE: 10/24/19 ATTN: Jaylon Baca Please exercise your independent, professional judgment in responding to the clarification form. Clinical indicators are provided on the bottom of this form for your review Please check appropriate box(s): [ ] Acute CVA is a postoperative complication of CABG procedure [ x] Acute CVA is not a postoperative complication of CABG procedure [ ] Other diagnosis [ ] Unable to determine In addition, please specify: Present on Admission (POA): [ ]x Yes [ ] No [ ] Unable to determine CLINICAL INDICATORS - SIGNS / SYMPTOMS / LABS Hospitalist H&P p1 10/20 Dr Welch presents to ED for R sided arm and leg weakness and R sided facial droop with aphasia, began 2 hours before presentation, difficulty speaking and pronouncing words, took some time to ready by name badge. Hospitalist H&P p1 10/20 Dr Welch He had recent CABG done 3 weeks ago Hospitalist H&P p1 10/20 Dr Welch TPA held due to surgery 3weeks ago Cardio PN p3 10/22 Acute CVA with recent CABG, most likely cardioembolic phenomenon RISK FACTORS Hospitalist H&P p1 10/20 - CAD s/p CABG Hospitalist H&P p2 10/20 - Hypertension Hospitalist H&P p3 10/20 - Ischemic Stroke TREATMENT: Hospitalist H&P p4 10/20 - EKG ordered Hospitalist H&P p4 10/20 - Brain MRI ordered Hospitalist H&P p4 10/20 - PT/OT/Speech consult, case management rehab eval Hospitalist H&P p4 10/20 - Continue Crestor, ASA Hospitalist H&P p4 10/20 - Monitor Telemetry Neurology Consult 10/20 Ramin Rocha Cardiology Consult 10/20 Alexander Foreman (This form is maintained as a part of the permanent medical record) 2014 [email or web address] All Rights Reserved [email or web address] [email or web address] [not provided] [email or web address]
== END 2019-10-22 17:59 | disposition home or self-care (01) | DRG 65 ==
LOC: ERS 00:31 → 2SE 04:49
PROVIDERS: ADMIT Family Medicine; ATTEND Internal Medicine
DX: I63.512 Cerebral infarction due to unspecified occlusion or stenosis of left middle cerebral artery (principal); G81.91 Hemiplegia, unspecified affecting right dominant side; J90 Pleural effusion, not elsewhere classified; R47.01 Aphasia; I10 Essential (primary) hypertension; E78.5 Hyperlipidemia, unspecified; I25.10 Atherosclerotic heart disease of native coronary artery without angina pectoris; R29.708 NIHSS score 8; R40.2362 Coma scale, best motor response, obeys commands, at arrival to emergency department; R40.2142 Coma scale, eyes open, spontaneous, at arrival to emergency department; R40.2252 Coma scale, best verbal response, oriented, at arrival to emergency department; F17.220 Nicotine dependence, chewing tobacco, uncomplicated; R29.810 Facial weakness; N40.0 Benign prostatic hyperplasia without lower urinary tract symptoms; E11.65 Type 2 diabetes mellitus with hyperglycemia; Z95.1 Presence of aortocoronary bypass graft; Z79.899 Other long term (current) drug therapy; Z79.84 Long term (current) use of oral hypoglycemic drugs; Z79.82 Long term (current) use of aspirin
CPT/HCPCS: 36415; 36416; 70450; 70496; 70498; 70551; 71046; 80048; 80053; 80061; 82553; 84484; 85025; 85610; 85730; 93005; 93306; J1650; J1815; J2997; Q9967

== ENCOUNTER 2021-01-17 04:10 | Inpatient (IN) | payer SELFPAY ==
[2021-01-17 04:46] LABS: #Monocytes 0.7 thou/uL (0.11-0.59); #Neutrophils 4.6 thou/uL (1.40-6.50); %Basophils 0.3 % (0.0-1.0); %Eosinophils 0.2 % (0.0-10.0); %Lymphocytes 15.3 % (21.0-51.0); %Neutrophils 73.2 % (42.0-75.0); Hemoglobin 15.5 g/dL (14.0-18.0); Mean Corpuscular HGB CONC 34.7 g/dL (32.0-36.0); Mean Corpuscular Hemoglobin 30.3 pg (27.0-31.0); Mean Corpuscular Volume 87.5 fL (78.0-98.0); Mean Platelet Volume 9.4 fL (7.4-10.4); Platelet Count 248 thou/uL (130-400); Red Blood Cell (RBC) Count 5.12 mill/uL (4.70-6.10); White Blood Cell (WBC) Count 6.3 thou/uL (4.8-10.8)
[2021-01-17 05:08] LABS: ALT (SGPT) 21 U/L (8-55); AST (SGOT) 24 U/L (5-34); Albumin 3.9 g/dL (3.5-5.0); Alkaline Phosphatase 80 U/L (40-110); Anion Gap 17 mmol/L (10-20); BUN (Urea Nitrogen) 19 mg/dL (8.4-25.7); Bilirubin, Total 0.9 mg/dL (0.2-1.2); Calc. Creatinine Clearance 0 mL/min (70-130); Calcium 8.8 mg/dL (7.8-10.44); Carbon Dioxide 20 mmol/L (22-29); Chloride 104 mmol/L (98-107); Globulin 3.2 g/dL (2.4-3.5); Glucose 162 mg/dL (70-105); Potassium 3.3 mmol/L (3.5-5.1); Protein, Total 7.1 g/dL (6.0-8.3); Sodium 138 mmol/L (136-145)
[2021-01-17] MEDS ORDERED: Acetaminophen 500 MG TAB ONE (05:19)
[2021-01-17 05:31] LABS: CKMB 0.6 ng/mL (0-6.6)
[2021-01-17] MEDS ORDERED: Potassium Chloride 20 MEQ TAB ONE (05:31)
[2021-01-17 06:19] LABS: SARS-CoV-2 NAA Rapid Test DETECTED (NotDetected)
[2021-01-17] MEDS ORDERED: Dextrose 50% Abboject 50 ML SYRINGE SLOW IVP PRN (08:22)
[2021-01-17] MEDS ORDERED: Dextrose 5% in Water 1,000 ML IV PRN (08:22)
[2021-01-17] MEDS ORDERED: Enoxaparin Sodium 40 MG/0.4 ML SYRINGE SC SCH (08:30)
[2021-01-17] MEDS: Metoprolol Tartrate 100 MG TAB PO SCH ×2 (09:20→20:31)
[2021-01-17] MEDS: Aspirin 81 mg Enteric Coated Tablet PO SCH (09:20)
[2021-01-17] MEDS: Ascorbic Acid 500 mg Chewable Tablet PO SCH (09:20)
[2021-01-17] MEDS: Cholecalciferol 1,000 UNITS (25 MCG) TAB PO SCH (09:21)
[2021-01-17] MEDS: Lisinopril 2.5 MG TAB PO SCH (09:21)
[2021-01-17] MEDS: Zinc Sulfate 220 MG CAP PO SCH (09:21)
[2021-01-17 09:23] VITALS: BMI 26.1
[2021-01-17] MEDS: NPH, Human Insulin Isophane 300 UNIT/3 ML VIAL SC SCH ×2 (09:34→20:41)
[2021-01-17] MEDS ORDERED: REMDESIVIR (EUA) 200 MG in Sodium Chloride 0.9% 250 ML 210 ML IV SCH (09:45)
[2021-01-17 09:58] LABS: Troponin I 0.043 ng/mL (< 0.028)
[2021-01-17] MEDS ORDERED: Iopamidol 370 76% 100 ML VIAL ONE (12:00)
[2021-01-17 13:14] LABS: Troponin I 0.038 ng/mL (< 0.028)
[2021-01-17] MEDS: metFORMIN 500 MG TAB PO SCH (16:32)
[2021-01-17] MEDS: Atorvastatin Calcium 40 MG TAB PO SCH (20:31)
[2021-01-17] MEDS ORDERED: Acetaminophen 325 MG TAB PO PRN (22:06)
[2021-01-17] MEDS ORDERED: GUAIFENESIN SF SOLN 200 MG/10 ML UDCUP PO PRN (22:06)
[2021-01-18 05:09] LABS: ALT (SGPT) 18 U/L (8-55); AST (SGOT) 20 U/L (5-34); Albumin 3.4 g/dL (3.5-5.0); Alkaline Phosphatase 63 U/L (40-110); Anion Gap 13 mmol/L (10-20); BUN (Urea Nitrogen) 21 mg/dL (8.4-25.7); Bilirubin, Direct 0.3 mg/dL (0.1-0.3); Bilirubin, Total 0.6 mg/dL (0.2-1.2); CRP (Inflammatory) 3.55 mg/dL (= or < 0.5); Calc. Creatinine Clearance 83 mL/min (70-130); Calcium 8.5 mg/dL (7.8-10.44); Carbon Dioxide 24 mmol/L (22-29); Chloride 106 mmol/L (98-107); Globulin 2.9 g/dL (2.4-3.5); Glucose 109 mg/dL (70-105); Potassium 3.8 mmol/L (3.5-5.1); Protein, Total 6.3 g/dL (6.0-8.3); Sodium 139 mmol/L (136-145)
[2021-01-18] MEDS: NPH, Human Insulin Isophane 300 UNIT/3 ML VIAL SC SCH ×2 (08:26→20:12)
[2021-01-18] MEDS: Dexamethasone 4 MG TAB PO SCH (08:27)
[2021-01-18] MEDS: Lisinopril 2.5 MG TAB PO SCH (08:28)
[2021-01-18] MEDS: Ascorbic Acid 500 mg Chewable Tablet PO SCH (08:28)
[2021-01-18] MEDS: Enoxaparin Sodium 40 MG/0.4 ML SYRINGE SC SCH (08:28)
[2021-01-18] MEDS: Zinc Sulfate 220 MG CAP PO SCH (08:28)
[2021-01-18] MEDS: Cholecalciferol 1,000 UNITS (25 MCG) TAB PO SCH (08:28)
[2021-01-18] MEDS: Aspirin 81 mg Enteric Coated Tablet PO SCH (08:28)
[2021-01-18] MEDS: metFORMIN 500 MG TAB PO SCH ×2 (08:28→16:08)
[2021-01-18] MEDS: Metoprolol Tartrate 100 MG TAB PO SCH ×2 (08:28→20:15)
[2021-01-18] MEDS: REMDESIVIR (EUA) 100 MG in Sodium Chloride 0.9% 250 ML 230 ML IV SCH (09:13)
[2021-01-18] MEDS: HumaLOG 300 UNITS/3 ML VIAL SC PRN (16:09)
[2021-01-18] MEDS: Atorvastatin Calcium 40 MG TAB PO SCH (20:15)
[2021-01-19 05:59] LABS: ALT (SGPT) 17 U/L (8-55); AST (SGOT) 16 U/L (5-34); Albumin 3.3 g/dL (3.5-5.0); Alkaline Phosphatase 66 U/L (40-110); Bilirubin, Direct 0.2 mg/dL (0.1-0.3); Bilirubin, Total 0.5 mg/dL (0.2-1.2); Protein, Total 6.2 g/dL (6.0-8.3)
[2021-01-19] MEDS: HumaLOG 300 UNITS/3 ML VIAL SC PRN ×3 (06:33→16:55)
[2021-01-19] MEDS: Enoxaparin Sodium 40 MG/0.4 ML SYRINGE SC SCH (08:47)
[2021-01-19] MEDS: Lisinopril 2.5 MG TAB PO SCH (08:47)
[2021-01-19] MEDS: Aspirin 81 mg Enteric Coated Tablet PO SCH (08:47)
[2021-01-19] MEDS: Cholecalciferol 1,000 UNITS (25 MCG) TAB PO SCH (08:47)
[2021-01-19] MEDS: Zinc Sulfate 220 MG CAP PO SCH (08:47)
[2021-01-19] MEDS: Dexamethasone 4 MG TAB PO SCH (08:48)
[2021-01-19] MEDS: Ascorbic Acid 500 mg Chewable Tablet PO SCH (08:48)
[2021-01-19] MEDS: metFORMIN 500 MG TAB PO SCH ×2 (08:48→16:05)
[2021-01-19] MEDS: Metoprolol Tartrate 100 MG TAB PO SCH ×2 (08:48→21:24)
[2021-01-19] MEDS: NPH, Human Insulin Isophane 300 UNIT/3 ML VIAL SC SCH ×2 (08:53→21:24)
[2021-01-19] MEDS: Colchicine 0.6 MG TAB PO SCH ×2 (08:53→21:24)
[2021-01-19] MEDS: REMDESIVIR (EUA) 100 MG in Sodium Chloride 0.9% 250 ML 230 ML IV SCH (11:48)
[2021-01-19] MEDS: Atorvastatin Calcium 40 MG TAB PO SCH (21:24)
[2021-01-20 05:30] LABS: #Lymphocytes 1.1 thou/uL (1.20-3.40); #Monocytes 0.9 thou/uL (0.11-0.59); #Neutrophils 7.5 thou/uL (1.40-6.50); %Basophils 0.1 % (0.0-1.0); %Eosinophils 0.2 % (0.0-10.0); %Lymphocytes 11.6 % (21.0-51.0); %Monocytes 9.1 % (0.0-10.0); %Neutrophils 78.9 % (42.0-75.0); Hemoglobin 12.8 g/dL (14.0-18.0); Mean Corpuscular HGB CONC 34.4 g/dL (32.0-36.0); Mean Corpuscular Hemoglobin 30.4 pg (27.0-31.0); Mean Corpuscular Volume 88.4 fL (78.0-98.0); Mean Platelet Volume 9.5 fL (7.4-10.4); Platelet Count 298 thou/uL (130-400); RBC Distribution Width 11.6 % (11.5-14.5); White Blood Cell (WBC) Count 9.5 thou/uL (4.8-10.8)
[2021-01-20 06:02] LABS: ALT (SGPT) 17 U/L (8-55); AST (SGOT) 16 U/L (5-34); Alkaline Phosphatase 62 U/L (40-110); Anion Gap 13 mmol/L (10-20); BUN (Urea Nitrogen) 27 mg/dL (8.4-25.7); Bilirubin, Direct 0.2 mg/dL (0.1-0.3); Bilirubin, Total 0.3 mg/dL (0.2-1.2); CRP (Inflammatory) 0.92 mg/dL (= or < 0.5); Calc. Creatinine Clearance 89 mL/min (70-130); Calcium 8.4 mg/dL (7.8-10.44); Carbon Dioxide 22 mmol/L (22-29); Chloride 107 mmol/L (98-107); Glucose 297 mg/dL (70-105); Protein, Total 5.7 g/dL (6.0-8.3); Sodium 138 mmol/L (136-145)
[2021-01-20] MEDS: HumaLOG 300 UNITS/3 ML VIAL SC PRN ×2 (06:30→17:31)
[2021-01-20] MEDS: Dexamethasone 4 MG TAB PO SCH (08:08)
[2021-01-20] MEDS: metFORMIN 500 MG TAB PO SCH ×2 (08:08→17:31)
[2021-01-20] MEDS: Ascorbic Acid 500 mg Chewable Tablet PO SCH (08:09)
[2021-01-20] MEDS: Aspirin 81 mg Enteric Coated Tablet PO SCH (08:09)
[2021-01-20] MEDS: Cholecalciferol 1,000 UNITS (25 MCG) TAB PO SCH (08:09)
[2021-01-20] MEDS: Lisinopril 2.5 MG TAB PO SCH (08:09)
[2021-01-20] MEDS: Enoxaparin Sodium 40 MG/0.4 ML SYRINGE SC SCH (08:09)
[2021-01-20] MEDS: Colchicine 0.6 MG TAB PO SCH ×2 (08:09→20:58)
[2021-01-20] MEDS: Metoprolol Tartrate 100 MG TAB PO SCH ×2 (08:10→20:58)
[2021-01-20] MEDS: Zinc Sulfate 220 MG CAP PO SCH (08:11)
[2021-01-20] MEDS: NPH, Human Insulin Isophane 300 UNIT/3 ML VIAL SC SCH ×2 (08:12→21:02)
[2021-01-20] MEDS: REMDESIVIR (EUA) 100 MG in Sodium Chloride 0.9% 250 ML 230 ML IV SCH (09:46)
[2021-01-20] MEDS: Atorvastatin Calcium 40 MG TAB PO SCH (20:58)
[2021-01-21 04:46] LABS: #Lymphocytes 1.4 thou/uL (1.20-3.40); #Neutrophils 7.9 thou/uL (1.40-6.50); %Basophils 0.1 % (0.0-1.0); %Eosinophils 0.5 % (0.0-10.0); %Lymphocytes 13.4 % (21.0-51.0); %Monocytes 9.8 % (0.0-10.0); %Neutrophils 76.2 % (42.0-75.0); Hemoglobin 13.4 g/dL (14.0-18.0); Mean Corpuscular HGB CONC 33.5 g/dL (32.0-36.0); Mean Corpuscular Hemoglobin 29.4 pg (27.0-31.0); Mean Corpuscular Volume 87.9 fL (78.0-98.0); Mean Platelet Volume 9.2 fL (7.4-10.4); Platelet Count 344 thou/uL (130-400); RBC Distribution Width 11.8 % (11.5-14.5); Red Blood Cell (RBC) Count 4.54 mill/uL (4.70-6.10); White Blood Cell (WBC) Count 10.3 thou/uL (4.8-10.8)
[2021-01-21 05:13] LABS: ALT (SGPT) 32 U/L (8-55); AST (SGOT) 25 U/L (5-34); Albumin 3.3 g/dL (3.5-5.0); Alkaline Phosphatase 70 U/L (40-110); Anion Gap 14 mmol/L (10-20); BUN (Urea Nitrogen) 26 mg/dL (8.4-25.7); Bilirubin, Direct 0.3 mg/dL (0.1-0.3); Bilirubin, Total 0.5 mg/dL (0.2-1.2); Calc. Creatinine Clearance 90 mL/min (70-130); Calcium 8.7 mg/dL (7.8-10.44); Carbon Dioxide 25 mmol/L (22-29); Chloride 104 mmol/L (98-107); Glucose 163 mg/dL (70-105); Potassium 4.2 mmol/L (3.5-5.1); Protein, Total 6.3 g/dL (6.0-8.3); Sodium 139 mmol/L (136-145)
[2021-01-21] MEDS: HumaLOG 300 UNITS/3 ML VIAL SC PRN ×2 (05:25→11:49)
[2021-01-21] MEDS: REMDESIVIR (EUA) 100 MG in Sodium Chloride 0.9% 250 ML 230 ML IV SCH (09:52)
[2021-01-21] MEDS: Enoxaparin Sodium 40 MG/0.4 ML SYRINGE SC SCH (09:53)
[2021-01-21] MEDS: NPH, Human Insulin Isophane 300 UNIT/3 ML VIAL SC SCH (09:53)
[2021-01-21] MEDS: Cholecalciferol 1,000 UNITS (25 MCG) TAB PO SCH (09:54)
[2021-01-21] MEDS: Lisinopril 2.5 MG TAB PO SCH (09:54)
[2021-01-21] MEDS: Ascorbic Acid 500 mg Chewable Tablet PO SCH (09:54)
[2021-01-21] MEDS: Dexamethasone 4 MG TAB PO SCH (09:54)
[2021-01-21] MEDS: metFORMIN 500 MG TAB PO SCH (09:54)
[2021-01-21] MEDS: Metoprolol Tartrate 100 MG TAB PO SCH (09:54)
[2021-01-21] MEDS: Zinc Sulfate 220 MG CAP PO SCH (09:54)
[2021-01-21] MEDS: Aspirin 81 mg Enteric Coated Tablet PO SCH (09:55)
[2021-01-21] MEDS: Colchicine 0.6 MG TAB PO SCH (09:55)
[2021-01-21 12:59] VITALS: BP 139/86; TEMP 97.6
== END 2021-01-21 15:34 | disposition home or self-care (01) | DRG 177 ==
LOC: ERS 04:10 → SUATTDRO 04:10 → 2SW 06:29
PROVIDERS: ADMIT Student in an Organized Health Care Education/Training Program; ATTEND Internal Medicine
PROC: 8E0ZXY6 Isolation (ICD-10-PCS; principal; 2021-01-17)
PROC: XW033E5 Introduction of Remdesivir Anti-infective into Peripheral Vein, Percutaneous Approach, New Technology Group 5 (ICD-10-PCS; 2021-01-17)
DX: U07.1 COVID-19 (principal); J12.82 Pneumonia due to coronavirus disease 2019; J96.01 Acute respiratory failure with hypoxia; N40.0 Benign prostatic hyperplasia without lower urinary tract symptoms; E11.9 Type 2 diabetes mellitus without complications; I10 Essential (primary) hypertension; I25.10 Atherosclerotic heart disease of native coronary artery without angina pectoris; F17.210 Nicotine dependence, cigarettes, uncomplicated; E78.5 Hyperlipidemia, unspecified; F32.9 Major depressive disorder, single episode, unspecified; Z95.1 Presence of aortocoronary bypass graft; Z79.82 Long term (current) use of aspirin; Z79.899 Other long term (current) drug therapy; Z79.4 Long term (current) use of insulin; Z86.73 Personal history of transient ischemic attack (TIA), and cerebral infarction without residual deficits; Z90.49 Acquired absence of other specified parts of digestive tract
CPT/HCPCS: 0240U; 36415; 36416; 71045; 71275; 80048; 80053; 80076; 82553; 82728; 83605; 83880; 84484; 85025; 85379; 86140; 87040; 93005; 94760; J1650; J1815; J7050; J8540; Q9967